=== PATIENT | female | born 1965 | race Caucasian/White ===

== ENCOUNTER 2023-05-26 13:58 | Inpatient (IN) | payer MEDICARE, SELFPAY ==
[2023-05-26] VITALS (8 sets, daily range): BP systolic 85–119; BP diastolic 57–87; PULSE 67–95; RESP 15–26; TEMP 36.6; O2SAT 94–100
--- NOTE | ~2023-05-26 | CT_ITS ---
EXAMINATION: CT abdomen pelvis w con DATE: 05/26/2023 19:12 INDICATION: Diarrhea. Leukocytosis. TECHNIQUE: Computed tomography (CT) of the abdomen and pelvis was performed with 100 mL Omnipaque 350 intravenous contrast. Automated exposure control and iterative reconstruction technique were employe d. The dose-length product was 278.44 mGy-cm. COMPARISON: CT abdomen and pelvis 07/09/2018 FINDINGS: The visualized portions of the lung bases demonstrate a chronic 6 mm nodule left lower lobe , likely benign. There are groundglass opacities in right lower lobe. There is mild atelectasis bilat erally. No pleural effusion. The heart size is normal. No pericardial effusion. There is a small slid ing hiatal hernia. The liver, gallbladder, spleen, pancreas, adrenal glands, and kidneys are normal. There are no dilated loops of bowel. There is diverticulosis of the colon without evidence of diverti culitis. There are changes of appendectomy. There is liquid stool in the colon correlating with the s ymptom of diarrhea. There are no pathologically enlarged lymph nodes. There is no free intraperitonea l fluid. There is lumbar levoscoliosis and severe spondylosis. There are chronic compression fracture s of T11, T12, and L1. There are hemangiomas in L1 and L2 vertebral bodies. IMPRESSION: 1. Groundglass opacities in right lower lower lobe, consistent with pneumonia. 2. Small sliding hiatal hernia. Reviewed, dictated and finalized at location E. L B[facility]
--- NOTE | ~2023-05-26 | CT_ITS ---
EXAMINATION: CT brain wo con INDICATION: Vomiting and diarrhea COMPARISON: 04/13/2019 TECHNIQUE: Standard unenhanced head CT. The dose-length product (DLP) was 681.00 mGy-cm. The mA was a djusted according to patient size. Iterative reconstruction technique was employed. FINDINGS: No acute intraparenchymal hemorrhage. No evidence of mass lesion. No evidence of acute infa rction. There are areas of prior infarction involving the frontal lobes, the left occipital lobe, the left insula, and the right parietal lobe. There is mild periventricular and subcortical hypodensity probably related to small vessel ischemic disease. There is mild prominence of the sulci and ventricl es related to cerebral atrophy. Intracranial calcified cerebral atherosclerosis is noted. No extra-ax ial collections. No mass effect or midline shift. The orbits and soft tissues are unremarkable. The v isualized sinuses and mastoid air cells are well aerated. IMPRESSION: 1. Areas of prior infarction without acute intracranial abnormality. 2. Age related findings. Reviewed, dictated and finalized at location B. [facility]
--- NOTE | ~2023-05-26 | XR_ITS ---
EXAMINATION: XR chest 1V portable DATE: 05/26/2023 19:57 INDICATION: Cough and shortness of breath. TECHNIQUE: A single frontal view of the chest was obtained. COMPARISON: Chest single view 04/13/2019, CT abdomen and pelvis 05/26/2023 FINDINGS: There are interstitial opacities in the lower lung zones. No pleural effusion or pneumothor ax. The heart size is normal. IMPRESSION: 1. Interstitial opacities in the lower lung zones, consistent with mild pulmonary edema versus atypic al pneumonia. Reviewed, dictated and finalized at location E. [facility] IMPRESSION: 1. Interstitial opacities in the lower lung zones, consistent with mild pulmona ry edema versus atypical pneumonia.
--- NOTE | 2023-05-26 16:04 | PC.NURSE ---
Pt urinated on bedpan prior to sample being ordered. will try again soon.
--- NOTE | 2023-05-26 16:36 | ED.NAVMDI ---
HPI - Nausea/Vomiting/Diarrhea General Chief complaint: Nausea/Vomiting/Diarrhea Stated complaint: N/V/D Time Seen by Provider: 05/26/23 15:29 History of Present Illness HPI Narrative: Patient is a 57-year-old female with a history of CVA, hypertension, hyperlipidemia presenting with diarrhea. Patient states that she has had diarrhea for the last several days and she has been weak and she is concern for dehydration. She denies any pain. No nausea or vomiting. No dysuria or hematuria. No chest pain or shortness of breath. No coughing. No new numbness or weakness. Her brother and [id number] are at bedside and they state that the patient is always lying. They state that she has been complaining to them about profuse diarrhea for 2 weeks. States that she was too weak to walk around today which is why they called EMS. States that she is extremely stubborn and has left AMA during prior hospitalizations for CVA. Related Data Home Medications Medication Instructions Recorded Confirmed amlodipine 5 mg tablet 5 mg PO DAILY 05/26/23 05/27/23 atenolol 25 mg tablet 25 mg PO DAILY 05/26/23 05/27/23 atorvastatin 40 mg tablet 40 mg PO HS 05/26/23 05/27/23 mirtazapine 15 mg tablet 15 mg PO HS 05/26/23 05/27/23 Allergies Allergy/AdvReac Type Severity Reaction Status Date / Time Sulfa (Sulfonamide Allergy Unknown Unknown Verified 05/26/23 15:03 Antibiotics) Review of Systems Review of Systems: All systems reviewed & are unremarkable except as noted in HPI and below PMFSH Past Medical History Medical History (Updated 05/30/23 @ 20:39 by Zulay Kennedy MD) Anemia Arthritis CVA (cerebral vascular accident) DDD (degenerative disc disease) Depression GERD (gastroesophageal reflux disease) HTN (hypertension) Hyperlipidemia IBS (irritable bowel syndrome) Migraines MVP (mitral valve prolapse) Seasonal allergies Ulcer Wears glasses Wrist fracture, right Surgical History Surgical History History of appendectomy History of hysteroscopy Hx of tonsillectomy Family History Family History (Updated 05/27/23 @ 00:16 by Neftali Hall RN) Father Diabetes mellitus Acute myocardial infarction Mother Dementia Social History Social History Smoking packs per day: 0.1 Smoking cigarettes per day: 2.0 Years smoked: 10 Smoking pack-years: 1.00 Smoking status: Current every day smoker Tobacco type: cigarettes Smoking end date: 04/19/16 Alcohol intake: never Substance use: never Do You Feel Safe in your Home?: Yes Lack of Transportation: No Lack of Food: Never True Current Housing: I Have Housing Concerned About Future Housing: No Difficulty Paying Gas/Electric Bills: No Difficulty Paying for Meds: No Currently Unemployed: No Education: Never Attended/Kindergarten Only Difficulty w/ Childcare or Family Care: No Spiritual care concerns: No Agree to blood products: Yes Exam Narrative: GENERAL: Nontoxic, no acute distress HEAD: Normocephalic, atraumatic. EYES: PERRLA and EOMI. ENT: Grossly unremarkable NECK: Supple. CHEST: Clear to auscultation. No respiratory distress. HEART: Regular rate and rhythm. ABDOMEN: Soft, nontender, nondistended EXTREMITIES: Normal range of motion. No edema. SKIN: Warm, dry, no rash. NEURO: No focal deficits. Alert and oriented x3. PSYCH: Normal mood and affect. Course Vital Signs Vital signs: Vital Signs Temperature 97.8 F 05/26/23 14:00 Pulse Rate 95 05/26/23 14:00 Respiratory Rate 16 05/26/23 14:00 Blood Pressure 119/72 05/26/23 14:00 Pulse Oximetry 100 05/26/23 14:00 Oxygen Delivery Room Air 05/26/23 14:00 Temperature 98.0 F 05/28/23 11:57 Pulse Rate 91 05/28/23 12:00 Respiratory Rate 19 05/28/23 11:57 Blood Pressure 104/68 05/28/23 11:57 Pulse Oximetry
[2023-05-26 17:18] LABS: Hemoglobin 9.6 g/dL (12.0-15.0); Immature Platelet Fraction Pct 9.6 % (0.9-11.2); Mean Corpuscular HGB Conc 33.1 g/dl (32-36); Mean Corpuscular Hemoglobin 29.5 pg (26-34); Mean Corpuscular Volume 89.2 fl (80-100); Mean Platelet Volume 12.1 fl (7.4-10.4); Platelet Count Result 90 k/mm3 (150-375); Red Blood Count 3.25 M/mm3 (4.2-5.4); Red Cell Distribution Width 14.1 % (11.5-14.5); White Blood Count 36.3 K/mm3 (4.5-10.0)
[2023-05-26 17:19] LABS: Alanine Aminotransferase 29 U/L (6-35); Albumin Level 2.9 g/dL (3.5-5.1); Alkaline Phosphatase 93 U/L (38-126); Anion Gap 9 mmol/L (8-16); Aspartate Amino Transferase 54 U/L (14-36); Bilirubin,Total 1.8 mg/dL (0.2-1.3); Blood Urea Nitrogen 22 mg/dL (7-17); Carbon Dioxide 19 mmol/L (22-30); Chloride 103 mmol/L (98-107); Estimated CRCL calculation 34 ml/min; Estimated Glomerular Filt Rate 38; Glucose 104 mg/dL (65-110); Lipase 171 U/L (23-300); Potassium 3.5 mmol/L (3.4-5.0); Sodium 131 mmol/L (137-145)
[2023-05-26 17:34] LABS: Appearance Urine Clear (Clear); Bacteria Urine None Seen /hpf; Bilirubin Urine Negative (Negative); Blood Urine 1+ (Negative); Color Urine Yellow (Yellow); Glucose Urine UA Negative (Negative); Ketones Urine Negative (Negative); Leukocyte Esterase Ur Negative LEU/UL (Negative); Need Manual Microscopic Reviewed; Nitrate Urine Negative (Negative); Non Pathogenic Casts 0-2; Protein Urine Negative (Negative); RBC Urine 0-2 /hpf (0-2); Specific Grav Ur 1.005 (1.001-1.035); Squamous Epithelial Cell Urine None seen /hpf (Few); Urobilinogen Urine 0.2 mg/dL (<2.0); WBC Urine 0-5 /hpf; pH Urine 5.5 (5.0-9.0)
[2023-05-26] MEDS: SODIUM CHLORIDE 0.9% IV 1,000 ML 999 ML IV CONT ×3 (17:39→21:42)
[2023-05-26 17:43] LABS: Add Urine Microscopic? YES
[2023-05-26 18:17] LABS: Band Neutrophils Percent 9 % (0-6); Lymphocytes Absolute Manual 0.36 K/mm3 (1.1-4.5); Monocytes Absolute Manual 1.08 K/mm3 (0.1-0.90); Monocytes Percent Manual 3 % (3-9); Neutrophils Absolute Manual 34.84 K/mm3 (1.7-7.2); Neutrophils Percent Manual 87 % (46-73); Platelet Estimate Decreased (Adequate); Total Cells Counted 100
[2023-05-26 18:18] LABS: Schistocytes None Seen (NORMAL)
[2023-05-26 20:33] LABS: Influenza A QL RT-PCR Negative (Negative); Influenza B QL RT-PCR Negative (Negative); RSV RNA, RT-PCR Negative (Negative); SARS-CoV-2 RNA PCR Positive (Negative)
--- NOTE | 2023-05-26 21:27 | PM.IMHP ---
H&P: HPI History of Present Illness Date/Time: 05/26/23 21:27 Chief Complaint: Generalized weakness Narrative: This is a 57-year-old female with past medical history significant for hypertension, stroke, expressive aphasia, degenerative joint disease, GERD, mitral valve prolapse, migraine headaches. Patient presents to the emergency room due to generalized weakness, poor appetite, diarrhea for several days, shortness of breath. History taking is limited due to patient's prior strokes and aphasia. Preliminary workup was significant for paced chin-tuck tested positive for COVID chest x-ray showed lung infiltrates a CBC was significant for leukocyte count of 36,000, chemistry panel was significant for sodium 131 creatinine 1.4 bicarb of 19. Patient has been admitted for further evaluation management and treatment. EXAMINATION: CT brain wo con ? INDICATION: Vomiting and diarrhea ? COMPARISON: 04/13/2019 TECHNIQUE: Standard unenhanced head CT. The dose-length product (DLP) was 681.00 mGy-cm. The mA was adjusted according to patient size. Iterative reconstruction technique was employed. ? FINDINGS: No acute intraparenchymal hemorrhage. No evidence of mass lesion. No evidence of acute infarction. There are areas of prior infarction involving the frontal lobes, the left occipital lobe, the left insula, and the right parietal lobe. There is mild periventricular and subcortical hypodensity probably related to small vessel ischemic disease. There is mild prominence of the sulci and ventricles related to cerebral atrophy. Intracranial calcified cerebral atherosclerosis is noted. No extra-axial collections. No mass effect or midline shift. The orbits and soft tissues are unremarkable. The visualized sinuses and mastoid air cells are well aerated. IMPRESSION: 1. Areas of prior infarction without acute intracranial abnormality. 2. Age related findings. EXAMINATION: CT abdomen pelvis w con DATE: 05/26/2023 19:12 INDICATION: Diarrhea. Leukocytosis. TECHNIQUE: Computed tomography (CT) of the abdomen and pelvis was performed with 100 mL Omnipaque 350 intravenous contrast. Automated exposure control and iterative reconstruction technique were employed. The dose-length product was 278.44 mGy-cm. COMPARISON: CT abdomen and pelvis 07/09/2018 FINDINGS: The visualized portions of the lung bases demonstrate a chronic 6 mm nodule left lower lobe, likely benign. There are groundglass opacities in right lower lobe. There is mild atelectasis bilaterally. No pleural effusion. The heart size is normal. No pericardial effusion. There is a small sliding hiatal hernia. The liver, gallbladder, spleen, pancreas, adrenal glands, and kidneys are normal. There are no dilated loops of bowel. There is diverticulosis of the colon without evidence of diverticulitis. There are changes of appendectomy. There is liquid stool in the colon correlating with the symptom of diarrhea. There are no pathologically enlarged lymph nodes. There is no free intraperitoneal fluid. There is lumbar levoscoliosis and severe spondylosis. There are chronic compression fractures of T11, T12, and L1. There are hemangiomas in L1 and L2 vertebral bodies. IMPRESSION: 1. Groundglass opacities in right lower lower lobe, consistent with pneumonia. 2. Small sliding hiatal hernia. EXAMINATION: XR chest 1V portable DATE: 05/26/2023 19:57 INDICATION: Cough and shortness of breath. TECHNIQUE: A single frontal view of the chest was obtained. COMPARISON: Chest single view 04/13/2019, CT abdomen and pelvis 05/26/2023 FINDINGS: There are interstitial opacities in the lower lung zones. No pleural effusion or pneumothorax. The heart size is normal. IMPRESSION: 1. Interstitial opacities in the lower lung zones, consistent with mild pulmonary edema versus atypical pneumonia. Review of Systems Review of Systems: Diarrhea, generalized weakness, poor appetite, shortness of breath. Constitutional: Cons
[2023-05-26 21:41] LABS: Toxigenic C. Diff NEGATIVE (NEGATIVE)
[2023-05-26] MEDS: AZITHROMYCIN 500 MG/NS 250 ML 500 MG/250 ML BAG 250 MG IVPB (21:42)
[2023-05-27] VITALS (17 sets, daily range): BP systolic 85–98; BP diastolic 47–63; PULSE 66–86; RESP 16–18; TEMP 36.4–36.9; O2SAT 93–98; BMI 19.7
--- NOTE | 2023-05-27 | ECHO_ITS ---
Patient Info Name: Elias Luis Age: 57 years : 1965 Gender: Female Ht: 64 in Wt: 164 lbs BSA: 1.85 m2 HR: 86 bpm BP: 94 / 47 mmHg Heart Rhythm: Sinus Rhythm Technical Quality: Good Exam Date: 05/27/2023 9:17 AM Exam Location: Echo Lab Patient Status: Inpatient Admit Date: 05/26/2023 Staff Ordering Physician: Malinda Woodson MD Cab Driver: Dalton Damon RDCS Attending Provider: Malinda Woodson MD Referring Physician: Chintan ALAS; Exam Type: CA echo doppler color flow Study Info Indications - stroke Complete two-dimensional, color flow and Doppler transthoracic echocardiogram is performed. Summary 1. Left ventricular chamber dimension is normal. 2. Left ventricular systolic function is normal, estimated at >70%. 3. The left ventricular diastolic function is grade I diastolic dysfunction. 4. Right ventricular systolic function is normal. 5. There is moderate mitral valve regurgitation. 6. There is mild tricuspid valve regurgitation. Left Ventricle Left ventricular chamber dimension is normal. Left ventricular systolic function is normal, estimated at >70%. There is no increased left ventricular wall thickness. The left ventricular diastolic function is grade I diastolic dysfunction. Right Ventricle Right ventricular chamber dimension is normal. Right ventricular systolic function is normal. Left Atria Left atrial chamber dimension is normal. Right Atria Right atrial chamber dimension is normal. Atrial Septum Intact interatrial septum visualized by color flow imaging. Aortic Valve The aortic valve is probable trileaflet. There is no aortic valve stenosis. There is no aortic valve regurgitation. Pulmonic Valve The pulmonic valve is not well visualized. Mitral Valve The mitral valve has thickened leaflets. There is moderate mitral valve regurgitation. The mitral valve annulus is mildly calcified. Tricuspid Valve There is mild tricuspid valve regurgitation. Pericardium/Pleural There is no pericardial effusion. Inferior Vena Cava Normal inferior vena cava with >50% collapse upon inspiration consistent with normal right atrial pressure, 3 mmHg. Aorta The aortic root size at the sinus of Valsalva is normal. Left Ventricular Outflow Tract Name Value Normal LVOT 2D LVOT Diameter 1.9 cm Pulmonic Valve Name Value Normal RVOT Doppler RVOT Peak Gradient 3 mmHg PV Doppler PV Peak Gradient 5 mmHg Mitral Valve Name Value Normal MV Doppler MV Peak Gradient 16 mmHg MV Mean Gradient 7 mmHg MV Decel Bosque 577 cm/s2 MV PHT
--- NOTE | 2023-05-27 00:24 | ADMGEN ---
This patient, Elias Luis, was admitted to IMU Room 212-01. Patient/family oriented to hospital policies and general routines including ID bracelet, bed and alarms, visiting hours, pain management, procedures, bathroom and other care routines, personal items, smoking policy, room service/diet, and visiting hours. Information on how to activate the Rapid Response Team has been discussed. Patient/Family are encouraged to report perceived risks to care and to ask questions if they do not understand what they are told or what they should do.
[2023-05-27] MEDS: DEXTROSE 5%/0.45% SOD CHL 1,000 ML 75 ML IV CONT (02:02)
[2023-05-27] MEDS: amLODIPine BESYLATE 5 MG TABLET PO (09:49)
[2023-05-27] MEDS: atenoloL 25 MG TABLET PO (11:44)
--- NOTE | 2023-05-27 15:44 | PM.IMPN ---
Progress Note: A&P Assessment and Plan (1) Pneumonia due to COVID-19 virus: Code(s): U07.1 - COVID-19; J12.82 - Pneumonia due to coronavirus disease 2019 Status: Acute Assessment and Plan: Remdesivir Patient started on antibiotics for bacterial coverage Cultures in progress ECHO showed normal left ventricular function Continue to monitor (2) CVA (cerebral vascular accident): Code(s): I63.9 - Cerebral infarction, unspecified Status: Acute Assessment and Plan: Patient is on atorvastatin, not on Antiplatelets investigate with residual expressive aphasia (3) Diarrhea: Code(s): R19.7 - Diarrhea, unspecified Status: Acute Assessment and Plan: improving, likely from Covid Supportive care C difficile is negative (4) MVP (mitral valve prolapse): Code(s): I34.1 - Nonrheumatic mitral (valve) prolapse Status: Acute Assessment and Plan: Continue to monitor (5) Migraines: Code(s): G43.909 - Migraine, unspecified, not intractable, without status migrainosus Status: Acute Assessment and Plan: Stable (6) Expressive aphasia: Code(s): R47.01 - Aphasia Status: Acute Assessment and Plan: Supportive care Subjective Date/time seen: 05/27/23 15:44 Interval history: COvid 19 and diarrhea with possible bacterial PNA Symptoms improving possible discharge tomorrow Review of Systems Review of Systems: Diarrhea, generalized weakness, poor appetite, shortness of breath. Constitutional: Constitutional: Reports chills, Reports fatigue, Reports malaise, Reports poor appetite and Reports weakness Eyes: Eyes: Denies change in vision ENT: Denies dysphagia and Denies odynophagia Cardiovascular: Cardiovascular: Denies chest pain, Denies radiating jaw, neck or arm pain, Denies palpitations and Reports dyspnea Respiratory: Respiratory: Denies cough and Reports dyspnea Gastrointestinal: Gastrointestinal: Denies abdominal pain, Denies dysphagia, Denies dyspepsia, Denies heartburn, Reports diarrhea, Denies nausea, Denies odynophagia and Denies vomiting Genitourinary: Genitourinary: Denies dysuria Musculoskeletal: Musculoskeletal: Reports muscle weakness Integumentary/Breasts: Skin/Breast: Denies rash Neurologic: Denies focal weakness, Denies Sensory deficit (Neuro) and Reports weakness Psychiatric: Psychiatric: Reports no additional psychiatric complaints and Reports as per HPI Endocrine: Endocrine: Denies cold intolerance, Reports fatigue, Denies flushing, Denies heat intolerance, Denies polyphagia, Denies polydipsia and Denies palpitations Hematologic/Lymphatic: Hematologic/Lymphatic: Reports no additional hematologic/lymphatic complaints and Reports as per HPI Allergic/Immunologic: Allergic/Immunologic: Reports no additional allergic/immunologic complaints and Reports as per HPI Exam Narrative: Laying in a stretcher Const: General: comfortable, no acute distress, well developed, alert, awake and average body habitus Nutritional Appearance: average body habitus Orientation/consciousness: patient oriented x3 Other: Ill-appearing HENMT: Head: normal to inspection, normocephalic and atraumatic Ears: hearing grossly normal bilaterally Face/Nose/Sinus: normal facial exam Face and sinus: normal facial exam Eyes: General: appearance normal, both eyes and all related structures Pupils: Equal, round and reactive pupils present EOM: EOMs intact bilaterally Neck: Neck: full ROM, no lymphadenopathy and no JVD Thyroid: thyroid normal Lymphatic: no lymphadenopathy noted Resp: Effort & Inspection: normal respiratory effort and able to speak in complete sentences Auscultation: clear to auscultation bilaterally Cardio: Jugular venous distension: no JVD Rate: regular rate Rhythm: regular rhythm Heart sounds: S1 normal heart sound present and S2 normal heart sound present : General: Yes deferred
[2023-05-27] MEDS: REMDESIVIR 200 MG/NS 250 ML 200 MG/250 ML BAG 250 MG IVPB (17:11)
[2023-05-27] MEDS: ATORVASTATIN 40 MG TABLET PO (20:36)
[2023-05-27] MEDS: MIRTAZAPINE 15 MG TABLET PO (20:36)
[2023-05-28] VITALS (10 sets, daily range): BP systolic 104–110; BP diastolic 55–68; PULSE 68–91; RESP 18–19; TEMP 36.4–37.2; O2SAT 89–98
[2023-05-28 08:01] LABS: Alanine Aminotransferase 39 U/L (6-35); Albumin Level 2.6 g/dL (3.5-5.1); Alkaline Phosphatase 74 U/L (38-126); Aspartate Amino Transferase 95 U/L (14-36); Bilirubin,Total 1.1 mg/dL (0.2-1.3)
[2023-05-28 08:05] LABS: Prothrombin Time 14.2 Seconds (11.1-14.7)
[2023-05-28] MEDS: amLODIPine BESYLATE 5 MG TABLET PO (08:32)
[2023-05-28] MEDS: atenoloL 25 MG TABLET PO (08:32)
--- NOTE | 2023-05-28 08:59 | PCPTNOTE ---
Attempted PT evaluation, pt refused stating she wants to go home. When attempted to encourage pt to participate she stated she has the right to refuse. RN aware.
[2023-05-28 11:02] LABS: Hematocrit 29.8 % (37.0-47.0); Hemoglobin 9.5 g/dL (12.0-15.0); Mean Corpuscular HGB Conc 31.9 g/dl (32-36); Mean Corpuscular Hemoglobin 28.9 pg (26-34); Mean Corpuscular Volume 90.6 fl (80-100); Mean Platelet Volume 12.1 fl (7.4-10.4); Platelet Count Result 128 k/mm3 (150-375); Red Blood Count 3.29 M/mm3 (4.2-5.4); Red Cell Distribution Width 14.6 % (11.5-14.5); White Blood Count 7.3 K/mm3 (4.5-10.0)
[2023-05-28 11:28] LABS: Anion Gap 7 mmol/L (8-16); Blood Urea Nitrogen 13 mg/dL (7-17); Calcium 7.9 mg/dL (8.4-10.2); Carbon Dioxide 18 mmol/L (22-30); Chloride 112 mmol/L (98-107); Estimated CRCL calculation 34 ml/min; Estimated Glomerular Filt Rate 42; Glucose 98 mg/dL (65-110); Potassium 3.3 mmol/L (3.4-5.0); Sodium 137 mmol/L (137-145)
--- NOTE | 2023-05-28 11:54 | PM.DS ---
DS: Admitting Diagnosis Discharge Date 05/28/2023 Admitting Diagnosis Diarrhea DS: Discharge Diagnosis Discharge Diagnosis (1) Pneumonia due to COVID-19 virus: Code(s): U07.1 - COVID-19; J12.82 - Pneumonia due to coronavirus disease 2018 Status: Acute (2) CVA (cerebral vascular accident): Code(s): I63.9 - Cerebral infarction, unspecified Status: Acute (3) Diarrhea: Code(s): R19.7 - Diarrhea, unspecified Status: Acute (4) MVP (mitral valve prolapse): Code(s): I34.1 - Nonrheumatic mitral (valve) prolapse Status: Acute (5) Migraines: Code(s): G43.909 - Migraine, unspecified, not intractable, without status migrainosus Status: Acute (6) Expressive aphasia: Code(s): R47.01 - Aphasia Status: Acute DS: Summary Hospital Course Hospital Course: Patient is a 57-year-old female with a history of CVA, hypertension, hyperlipidemia presenting with diarrhea.? Patient states that she has had diarrhea for the last several days and she has been weak and she is concern for dehydration.? She denies any pain.? No nausea or vomiting.? No dysuria or hematuria.? No chest pain or shortness of breath.? No coughing.? No new numbness or weakness.. On ED evaluation she was noted to have white cell count of 36,000 mild anemia which is chronic. Renal insufficiency which is chronic. Tested positive for COVID. Chest x-ray with right lower lobe pneumonia. CT abdomen pelvis was done which showed ground-glass opacity in the right lower lobe consistent with pneumonia and small sliding hiatal hernia. CT head was negative for any acute abnormality. She was started on IV antibiotics on admission. Repeat WBC count was normalized on 05/28/2023. Vitals were stable. She reports her cough and diarrhea is resolved. She was able to reiterate her history of present illness as well as per previous medical problems. She was adamant at going home and since clinically stable for discharge home. She did not require any oxygen supplementation during the hospital stay. She did receive a dose of remdesivir for her COVID on admission. With no hypoxia no further remdesivir was deemed necessary. She did not have any other respiratory symptoms at all. Blood culture obtained on admission was also no growth to date. She will be switched to oral antibiotics for her pneumonia at discharge. Time Spent with Patient Time attestation: Total time spent providing and/or coordinating discharge services: 35 minutes Exam Narrative: GENERAL:? Nontoxic, no acute distress HEAD: Normocephalic, atraumatic. EYES: PERRLA and EOMI. ENT:? Grossly unremarkable NECK: Supple. CHEST: Clear to auscultation.? No respiratory distress. HEART: Regular rate and rhythm. ABDOMEN: Soft, nontender, nondistended EXTREMITIES: Normal range of motion.? No edema. SKIN: Warm, dry, no rash. NEURO: No focal deficits.? Alert and oriented x3. PSYCH: Mildly upset for being in the hospital DS: Data Data Completed and Pending Completed studies during hospitalization: Exam Type: ? ? CA echo doppler color flow Study Info Indications ?? ? - stroke Complete two-dimensional, color flow and Doppler transthoracic echocardiogram is performed. Account #: ? ? [id number] Summary ? 1. Left ventricular chamber dimension is normal. ? 2. Left ventricular systolic function is normal, estimated at >70%. ? 3. The left ventricular diastolic function is grade I diastolic dysfunction. ? 4. Right ventricular systolic function is normal. ? 5. There is moderate mitral valve regurgitation. ? 6. There is mild tricuspid valve regurgitation. Left Ventricle ? Left ventricular chamber dimension is normal. ? Left ventricular systolic function is normal, estimated at >70%. ? There is no increased left ventricular wall thickness. ? The left ventricular diastolic function is grade I diastolic dysfunction. Right Ventricle ? Right ventricular chamber
== END 2023-05-28 13:00 | disposition home or self-care (01) | DRG 177 ==
LOC: ANHED 16:00 → ANHIMU 22:17
PROVIDERS: Internal Medicine; Admitting Provider Internal Medicine; Emergency Provider Emergency Medicine; Visit Provider Internal Medicine
DX: U07.1 COVID-19 (principal); J12.82 Pneumonia due to coronavirus disease 2019; I10 Essential (primary) hypertension; E78.5 Hyperlipidemia, unspecified; K21.9 Gastro-esophageal reflux disease without esophagitis; K44.9 Diaphragmatic hernia without obstruction or gangrene; K58.9 Irritable bowel syndrome, unspecified; M19.90 Unspecified osteoarthritis, unspecified site; F32.A Depression, unspecified; F17.210 Nicotine dependence, cigarettes, uncomplicated; I69.320 Aphasia following cerebral infarction
CPT/HCPCS: 36415; 70450; 71045; 74177; 80048; 80053; 80076; 81001; 83690; 85025; 85027; 85055; 85610; 87040; 87493; 87637; 93306; 96361; 96365; 97165; 99285; A9270; J0248; J0456; J0696; J7030; Q9967

== ENCOUNTER 2023-06-27 16:07 | Inpatient (IN) | payer MEDICARE, OTHER, SELFPAY ==
[2023-06-27] VITALS (25 sets, daily range): BP systolic 95–116; BP diastolic 48–70; PULSE 75–84; RESP 16–32; TEMP 36.6; O2SAT 88–100
--- NOTE | ~2023-06-27 | XR_ITS ---
EXAMINATION: XR chest 1V portable DATE: 06/27/2023 17:36 INDICATION: Shortness of breath. TECHNIQUE: A single frontal view of the chest was obtained. COMPARISON: Chest single view 05/26/2023, CT abdomen and pelvis 05/26/23 FINDINGS: There are airspace opacities in all lung zones bilaterally with sparing of the lung apices. There is a small left pleural effusion. No pneumothorax. The heart size is normal. IMPRESSION: 1. Worsened diffuse lung disease, consistent with pulmonary edema versus pneumonia. 2. Small left pleural effusion. Reviewed, dictated and finalized at location E. IMPRESSION: 1. Worsened diffuse lung disease, consistent with pulmonary edema versus pneumo kehinde. 2. Small left pleural effusion.
--- NOTE | ~2023-06-27 | CT_ITS ---
EXAMINATION: CTA chest PE protocol DATE: 06/27/2023 19:21 INDICATION: Hypoxia. TECHNIQUE: Computed tomography angiography (CTA) of the chest was performed with 100 mL Omnipaque-350 intravenous contrast timed to evaluate the pulmonary arteries. Coronal maximum intensity projection 3D-reconstructions were created by the technologist. Automated exposure control and iterative reconst ruction technique were employed. The dose-length product was 180.80 mGy-cm. COMPARISON: CT abdomen and pelvis 05/26/23 FINDINGS: There are widespread patchy groundglass and airspace opacities in the lungs. There is diffu se septal thickening in the lungs. There are small pleural effusions. Cardiomegaly is noted. No peric ardial effusion. There is no pulmonary embolus. There is thoracic dextroscoliosis and severe spondylo sis. There are chronic fractures of T11, T12, and L1 vertebral bodies. There is a hemangioma in L1 ve rtebral body. IMPRESSION: 1. No pulmonary embolus. 2. Diffuse lung disease, likely a combination of pneumonia and pulmonary edema. 3. Small pleural effusions. Reviewed, dictated and finalized at location E.
--- NOTE | 2023-06-27 16:14 | ECG_ITS ---
Measurements Intervals [place] Rate: 81 P: 37 [place]: 128 QRS: 76 QRSD: 92 T: 79 QT: 389 QTc: 453 Interpretive Statements SINUS RHYTHM ATRIAL PREMATURE COMPLEXES BASELINE ARTIFACT- I, II, III, AVR, AVL, AVF, V1-V6 BORDERLINE ECG COMPARED TO ECG 04/13/2019 19:29:51 NO SIGNIFICANT CHANGES Electronically Signed On 06-28-2023 14:25:09 CDT by Micheal Rangel D.O.
--- NOTE | 2023-06-27 16:25 | ECG_ITS ---
Measurements Intervals [place] Rate: 79 P: 47 [place]: 155 QRS: 70 QRSD: 97 T: 14 QT: 365 QTc: 420 Interpretive Statements SINUS RHYTHM POSSIBLE LEFT ATRIAL ENLARGEMENT BORDERLINE ST-T WAVE ABNORMALITY- INF/LAT LEADS BASELINE ARTIFACT- II, III, AVF, V1-V6 BORDERLINE ECG COMPARED TO ECG 04/13/2019 19:29:51 NO SIGNIFICANT CHANGES Electronically Signed On 06-27-2023 20:17:36 CDT by Micheal Rangel D.O.
--- NOTE | 2023-06-27 16:48 | ED.GENADULT ---
HPI - General Adult General Chief complaint: Shortness of Breath/Dyspnea Stated complaint: sob Time Seen by Provider: 06/27/23 16:09 Source: patient Mode of arrival: EMS Limitations: no limitations History of Present Illness HPI narrative: 57-year-old female presenting for cough primarily. Patient recently was diagnosed with pneumonia and COVID and was in the hospital for several days and discharged recently. The says that she thinks that she did not get enough antibiotic because she still been coughing. She wanted to be evaluated again. Family says that she has been getting short of breath when she ambulates She but she says that she isn't really having many concerns with Getting short of breath. She thinks she needs more antibiotics because she thinks the pneumonia still there. She does her symptoms have Not really became any worse but her symptoms have been consistent since she was discharged. Related Data Home Medications Medication Instructions Recorded Confirmed amlodipine 5 mg tablet 5 mg PO DAILY 05/26/23 06/27/23 atenolol 25 mg tablet 25 mg PO DAILY 05/26/23 06/27/23 atorvastatin 40 mg tablet 40 mg PO HS 05/26/23 06/27/23 mirtazapine 15 mg tablet 15 mg PO HS 05/26/23 06/27/23 Allergies Allergy/AdvReac Type Severity Reaction Status Date / Time Sulfa (Sulfonamide Allergy Unknown Unknown Verified 06/27/23 16:20 Antibiotics) Review of Systems Review of Systems: All systems reviewed & are unremarkable except as noted in HPI and below PMFSH Past Medical History Medical History Anemia Arthritis CVA (cerebral vascular accident) DDD (degenerative disc disease) Depression GERD (gastroesophageal reflux disease) HTN (hypertension) Hyperlipidemia IBS (irritable bowel syndrome) Migraines MVP (mitral valve prolapse) Seasonal allergies Ulcer Wears glasses Wrist fracture, right Surgical History Surgical History History of appendectomy History of hysteroscopy Hx of tonsillectomy Family History Family History Father Diabetes mellitus Acute myocardial infarction Mother Dementia Social History Social History Smoking packs per day: 0.1 Smoking cigarettes per day: 2.0 Years smoked: 10 Smoking pack-years: 1.00 Smoking status: Current every day smoker Tobacco type: cigarettes Smoking end date: 04/19/16 Alcohol intake: never Substance use: never Do You Feel Safe in your Home?: Yes Lack of Transportation: No Lack of Food: Never True Current Housing: I Have Housing Concerned About Future Housing: No Difficulty Paying Gas/Electric Bills: No Difficulty Paying for Meds: No Currently Unemployed: No Education: Never Attended/Kindergarten Only Difficulty w/ Childcare or Family Care: No Spiritual care concerns: No Agree to blood products: Yes Exam Narrative: Constitutional: Generally well appearing, no acute distress Head: Atraumatic, no deformities. Eyes: Pupils equal, round, and reactive to light. Neck: Supple, no tracheal deviation, no JVD. ENMT: Mucous membranes moist Cardiovascular: S1, S2 auscultated. No murmurs, rubs, or gallops. No S3/S4. Normal Distal pulses. No peripheral edema. Respiratory: Lung sounds equal. No wheezes, rales, or rhonchi. Gastrointestinal: Abdomen was soft and non-tender. Non-distended. No rebound or guarding. Genitourinary: Deferred Musculoskeletal: Normal muscle tone and bulk. No obvious deformities or tenderness over extremities. Skin: No rashes. Neurological: Strength 5/5 in extremities. Cranial nerves I-XII grossly intact. Distal sensation intact. Mental Status: Awake, alert and oriented x3. Follows commands Course Vital Signs Vital signs: Vital Signs Pulse Rate 81 06/27/23 16:10
[2023-06-27 17:55] LABS: Basophils Absolute Auto 0.1 K/mm3 (0.0-0.1); Basophils Percent Auto 0.5 % (0.2-1.2); Eosinophils Absolute Auto 0.2 K/mm3 (0-0.3); Eosinophils Percent Auto 1.8 % (0-4.4); Hematocrit 30.9 % (37.0-47.0); Hemoglobin 9.4 g/dL (12.0-15.0); Immature Granulocyte Absolute 0.06 K/mm3 (0.00-0.031); Immature Granulocyte Percent A 0.6 % (0-0.5); Lymphocytes Absolute Auto 1.22 K/mm3 (0.9-3.2); Lymphocytes Percent Auto 12.3 % (18.3-44.2); Mean Corpuscular HGB Conc 30.4 g/dl (32-36); Mean Corpuscular Hemoglobin 28.3 pg (26-34); Mean Corpuscular Volume 93.1 fl (80-100); Mean Platelet Volume 10.8 fl (7.4-10.4); Monocytes Absolute Auto 0.6 K/mm3 (0.1-0.6); Monocytes Percent Auto 6.1 % (2.6-8.5); Neutrophils Absolute Auto 7.8 K/mm3 (1.3-6.7); Neutrophils Percent Auto 78.7 % (45.5-73.1); Platelet Count Result 156 k/mm3 (150-375); Red Blood Count 3.32 M/mm3 (4.2-5.4); Red Cell Distribution Width 15.5 % (11.5-14.5); White Blood Count 9.9 K/mm3 (4.5-10.0)
[2023-06-27 18:04] LABS: Alanine Aminotransferase 12 U/L (6-35); Albumin Level 3.8 g/dL (3.5-5.1); Alkaline Phosphatase 89 U/L (38-126); Anion Gap 8 mmol/L (8-16); Aspartate Amino Transferase 24 U/L (14-36); Bilirubin,Total 1.6 mg/dL (0.2-1.3); Blood Urea Nitrogen 31 mg/dL (7-17); Calcium 8.8 mg/dL (8.4-10.2); Carbon Dioxide 22 mmol/L (22-30); Chloride 108 mmol/L (98-107); Estimated CRCL calculation 30 ml/min; Estimated Glomerular Filt Rate 33; Glucose 141 mg/dL (65-110); INR 1.1; Lactic Acid Reflex 1.4 mmol/L (0.7-2.0); Potassium 3.8 mmol/L (3.4-5.0); Prothrombin Time 14.7 Seconds (11.1-14.7); Sodium 138 mmol/L (137-145)
[2023-06-27 18:05] LABS: Partial Thromboplastin Time 37.1 SECONDS (22.3-36.8)
[2023-06-27 18:16] LABS: NT Pro B Type Natriuretic Pept 4290 pg/mL (19.9-100); Troponin I < 0.012 ng/mL (0.000-0.034)
[2023-06-27 18:31] LABS: Influenza A QL RT-PCR Negative (Negative); Influenza B QL RT-PCR Negative (Negative); RSV RNA, RT-PCR Negative (Negative); SARS-CoV-2 RNA PCR Negative (Negative)
[2023-06-27 18:34] LABS: D Dimer 2.41 ug/mL (<0.48)
--- NOTE | 2023-06-27 20:14 | PC.NURSE ---
This Rn took over care of pt at 1900. Day shift RN reported to this Rn that pt was sating 90s on room air. Pt was not wearing pulse ox and stated that its annoying and I want to be able to move around, Im not wearing that . Pt sating 87% on room air. Pt placed on 2L O2 Nasal cannula.
[2023-06-27] MEDS: FUROSEMIDE INJ 40 MG/4 ML VIAL IV PUSH (20:20)
[2023-06-27] MEDS: CEFEPIME 1 GM/NS 50 ML 1 GM/50 ML BAG IVPB (20:30)
[2023-06-27 20:55] LABS: Appearance Urine Clear (Clear); Bilirubin Urine Negative (Negative); Blood Urine Negative (Negative); Color Urine Yellow (Yellow); Glucose Urine UA Negative (Negative); Ketones Urine Negative (Negative); Leukocyte Esterase Ur Negative LEU/UL (Negative); Nitrate Urine Negative (Negative); Protein Urine Negative (Negative); Specific Grav Ur 1.033 (1.001-1.035); Urobilinogen Urine 0.2 mg/dL (<2.0); pH Urine 5.5 (5.0-9.0)
[2023-06-27 20:58] LABS: Add Urine Microscopic? NO
--- NOTE | 2023-06-27 21:25 | ADMGEN ---
This patient, Elias Luis, was admitted to Medical Room 249-01. Patient/family oriented to hospital policies and general routines including ID bracelet, bed and alarms, visiting hours, pain management, procedures, bathroom and other care routines, personal items, smoking policy, room service/diet, and visiting hours. Information on how to activate the Rapid Response Team has been discussed. Patient/Family are encouraged to report perceived risks to care and to ask questions if they do not understand what they are told or what they should do.
[2023-06-27 22:05] LABS: MRSA (PCR) NOT DETECTED (NOT DETECTE)
[2023-06-27] MEDS: VANCOMYCIN 1,500 MG/NS 500 ML 1,500 MG/500 ML BAG 250 MG IVPB (22:11)
--- NOTE | 2023-06-27 22:13 | PM.IMHP ---
H&P: HPI History of Present Illness Date/Time: 06/27/23 22:13 Chief Complaint: shortness of breath Narrative: This is a 57-year-old female with past medical history significant for hypertension, anemia, stroke, degenerative joint disease, GERD, mitral valve prolapse. patient just recently discharged from [facility] after she was treated for pneumonia was discharged home and completed a course of oral antibiotics was feeling well progressing well however felt with shortness of breath denies any fevers, rigors, chills, nausea, vomiting, abdominal pain, diarrhea, night sweats, cough or sputum production. Patient was rule out for acute pulmonary embolism with a negative CT angiogram of the chest however was found to have diffuse infiltrates of the lungs. Patient has been admitted for further evaluation management and treatment EXAMINATION: CTA chest PE protocol DATE: 06/27/2023 19:21 INDICATION: Hypoxia. TECHNIQUE: Computed tomography angiography (CTA) of the chest was performed with 100 mL Omnipaque-350 intravenous contrast timed to evaluate the pulmonary arteries. Coronal maximum intensity projection 3D-reconstructions were created by the technologist. Automated exposure control and iterative reconstruction technique were employed. The dose-length product was 180.80 mGy-cm. COMPARISON: CT abdomen and pelvis 05/26/23 FINDINGS: There are widespread patchy groundglass and airspace opacities in the lungs. There is diffuse septal thickening in the lungs. There are small pleural effusions. Cardiomegaly is noted. No pericardial effusion. There is no pulmonary embolus. There is thoracic dextroscoliosis and severe spondylosis. There are chronic fractures of T11, T12, and L1 vertebral bodies. There is a hemangioma in L1 vertebral body. IMPRESSION: 1. No pulmonary embolus. 2. Diffuse lung disease, likely a combination of pneumonia and pulmonary edema. 3. Small pleural effusions. EXAMINATION: XR chest 1V portable DATE: 06/27/2023 17:36 INDICATION: Shortness of breath. TECHNIQUE: A single frontal view of the chest was obtained. COMPARISON: Chest single view 05/26/2023, CT abdomen and pelvis 05/26/23 FINDINGS: There are airspace opacities in all lung zones bilaterally with sparing of the lung apices. There is a small left pleural effusion. No pneumothorax. The heart size is normal. IMPRESSION: 1. Worsened diffuse lung disease, consistent with pulmonary edema versus pneumonia. 2. Small left pleural effusion. Review of Systems Review of Systems: SHORTNESS OF BREATH PMFSH Past Medical History Medical History Anemia Arthritis CVA (cerebral vascular accident) DDD (degenerative disc disease) Depression GERD (gastroesophageal reflux disease) HTN (hypertension) Hyperlipidemia IBS (irritable bowel syndrome) Migraines MVP (mitral valve prolapse) Seasonal allergies Ulcer Wears glasses Wrist fracture, right Surgical History Surgical History History of appendectomy History of hysteroscopy Hx of tonsillectomy Family History Family History Father Diabetes mellitus Acute myocardial infarction Mother Dementia Social History Social History Smoking packs per day: 0.1 Smoking cigarettes per day: 2.0 Years smoked: 10 Smoking pack-years: 1.00 Smoking status: Former smoker Tobacco type: cigarettes Smoking end date: 04/19/16 Alcohol intake: never Substance use: never Do You Feel Safe in your Home?: Yes Lack of Transportation: No Lack of Food: Never True Current Housing: I Have Housing Concerned About Future Housing: No Difficulty Paying Gas/Electric Bills: No Difficulty Paying for Meds: No Currently Unemployed: No Education: High School Diploma/GED Dif
[2023-06-28] VITALS (13 sets, daily range): BP systolic 90–106; BP diastolic 53–71; PULSE 65–92; RESP 16–18; TEMP 36.2–36.8; O2SAT 89–97
[2023-06-28 05:28] LABS: Estimated CRCL calculation 31 ml/min; Estimated Glomerular Filt Rate 36
--- NOTE | 2023-06-28 07:02 | PM.IMPN ---
Progress Note: A&P Assessment and Plan (1) Acute hypoxemic respiratory failure: Code(s): J96.01 - Acute respiratory failure with hypoxia Status: Acute Assessment and Plan: In the ED the patient SpO2 was low 80s with standing. While sitting patient remains in the low 90%. Patient denies fatigue, shortness of breath, chest pain, palpitations, nausea/vomiting, and changes in bowel and bladder. She does note an occasional cough that she equates to allergies. I discussed with patient that I planned to obtain a home O2 evaluation to assess her need of oxygen supplementation. Patient was hesitant about returning home on home oxygen. Respiratory therapy went to perform the home O2 evaluation but the patient refused. Per respiratory note the patient stated she has no intentions of taking oxygen home and does not want it in her home. Continue to monitor SpO2 (2) Pneumonia: Code(s): J18.9 - Pneumonia, unspecified organism Status: Acute Assessment and Plan: Patient previously hospitalized on 05/26-05/28/2023 for Covid pneumonia. She was treated with antibiotics and discharged home. Since discharge patient noted mild shortness of breath and a cough she equates to allergies. D dimer elevated. CTA chest was PE negative. Chest XR with pneumonia and left pleural effusion. She received vancomycin and cefepime in ED. MRSA negative. Planned to discontinue the vancomycin and continue the cefepime for pseudomonas coverage, however per patient the IV fell out and she refused replacement. She received the morning dose of the cefepime and will start Augmentin in the afternoon. She continues to report a cough, but denies shortness of breath, chest pain, palpitations at this time. Continue Augmentin PO q12 hours Incentive spirometer (3) CHF (congestive heart failure): Code(s): I50.9 - Heart failure, unspecified Status: Acute Assessment and Plan: Previous echo 05/27/23 LVEF >70% with grade I diastolic dysfunction. BNP elevated possibly related to current pneumonia. Recieved lasix in the ED. Time Spent With Patient Time with patient: 25 - 35 minutes Subjective Date/time seen: 06/28/23 07:02 Interval history: Patient is a 57 year old female who was admitted for pneumonia with associated hypoxia on ambulation. Of note, patient was previously admitted to the hospital for Covid and pneumonia for several days and was recently discharged. Per patient she completed her prescribed course of antibiotics outpatient. While in the ED the patient would drop to an SpO2 in the low 80s upon standing. While sitting patient remains in the low 90%. Patient denies fatigue, shortness of breath, chest pain, palpitations, nausea/vomiting, and changes in bowel and bladder. She does note an occasional cough that she equates to allergies. I went over how to use the incentive spirometer with patient and discussed how the device helps expand the lower lungs with deep inspiration. While discussing the plan of care with the patient today she states she feels fine and wants to go home. I discussed in depth that the patient has a drop in her oxygen saturation with ambulation and while sitting her oxygen saturation remains in the low 90%. I told her I planned to obtain a home O2 evaluation to further assess her need of oxygen supplementation at this time due to current illness. Patient was agreeable to the test, but remained hesitant about going home on oxygen. Respiratory therapy went to perform the home O2 evaluation but the patient refused. Per respiratory note the patient stated she has no intentions of taking oxygen home and does not want it in her home. She continues to threaten leaving against medical advice. Advised patient the risks of leaving include a decline in condition or even . Also discussed the benefits of staying for a complete workup. She states understanding. Will reassess patient in the morning. Review of Systems Review of Syst
[2023-06-28] MEDS: amLODIPine BESYLATE 5 MG TABLET PO (08:49)
[2023-06-28] MEDS: atenoloL 25 MG TABLET PO (08:49)
[2023-06-28] MEDS: CEFEPIME 1 GM/NS 50 ML 1 GM/50 ML BAG IVPB (08:49)
--- NOTE | 2023-06-28 14:34 | PCRCNOTE ---
ATTEMPTED HOME O2 EVALUATION. PT. REFUSED TESTING. STATES SHE HAS NO INTENTIONS OF TAKING O2 HOME AND DOES NOT WANT IT IN HER HOME. PROVIDER AWARE.
--- NOTE | 2023-06-28 17:19 | PCRCNOTE ---
RT notified RN of Home Eval results. At this time, patient did not qualify for home oxygen.
[2023-06-28] MEDS: ATORVASTATIN 40 MG TABLET PO (20:44)
[2023-06-28] MEDS: HEPARIN SODIUM 5,000 UNITS/ML VIAL 5000 UNITS SUB-Q (20:44)
[2023-06-28] MEDS: MIRTAZAPINE 15 MG TABLET PO (20:44)
[2023-06-28] MEDS: AMOXICILLIN/CLAVULANATE K 875-125 MG TAB 1 TABLET PO (20:44)
[2023-06-29] VITALS: PULSE 63
[2023-06-29 04:00] VITALS: PULSE 73
[2023-06-29 05:24] VITALS: BP 94/55; PULSE 62; RESP 17; TEMP 36.7; O2SAT 93
--- NOTE | 2023-06-29 07:43 | PM.IMPN ---
Progress Note: A&P Assessment and Plan (1) Acute hypoxemic respiratory failure: Code(s): J96.01 - Acute respiratory failure with hypoxia Status: Acute Assessment and Plan: In the ED the patient SpO2 was low 80s with standing. While sitting patient remains in the low 90%. Patient denies fatigue, shortness of breath, chest pain, palpitations, nausea/vomiting, and changes in bowel and bladder. She does note an occasional cough that she equates to allergies. I discussed with patient that I planned to obtain a home O2 evaluation to assess her need of oxygen supplementation. Patient was hesitant about returning home on home oxygen. Respiratory therapy went to perform the home O2 evaluation but the patient refused. Per respiratory note the patient stated she has no intentions of taking oxygen home and does not want it in her home. Continue to monitor SpO2 (2) Pneumonia: Code(s): J18.9 - Pneumonia, unspecified organism Status: Acute Assessment and Plan: Patient previously hospitalized on 05/26-05/28/2023 for Covid pneumonia. She was treated with antibiotics and discharged home. Since discharge patient noted mild shortness of breath and a cough she equates to allergies. D dimer elevated. CTA chest was PE negative. Chest XR with pneumonia and left pleural effusion. She received vancomycin and cefepime in ED. MRSA negative. Planned to discontinue the vancomycin and continue the cefepime for pseudomonas coverage, however per patient the IV fell out and she refused replacement. She received the morning dose of the cefepime and will start Augmentin in the afternoon. She continues to report a cough, but denies shortness of breath, chest pain, palpitations at this time. Continue Augmentin PO q12 hours Incentive spirometer (3) CHF (congestive heart failure): Code(s): I50.9 - Heart failure, unspecified Status: Acute Assessment and Plan: Previous echo 05/27/23 LVEF >70% with grade I diastolic dysfunction. BNP elevated possibly related to current pneumonia. Recieved lasix in the ED. Subjective Date/time seen: 06/29/23 07:43 Exam Narrative: AF General: well nourished, well-developed female in no acute respiratory distress who is nontoxic appearing, lying semi recumbent in bed. HEENT: Normocephalic. Atraumatic. Pupils equal round reactive to light. Extraocular movement intact. Sclera clear and anicteric. Nares patent. No oral lesions. Moist mucous membranes. Tongue is midline. Palate shadi symmetrically. No facial asymmetry. Neck: Neck was supple. No dominant adenopathy, thyromegaly or masses. 2+ carotid upstrokes without bruits. Chest: Lungs are clear to auscultation bilaterlly. No wheezes or crackles. CV: Heart was regular rate and rhythm. S1-S2. No murmurs, gallops, or rubs. Abd: Abdomen was soft. Nontender. Nondistended. Postive bowel sounds. No organomegaly or masses. Ext: No clubbing, cyanosis, or edema. 2+ DP pulses bilaterally. Neuro: Patient is alert and oriented x4. Strenth is 5/5 in both upper and lower extremities. Cranial nerves 2-12 are intact. Speech is clear. Psych: Normal nood and affect. Patient is pleasant and cooperative. Skin: Warm and dry. No rashes noted. Objective Data Vital Signs Vital Signs: Vital Signs - 24 hr 06/28/23 09:00 06/28/23 08:45 06/28/23 08:00 Temperature Pulse Rate 69 Respiratory Rate Blood Pressure Pulse Oximetry 93 Oxygen Delivery Room Air Room Air Fraction of Inspired Oxygen 06/28/23 12:00 06/28/23 13:31 06/28/23 16:00 Temperature 97.2 F L Pulse Rate 65 71 65 Respiratory Rate 17 Blood Pressure 96/65 L Pulse Oximetry 93 Oxygen Delivery Fraction of Inspired Oxygen 06/28/23 17:10 06/28/23 17:18 06/28/23 17:19 Temperature Pulse Rate 73 87 71 Respiratory Rate Blood Pressure Pulse Oximetry 92 89 L 92 Oxygen Delivery Room Air Room Air Room Air Fraction of Inspired Oxygen 21 21 21 06/28/23
[2023-06-29 08:00] VITALS: PULSE 80
[2023-06-29 08:06] LABS: Hematocrit 31.9 % (37.0-47.0); Hemoglobin 9.7 g/dL (12.0-15.0); Mean Corpuscular HGB Conc 30.4 g/dl (32-36); Mean Corpuscular Hemoglobin 28.2 pg (26-34); Mean Corpuscular Volume 92.7 fl (80-100); Platelet Count Result 134 k/mm3 (150-375); Red Blood Count 3.44 M/mm3 (4.2-5.4); Red Cell Distribution Width 15.5 % (11.5-14.5); White Blood Count 9.2 K/mm3 (4.5-10.0)
[2023-06-29 08:21] LABS: Anion Gap 8 mmol/L (8-16); Blood Urea Nitrogen 28 mg/dL (7-17); Calcium 8.7 mg/dL (8.4-10.2); Carbon Dioxide 23 mmol/L (22-30); Chloride 106 mmol/L (98-107); Estimated CRCL calculation 34 ml/min; Estimated Glomerular Filt Rate 38; Glucose 98 mg/dL (65-110); Potassium 3.6 mmol/L (3.4-5.0); Sodium 137 mmol/L (137-145)
[2023-06-29 08:58] VITALS: BP 96/47; PULSE 96; O2SAT 96
--- NOTE | 2023-06-29 08:59 | PM.DS ---
DS: Admitting Diagnosis Discharge Date 06/29/2023 Admitting Diagnosis Acute respiratory failure with hypoxia Pneumoia DS: Discharge Diagnosis Discharge Diagnosis (1) Acute hypoxemic respiratory failure: Code(s): J96.01 - Acute respiratory failure with hypoxia Status: Acute (2) Pneumonia: Code(s): J18.9 - Pneumonia, unspecified organism Status: Acute DS: Summary Hospital Course Reason for hospitalization: Acute hypoemic respiratory failure Pneumonia Hospital Course: Patient previously hospitalized on 05/26-05/28/2023 for Covid pneumonia. She was treated with antibiotics and discharged home. Since discharge patient noted mild shortness of breath and a cough she equates to allergies. In the ED the patient SpO2 was low 80s with standing. While sitting patient remains in the low 90%. Patient denies fatigue, shortness of breath, chest pain, palpitations, nausea/vomiting, and changes in bowel and bladder.?She received a dose of cefepime and vancomycin while in the ED. She was found to be MRSA negative and vancomycin was discontinued. She remained on cefepime until IV had fallen out. She was then started on Augmentin PO and will continue this antibiotic outpatient. Patient was evaluated by respiratory therapy for home oxygen and does not qualify. I went over how to use the incentive spirometer with patient and discussed how the device helps expand the lower lungs with deep inspiration. Patients blood pressure has been in the low 100 systolic throughout hospital stay. Will hold patients home medication of atenolol at this time. Discussed with patient that during her follow up with PCP she can discuss restarting the medication. She will continue the amlodipine as prescribed. Discussed with the patient the importance of monitoring her blood pressure prior to taking her blood pressure medications. She states understanding. Patient was discharged home in a stable condition. She will follow up with her PCP in 1 week. Final diagnosis: pneumonia, acute hypoxemic respiratory failure Status at Discharge Cognitive/behavioral status at discharge: AOx4 Functional status at discharge: independent ambulation Time Spent with Patient Time attestation: Total time spent providing and/or coordinating discharge services: Time spent: Greater than 30 minutes Exam Narrative: AF HR 96 RR 17 SpO2 96% RA BP 96/47 General: well nourished, well-developed female in no acute respiratory distress who is nontoxic appearing, sitting on side of bed HEENT: Pupils equal round reactive to light. Extraocular movement intact. Sclera clear and anicteric. No facial asymmetry. Chest: Lungs are clear to auscultation bilaterally. No wheezes or crackles. CV: Heart was regular rate and rhythm. S1-S2. No murmurs, gallops, or rubs. Abd: Abdomen was soft. Nontender. Nondistended. Positive bowel sounds. No organomegaly or masses. Ext: No clubbing, cyanosis, or edema. 2+ DP pulses bilaterally. Neuro: Patient is alert and oriented x4. Speech is clear. Psych: Normal mood and affect. Patient is pleasant and cooperative. Skin: Warm and dry. No rashes noted. DS: Data Data Completed and Pending Completed studies during hospitalization: Chest CTA Chest XR Labs on day of discharge: Labs from last 24 hours 06/29/23 07:46 WBC 9.2 RBC 3.44 L Hgb 9.7 L Hct 31.9 L MCV 92.7 MCH 28.2 MCHC 30.4 L RDW 15.5 H Plt Count 134 L MPV 11.0 H Sodium 137 Potassium 3.6 Chloride 106 Carbon Dioxide 23 Anion Gap 8 BUN 28 H Creatinine 1.40 H Estim Creat Clear Calc 34 Estimated GFR 38 L Glucose 98 Calcium 8.7 Preliminary micro results at discharge 06/27/23 20:37 Blood Culture - Preliminary Blood 06/27/23 20:37 Blood Culture - Preliminary Blood Discharge Plan Discharge Attending physician on discharge: Jason Gay Discharging Clinician: Dulce Machuca Anticipated Discharge Date/Time: 06/29/23 08:18
[2023-06-29] MEDS: AMOXICILLIN/CLAVULANATE K 875-125 MG TAB 1 TABLET PO (10:04)
[2023-06-29] MEDS: HEPARIN SODIUM 5,000 UNITS/ML VIAL 5000 UNITS SUB-Q (10:05)
[2023-06-29] MEDS: amLODIPine BESYLATE 5 MG TABLET PO (10:43)
== END 2023-06-29 12:00 | disposition home or self-care (01) | DRG 193 ==
LOC: ANHED 20:06 → ANH2MED 20:23
PROVIDERS: Admitting Provider Internal Medicine; Emergency Provider Emergency Medicine; Visit Provider Student in an Organized Health Care Education/Training Program
DX: J18.9 Pneumonia, unspecified organism (principal); J96.01 Acute respiratory failure with hypoxia; I50.32 Chronic diastolic (congestive) heart failure; D64.9 Anemia, unspecified; M19.90 Unspecified osteoarthritis, unspecified site; K21.9 Gastro-esophageal reflux disease without esophagitis; K58.9 Irritable bowel syndrome, unspecified; I11.0 Hypertensive heart disease with heart failure; E78.5 Hyperlipidemia, unspecified; I34.1 Nonrheumatic mitral (valve) prolapse; F17.210 Nicotine dependence, cigarettes, uncomplicated; Z20.822 Contact with and (suspected) exposure to COVID-19; Z86.16 Personal history of COVID-19; Z86.73 Personal history of transient ischemic attack (TIA), and cerebral infarction without residual deficits; Z90.49 Acquired absence of other specified parts of digestive tract
CPT/HCPCS: 36415; 71045; 71275; 80048; 80053; 81003; 82565; 83605; 83880; 84484; 85025; 85027; 85380; 85610; 85730; 87040; 87637; 87641; 93005; 94618; 96365; 96375; 99291; A9270; G0378; J0692; J1644; J1940; J3370; Q9967

== ENCOUNTER 2023-08-02 12:04 | Inpatient (IN) | payer MEDICARE, SELFPAY ==
[2023-08-02] VITALS (23 sets, daily range): BP systolic 101–115; BP diastolic 54–87; PULSE 71–82; RESP 15–32; TEMP 36.3–37.1; O2SAT 91–100; BMI 20.8
--- NOTE | ~2023-08-02 | XR_ITS ---
Portable chest x-ray Comparison: 08/02/2023 Clinical History: Shortness of breath Findings: Extensive pulmonary disease, sparing the upper lobes/apices, similar to prior exam. Cardi omediastinal silhouette is stable. Bones and soft tissues are unremarkable. Impression: Moderate to severe pulmonary edema pattern, relatively sparing the lung apices. Appearance is similar to prior exam. Reviewed, dictated and finalized at [facility]. Impression: Moderate to severe pulmonary edema pattern, relatively sparing the lung apices. Appearance is similar to prior exam.
--- NOTE | ~2023-08-02 | NM_ITS ---
EXAMINATION: NM lung vent and perfusion DATE: 08/02/2023 15:39 INDICATION: Shortness of breath. TECHNIQUE: 25.6 mCi Xenon-133 was given for ventilation images. 5.5 mCi Tc-99m MAA was administered i ntravenously for perfusion images. Scintigraphic images of the chest were obtained. COMPARISON: Chest single view 08/02/2023 FINDINGS: Ventilation images demonstrate moderate sized and large defects in the right lung and left mid and lo wer lung zones. Washout images demonstrate small defects in left upper lobe. Perfusion images show la rge defects in the lower lobes. IMPRESSION: 1. Intermediate probability for pulmonary embolism. Reviewed, dictated and finalized at location E.
--- NOTE | ~2023-08-02 | US_ITS ---
US abdomen complete EXAMINATION: US Abdomen Complete INDICATION: Thrombocytopenia PROCEDURE: Realtime High Resolution abdomen ultrasound. COMPARISON: No prior studies for comparison FINDINGS: Gallbladder within normal limits. No gallstones, pericholecystic fluid, gallbladder wall t hickening or biliary dilatation. Common bile duct measures 4 mm. Liver echotexture within normal limits without focal mass. Pancreas within normal limits. Pancreati c tail is obscured by bowel gas. Spleen is unremarkeable. Renal echotexture is within normal limits bilaterally without hydronephrosis, contour deforming mass or renal stone. Right kidney measures 7.9 cm. Left kidney measures 8.6 cm. Visualized aspects of the aorta and IVC are within normal limits. Portal vein is patent. No sonograph ic Molina's sign indicated by the technologist. IMPRESSION: 1: Normal abdominal ultrasound. Reviewed, dictated and finalized at location B.
--- NOTE | ~2023-08-02 | XR_ITS ---
EXAMINATION: XR chest 1V portable DATE: 08/02/2023 12:54 INDICATION: Increased shortness of breath TECHNIQUE: frontal view of the chest was obtained. COMPARISON: Chest CT dated 06/27/2023 FINDINGS: Extensive patchy airspace opacities throughout the both lungs relatively sparing the apices and subpl eural lung. No pneumothorax or definitive pleural effusion. Cardiomediastinal silhouette is within no rmal limits conifer AP technique and slight leftward rotation of the patient. IMPRESSION: 1. Extensive patchy bilateral lung disease which could represent pneumonia, moderate pulmonary edema or some combination thereof. Reviewed, dictated and finalized at location A. IMPRESSION: 1. Extensive patchy bilateral lung disease which could represent pneumonia, mod erate pulmonary edema or some combination thereof.
--- NOTE | 2023-08-02 12:12 | ECG_ITS ---
SEE SCANNED COPY FOR CONFIRMED REPORT MTDD
--- NOTE | 2023-08-02 12:14 | ED.SOB ---
HPI - SOB/Dyspnea General Chief Complaint: Shortness of Breath/Dyspnea Stated Complaint: SOB Time Seen by Provider: 08/02/23 12:07 History of Present Illness HPI Narrative: Pt presents with shortness of breath for the last few days. Pt says she has had a cough for weeks since she had pneumonia. Pt denies chest pain or fever or recent travel or leg pain or recent surgery. Related Data Home Medications Medication Instructions Recorded Confirmed amlodipine 5 mg tablet 5 mg PO DAILY 05/26/23 08/02/23 atenolol 25 mg tablet 25 mg PO DAILY 05/26/23 08/02/23 atorvastatin 40 mg tablet 40 mg PO HS 05/26/23 08/02/23 mirtazapine 15 mg tablet 15 mg PO HS 05/26/23 08/02/23 Allergies Allergy/AdvReac Type Severity Reaction Status Date / Time Sulfa (Sulfonamide Allergy Unknown Unknown Verified 08/02/23 16:15 Antibiotics) Review of Systems Review of Systems: All systems reviewed & are unremarkable except as noted in HPI and below PMFSH Past Medical History Medical History (Updated 08/02/23 @ 14:16 by Nohemi Gonzalez III, DO) Anemia Arthritis CVA (cerebral vascular accident) DDD (degenerative disc disease) Depression GERD (gastroesophageal reflux disease) HTN (hypertension) Hyperlipidemia IBS (irritable bowel syndrome) Migraines MVP (mitral valve prolapse) Seasonal allergies Ulcer Wears glasses Wrist fracture, right Surgical History Surgical History History of appendectomy History of hysteroscopy Hx of tonsillectomy Family History Family History Father Diabetes mellitus Acute myocardial infarction Mother Dementia Social History Social History Smoking packs per day: 0.1 Smoking cigarettes per day: 2.0 Years smoked: 10 Smoking pack-years: 1.00 Smoking status: Former smoker Tobacco type: cigarettes Smoking end date: 04/19/13 Alcohol intake: never Substance use: never Do You Feel Safe in your Home?: Yes Lack of Transportation: No Lack of Food: Never True Current Housing: I Have Housing Concerned About Future Housing: No Difficulty Paying Gas/Electric Bills: No Difficulty Paying for Meds: No Currently Unemployed: No Education: High School Diploma/GED Difficulty w/ Childcare or Family Care: No Spiritual care concerns: No Agree to blood products: Yes Exam Const: General: healthy appearing and no acute distress Nutritional Appearance: well nourished Orientation/consciousness: patient oriented x3 Limitations: no limitations Eyes: Conjunctivae: conjunctivae normal EOM: EOMs intact bilaterally Neck: Neck: normal visual inspection and no lymphadenopathy Chest: Chest palpation & inspection: normal inspection of the chest Resp: Effort & Inspection: normal respiratory effort Auscultation: clear to auscultation bilaterally Cardio: Rate: regular rate Rhythm: regular rhythm GI: GI Palp: Yes Soft to palpation Auscultation: normal bowel sounds Skin: General skin exam: normal color Rashes: no rashes Wounds: no wounds Neuro: General: patient oriented x3, moves all extremities, no meningeal signs and no focal motor deficits Speech: normal speech Extrem: General: normal to inspection and no clubbing, cyanosis or edema Psych: Mental Status: mental status grossly normal Affect: normal affect Attitude: cooperative Course Vital Signs Vital signs: Vital Signs Pulse Rate 80 08/02/23 12:02 Respiratory Rate 16 08/02/23 12:02 Blood Pressure 115/81 08/02/23 12:02 Pulse Oximetry 91 08/02/23 12:02 Oxygen Delivery Room Air 08/02/23 12:02 Temperature 97.4 F L 08/02/23 20:12 Pulse Rate 78 08/02/23 22:00 Respiratory Rate 20 08/02/23 21:40 Blood Pressure 101/54 L 08/02/23 20:12 Pulse Oximetry 91 08/02/23 21:40 Oxygen Delivery Room Air 08/02/23 21:40 Oxy
[2023-08-02] MEDS: IPRATROPIUM 0.5 MG/ALBUTEROL SULFATE 2.5 MG AMPUL.NEB 3 ML INHALATION ×4 (12:28→20:30)
[2023-08-02 12:45] LABS: Basophils Absolute Auto 0.1 K/mm3 (0.0-0.1); Basophils Percent Auto 0.5 % (0.2-1.2); Eosinophils Percent Auto 0.3 % (0-4.4); Hematocrit 27.3 % (37.0-47.0); Hemoglobin 8.1 g/dL (12.0-15.0); Immature Granulocyte Absolute 0.11 K/mm3 (0.00-0.031); Immature Platelet Fraction Pct 8.5 % (0.9-11.2); Lymphocytes Absolute Auto 0.68 K/mm3 (0.9-3.2); Lymphocytes Percent Auto 6.2 % (18.3-44.2); Mean Corpuscular HGB Conc 29.7 g/dl (32-36); Mean Corpuscular Hemoglobin 26.5 pg (26-34); Mean Corpuscular Volume 89.2 fl (80-100); Monocytes Absolute Auto 0.4 K/mm3 (0.1-0.6); Monocytes Percent Auto 3.8 % (2.6-8.5); Neutrophils Absolute Auto 9.7 K/mm3 (1.3-6.7); Neutrophils Percent Auto 88.2 % (45.5-73.1); Platelet Count Result 82 k/mm3 (150-375); Red Blood Count 3.06 M/mm3 (4.2-5.4); Red Cell Distribution Width 14.7 % (11.5-14.5)
[2023-08-02 12:54] LABS: Alanine Aminotransferase 13 U/L (6-35); Albumin Level 3.8 g/dL (3.5-5.1); Alkaline Phosphatase 93 U/L (38-126); Anion Gap 9 mmol/L (4-12); Aspartate Amino Transferase 23 U/L (14-36); Bilirubin,Total 2.2 mg/dL (0.2-1.3); Blood Urea Nitrogen 35 mg/dL (7-17); Calcium 8.7 mg/dL (8.4-10.2); Carbon Dioxide 20 mmol/L (22-30); Chloride 107 mmol/L (98-107); Estimated CRCL calculation 29 ml/min; Estimated Glomerular Filt Rate 33; Glucose 105 mg/dL (65-110); Magnesium 2.2 mg/dL (1.6-2.3); Potassium 4.5 mmol/L (3.4-5.0); Sodium 136 mmol/L (137-145)
[2023-08-02 12:58] LABS: INR 1.1; Prothrombin Time 14.6 Seconds (11.1-14.7)
[2023-08-02 12:59] LABS: Partial Thromboplastin Time 35.7 Seconds (22.3-36.8)
[2023-08-02 13:08] LABS: Anisocytosis 1+; Hypochromasia 1+; NT Pro B Type Natriuretic Pept 7460 pg/mL (19.9-100); Platelet Estimate Adequate (Adequate); Schistocytes None Seen; Troponin I 0.075 ng/mL (0.000-0.034)
[2023-08-02 13:27] LABS: D Dimer 2.26 ug/mL (<0.48)
--- NOTE | 2023-08-02 14:46 | PM.IMHP ---
H&P: HPI History of Present Illness Date/Time: 08/02/23 14:46 Chief Complaint: Breath Narrative: Patient presented with shortness of a the past few days. She has cough for few weeks and has been diagnosed with pneumonia. No chest pain leg swelling. History of hypertension hyperlipidemia GERD mitral valve prolapse. EKG with normal sinus rhythm no ST-T changes noted. She was diagnosed with pneumonia in June of 2023. ED evaluation revealed mild leukocytosis 11,000 hemoglobin of 8.1 which is lower than her baseline at 9-10. Thrombocytopenia of 82 K she did have thrombocytopenia in recent past. It has been fluctuating. D-dimer was mildly elevated 2.26. Creatinine 1.6 has underlying CKD stage 3. Troponin mildly elevated 0.075 BNP elevated at 7460. She was diagnosed with COVID pneumonia in May 2023. Chest x-ray today showed extensive patchy bilateral lung disease which could represent pneumonia moderate pulmonary edema or some combination thereof. She is admitted in the setting for further treatment.with lasix, she is already feeling a bit better. she reports no leg swelling Review of Systems Review of Systems: - CONSTITUTIONAL: Denies weight loss, fever and chills. - HEENT: Denies changes in vision and hearing - RESPIRATORY: Reports SOB and persistent cough. - CV: Denies palpitations and CP. - GI: Denies abdominal pain, nausea, vomiting and diarrhea. - : Denies dysuria and urinary frequency. - MSK: Denies myalgia and joint pain. - SKIN: Denies rash and pruritus. - NEUROLOGICAL: Denies headache and syncope. - PSYCHIATRIC: Denies recent changes in mood. Denies anxiety and depression. [facility]LY [facility] Past Medical History Medical History (Updated 08/02/23 @ 14:16 by Nohemi Gonzalez III, DO) Anemia Arthritis CVA (cerebral vascular accident) DDD (degenerative disc disease) Depression GERD (gastroesophageal reflux disease) HTN (hypertension) Hyperlipidemia IBS (irritable bowel syndrome) Migraines MVP (mitral valve prolapse) Seasonal allergies Ulcer Wears glasses Wrist fracture, right Surgical History Surgical History History of appendectomy History of hysteroscopy Hx of tonsillectomy Family History Family History Father Diabetes mellitus Acute myocardial infarction Mother Dementia Social History Social History Smoking packs per day: 0.1 Smoking cigarettes per day: 2.0 Years smoked: 10 Smoking pack-years: 1.00 Smoking status: Former smoker Tobacco type: cigarettes Smoking end date: 04/19/13 Alcohol intake: never Substance use: never Do You Feel Safe in your Home?: Yes Lack of Transportation: No Lack of Food: Never True Current Housing: I Have Housing Concerned About Future Housing: No Difficulty Paying Gas/Electric Bills: No Difficulty Paying for Meds: No Currently Unemployed: No Education: High School Diploma/GED Difficulty w/ Childcare or Family Care: No Spiritual care concerns: No Agree to blood products: Yes Meds Home Medications and Allergies Home Medications Medication Instructions Recorded Confirmed Type amlodipine 5 mg tablet 5 mg PO DAILY 05/26/23 08/02/23 History atenolol 25 mg tablet 25 mg PO DAILY 05/26/23 08/02/23 History atorvastatin 40 mg tablet 40 mg PO HS 05/26/23 08/02/23 History mirtazapine 15 mg tablet 15 mg PO HS 05/26/23 08/02/23 History Allergies Allergy/AdvReac Type Severity Reaction Status Date / Time Sulfa (Sulfonamide Allergy Unknown Unknown Verified 08/02/23 16:15 Antibiotics) Vital Signs Vital Signs - 24 hr 08/02/23 12:02 08/02/23 12:02 08/02/23 12:15 Temperature 97.9 F Pulse Rate 80 Respiratory Rate 16 Blood Pressure 115/81 Pulse Oximetry 91 91 Oxygen Delivery Room Air Room Air Oxygen Flow Rate
[2023-08-02] MEDS: FUROSEMIDE INJ 40 MG/4 ML VIAL IV PUSH ×2 (14:48→17:33)
--- NOTE | 2023-08-02 15:54 | ADMGEN ---
This patient, Elias Luis, was admitted to IMU Room 206-01. Patient/family oriented to hospital policies and general routines including ID bracelet, bed and alarms, visiting hours, pain management, procedures, bathroom and other care routines, personal items, smoking policy, room service/diet, and visiting hours. Information on how to activate the Rapid Response Team has been discussed. Patient/Family are encouraged to report perceived risks to care and to ask questions if they do not understand what they are told or what they should do.
--- NOTE | 2023-08-02 17:48 | PC.NURSE ---
patient keeps talking about leaving, but when asked she states that she's staying for now.
[2023-08-02 18:09] LABS: Troponin I 0.075 ng/mL (0.000-0.034)
[2023-08-02 20:44] LABS: Troponin I 0.079 ng/mL (0.000-0.034)
[2023-08-02] MEDS: MIRTAZAPINE 15 MG TABLET PO (21:38)
[2023-08-02] MEDS: ATORVASTATIN 40 MG TABLET PO (21:38)
[2023-08-03] VITALS (26 sets, daily range): BP systolic 91–114; BP diastolic 6–92; PULSE 56–82; RESP 18–26; TEMP 35.7–36.5; O2SAT 84–98
--- NOTE | 2023-08-03 | ECHO_ITS ---
Patient Info Name: Elias Luis Age: 57 years : 1965 Gender: Female Ht: 64 in Wt: 121 lbs BSA: 1.57 m2 HR: 65 bpm BP: 93 / 44 mmHg Heart Rhythm: Sinus Rhythm Technical Quality: Good Exam Date: 08/03/2023 8:17 AM Exam Location: Echo Lab Patient Status: Inpatient Admit Date: 08/02/2023 Staff Ordering Physician: Jason Gay MD [employer] Technician: Fay Larson RDCS Attending Provider: Krystal Desouza MD Exam Type: CA echo doppler color flow Study Info Indications - CHF Complete two-dimensional, color flow and Doppler transthoracic echocardiogram is performed. Summary 1. Complete two-dimensional, color flow and Doppler transthoracic echocardiogram is performed. 2. Left ventricular chamber dimension is normal. 3. Left ventricular systolic function is normal, estimated at 65-70%. 4. Right ventricular systolic function is normal. 5. Left atrial chamber dimension is severely enlarged. 6. The mitral valve has thickened leaflets. 7. There appears to be prolapse of the anterior mitral valve leaflet vs possible ruptured chord. 8. There is severe mitral valve regurgitation, with an eccentric, posteriorly-directed jet. 9. There is mild tricuspid valve regurgitation. 10. Left pleural effusion present. Left Ventricle Left ventricular chamber dimension is normal. Left ventricular systolic function is normal, estimated at 65-70%. There is no increased left ventricular wall thickness. Right Ventricle Right ventricular chamber dimension is normal. Right ventricular systolic function is normal. Left Atria Left atrial chamber dimension is severely enlarged. Right Atria Right atrial chamber dimension is normal. Aortic Valve The aortic valve is probable trileaflet. There is no aortic valve stenosis. There is no aortic valve regurgitation. Pulmonic Valve The pulmonic valve is not well visualized. There is trace pulmonic regurgitation. Mitral Valve There appears to be prolapse of the anterior mitral valve leaflet vs possible ruptured chord. The mitral valve has thickened leaflets. There is severe mitral valve regurgitation, with an eccentric, posteriorly-directed jet. Tricuspid Valve There is mild tricuspid valve regurgitation. Pericardium/Pleural There is no pericardial effusion. Left pleural effusion present. Inferior Vena Cava Normal inferior vena cava with >50% collapse upon inspiration consistent with normal right atrial pressure, 3 mmHg. Aorta The aortic root size at the sinus of Valsalva is normal. Left Ventricular Outflow Tract Name Value Normal LVOT 2D LVOT Diameter 2.0 cm LVOT Doppler LVOT Peak Gradient 5 mmHg LVOT Mean Gradient 3 mmHg LVOT VTI 19 cm LVOT VTI/AV VTI Ratio 0.7 LVOT Stroke Volume 57 ml LVOT CO 5.3 l/min LVOT CI 3.4 l/min/m2 Pulmonic Valve Name Value Normal
[2023-08-03 05:05] LABS: Basophils Percent Auto 0.4 % (0.2-1.2); Eosinophils Absolute Auto 0.1 K/mm3 (0-0.3); Hematocrit 26.5 % (37.0-47.0); Immature Granulocyte Absolute 0.05 K/mm3 (0.00-0.031); Immature Granulocyte Percent A 0.7 % (0-0.5); Lymphocytes Absolute Auto 1.37 K/mm3 (0.9-3.2); Lymphocytes Percent Auto 19.1 % (18.3-44.2); Mean Corpuscular HGB Conc 30.2 g/dl (32-36); Mean Corpuscular Hemoglobin 26.6 pg (26-34); Mean Platelet Volume 12.2 fl (7.4-10.4); Monocytes Absolute Auto 0.5 K/mm3 (0.1-0.6); Monocytes Percent Auto 7.1 % (2.6-8.5); Neutrophils Absolute Auto 5.1 K/mm3 (1.3-6.7); Neutrophils Percent Auto 70.7 % (45.5-73.1); Platelet Count Result 74 k/mm3 (150-375); Red Blood Count 3.01 M/mm3 (4.2-5.4); Red Cell Distribution Width 14.8 % (11.5-14.5); White Blood Count 7.2 K/mm3 (4.5-10.0)
[2023-08-03 05:20] LABS: Alanine Aminotransferase 11 U/L (6-35); Albumin Level 3.8 g/dL (3.5-5.1); Alkaline Phosphatase 83 U/L (38-126); Anion Gap 8 mmol/L (4-12); Aspartate Amino Transferase 21 U/L (14-36); Bilirubin,Total 2.2 mg/dL (0.2-1.3); Blood Urea Nitrogen 36 mg/dL (7-17); Calcium 8.9 mg/dL (8.4-10.2); Carbon Dioxide 26 mmol/L (22-30); Chloride 103 mmol/L (98-107); Estimated CRCL calculation 25 ml/min; Estimated Glomerular Filt Rate 27; Glucose 111 mg/dL (65-110); Magnesium 2.3 mg/dL (1.6-2.3); Potassium 4.2 mmol/L (3.4-5.0); Sodium 137 mmol/L (137-145)
[2023-08-03 05:43] LABS: Iron 30 ug/dL (37-170)
[2023-08-03 05:53] LABS: Percent Iron Saturation 8 % (20-50)
[2023-08-03 06:22] LABS: Folic Acid 6.9 ng/mL (2.76->20)
[2023-08-03 06:24] LABS: Platelet Estimate Adequate (Adequate)
[2023-08-03 06:25] LABS: Hypochromasia 1+; Schistocytes None Seen
[2023-08-03] MEDS: IPRATROPIUM 0.5 MG/ALBUTEROL SULFATE 2.5 MG AMPUL.NEB 3 ML INHALATION (07:42)
[2023-08-03] MEDS: amLODIPine BESYLATE 5 MG TABLET PO (09:19)
[2023-08-03] MEDS: atenoloL 25 MG TABLET PO (09:19)
[2023-08-03] MEDS: FUROSEMIDE INJ 40 MG/4 ML VIAL IV PUSH (09:19)
--- NOTE | 2023-08-03 11:12 | PC.NURSE ---
This RN received a phone call from ultrasound, pt refused bilateral lower extremity ultrasound. Pt stated she needed to speak with the doctor because nothing is wrong with her.
--- NOTE | 2023-08-03 11:29 | PC.NURSE ---
Discussed with patient why tests were ordered, pt upset and crying, after talking the patient agreed to have the ultrasound done. During discussion she stated she had no idea what is going on. This RN talked with the patient and her brother yesterday about test results.
--- NOTE | 2023-08-03 12:49 | PDONCCN ---
HPI - Date of Consult Date/Time: 08/03/23 16:39 <Corey Dangelo - 08/03/23 16:43> 08/03/23 12:49 <Karlie Salinas - 08/03/23 12:59> Requesting Physician: Krystal Desouza MD <Corey Dangelo - 08/03/23 16:43> Krystal Desouza MD <Karlie Salinas - 08/03/23 12:59> Primary Care Provider: Heather Carolina, PA <Corey Dangelo - 08/03/23 16:43> Heather Carolina, PA <Karlie Salinas - 08/03/23 12:59> - Consult Narrative Reason for consult: Thrombocytopenia and Anemia <Karlie Salinas - 08/03/23 12:59> Narrative: Elias Luis is a 57 year old female <Corey Dangelo - 08/03/23 16:43> Elias Luis is a 57 year old female with a past medical history of HTN, HLD, GERD, mitral valve prolapse, CKD, who was admitted to the hospital for increased shortness of breath. This was sudden and she was going pale from what her friend told her. She was diagnosed with PNA a few weeks ago and completed a round of antibiotics for this. She has noticed a decreased appetite and weight loss. She denies any bleeding or bruising. Denies any etoh use. Denies any diarrhea. Denies any history of kidney disease. Eats a regular diet when her appetite is active. Has never had a stomach surgery. Per my chart review, her platelet count has been low since 2019. Labs today are notable for WBC 7.2, Hgb 8, Hct 26, Plt 74,000, Cr 1.90. <Karlie Salinas - 08/03/23 12:59> Review of Systems - Review of Systems All systems reviewed & are unremarkable except as noted in HPI and bel <Karlie Salinas - 08/03/23 12:59> [facility] Medical History: Medical History (Last Updated 06/28/23 @ 07:14 by Dulce L. Machuca, PA-C) Anemia Arthritis CVA (cerebral vascular accident) DDD (degenerative disc disease) Depression GERD (gastroesophageal reflux disease) HTN (hypertension) Hyperlipidemia IBS (irritable bowel syndrome) Migraines MVP (mitral valve prolapse) Seasonal allergies Ulcer Wears glasses Wrist fracture, right <Corey Dangelo - 08/03/23 16:43> Medical History (Last Updated 06/28/23 @ 07:14 by Dulce Machuca PA-C) Anemia Arthritis CVA (cerebral vascular accident) DDD (degenerative disc disease) Depression GERD (gastroesophageal reflux disease) HTN (hypertension) Hyperlipidemia IBS (irritable bowel syndrome) Migraines MVP (mitral valve prolapse) Seasonal allergies Ulcer Wears glasses Wrist fracture, right <Karlie Salinas - 08/03/23 12:59> Surgical History: Surgical History (Last Reviewed 06/27/23 @ 16:49 by Selwyn Antonio MD) History of appendectomy History of hysteroscopy Hx of tonsillectomy <Corey DangeloJens - 08/03/23 16:43> Surgical History (Last Reviewed 06/27/23 @ 16:49 by Selwyn Antonio MD) History of appendectomy History of hysteroscopy Hx of tonsillectomy <John Paul Salinasne - 08/03/23 12:59> Family History: Family History (Last Reviewed 08/02/23 @ 18:09 by Sophie Fletcher RN) Father Diabetes mellitus Acute myocardial infarction Mother Dementia <Corey DangeloJens - 08/03/23 16:43> Family History (Last Reviewed 08/02/23 @ 18:09 by Sophie Fletcher RN) Father Diabetes mellitus Acute myocardial infarction Mother Dementia <Karlie Salinas - 08/03/23 12:59> - Social History Social History: Social History (Last Reviewed 06/27/23 @ 16:49 by Selwyn Antonio MD) Alcohol Use: Alcohol intake: never Substance Use: Substance use: never Others: Spiritual care concerns: No Agree to blood products: Yes Smoking Status: Smoking status: Former smoker Tobacco type: cigarettes Smoking end date: 04/19/13 Smoking Pack-years: Smoking packs per day: 0.1 Smoking cigarettes per day: 2.0 Years smoked: 10 Smoking pack-years: 1.00 Social Determinants of Health: Do You Feel Safe in your Home?:
--- NOTE | 2023-08-03 13:55 | P.PNIM_ITS ---
Progress Note: A&P Assessment and Plan (1) Acute hypoxemic respiratory failure: Code(s): J96.01 - Acute respiratory failure with hypoxia Status: Acute Assessment and Plan: 08/03/2023: * Likely secondary to CHF exacerbation verses pulmonary embolism * Chest x-ray showed pulmonary edema * D-dimer was elevated at 2.26 * Patient pulmonary perfusion scan which showed intermediate probability for PE * Patient was given a dose of Lasix 40 mg IV push in the ED and started on Lasix 40 mg IV b.i.d. however we will place is a hold due to DAMIÁN * Eliquis started for PE protocol * Continue DuoNeb * Echocardiogram showing normal LV systolic function with an estimated EF of 65- 70%, RV systolic function is normal, severe mitral valve regurgitation, large pleural effusion * Swallow study was normal patient was started on a regular diet with thin liquids * Currently still on 2 L nasal cannula * Continue to wean oxygen for an O2 sat greater than 92% * Venous Dopplers were ordered and are pending (2) CHF (congestive heart failure): Code(s): I50.9 - Heart failure, unspecified Status: Suspected Assessment and Plan: 08/03/2023: * Chest x-ray showing pulmonary edema * ProBNP 7460 initially * Patient was given 40 mg of IV Lasix in the ED and started on 40 mg IV push b.i.d. however we will place this on hold due to DAMIÁN (3) Pulmonary embolism: Code(s): I26.99 - Other pulmonary embolism without acute cor pulmonale Status: Acute Assessment and Plan: 08/03/2023: * Pulmonary perfusion imaging showed intermediate probability of a PE * Venous Doppler ultrasound ordered and is pending results * Patient started on Eliquis for PE protocol * Echo does not show any right heart strain (4) Elevated troponin: Code(s): R79.89 - Other specified abnormal findings of blood chemistry Status: Acute Assessment and Plan: 08/03/2023: * Likely demand ischemia secondary to CHF exacerbation versus pulmonary embolism * Troponin 0.075> 0.075> 0.079, remains flat (5) Acute kidney injury: Code(s): N17.9 - Acute kidney failure, unspecified Status: Acute Assessment and Plan: 08/03/2023: * Creatinine is 1.9 * Baseline is 1.3-1.6 * We will go ahead and hold the diuretic today (6) HTN (hypertension): Code(s): I10 - Essential (primary) hypertension Status: Chronic Assessment and Plan: 08/03/2023: * Blood pressure ranging 92/53 to 107/92 * Continue on atenolol and amlodipine (7) MVP (mitral valve prolapse): Code(s): I34.1 - Nonrheumatic mitral (valve) prolapse Status: Chronic Assessment and Plan: 08/03/2023: * Of note * Echocardiogram showing normal LV systolic function with an estimated EF of 65- 70%, RV systolic function is normal, severe mitral valve regurgitation, large pleural effusion (8) GERD (gastroesophageal reflux disease): Code(s): K21.9 - Gastro-esophageal reflux disease without esophagitis Status: Chronic Assessment and Plan: 08/03/2023: * Start Protonix 40 mg daily Time Spent With Patient Time with patient: Greater than 35 minutes Subjective Date/time seen: 08/03/23 13:55 Interval history: This is a 57-year-old female with a significant past medical history of CVA, depression, GERD, hypertension, hyperlipidemia, IBS, mitral valve prolapse, migraines who presented to the hospital on 08/02/2023 with complaints of shortness of breath/dyspnea. Chest x-ray showing extensive patchy bilateral lung disease, moderate pulmonary edema. Pulmon
--- NOTE | 2023-08-03 13:55 | PM.IMPN ---
Progress Note: A&P Assessment and Plan (1) Acute hypoxemic respiratory failure: Code(s): J96.01 - Acute respiratory failure with hypoxia Status: Acute Assessment and Plan: 08/03/2023: Likely secondary to CHF exacerbation verses pulmonary embolism Chest x-ray showed pulmonary edema D-dimer was elevated at 2.26 Patient pulmonary perfusion scan which showed intermediate probability for PE Patient was given a dose of Lasix 40 mg IV push in the ED and started on Lasix 40 mg IV b.i.d. however we will place is a hold due to DAMIÁN Eliquis started for PE protocol Continue DuoNeb Echocardiogram showing normal LV systolic function with an estimated EF of 65-70%, RV systolic function is normal, severe mitral valve regurgitation, large pleural effusion Swallow study was normal patient was started on a regular diet with thin liquids Currently still on 2 L nasal cannula Continue to wean oxygen for an O2 sat greater than 92% Venous Dopplers were ordered and are pending (2) CHF (congestive heart failure): Code(s): I50.9 - Heart failure, unspecified Status: Suspected Assessment and Plan: 08/03/2023: Chest x-ray showing pulmonary edema ProBNP 7460 initially Patient was given 40 mg of IV Lasix in the ED and started on 40 mg IV push b.i.d. however we will place this on hold due to DAMIÁN (3) Pulmonary embolism: Code(s): I26.99 - Other pulmonary embolism without acute cor pulmonale Status: Acute Assessment and Plan: 08/03/2023: Pulmonary perfusion imaging showed intermediate probability of a PE Venous Doppler ultrasound ordered and is pending results Patient started on Eliquis for PE protocol Echo does not show any right heart strain (4) Elevated troponin: Code(s): R79.89 - Other specified abnormal findings of blood chemistry Status: Acute Assessment and Plan: 08/03/2023: Likely demand ischemia secondary to CHF exacerbation versus pulmonary embolism Troponin 0.075> 0.075> 0.079, remains flat (5) Acute kidney injury: Code(s): N17.9 - Acute kidney failure, unspecified Status: Acute Assessment and Plan: 08/03/2023: Creatinine is 1.9 Baseline is 1.3-1.6 We will go ahead and hold the diuretic today (6) HTN (hypertension): Code(s): I10 - Essential (primary) hypertension Status: Chronic Assessment and Plan: 08/03/2023: Blood pressure ranging 92/53 to 107/92 Continue on atenolol and amlodipine (7) MVP (mitral valve prolapse): Code(s): I34.1 - Nonrheumatic mitral (valve) prolapse Status: Chronic Assessment and Plan: 08/03/2023: Of note Echocardiogram showing normal LV systolic function with an estimated EF of 65-70%, RV systolic function is normal, severe mitral valve regurgitation, large pleural effusion (8) GERD (gastroesophageal reflux disease): Code(s): K21.9 - Gastro-esophageal reflux disease without esophagitis Status: Chronic Assessment and Plan: 08/03/2023: Start Protonix 40 mg daily Time Spent With Patient Time with patient: Greater than 35 minutes Subjective Date/time seen: 08/03/23 13:55 Interval history: This is a 57-year-old female with a significant past medical history of CVA, depression, GERD, hypertension, hyperlipidemia, IBS, mitral valve prolapse, migraines who presented to the hospital on 08/02/2023 with complaints of shortness of breath/dyspnea. Chest x-ray showing extensive patchy bilateral lung disease, moderate pulmonary edema. Pulmonary perfusion imaging showing intermediate probability for PE. Ultrasound of the abdomen was essentially negative. Initial labs showing hemoglobin of 9.7, platelet count 134, creatinine 1.40, EGFR 38, total bili 2.2, troponin was 0.075> 0.075> 0.079, D-dimer 2.26 proBNP 7460. Blood cultures were obtained and are pending. Echocardiogram today showed normal LV systolic function with an estimated EF of 65-70%, normal RV sy
[2023-08-03] MEDS: IRON SUCROSE COMPLEX 500 MG in SODIUM CHLORIDE 0.9% IV 250 ML 79 MG IVPB (14:17)
--- NOTE | 2023-08-03 14:56 | PCSTNOTE ---
Please refer to the Bedside Swallow Evaluation in the EMR. Please note, silent aspiration cannot be ruled out at bedside.
[2023-08-03] MEDS: FERROUS SULFATE 325 MG TABLET DR PO (18:25)
[2023-08-03] MEDS: MIRTAZAPINE 15 MG TABLET PO (20:31)
[2023-08-03] MEDS: APIXABAN 5 MG TABLET 10 MG PO (20:32)
[2023-08-03] MEDS: ATORVASTATIN 40 MG TABLET PO (20:32)
--- NOTE | 2023-08-03 22:48 | PC.NURSE ---
This patient, Elias Luis, was transferred to [[id number]] on 08/03/23 at 2248. Personal belongings sent with patient. Report given to [Kerry, diamond sawer]. Appropriate documentation sent with patient.
[2023-08-04 04:00] VITALS: PULSE 58
[2023-08-04 05:42] VITALS: BP 100/54; PULSE 62; RESP 17; TEMP 36.4; O2SAT 96
[2023-08-04 07:58] LABS: Basophils Percent Auto 0.5 % (0.2-1.2); Eosinophils Absolute Auto 0.3 K/mm3 (0-0.3); Eosinophils Percent Auto 3.6 % (0-4.4); Hematocrit 30.1 % (37.0-47.0); Hemoglobin 9.1 g/dL (12.0-15.0); Immature Granulocyte Absolute 0.07 K/mm3 (0.00-0.031); Immature Granulocyte Percent A 0.9 % (0-0.5); Immature Platelet Fraction Pct 11.6 % (0.9-11.2); Lymphocytes Absolute Auto 0.94 K/mm3 (0.9-3.2); Lymphocytes Percent Auto 11.5 % (18.3-44.2); Mean Corpuscular HGB Conc 30.2 g/dl (32-36); Mean Corpuscular Hemoglobin 26.7 pg (26-34); Mean Corpuscular Volume 88.3 fl (80-100); Mean Platelet Volume 12.2 fl (7.4-10.4); Monocytes Absolute Auto 0.4 K/mm3 (0.1-0.6); Neutrophils Absolute Auto 6.4 K/mm3 (1.3-6.7); Neutrophils Percent Auto 78.5 % (45.5-73.1); Platelet Count Result 84 k/mm3 (150-375); Red Blood Count 3.41 M/mm3 (4.2-5.4); Red Cell Distribution Width 14.6 % (11.5-14.5); White Blood Count 8.1 K/mm3 (4.5-10.0)
[2023-08-04 08:08] VITALS: O2SAT 94
[2023-08-04 08:10] LABS: Magnesium 2.4 mg/dL (1.6-2.3)
[2023-08-04 08:11] LABS: Alanine Aminotransferase 12 U/L (6-35); Albumin Level 4.1 g/dL (3.5-5.1); Alkaline Phosphatase 93 U/L (38-126); Anion Gap 8 mmol/L (4-12); Aspartate Amino Transferase 25 U/L (14-36); Bilirubin,Total 1.7 mg/dL (0.2-1.3); Blood Urea Nitrogen 34 mg/dL (7-17); Calcium 9.3 mg/dL (8.4-10.2); Carbon Dioxide 27 mmol/L (22-30); Chloride 103 mmol/L (98-107); Estimated CRCL calculation 26 ml/min; Estimated Glomerular Filt Rate 29; Glucose 108 mg/dL (65-110); Potassium 4.5 mmol/L (3.4-5.0); Sodium 138 mmol/L (137-145)
[2023-08-04 08:17] VITALS: BP 111/58; PULSE 66; O2SAT 100
[2023-08-04] MEDS: amLODIPine BESYLATE 5 MG TABLET PO (08:18)
[2023-08-04 08:19] VITALS: PULSE 66
[2023-08-04 08:19] LABS: NT Pro B Type Natriuretic Pept 1760 pg/mL (19.9-100)
[2023-08-04] MEDS: APIXABAN 5 MG TABLET 10 MG PO (08:19)
[2023-08-04] MEDS: atenoloL 25 MG TABLET PO (08:19)
[2023-08-04] MEDS: FERROUS SULFATE 325 MG TABLET DR PO (08:19)
[2023-08-04] MEDS: PANTOPRAZOLE 40 MG TABLET PO (08:20)
[2023-08-04 08:47] LABS: Hypochromasia 1+; Platelet Estimate Decreased (Adequate); Schistocytes None Seen
--- NOTE | 2023-08-04 11:05 | PM.DS ---
DS: Admitting Diagnosis Discharge Date 08/04/23 Admitting Diagnosis Acute dyspnea Hypertension CHF Acute hypoxic respiratory failure Mitral valve prolapse GERD DS: Discharge Diagnosis Discharge Diagnosis (1) Acute hypoxemic respiratory failure: Code(s): J96.01 - Acute respiratory failure with hypoxia Status: Acute (2) CHF (congestive heart failure): Code(s): I50.9 - Heart failure, unspecified Status: Suspected (3) Pulmonary embolism: Code(s): I26.99 - Other pulmonary embolism without acute cor pulmonale Status: Acute (4) Elevated troponin: Code(s): R79.89 - Other specified abnormal findings of blood chemistry Status: Acute (5) Acute kidney injury: Code(s): N17.9 - Acute kidney failure, unspecified Status: Acute (6) HTN (hypertension): Code(s): I10 - Essential (primary) hypertension Status: Chronic (7) MVP (mitral valve prolapse): Code(s): I34.1 - Nonrheumatic mitral (valve) prolapse Status: Chronic (8) GERD (gastroesophageal reflux disease): Code(s): K21.9 - Gastro-esophageal reflux disease without esophagitis Status: Chronic DS: Summary Hospital Course Reason for hospitalization: Acute dyspnea Hypertension CHF Acute hypoxic respiratory failure Mitral valve prolapse GERD Hospital Course: 07/03/23: This is a 57-year-old female with a significant past medical history of CVA, depression, GERD, hypertension, hyperlipidemia, IBS, mitral valve prolapse, migraines who presented to the hospital on 08/02/2023 with complaints of shortness of breath/dyspnea.? Chest x-ray showing extensive patchy bilateral lung disease, moderate pulmonary edema.? Pulmonary perfusion imaging showing intermediate probability for PE.? Ultrasound of the abdomen was essentially negative.? Initial labs showing hemoglobin of 9.7, platelet count 134, creatinine 1.40, EGFR 38, total bili 2.2, troponin was 0.075> 0.075> 0.079, D-dimer? 2.26 proBNP 7460.? Blood cultures were obtained and are pending.? Echocardiogram today showed normal LV systolic function with an estimated EF of 65-70%, normal RV systolic function, severe mitral valve regurgitation, left pleural effusion.? Patient was given 40 mg IV push Lasix in the ED and admitted to the IMU.? She did have a swallow study today which was normal.? She was started on a regular diet with regular thin liquids.? Patient denies any fever, chills, nausea, vomiting, diarrhea, abdominal pain, chest pain, shortness a breath.? She states she is feeling much better.? Patient was started on Eliquis for intermediate probability PE on chest CTA.? Discussed these findings with the patient. 07/04/23: On examination today patient is very overwhelmed and anxious which may be her baseline. She denies any new complaints today. Labs today show a hemoglobin of 9.1, creatinine 1.8, EGFR 29, total bili 1.7, proBNP is 1760. She is stable for discharge at this time. She will need to follow up with her primary care physician in 1 week after obtaining another BMP to check her creatinine. She was started on citalopram for her anxiety and feelings of being overwhelmed. She will need to follow up with her primary care physician for continuance of this medication. She also will need to follow up with Dr. Dangelo in 2 weeks for continued workup on her anemia. Final diagnosis: Acute hypoxic respiratory failure, CHF exacerbation, anxiety Status at Discharge Cognitive/behavioral status at discharge: Alert oriented x3, anxious Functional status at discharge: independent ambulation Overall status at discharge: patient is progressing back to baseline Time Spent with Patient Time attestation: Total time spent providing and/or coordinating discharge services: Time spent: Greater than 30 minutes Exam Narrative: General: In no acute distress, well nourished Head: atraumatic, no encephalopathy Eyes: EOMI, PERRLA, sclera clear ENT: moist mucous me
[2023-08-04 14:48] VITALS: BP 94/57; PULSE 61; RESP 18; TEMP 36.7; O2SAT 100
[2023-08-06 14:44] LABS: Methylmalonic Acid 326 nmol/L (87-318)
[2023-08-09 23:53] LABS: Platelet Antibody, Direct NEGATIVE (NEGATIVE)
--- NOTE | 2023-08-10 08:30 | PC.NURSE ---
Blood cx are negative.
== END 2023-08-04 15:55 | disposition home or self-care (01) | DRG 175 ==
LOC: ANHED 14:16 → ANHIMU 14:46 → ANH2MED 08-03 22:47
PROVIDERS: Internal Medicine; Nurse Practitioner Family; Admitting Provider General Practice; Emergency Provider Emergency Medicine; PCP Physician Assistant; Visit Provider Nurse Practitioner Acute Care
DX: I26.99 Other pulmonary embolism without acute cor pulmonale (principal); J96.01 Acute respiratory failure with hypoxia; I13.0 Hypertensive heart and chronic kidney disease with heart failure and stage 1 through stage 4 chronic kidney disease, or unspecified chronic kidney disease; I24.89 Other forms of acute ischemic heart disease; N17.9 Acute kidney failure, unspecified; I50.9 Heart failure, unspecified; I34.0 Nonrheumatic mitral (valve) insufficiency; N18.30 Chronic kidney disease, stage 3 unspecified; I34.1 Nonrheumatic mitral (valve) prolapse; E78.5 Hyperlipidemia, unspecified; D69.6 Thrombocytopenia, unspecified; K21.9 Gastro-esophageal reflux disease without esophagitis; K58.9 Irritable bowel syndrome, unspecified; M19.90 Unspecified osteoarthritis, unspecified site; F32.A Depression, unspecified; Z86.73 Personal history of transient ischemic attack (TIA), and cerebral infarction without residual deficits; Z87.891 Personal history of nicotine dependence
CPT/HCPCS: 36415; 71045; 76700; 78582; 80053; 82607; 82728; 82746; 83540; 83550; 83735; 83880; 83921; 84238; 84484; 85025; 85055; 85380; 85610; 85730; 86023; 87040; 92610; 93005; 93306; 94640; 99285; A9270; A9540; A9558; J1756; J1940; J7050

== ENCOUNTER 2023-08-08 17:12 | Inpatient (IN) | payer MEDICARE, SELFPAY ==
[2023-08-08] VITALS (22 sets, daily range): BP systolic 100–120; BP diastolic 61–77; PULSE 62–88; RESP 20–35; TEMP 37.1–37.7; O2SAT 64–100; BMI 21.1
--- NOTE | ~2023-08-08 | US_ITS ---
EXAMINATION: US renal BI DATE: 08/09/2023 14:55 INDICATION: kali TECHNIQUE: Multiple grayscale and Doppler ultrasound images of the kidneys were obtained. COMPARISON: Ultrasound abdomen 08/03/2023; CT abdomen pelvis to 724 FINDINGS: The right kidney measures 8.5 x 3.8 x 3.9 cm. The left kidney measures 10.0 x 3.6 x 4.6 cm. The kidne ys demonstrate normal parenchymal echogenicity. There is no hydronephrosis. The bladder is normal. Bi lateral pleural fluid collections. IMPRESSION: Bilateral pleural effusions. Otherwise unremarkable renal sonogram findings. Reviewed, dictated and finalized at location K.
--- NOTE | ~2023-08-08 | CT_ITS ---
EXAMINATION: CT brain wo con DATE: 08/10/2023 14:34 INDICATION: Speech difficulty TECHNIQUE: Computed tomography (CT) of the head was performed without intravenous contrast. The dose- length product was 605.33 mGy-cm. Automated exposure control and iterative reconstruction technique w ere employed. COMPARISON: CT dated 05/26/2023 FINDINGS: There are chronic left frontal and occipital lobe infarctions. Generalized atrophy. There a re scattered mild periventricular and subcortical white matter changes, most likely related to small vessel ischemic disease (microangiopathy). There is a chronic right parietal lobe infarction. No vent riculomegaly or midline shift. There is intracranial atherosclerosis. No acute infarction, hemorrhage , mass or mass effect. Paranasal sinuses and mastoids are pneumatized. No depressed skull fractures. IMPRESSION: 1. No acute intracranial abnormality. 2: Chronic left frontal, right parietal and left occipital lobe infarctions. 3: Chronic age-related findings. Reviewed, dictated and finalized at location B.
--- NOTE | ~2023-08-08 | XR_ITS ---
EXAMINATION: XR chest 1V portable DATE: 08/10/2023 05:45 INDICATION: Bilateral lung infiltrates. TECHNIQUE: A single frontal view of the chest was obtained. COMPARISON: Chest single view 08/09/2023 FINDINGS: The patient is rotated to her left. There is a diffuse interstitial pattern in the lungs. T here are mild airspace opacities in the mid and lower lung zones. There are small pleural effusions. No pneumothorax. Cardiomegaly is noted. IMPRESSION: 1. Improved diffuse lung disease, likely moderate pulmonary edema. 2. Stable small pleural effusions. 3. Cardiomegaly. Reviewed, dictated and finalized at location E.
--- NOTE | ~2023-08-08 | XR_ITS ---
EXAMINATION: XR chest 1V portable DATE: 08/09/2023 06:57 INDICATION: Infiltrates. TECHNIQUE: A single frontal view of the chest was obtained. COMPARISON: Chest single view 08/08/23 FINDINGS: There are airspace and interstitial opacities in all lung zones bilaterally with a lower betsy ng predominance. There are small pleural effusions. No pneumothorax. Cardiomegaly is noted. IMPRESSION: 1. Diffuse lung disease with mild improvement, consistent with pulmonary edema versus pneumonia. 2. Small pleural effusions. 3. Cardiomegaly. Reviewed, dictated and finalized at location E.
--- NOTE | ~2023-08-08 | XR_ITS ---
EXAMINATION: XR chest 1V portable DATE: 08/08/2023 18:06 INDICATION: Difficulty breathing. TECHNIQUE: A single frontal view of the chest was obtained. COMPARISON: Chest single view 08/03/23 FINDINGS: There are airspace opacities in all lung zones bilaterally with a perihilar predominance. N o pleural effusion or pneumothorax. Cardiomegaly is noted. IMPRESSION: 1. Worsened diffuse lung disease, consistent with severe pulmonary edema versus pneumonia. Reviewed, dictated and finalized at location E.
--- NOTE | 2023-08-08 17:15 | ECG_ITS ---
SEE SCANNED COPY FOR CONFIRMED REPORT MTDD
[2023-08-08 17:37] LABS: Basophils Absolute Auto 0.1 K/mm3 (0.0-0.1); Basophils Percent Auto 0.5 % (0.2-1.2); Eosinophils Absolute Auto 0.3 K/mm3 (0-0.3); Eosinophils Percent Auto 1.8 % (0-4.4); Hematocrit 30.8 % (37.0-47.0); Hemoglobin 9.1 g/dL (12.0-15.0); Immature Granulocyte Absolute 0.18 K/mm3 (0.00-0.031); Immature Granulocyte Percent A 1.2 % (0-0.5); Immature Platelet Fraction Pct 6.8 % (0.9-11.2); Lymphocytes Absolute Auto 1.25 K/mm3 (0.9-3.2); Lymphocytes Percent Auto 8.5 % (18.3-44.2); Mean Corpuscular HGB Conc 29.5 g/dl (32-36); Mean Corpuscular Hemoglobin 26.7 pg (26-34); Mean Corpuscular Volume 90.3 fl (80-100); Mean Platelet Volume 11.2 fl (7.4-10.4); Monocytes Absolute Auto 0.5 K/mm3 (0.1-0.6); Monocytes Percent Auto 3.1 % (2.6-8.5); Neutrophils Absolute Auto 12.5 K/mm3 (1.3-6.7); Neutrophils Percent Auto 84.9 % (45.5-73.1); Platelet Count Result 122 k/mm3 (150-375); Red Blood Count 3.41 M/mm3 (4.2-5.4); Red Cell Distribution Width 16.1 % (11.5-14.5); White Blood Count 14.7 K/mm3 (4.5-10.0)
[2023-08-08 17:45] LABS: Alveolar/Arterial O2 Gradient 259.5 mmHg; Base Excess ABG -1.7 mEq/l (+/-2.0); Fractional Inspired Oxygen 48 %; HCO3 ABG 21.4 mEq/l (22.0-26.0); Oxygen Content ABG 10.9 %vol (16.0-22.0); PCO2 ABG 30.1 mmHg (35.0-45.0); PO2 FiO2 Ratio Arterial Blood 1.01 %; Total Hemoglobin 9.3 g/dL (12.0-18.0); pH ABG 7.469 (7.350-7.450)
[2023-08-08 17:47] LABS: Alanine Aminotransferase 15 U/L (6-35); Albumin Level 4.1 g/dL (3.5-5.1); Alkaline Phosphatase 98 U/L (38-126); Anion Gap 8 mmol/L (4-12); Aspartate Amino Transferase 25 U/L (14-36); Bilirubin,Total 1.7 mg/dL (0.2-1.3); Blood Urea Nitrogen 37 mg/dL (7-17); Calcium 9.2 mg/dL (8.4-10.2); Carbon Dioxide 25 mmol/L (22-30); Chloride 108 mmol/L (98-107); Estimated CRCL calculation 26 ml/min; Estimated Glomerular Filt Rate 29; Glucose 107 mg/dL (65-110); Magnesium 2.1 mg/dL (1.6-2.3); Potassium 4.1 mmol/L (3.4-5.0); Sodium 141 mmol/L (137-145)
[2023-08-08 17:52] LABS: Anisocytosis 1+; Ovalocytes 1+; Platelet Estimate Decreased (Adequate); Schistocytes None Seen
[2023-08-08 17:58] LABS: NT Pro B Type Natriuretic Pept 5780 pg/mL (19.9-100); Troponin I < 0.012 ng/mL (0.000-0.034)
[2023-08-08 17:59] LABS: Device HIGH FLOW NASAL CANN; Modified Allen's Test Pass; Oxygen Saturation ABG 87.4 % (95.0-100.0); Oxyhemoglobin 83.3 % THb (90.0-100.0); PO2 ABG 48.7 mmHg (80.0-100.0); Site Drawn LEFT RADIAL
[2023-08-08] MEDS: FUROSEMIDE INJ 100 MG/10 ML VIAL 80 MG IV PUSH (18:21)
--- NOTE | 2023-08-08 19:31 | PC.NURSE ---
Pt requesting something to be placed to keep her from needing to call to urinate. Pt educated on options for peeing including purewic, bedpan, bedside commode. Pt would like purewic placed, skin clean dry and intact.
[2023-08-08] MEDS: diphenhydrAMINE HCl INJ 50 MG/ML VIAL 25 MG IV PUSH (20:03)
[2023-08-08] MEDS: CEFEPIME 1 GM/NS 50 ML 1 GM/50 ML BAG IVPB (20:03)
[2023-08-08] MEDS: METOCLOPRAMIDE HCL INJ 10 MG/2 ML VIAL IV PUSH (20:03)
--- NOTE | 2023-08-08 20:20 | ED.SOB ---
HPI - SOB/Dyspnea General Chief Complaint: Shortness of Breath/Dyspnea Stated Complaint: SOB History of Present Illness HPI Narrative: Patient with recent diagnosis of possible CHF with pulmonary edema and multiple admissions in the last 2-3 months presents here with dyspnea with has been worsening over last few days, and prior to presentation here she felt like she cannot catch her breath at all. Has been having a cough. Related Data Home Medications Medication Instructions Recorded Confirmed amlodipine 5 mg tablet 5 mg PO DAILY 05/26/23 08/02/23 atenolol 25 mg tablet 25 mg PO DAILY 05/26/23 08/02/23 atorvastatin 40 mg tablet 40 mg PO HS 05/26/23 08/02/23 mirtazapine 15 mg tablet 15 mg PO HS 05/26/23 08/02/23 Allergies Allergy/AdvReac Type Severity Reaction Status Date / Time Sulfa (Sulfonamide Allergy Unknown Unknown Verified 08/02/23 16:15 Antibiotics) Review of Systems Review of Systems: All systems reviewed & are unremarkable except as noted in HPI and below PMFSH Past Medical History Medical History (Updated 08/08/23 @ 18:37 by Keerthi Banuelos MD) Anemia Arthritis CVA (cerebral vascular accident) DDD (degenerative disc disease) Depression GERD (gastroesophageal reflux disease) HTN (hypertension) Hyperlipidemia IBS (irritable bowel syndrome) Migraines MVP (mitral valve prolapse) Seasonal allergies Ulcer Wears glasses Wrist fracture, right Surgical History Surgical History History of appendectomy History of hysteroscopy Hx of tonsillectomy Family History Family History Father Diabetes mellitus Acute myocardial infarction Mother Dementia Social History Social History Smoking packs per day: 0.1 Smoking cigarettes per day: 2.0 Years smoked: 10 Smoking pack-years: 1.00 Smoking status: Former smoker Tobacco type: cigarettes Smoking end date: 04/19/13 Alcohol intake: never Substance use: never Do You Feel Safe in your Home?: Yes Lack of Transportation: No Lack of Food: Never True Current Housing: I Have Housing Concerned About Future Housing: No Difficulty Paying Gas/Electric Bills: No Difficulty Paying for Meds: No Currently Unemployed: No Education: High School Diploma/GED Difficulty w/ Childcare or Family Care: No Spiritual care concerns: No Agree to blood products: Yes Exam Narrative: EXAMINATION OF ORGAN SYSTEMS/BODY AREAS: Constitutional: Vital signs per nursing GENERAL: labored respirations and dyspnea HEAD: Normal with no signs of head trauma. EYES: EOMI, conjunctiva normal ENT: Hearing grossly intact LUNGS: Labored respirations, dyspneic, diminished lung sounds bilaterally HEART: [Regular rate and rhythm] ABD: [Soft], [nontender to palpation] EXT: Normal range of motion SKIN: [No rashes or lesions.] NEURO: [Alert and oriented x 3. No gross focal sensory or strength deficits.] PSYCH: Normal affect Course Vital Signs Vital signs: Vital Signs Temperature 98.8 F 08/08/23 17:08 Pulse Rate 77 08/08/23 17:08 Respiratory Rate 30 H 08/08/23 17:08 Blood Pressure 120/67 08/08/23 17:08 Pulse Oximetry 64 L 08/08/23 17:08 Oxygen Delivery Room Air 08/08/23 17:08 Temperature 98.8 F 08/08/23 17:08 Pulse Rate 78 08/08/23 19:31 Respiratory Rate 20 08/08/23 19:31 Blood Pressure 115/77 08/08/23 19:31 Pulse Oximetry 100 08/08/23 20:15 Oxygen Delivery High Flow Nasal Cannula 08/08/23 20:15 Oxygen Flow Rate 7 08/08/23 20:15 Fraction of Inspired Oxygen 60 08/08/23 18:00 MDM - SOB/Dyspnea MDM Narrative Medical decision making narrative: 1) Differential diagnosis: pneumonia, CHF, PE, COPD 2) Comorbidities: possible PE, who possible CHF and CAD, mitral regurg 3) External notes reviewed: recent admission
[2023-08-08 20:25] LABS: MRSA (PCR) NOT DETECTED (NOT DETECTE)
--- NOTE | 2023-08-08 20:29 | PM.IMHP ---
H&P: HPI History of Present Illness Date/Time: 08/08/23 20:29 Chief Complaint: sob Narrative: This is a 57-year-old female with past medical history significant for stroke, degenerative disc disease, GERD mitral valve prolapse, migraine headaches, chronic kidney disease, hypertension , COVID-19. patient has had multiple admissions in the last 3 months recently discharged 08/04/2023, patient had comprehensive workup done at that time. Returns today due to sudden onset of shortness of breath states that she has been in her usual state of health up until today, denies any chest pain, palpitations, fevers, chills, night sweats, has had a persistent cough nonproductive, had good appetite, denies any generalized malaise, fatigue. upon arrival to emergency room patient was noted to have low oxygen saturation, patient required oxygen supplementation. a chest x-ray showed diffuse lung infiltrates. patient is been admitted for further evaluation management and treatment. EXAMINATION: XR chest 1V portable DATE: 08/08/2023 18:06 INDICATION: Difficulty breathing. TECHNIQUE: A single frontal view of the chest was obtained. COMPARISON: Chest single view 08/03/23 FINDINGS: There are airspace opacities in all lung zones bilaterally with a perihilar predominance. No pleural effusion or pneumothorax. Cardiomegaly is noted. IMPRESSION: 1. Worsened diffuse lung disease, consistent with severe pulmonary edema versus pneumonia. Review of Systems Review of Systems: Shortness of breath Constitutional: Constitutional: Denies chills, Denies fatigue, Denies fever(s), Denies malaise, Denies night sweats and Denies weakness Eyes: Eyes: Denies change in vision ENT: Denies dysphagia, Denies vertigo, Denies dizziness and Denies odynophagia Cardiovascular: Cardiovascular: Denies chest pain, Denies radiating jaw, neck or arm pain and Denies palpitations Respiratory: Respiratory: Reports cough, Denies excessive phlegm production and Reports dyspnea Gastrointestinal: Gastrointestinal: Denies abdominal pain, Denies dyspepsia, Denies heartburn, Denies diarrhea, Denies nausea and Denies vomiting Genitourinary: Genitourinary: Denies dysuria Musculoskeletal: Musculoskeletal: Denies back pain, Denies myalgias and Denies arthralgias Integumentary/Breasts: Skin/Breast: Denies rash Neurologic: Denies focal weakness and Denies Sensory deficit (Neuro) Psychiatric: Psychiatric: Reports no additional psychiatric complaints and Reports as per HPI Endocrine: Endocrine: Denies cold intolerance, Denies fatigue, Denies flushing, Denies heat intolerance, Denies polyphagia, Denies polydipsia, Denies polyuria and Denies palpitations Hematologic/Lymphatic: Hematologic/Lymphatic: Reports no additional hematologic/lymphatic complaints and Reports as per HPI Allergic/Immunologic: Allergic/Immunologic: Reports no additional allergic/immunologic complaints and Reports as per HPI PMFSH Past Medical History Medical History (Updated 08/08/23 @ 18:37 by Keerthi Banuelos MD) Anemia Arthritis CVA (cerebral vascular accident) DDD (degenerative disc disease) Depression GERD (gastroesophageal reflux disease) HTN (hypertension) Hyperlipidemia IBS (irritable bowel syndrome) Migraines MVP (mitral valve prolapse) Seasonal allergies Ulcer Wears glasses Wrist fracture, right Surgical History Surgical History History of appendectomy History of hysteroscopy Hx of tonsillectomy Family History Family History Father Diabetes mellitus Acute myocardial infarction Lung cancer Mother Dementia Social History Social History Smoking packs per day: 0.5 Smoking cigarettes per day: 10.0 Years smoked: 35 Smoking pack-years: 17.50 Smoking status: Former smoker Tobacco type: cigarettes Alc
[2023-08-08] MEDS: VANCOMYCIN 1,500 MG/NS 500 ML 1,500 MG/500 ML BAG 250 MG IVPB (21:14)
--- NOTE | 2023-08-08 21:34 | ADMGEN ---
This patient, Elias Luis, was admitted to Intensive Care Unit-3. Patient/family oriented to hospital policies and general routines including ID bracelet, bed and alarms, visiting hours, pain management, procedures, bathroom and other care routines, personal items, smoking policy, room service/diet, and visiting hours. Information on how to activate the Rapid Response Team has been discussed. Patient/Family are encouraged to report perceived risks to care and to ask questions if they do not understand what they are told or what they should do.
[2023-08-08] MEDS: MIRTAZAPINE 15 MG TABLET PO (21:55)
[2023-08-08] MEDS: CITALOPRAM HYDROBROMIDE 10 MG TABLET PO (21:55)
[2023-08-08] MEDS: APIXABAN 5 MG TABLET PO (21:55)
[2023-08-08] MEDS: AZITHROMYCIN 500 MG/NS 250 ML 500 MG/250 ML BAG 250 MG IVPB (22:41)
[2023-08-09] VITALS (17 sets, daily range): BP systolic 84–125; BP diastolic 53–83; PULSE 48–119; RESP 14–26; TEMP 36.4–37.3; O2SAT 94–99; BMI 21.5
--- NOTE | 2023-08-09 | ECHO_ITS ---
Patient Info Name: Elias Luis Age: 57 years : 1965 Gender: Female Ht: 64 in Wt: 125 lbs BSA: 1.60 m2 HR: 57 bpm BP: 90 / 59 mmHg Heart Rhythm: Sinus Rhythm Technical Quality: Good Exam Date: 08/09/2023 10:41 AM Exam Location: Echo Lab Patient Status: Inpatient Admit Date: 08/08/2023 Staff Ordering Physician: Brandi Michael MD Senior Systems Engineer: Fay Larson RDCS Attending Provider: Jason Gay MD Referring Physician: Fernanda FENTON; Exam Type: CA echo doppler color flow Study Info Indications - severe mitral valve regurg Complete two-dimensional, color flow and Doppler transthoracic echocardiogram is performed. Summary 1. There is moderate eccentric posteriorly directed mitral valve regurgitation. Severity may be underestimated due to eccentricity. 2. Highly mobile approximately 1.2cmx1.7cm echodensity predominantly involving the anterior leaflet located on the atrial aspect prolapsing into the left atrium suggestive of vegetation. Subtle, small slightly mobile echodensity involving the posterior leaflet is also identified. Consider CAROL if clinically appropriate. Clinical correlation advised. 3. Left ventricular chamber dimension is normal. 4. Left ventricular systolic function is hyperdynamic, estimated at >70%. 5. There is no increased left ventricular wall thickness. 6. The left ventricular diastolic function is grade II diastolic dysfunction. 7. Left atrial chamber dimension is severely enlarged. 8. The mitral valve has thickened leaflets. 9. There is no mitral valve stenosis. 10. The mitral valve annulus is mildly calcified. 11. There is trace tricuspid valve regurgitation. 12. Mild pulmonary hypertension, estimated pulmonary arterial systolic pressure is 40 mmHg. Recommendations * Recommend transesophageal echocardiogram. Left Ventricle Left ventricular chamber dimension is normal. Left ventricular systolic function is hyperdynamic, estimated at >70%. There is no increased left ventricular wall thickness. The left ventricular diastolic function is grade II diastolic dysfunction. Right Ventricle Right ventricular chamber dimension is normal. Right ventricular systolic function is normal. Left Atria Left atrial chamber dimension is severely enlarged. Right Atria Right atrial chamber dimension is normal. Aortic Valve The aortic valve is probable trileaflet. There is mild aortic valve sclerosis. There is no aortic valve stenosis. There is no aortic valve regurgitation. Pulmonic Valve The pulmonic valve is not well visualized. There is trace pulmonic regurgitation. Mitral Valve There is moderate eccentric posteriorly directed mitral valve regurgitation. Severity may be underestimated due to eccentricity. Highly mobile approximately 1.2cmx1.7cm echodensity predominantly involving the anterior leaflet located on the atrial aspect prolapsing into the left atrium suggestive of vegetation. Subtle, small slightly mobile echodensity involving the posterior leaflet is also identified. Consider CAROL if clinically appropriate. Clinical correlation advised. The mitral valve has thickened leaflets. There is no mitral valve stenosis. The mitral valve annulus is mildly calcified. Tricuspid Valve The tricuspid valve leaflets are normal. There is trace tricuspid valve regurgitation. Mild pulmonary hypertension, estimated pulmonary arterial systolic pressure is 40 mmHg. Pericardium/Pleural The pericardium appears normal. There is no pericardial effusion. Inferior Vena Cava Normal inferior vena cava with >50% collapse upon inspi
[2023-08-09] MEDS: MIDODRINE HCL 2.5 MG TABLET 5 MG PO (00:36)
[2023-08-09] MEDS: MIDODRINE HCL 10 MG TABLET PO (00:36)
[2023-08-09 03:12] LABS: Influenza A QL RT-PCR Negative (Negative); Influenza B QL RT-PCR Negative (Negative); RSV RNA, RT-PCR Negative (Negative); SARS-CoV-2 RNA PCR Negative (Negative)
[2023-08-09 04:31] LABS: Estimated CRCL calculation 26 ml/min; Estimated Glomerular Filt Rate 29
[2023-08-09] MEDS: methylPREDNISolone SOD SUCC 125 MG VIAL 60 MG IV PUSH (05:08)
[2023-08-09] MEDS: SODIUM CHLORIDE 0.9% IV 250 ML 999 ML IV CONT (05:40)
--- NOTE | 2023-08-09 08:00 | PM.CNPUL ---
History of Present Illness History of Present Illness Consult date: 08/09/23 Chief complaint: Hypoxic resp failure; likely CHF Narrative: 08/09/2023: This is a new pulmonary consult for hypoxic respiratory failure. 57-year-old with a history of hypertension, CVA, expressive aphasia, GERD, mitral volume of prolapse and migraines. 05/26/2023 with weakness, Poor appetite, diarrhea, shortness of breath. Patient had a leukocytosis, COVID RT PCR positive, CT of the abdomen showed right lower lobe infiltrate that was mild. Patient was treated for COVID with remdesivir X1 dose and this was discontinued as she required no oxygen as well as bacterial pneumonia with antibiotics. she required no supplemental oxygen. echocardiogram showed LVEF greater than 70, grade 1 diastolic dysfunction, normal left atrium, moderate mitral regurgitation, RVSP 34. Normal RV size and function. Cough diarrhea resolved. she was discharged home on doxycycline x7 days. 06/27/2023. Patient presented to the emergency room with shortness of breath and dyspnea that had not improved since 05/26/2023. She had a cough. She has been getting short of breath with activity. room air saturations 92-95%, in the end emergency room ambulation on room air with saturations in the low 80s. Elevated BNP and 1 dose of Lasix given. Vanc and cefepime started. CT angiogram of the chest showed no PE, patchy ground-glass infiltrates bilaterally with small effusions. MRSA swab negative, IV came out and patient refused placement. Started on Augmentin. On 06/28/2023 home O2 assessment demonstrated no oxygen needs. Discharged on Augmentin. 08/02/2023: Presented to the ER for shortness of breath and dyspnea. Room air saturations 91%. D-dimer positive at 2.26, BNP 7460, chest x-ray with diffuse patchy ground-glass infiltrates similar to 06/27/2023. Started on IV Lasix. V/Q scan with ventilation images demonstrate moderate sized and large defects in the right lung and left mid and lower lung zones. Washout images demonstrate small defects in left upper lobe. Perfusion images show large defects in the lower lobes. Overall IMPRESSION: 1.? Intermediate probability for pulmonary embolism. Eliquis was started. on 08/03/2023 echocardiogram showed LVEF 65-70, severe mitral gas valve regurgitation with possible ruptured chordae, normal RV size and function, normal right atrial size, severely increased left atrial size, mild TR with RVSP of 50. On 08/03/2023 required 2 L nasal cannula oxygen. She was feeling much better. diuretics held on 08/02 due to creatinine 1.9. On 07/03 creatinine 1.8, BNP 1760 she was started on citalopram for her anxiety. Follow-up with her PCP. She was scheduled to follow-up with cardiology regarding her Worsening mitral valve regurgitation due to possible prolapse versus ruptured chordae. 08/08/2023: Presented to the emergency room with shortness of breath and dyspnea. room air saturations were 64. Placement placed on high-flow nasal cannula 7 L with saturations 100% white blood cell count was 14.7 with eosinophils 1.8%, hemoglobin 9.1, platelets 871111, creatinine 1.80, serum bicarb 25, BNP 5780, troponin less than 0.012 ABG on 7 L 7.4 11/15/2048. COVID influenza and RSV RT PCR negative. patient was treated with 80 mg IV Lasix, cefepime, azithromycin, and vancomycin. She was started on Solu-Medrol 60 Q 6 and her apixaban was continued. DATA: 08/09/23: EXAMINATION: XR chest 1V portable DATE: 08/09/2023 06:57 INDICATION: Infiltrates. TECHNIQUE: A single frontal view of the chest was obtained. COMPARISON: Chest single view 08/08/23 FINDINGS: There are airspace and interstitial opacities in all lung zones bilaterally with a lower lung predominance. There are small pleural effusions. No pneumothorax. Cardiomegaly is noted. IMPRESSION: 1. Diffuse lung disease with mild improvement, consistent with pulmonary edema versus pneumo
[2023-08-09 08:10] LABS: Basophils Absolute Auto 0.1 K/mm3 (0.0-0.1); Basophils Percent Auto 0.9 % (0.2-1.2); Eosinophils Absolute Auto 0.1 K/mm3 (0-0.3); Eosinophils Percent Auto 1.8 % (0-4.4); Hematocrit 26.7 % (37.0-47.0); Hemoglobin 8.1 g/dL (12.0-15.0); Immature Granulocyte Absolute 0.06 K/mm3 (0.00-0.031); Immature Granulocyte Percent A 0.9 % (0-0.5); Immature Platelet Fraction Pct 8.2 % (0.9-11.2); Lymphocytes Absolute Auto 0.33 K/mm3 (0.9-3.2); Mean Corpuscular HGB Conc 30.3 g/dl (32-36); Mean Corpuscular Hemoglobin 27.2 pg (26-34); Mean Corpuscular Volume 89.6 fl (80-100); Mean Platelet Volume 11.9 fl (7.4-10.4); Monocytes Absolute Auto 0.1 K/mm3 (0.1-0.6); Monocytes Percent Auto 1.1 % (2.6-8.5); Neutrophils Absolute Auto 5.9 K/mm3 (1.3-6.7); Neutrophils Percent Auto 90.3 % (45.5-73.1); Platelet Count Result 103 k/mm3 (150-375); Red Blood Count 2.98 M/mm3 (4.2-5.4); Red Cell Distribution Width 16.2 % (11.5-14.5); White Blood Count 6.6 K/mm3 (4.5-10.0)
[2023-08-09 08:15] LABS: Lactic Acid Reflex 0.7 mmol/L (0.7-2.0)
[2023-08-09] MEDS: APIXABAN 5 MG TABLET PO ×2 (08:18→21:01)
[2023-08-09] MEDS: ATORVASTATIN 40 MG TABLET PO (08:18)
--- NOTE | 2023-08-09 08:47 | PM.CNCAR ---
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 She has had several admissions over the past 2 months where she received several rounds of different antibiotics with clinical improvement. Several sets of blood cultures have all been negative to date since May. Upon personal review most recent echocardiogram I feel mobile echodensity most likely reflects vegetation prolapsing into the left atrium as opposed to true prolapse of the leaflet itself. This can be difficult to further delineate where transesophageal echocardiogram would be quite helpful. However, patient is not a candidate at this time due to acute respiratory failure and hypotension. -I explained very serious and potential life-threatening nature of clinical circumstances and my concern for underlying endocarditis which is intermittently been partially treated with antibiotics over the past 2 months. As such, endocarditis is a subacute process in which cultures are negative to date. I also explained the high likelihood she would require transfer to outside facility for higher level of care and consultation cardiothoracic surgery as per cannot expect that she would be cured with a course of IV antibiotics even if prolonged up to 6 weeks. Patient verbalized understanding with stage she did not want to remain in the hospital and does not want to be here. I explained this serious potential life-threatening nature of her condition and the fact that she has much sicker than she looks. She acknowledged this and verbalized understanding. She expressed great appreciation for my explanations, time spent and care. -broaden IV antibiotics for valvular endocarditis. Blood cultures pending. -continue supportive care caution to avoid significant hypotension/hypoperfusion. -ideally, transesophageal echocardiogram would be recommended yet patient is not a candidate at this time due to hypoxia and relative hypotension which may result in the need for intubation and mechanical ventilatory support as well as pressors. Patient verbalized understanding of these risks. In this regard, will repeat 2D echocardiogram to assess for interval change. -it is unlikely patient will be adequately treated with antibiotics alone which case mitral valve replacement may be required due to her mitral regurgitation which appears to likely be severe. As such, patient benefit from transfer to outside facility with higher level care for consultation cardiothoracic surgery and infectious disease. -continue to monitor ECG to assess for new conduction abnormalities. ECG stable thus far. -continue telemetry -DVT prophylaxis -overall, patient is critically ill close observation required to ensure she remains stable and improved hemodynamically and from a respiratory perspective. My main concern given severity of mitral regurgitation and heart failure with in the setting of endocarditis she will require Surgical Services not available at this institution eventually but that observing response to IV antibiotics initially is reasonable. She has asked me to contact her brother Theodore Schultz and review her case and update him as she has given me express permission to do so on her behalf. -further recommendations after review repeat 2D echocardiogram to assess for interval change. I spent 84 minutes in the care of this patient at bedside including examination, discussions with the patient, colleagues, nursing, Critical Care Service, chart review, medical decision making, and documentation. (2) Severe mitral regurgitati
[2023-08-09 08:55] LABS: Appearance Urine Clear (Clear); Bilirubin Urine Negative (Negative); Blood Urine Negative (Negative); Color Urine Yellow (Yellow); Glucose Urine UA Negative (Negative); Ketones Urine Negative (Negative); Leukocyte Esterase Ur Negative LEU/UL (Negative); Nitrate Urine Negative (Negative); Protein Urine Negative (Negative); Specific Grav Ur 1.008 (1.001-1.035); Urobilinogen Urine 0.2 mg/dL (<2.0); pH Urine 5.5 (5.0-9.0)
[2023-08-09 08:59] LABS: Alanine Aminotransferase 14 U/L (6-35); Albumin Level 3.8 g/dL (3.5-5.1); Alkaline Phosphatase 86 U/L (38-126); Anion Gap 7 mmol/L (4-12); Aspartate Amino Transferase 25 U/L (14-36); Bilirubin,Total 2.3 mg/dL (0.2-1.3); Blood Urea Nitrogen 34 mg/dL (7-17); CRP 2.6 mg/dL (<1.0); Calcium 8.6 mg/dL (8.4-10.2); Carbon Dioxide 27 mmol/L (22-30); Chloride 105 mmol/L (98-107); Creatine Kinase 36 U/L (30-135); Estimated CRCL calculation 26 ml/min; Estimated Glomerular Filt Rate 29; Glucose 119 mg/dL (65-110); Magnesium 2.1 mg/dL (1.6-2.3); Phosphorus 4.6 mg/dL (2.5-4.5); Potassium 4.1 mmol/L (3.4-5.0); Sodium 139 mmol/L (137-145)
[2023-08-09 09:00] LABS: Add Urine Microscopic? NO
[2023-08-09 09:05] LABS: Creatinine Urine 23.4 mg/dL
[2023-08-09 09:07] LABS: Potassium Urine Random 12.5 meq/L; Sodium Urine Random 140 meq/L
[2023-08-09 09:40] LABS: Eosinophil Urine None Seen % (None Seen); Urine Eos QC 2nd Tech Confirmed
--- NOTE | 2023-08-09 09:45 | WPDCNINT ---
Assessment and Plan Assessment and plan (1) Acute hypoxemic respiratory failure: Code(s): J96.01 - Acute respiratory failure with hypoxia Status: Acute Assessment and Plan: Acute respiratory failure likely secondary to bilateral infiltrates from pulmonary edema, pneumonia, severe mitral valve regurgitation -continue high flow therapy, O2 requirements trending down -patient did receive Lasix 80 mg IV x1 in the ER, -monitor urine output, renal function -started on cefepime and vancomycin (08/07) -08/07: Blood cultures obtained and pending (2) Acute kidney injury: Code(s): N17.9 - Acute kidney failure, unspecified Status: Acute Assessment and Plan: Acute on chronic kidney disease -could be related to mitral valve regurg, volume overload -patient did receive diuretics in the ER -will continue diuresing as tolerated by patient's blood pressure -monitor urine output, renal function electrolytes (3) 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 08/11/2023: Echocardiogram Summary ? 1. There is moderate eccentric posteriorly directed mitral valve regurgitation. Severity may be underestimated due to eccentricity. ? 2. Highly mobile approximately 1.2cmx1.7cm echodensity predominantly involving the anterior leaflet located on the atrial aspect prolapsing into the left atrium suggestive of vegetation. Subtle, small slightly mobile echodensity involving the posterior leaflet is also identified. Consider CAROL if clinically appropriate. Clinical correlation advised. ? 3. Left ventricular chamber dimension is normal. ? 4. Left ventricular systolic function is hyperdynamic, estimated at >70%. ? 5. There is no increased left ventricular wall thickness. ? 6. The left ventricular diastolic function is grade II diastolic dysfunction. ? 7. Left atrial chamber dimension is severely enlarged. ? 8. The mitral valve has thickened leaflets. ? 9. There is no mitral valve stenosis. ? 10. The mitral valve annulus is mildly calcified. ? 11. There is trace tricuspid valve regurgitation. ? 12. Mild pulmonary hypertension, estimated pulmonary arterial systolic pressure is 40 mmHg. (4) CHF (congestive heart failure): Qualifiers: Heart failure type: unspecified Heart failure chronicity: unspecified Qualified Code(s): I50.9 - Heart failure, unspecified Code(s): I50.9 - Heart failure, unspecified Status: Suspected Assessment and Plan: Patient with bilateral infiltrates likely pulmonary edema secondary to severe mitral valve regurg -could also be a result of pneumonia -continue antibiotics -patient received Lasix 80 mg IV x1 in the ER -hold additional Lasix given borderline blood pressures -Cardiology following the patient (5) Thrombocytopenia: Code(s): D69.6 - Thrombocytopenia, unspecified Status: Acute Assessment and Plan: Platelet counts 103, patient does have a history of thrombocytopenia -no active bleeding noted at this time, will continue to monitor (6) Anemia: Qualifiers: Anemia type: unspecified type Qualified Code(s): D64.9 - Anemia, unspecified Code(s): D64.9 - Anemia, unspecified Status: Acute Assessment and Plan: Chronic anemia, continue to monitor hemoglobin -no obvious signs of bleeding at this time -will check coags -started on Protonix Plan DVT prophylaxis: Apixaban Stress ulcer prophylaxis: Protonix Nutrition: Heart healthy
[2023-08-09] MEDS: CEFEPIME 1 GM/NS 50 ML 1 GM/50 ML BAG IVPB ×2 (13:49→21:08)
--- NOTE | 2023-08-09 16:24 | PM.TDS ---
Transfer Discharge Sum: Prov Provider Date of admission: 08/08/23 18:35 Primary care physician: Heather Carolina, PA Admitting clinician: Jason Gay MD Attending physician on admission: Misbah Omer Consults: 08/08/23 18:36 Consult to Physician Routine Comment: Consulting Provider: Brandi Michael Reason for consultation: hypoxic resp failure Has provider been notified: Yes 08/09/23 07:53 Consult to Physician Routine Comment: Answering service Consulting Provider: Selwyn Quiros call center associate/MD group to consult: Cardiology Reason for consultation: Severe mitral valve regurg Has provider been notified: Yes Attending physician on discharge: Misbah Omer Discharging clinician: Cy Mcallister Anticipated date of transfer: 08/09/23 Receiving physician/facility: [facility] DS: Admitting Diagnosis Discharge Date 08/09/2023 Admitting Diagnosis Acute hypoxic respiratory failure, CHF DS: Discharge Diagnosis Discharge Diagnosis (1) Severe mitral regurgitation: Code(s): I34.0 - Nonrheumatic mitral (valve) insufficiency Status: Acute Assessment and Plan: As above, mitral regurgitation likely secondary to echodensity mitral valve concerning for endocarditis. All cultures negative to date. Patient is highly eccentric at least moderate regurgitation which may be underestimated anticipated to be severe overall. CAROL would be helpful for clarification the patient is stable. 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 She has had several admissions over the past 2 months where she received several rounds of different antibiotics with clinical improvement. Several sets of blood cultures have all been negative to date since May. Upon personal review most recent echocardiogram I feel mobile echodensity most likely reflects vegetation prolapsing into the left atrium as opposed to true prolapse of the leaflet itself. This can be difficult to further delineate where transesophageal echocardiogram would be quite helpful. However, patient is not a candidate at this time due to acute respiratory failure and hypotension. -I explained very serious and potential life-threatening nature of clinical circumstances and my concern for underlying endocarditis which is intermittently been partially treated with antibiotics over the past 2 months. As such, endocarditis is a subacute process in which cultures are negative to date. I also explained the high likelihood she would require transfer to outside facility for higher level of care and consultation cardiothoracic surgery as per cannot expect that she would be cured with a course of IV antibiotics even if prolonged up to 6 weeks. Patient verbalized understanding with stage she did not want to remain in the hospital and does not want to be here. I explained this serious potential life-threatening nature of her condition and the fact that she has much sicker than she looks. She acknowledged this and verbalized understanding. She expressed great appreciation for my explanations, time spent and care. -broaden IV antibiotics for valvular endocarditis. Blood cultures pending. -continue supportive care caution to avoid significant hypotension/hypoperfusion. -ideally, transesophageal echocardiogram would be recommended yet patient is not a candidate at this time due to hypoxia and relative hypotension which may result in the need for intubation and mechanical ventilatory support as well as pressors. Patient verbalized understanding of these risks.
--- NOTE | 2023-08-09 18:02 | PM.IMPN ---
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 - Rheumatic mitral valve disease, unspecified Status: Acute (2) Acute hypoxemic respiratory failure: Code(s): J96.01 - Acute respiratory failure with hypoxia Status: Acute (3) Acute kidney injury: Code(s): N17.9 - Acute kidney failure, unspecified Status: Acute (4) Severe mitral regurgitation: Code(s): I34.0 - Nonrheumatic mitral (valve) insufficiency Status: Acute (5) Anemia: Qualifiers: Anemia type: unspecified type Qualified Code(s): D64.9 - Anemia, unspecified Code(s): D64.9 - Anemia, unspecified Status: Acute Plan (1) Acute hypoxemic respiratory failure: ?Code(s): J96.01 - Acute respiratory failure with hypoxia ?Status:?Acute ?Assessment and Plan: Acute respiratory failure likely resulting result pulmonary edema, pneumonia, severe mitral valve regurgitation -continue high flow therapy, O2 requirements trending down treat underlying diseases Receive Lasix IV, monitor input output renal function Start vancomycin cefepime empirically to cover pneumonia -patient did receive Lasix 80 mg IV x1 in the ER, -monitor urine output, renal function -started on cefepime and vancomycin (08/07) -08/07:? Blood cultures obtained and pending (2) Acute kidney injury: ?Code(s): N17.9 - Acute kidney failure, unspecified ?Status:?Acute ?Assessment and Plan: Acute on chronic kidney disease possible cardiorenal syndrome -will continue diuresing as tolerated by patient's blood pressure -monitor urine output, renal function electrolytes (3) Endocarditis of mitral valve: ?Code(s): I05.9 - Rheumatic mitral valve disease, unspecified ?Status:?Acute ?Assessment and Plan: Endocarditis, causing moderate to severe mitral valve regurg appreciate radiology interventional physician consultation Antibiotics see above transfer patient to tertiary hospital per radiology interventional physician recommendation acute CHF (congestive heart failure): ?Qualifiers: ?Heart failure type:?unspecified??Heart failure chronicity:?unspecified? Qualified Code(s):?I50.9 - Heart failure, unspecified ?Code(s): I50.9 - Heart failure, unspecified ?Status:?Suspected ?Assessment and Plan: x-ray showed pulmonary congestion, and pulmonary edema and possible superimposed with pneumo -continue antibiotics -patient received Lasix 80 mg IV x1 in the ER -hold additional Lasix given borderline blood pressures -Cardiology following the patient Thrombocytopenia: ?Code(s): D69.6 - Thrombocytopenia, unspecified ?Status:?Acute ?Assessment and Plan: history of chronic thrombocytopenia No active bleeding Monitor closely Platelet counts 103 a.m. today Anemia: ?Qualifiers: ?Anemia type:?unspecified type? Qualified Code(s):?D64.9 - Anemia, unspecified ?Code(s): D64.9 - Anemia, unspecified ?Status:?Acute ?Assessment and Plan: Chronic anemia, continue to monitor hemoglobin no obvious bleeding, follow-up stool guaiac -started on Protonix Plan DVT prophylaxis:? Apixaban Stress ulcer prophylaxis:? Protonix Nutrition:? Heart healthy diet Code Status:? No CPR, okay to intubate Subjective Date/time seen: 08/09/23 18:02 Interval history: I saw and examined patient today. Patient feels dyspnea is improving, still has cough, denies chest pain, abdomen pain, nausea vomiting. Patient afebrile, blood pressure on the lower side. Patient is on high-flow oxygen. Exam Narrative: GENERAL: Pleasant, in no acute distress. Well-nourished. - EYES: EOMI. Anicteric. - HENT: Moist mucous membranes. - LUNGS: coarse breath sound bilaterally - CARDIOVASCULAR: Regular rate and rhythm. No murmur. No JVD. - ABDOMEN: Soft, non-tender and non-distended. No palpable masses. - EXTREMITIES: No edema. Peripheral pulses 2+. Non-ten
--- NOTE | 2023-08-09 18:12 | PM.DS ---
DS: Summary Time Spent with Patient Time attestation: Total time spent providing and/or coordinating discharge services: DS: Data Data Completed and Pending Labs on day of discharge: Labs from last 24 hours 08/09/23 08/09/23 08/09/23 08:44 08:43 07:57 WBC 6.6 RBC 2.98 L Hgb 8.1 L Hct 26.7 L MCV 89.6 MCH 27.2 MCHC 30.3 L RDW 16.2 H Plt Count 103 L MPV 11.9 H Immature Gran % (Auto) 0.9 H Neut % (Auto) 90.3 H Lymph % (Auto) 5.0 L Richardson % (Auto) 1.1 L Eos % (Auto) 1.8 Baso % (Auto) 0.9 Lymph # (Auto) 0.33 L Richardson # (Auto) 0.1 Eos # (Auto) 0.1 Baso # (Auto) 0.1 Abs Immat Gran (auto) 0.06 H Absolute Neuts (auto) 5.9 Absolute Nucleated RBC 0.000 Nucleated RBC % 0.0 % Immature Plt Fraction 8.2 Sodium 139 Potassium 4.1 Chloride 105 Carbon Dioxide 27 Anion Gap 7 BUN 34 H Creatinine 1.80 H Estim Creat Clear Calc 26 Estimated GFR 29 L Glucose 119 H Lactic Acid 0.7 Calcium 8.6 Phosphorus 4.6 H Magnesium 2.1 Total Bilirubin 2.3 H AST 25 ALT 14 Alkaline Phosphatase 86 Total Creatine Kinase 36 C-Reactive Protein 2.6 H Total Protein 6.0 L Albumin 3.8 Urine Color Yellow Urine Appearance Clear Urine pH 5.5 Ur Specific [place] 1.008 Urine Protein Negative Urine Glucose (UA) Negative Urine Ketones Negative Ur Blood (Man) Negative Urine Nitrate Negative Urine Bilirubin Negative Urine Urobilinogen 0.2 Leukocyte Esterase Rfl Negative Urine Eosinophils None seen Ur Random Creatinine Pending Ur Random Sodium 140 Ur Random Potassium 12.5 Ur Random Chloride Pending U Random Chloride/Creat Pending Urine Creatinine 23.4 Nasal MRSA (PCR) Influenza A (RT-PCR) Influenza B (RT-PCR) Ur L.pneumophila Ag Pending RSV (RT-PCR) SARS-CoV-2 RNA (RT-PCR) 08/09/23 08/09/23 08/08/23 04:13 02:29 19:08 WBC RBC Hgb Hct MCV MCH MCHC RDW Plt Count MPV Immature Gran % (Auto) Neut % (Auto) Lymph % (Auto) Richardson % (Auto) Eos % (Auto) Baso % (Auto) Lymph # (Auto) Richardson # (Auto) Eos # (Auto) Baso # (Auto) Abs Immat Gran (auto) Absolute Neuts (auto) Absolute Nucleated RBC Nucleated RBC % % Immature Plt Fraction Sodium Potassium Chloride Carbon Dioxide Anion Gap BUN Creatinine 1.80 H Estim Creat Clear Calc 26 Estimated GFR 29 L Glucose Lactic Acid Calcium Phosphorus Magnesium Total Bilirubin AST ALT Alkaline Phosphatase Total Creatine Kinase C-Reactive Protein Total Protein Albumin Urine Color Urine Appearance Urine pH Ur Specific [place] Urine Protein Urine Glucose (UA) Urine Ketones Ur Blood (Man) Urine Nitrate Urine Bilirubin Urine Urobilinogen Leukocyte Esterase Rfl Urine Eosinophils Ur Random Creatinine Ur Random Sodium Ur Random Potassium Ur Random Chloride U Random Chloride/Creat Urine Creatinine Nasal MRSA (PCR) Not detected Influenza A (RT-PCR) Negative Influenza B (RT-PCR) Negative Ur L.pneumophila Ag Pending RSV (RT-PCR) Negative SARS-CoV-2 RNA (RT-PCR) Negative Discharge Plan Discharge Consulting providers: Brandi Michael; Selwyn Quiros Patient Instructions: Apixaban (By mouth), Heart Failure (DC), Pneumonia (DC), Safe Use of Anticoagulants (DC) Discharge Medications: No Action atorvastatin 40 mg tablet 40 mg PO DAILY atenolol 25 mg tablet 25 mg PO DAILY Hold Instructions: Resume on 07/17/23. Hold until your primary care provider tells you its safe to take. amlodipine 5 mg tablet 5 mg PO DAILY mirtazapine 15 mg tablet 15 mg PO HS Eliquis 5 mg Tablet 5 mg PO Q12HR Qty: 60 0RF citalopram 10 mg tablet
[2023-08-09] MEDS: CITALOPRAM HYDROBROMIDE 10 MG TABLET PO (21:01)
[2023-08-09] MEDS: MIRTAZAPINE 15 MG TABLET PO (21:01)
[2023-08-09] MEDS: PANTOPRAZOLE SODIUM IV 40 MG VIAL IV PUSH (21:03)
[2023-08-09] MEDS: AZITHROMYCIN 500 MG/NS 250 ML 500 MG/250 ML BAG 250 MG IVPB (21:36)
[2023-08-10] VITALS (15 sets, daily range): BP systolic 96–118; BP diastolic 60–73; PULSE 59–86; RESP 19–27; TEMP 36.6–36.8; O2SAT 91–100
--- NOTE | 2023-08-10 03:15 | PC.NURSE ---
came into pt room to adjust her pulse oximeter. Found pt with airvo off and pulling on her pulse oximeter cord and states she is going to go into the bathroom. Informed pt that she is in the ICU and she needs to stay on her oxygen and that it will not be possible to bring her to the bathroom. Pt confused and doesnt understand that she already has a purwick on to collect her urine. Pt again states that she wants to ambulate to the bathroom. RN and tech then rentered the room with supplies and found pt with legs over the siderails with the pt stating that she was going into the bathrrom to void and refused to replace her oxygen or pulse oximeter. a second RN called her brother on a portable phone and allowed the pt to talk with him. pt was then willing to place the pulse oximeter on on recieve oxygen at 2 lpm which sustained an O2 sat of 98%. Pt hen removed the pulse oximeter but kept the the nasal cannula in place.
--- NOTE | 2023-08-10 04:23 | PC.NURSE ---
pt continues to refuse to keep her pulse oximeter on. Refusing labssitting in bed with certified caregiver and blood pressure in place. Pt alert to self but disorientated to time, knows she is at a hospital, but unsure which hospital and unsure of date. Dr Woodson ordered respiridol PO but pt also refuses that.
--- NOTE | 2023-08-10 05:53 | PC.NURSE ---
entered room pt oxygen off pulse oximeter. Pt eyes closed but responds to questions about comfort items and room temperature and verbalizes no complaints at this time. O2 nasal cannula replaced as well as pulse oximeter with the help of the charge nurse park. O2 sat 98% on 2l NC.
[2023-08-10 07:42] LABS: Basophils Percent Auto 0.2 % (0.2-1.2); Eosinophils Absolute Auto 0.1 K/mm3 (0-0.3); Eosinophils Percent Auto 0.5 % (0-4.4); Hematocrit 25.6 % (37.0-47.0); Hemoglobin 7.6 g/dL (12.0-15.0); Immature Granulocyte Absolute 0.09 K/mm3 (0.00-0.031); Immature Granulocyte Percent A 0.7 % (0-0.5); Immature Platelet Fraction Pct 8.6 % (0.9-11.2); Lymphocytes Absolute Auto 1.12 K/mm3 (0.9-3.2); Mean Corpuscular HGB Conc 29.7 g/dl (32-36); Mean Corpuscular Hemoglobin 26.6 pg (26-34); Mean Corpuscular Volume 89.5 fl (80-100); Monocytes Absolute Auto 0.6 K/mm3 (0.1-0.6); Monocytes Percent Auto 5.1 % (2.6-8.5); Neutrophils Absolute Auto 10.5 K/mm3 (1.3-6.7); Neutrophils Percent Auto 84.5 % (45.5-73.1); Platelet Count Result 115 k/mm3 (150-375); Red Blood Count 2.86 M/mm3 (4.2-5.4); Red Cell Distribution Width 16.2 % (11.5-14.5); White Blood Count 12.4 K/mm3 (4.5-10.0)
[2023-08-10 07:52] LABS: INR 1.5; Partial Thromboplastin Time 44.8 Seconds (22.3-36.8); Prothrombin Time 18.9 Seconds (11.1-14.7)
[2023-08-10 07:53] LABS: Lactic Acid Reflex 1.1 mmol/L (0.7-2.0)
[2023-08-10 07:55] LABS: Alanine Aminotransferase 13 U/L (6-35); Albumin Level 3.6 g/dL (3.5-5.1); Alkaline Phosphatase 77 U/L (38-126); Anion Gap 7 mmol/L (4-12); Aspartate Amino Transferase 22 U/L (14-36); Blood Urea Nitrogen 44 mg/dL (7-17); CRP 1.6 mg/dL (<1.0); Calcium 9.2 mg/dL (8.4-10.2); Carbon Dioxide 25 mmol/L (22-30); Chloride 105 mmol/L (98-107); Creatine Kinase 34 U/L (30-135); Estimated CRCL calculation 28 ml/min; Estimated Glomerular Filt Rate 31; Glucose 116 mg/dL (65-110); Magnesium 2.2 mg/dL (1.6-2.3); Phosphorus 4.2 mg/dL (2.5-4.5); Potassium 3.8 mmol/L (3.4-5.0); Sodium 137 mmol/L (137-145)
[2023-08-10] MEDS: APIXABAN 5 MG TABLET PO ×2 (08:21→20:31)
[2023-08-10] MEDS: ATORVASTATIN 40 MG TABLET PO (08:21)
--- NOTE | 2023-08-10 08:37 | PC.NURSE ---
Pt refuses all iv medications this morning. Educated fully on what the medications do and what they are for. Stated antibiotics and lasix are for heart, went into depth for purposes. Updated Dr. Cantu on refusal. Dr. Cantu spoke with patient himself about medications, pt still refusing. Wants to be seen at the other hospital
[2023-08-10 08:52] LABS: Hypochromasia 1+; Platelet Estimate Decreased (Adequate); Schistocytes None Seen
--- NOTE | 2023-08-10 09:15 | PM.IMPN ---
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 - Rheumatic mitral valve disease, unspecified Status: Acute (2) Acute hypoxemic respiratory failure: Code(s): J96.01 - Acute respiratory failure with hypoxia Status: Acute (3) Acute kidney injury: Code(s): N17.9 - Acute kidney failure, unspecified Status: Acute (4) Severe mitral regurgitation: Code(s): I34.0 - Nonrheumatic mitral (valve) insufficiency Status: Acute (5) Anemia: Qualifiers: Anemia type: unspecified type Qualified Code(s): D64.9 - Anemia, unspecified Code(s): D64.9 - Anemia, unspecified Status: Acute Plan (1) Acute hypoxemic respiratory failure: ?Code(s): J96.01 - Acute respiratory failure with hypoxia ?Status:?Acute ?Assessment and Plan: Acute respiratory failure likely resulting result pulmonary edema, pneumonia, severe mitral valve regurgitation -continue high flow therapy, O2 requirements trending down treat underlying diseases Receive Lasix IV, monitor input output renal function Start vancomycin cefepime empirically to cover pneumonia -patient did receive Lasix 80 mg IV x1 in the ER, -monitor urine output, renal function -started on cefepime and vancomycin (08/07) -08/07:? 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 Patient may have ischemic dementia (2) Acute kidney injury: ?Code(s): N17.9 - Acute kidney failure, unspecified ?Status:?Acute ?Assessment and Plan: Acute on chronic kidney disease possible cardiorenal syndrome -will continue diuresing as tolerated by patient's blood pressure -monitor urine output, renal function electrolytes (3) Endocarditis of mitral valve: ?Code(s): I05.9 - Rheumatic mitral valve disease, unspecified ?Status:?Acute ?Assessment and Plan: Endocarditis, causing moderate to severe mitral valve regurg appreciate editor managing director consultation Antibiotics see above transfer patient to tertiary hospital per editor managing director recommendation acute CHF (congestive heart failure): ?Qualifiers: ?Heart failure type:?unspecified??Heart failure chronicity:?unspecified? Qualified Code(s):?I50.9 - Heart failure, unspecified ?Code(s): I50.9 - Heart failure, unspecified ?Status:?Suspected ?Assessment and Plan: x-ray showed pulmonary congestion, and pulmonary edema and possible superimposed with pneumo -continue antibiotics -patient received Lasix 80 mg IV x1 in the ER -hold additional Lasix given borderline blood pressures -Cardiology following the patient Thrombocytopenia: ?Code(s): D69.6 - Thrombocytopenia, unspecified ?Status:?Acute ?Assessment and Plan: history of chronic thrombocytopenia No active bleeding Monitor closely Platelet counts 103 a.m. today Anemia: ?Qualifiers: ?Anemia type:?unspecified type? Qualified Code(s):?D64.9 - Anemia, unspecified ?Code(s): D64.9 - Anemia, unspecified ?Status:?Acute ?Assessment and Plan: Chronic anemia, continue to monitor hemoglobin no obvious bleeding, follow-up stool guaiac -started on Protonix Plan DVT prophylaxis:? Apixaban Stress ulcer prophylaxis:? Protonix Nutrition:? Heart healthy diet Code Status:? No CPR, okay to intubate Subjective Date/time seen: 08/10/23 09:15 Interval history: I saw and examined patient today he ICU. Patient feels dyspnea is improving, still has cough, denies chest pain, abdomen pain, nausea vomiting. Per patient nurse report, patient declined of oral and IV medications. Patient afebrile, blood pressure on the lower side. Patient is on high-flow oxygen. Exam Narrative: GENERAL: Pleasant, in no acute distress. Well-nourishe
--- NOTE | 2023-08-10 11:06 | PCNFU ---
Nutrition Follow-Up Complete: Inadequate oral intake related to chronic loss of appetite as evidenced by 0% intakes goal: Improve PO intake to at least 50% meals and supplements Patient is progressing towards goal. We will continue current goal. Pt current nutrition is Heart Healthy with 1500 ml Fluid Restriction. Last recorded weight is 56.9 kg, no new weight. Bowel Motility: +Bm reported 08/05 Labs Reviewed:Glu 116, BUN 44, GFR 31, Cr 1.7 Meds Noted: Remeron, Vancomycin, Lipitor, Eliquis Skin: WNL Additional Notes: Patient remains on a heart healthy diet with 1500 ml fluid restriction. Oral Intake for dinner last night > 75% of meal plus diet supplements of 240 ml. Patient is not a breakfast eater so no intake recorded this morning. Agree with diet orders. Following intakes, weights, labs, supplement tolerance, plan of care Follow up in 5 days
--- NOTE | 2023-08-10 11:24 | WPDINTPN ---
Progress Note: A&P Assessment and Plan (1) Acute hypoxemic respiratory failure: Code(s): J96.01 - Acute respiratory failure with hypoxia Status: Acute Assessment and Plan: Acute respiratory failure likely secondary to bilateral infiltrates from pulmonary edema, pneumonia, severe mitral valve regurgitation -clinically improved and now down to 2 L nasal cannula -patient did receive Lasix 80 mg IV x1 in the ER, additional Lasix ordered this morning but patient refused -see below -monitor urine output, renal function -started on cefepime, is a throw and vancomycin (08/07) -08/07: Blood cultures obtained and pending (2) Acute kidney injury: Code(s): N17.9 - Acute kidney failure, unspecified Status: Acute Assessment and Plan: Acute on chronic kidney disease -could be related to mitral valve regurg, volume overload -patient did receive diuretics in the ER -additional Lasix ordered -creatinine 1.7 -monitor urine output, renal function electrolytes (3) Endocarditis of mitral valve: Code(s): 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 1. There is moderate eccentric posteriorly directed mitral valve regurgitation. Severity may be underestimated due to eccentricity. ? 2. Highly mobile approximately 1.2cmx1.7cm echodensity predominantly involving the anterior leaflet located on the atrial aspect prolapsing into the left atrium suggestive of vegetation. Subtle, small slightly mobile echodensity involving the posterior leaflet is also identified. Consider CAROL if clinically appropriate. Clinical correlation advised. ? 3. Left ventricular chamber dimension is normal. ? 4. Left ventricular systolic function is hyperdynamic, estimated at >70%. ? 5. There is no increased left ventricular wall thickness. ? 6. The left ventricular diastolic function is grade II diastolic dysfunction. ? 7. Left atrial chamber dimension is severely enlarged. ? 8. The mitral valve has thickened leaflets. ? 9. There is no mitral valve stenosis. ? 10. The mitral valve annulus is mildly calcified. ? 11. There is trace tricuspid valve regurgitation. ? 12. Mild pulmonary hypertension, estimated pulmonary arterial systolic pressure is 40 mmHg. -patient was started on empiric antibiotics vanc cefepime and also on azithromycin -blood cultures ordered and pending -patient is being transferred to [facility] for CT surgery evaluation for vegetations on mitral valve along with severe mitral regurgitation. (4) CHF (congestive heart failure): Qualifiers: Heart failure chronicity: unspecified Heart failure type: unspecified Qualified Code(s): I50.9 - Heart failure, unspecified Code(s): I50.9 - Heart failure, unspecified Status: Suspected Assessment and Plan: Patient with bilateral infiltrates likely pulmonary edema secondary to severe mitral valve regurg -could also be a result of pneumonia -continue antibiotics -patient Lasix -Cardiology following the patient (5) Thrombocytopenia: Code(s): D69.6 - Thrombocytopenia, unspecified Status: Acute Assessment and Plan: Platelet counts 103, patient does have a history of thrombocytopenia -no active bleeding noted at this time, will continue to monitor (6) Anemia: Qualifiers: Anemia type: unspecified type Qualified Code(s): D64.9 - Anemia, unspecified Code(s): D64.9 - Anemia, unspecified Status: Acute Assessment and Plan: Chronic anemia, continue to monitor hemoglobin -no obvious signs of bleeding at this time -will check coags -started on Protonix Plan DVT prophylaxis: Apixaban Stress ulcer prophylaxis: Protonix Nutrition: Heart healthy diet Code Status: No CPR, okay to intubate Patient this morning refusing
[2023-08-10] MEDS: CITALOPRAM HYDROBROMIDE 10 MG TABLET PO (20:31)
[2023-08-10] MEDS: MIRTAZAPINE 15 MG TABLET PO (20:31)
[2023-08-11] VITALS (8 sets, daily range): BP systolic 116–148; BP diastolic 69–110; PULSE 60–79; RESP 12–22; TEMP 36.6–36.8; O2SAT 92–94
--- NOTE | 2023-08-11 00:35 | PC.NURSE ---
Pt triggered bed alarm. RN entered room with RT Suzie found at bottom of the bed with legs out end of siderale. Asked pt why she did not use the callbell pt responded that she needed to use the restroom. Pt assisted to bedside cammode and I straightened up her bedding. RT replaced pulse oximeter to her finger. Pt on room Air. O2 sat 93%. Pt given call valdez and instructed pt to use it if she needed any assistance. Pt informed RN to shove it up his ass. It was noted on the monitor that the pt removed the pulse oximeter not long after staff left the room
[2023-08-11 04:42] LABS: Estimated CRCL calculation 31 ml/min; Estimated Glomerular Filt Rate 36
[2023-08-11] MEDS: APIXABAN 5 MG TABLET PO ×2 (08:18→20:51)
[2023-08-11] MEDS: ATORVASTATIN 40 MG TABLET PO (08:18)
--- NOTE | 2023-08-11 10:04 | PM.IMPN ---
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 - Rheumatic mitral valve disease, unspecified Status: Acute (2) Acute hypoxemic respiratory failure: Code(s): J96.01 - Acute respiratory failure with hypoxia Status: Acute (3) Acute kidney injury: Code(s): N17.9 - Acute kidney failure, unspecified Status: Acute (4) Severe mitral regurgitation: Code(s): I34.0 - Nonrheumatic mitral (valve) insufficiency Status: Acute (5) Anemia: Qualifiers: Anemia type: unspecified type Qualified Code(s): D64.9 - Anemia, unspecified Code(s): D64.9 - Anemia, unspecified Status: Acute Plan (1) Acute hypoxemic respiratory failure: ?Code(s): J96.01 - Acute respiratory failure with hypoxia ?Status:?Acute ?Assessment and Plan: Acute respiratory failure likely resulting result pulmonary edema, pneumonia, severe mitral valve regurgitation -continue high flow therapy, O2 requirements trending down treat underlying diseases Receive Lasix IV, monitor input output renal function Start vancomycin cefepime empirically to cover pneumonia -patient did receive Lasix 80 mg IV x1 in the ER, -monitor urine output, renal function -started on cefepime and vancomycin (08/07) -08/07:? 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 Patient may have ischemic dementia (2) Acute kidney injury: ?Code(s): N17.9 - Acute kidney failure, unspecified ?Status:?Acute ?Assessment and Plan: Acute on chronic kidney disease possible cardiorenal syndrome -will continue diuresing as tolerated by patient's blood pressure -monitor urine output, renal function electrolytes 08/10: patient refuse lab studies (3) Endocarditis of mitral valve: ?Code(s): I05.9 - Rheumatic mitral valve disease, unspecified ?Status:?Acute ?Assessment and Plan: Endocarditis, causing moderate to severe mitral valve regurg appreciate director call consultation Antibiotics see above transfer patient to tertiary hospital per director call recommendation acute CHF (congestive heart failure): ?Qualifiers: ?Heart failure type:?unspecified??Heart failure chronicity:?unspecified? Qualified Code(s):?I50.9 - Heart failure, unspecified ?Code(s): I50.9 - Heart failure, unspecified ?Status:?Suspected ?Assessment and Plan: x-ray showed pulmonary congestion, and pulmonary edema and possible superimposed with pneumo -continue antibiotics -patient received Lasix 80 mg IV x1 in the ER -hold additional Lasix given borderline blood pressures -Cardiology following the patient Thrombocytopenia: ?Code(s): D69.6 - Thrombocytopenia, unspecified ?Status:?Acute ?Assessment and Plan: history of chronic thrombocytopenia No active bleeding Monitor closely Platelet counts 103 a.m. today Anemia: ?Qualifiers: ?Anemia type:?unspecified type? Qualified Code(s):?D64.9 - Anemia, unspecified ?Code(s): D64.9 - Anemia, unspecified ?Status:?Acute ?Assessment and Plan: Chronic anemia, continue to monitor hemoglobin no obvious bleeding, follow-up stool guaiac -started on Protonix Plan DVT prophylaxis:? Apixaban Stress ulcer prophylaxis:? Protonix Nutrition:? Heart healthy diet Code Status:? No CPR, okay to intubate Subjective Date/time seen: 08/11/23 10:04 Interval history: I saw and examined patient today he ICU. Patient feels dyspnea is improving, still has cough, denies chest pain, abdomen pain, nausea vomiting. Per patient nurse report, patient still noncompliant with medications.. Patient afebrile, blood pressure on the lower side. Patient is on high-flow o
[2023-08-11] MEDS: CEFEPIME 1 GM/NS 50 ML 1 GM/50 ML BAG IVPB ×2 (13:51→20:51)
--- NOTE | 2023-08-11 15:55 | PM.PNCARD ---
Progress Note: A&P Assessment and Plan (1) Severe mitral regurgitation: Code(s): I34.0 - Nonrheumatic mitral (valve) insufficiency Status: Acute Assessment and Plan: As above, mitral regurgitation likely secondary to echodensity mitral valve concerning for endocarditis. All cultures negative to date. Patient is highly eccentric at least moderate regurgitation which may be underestimated anticipated to be severe overall. CAROL advised for clarification. Although patient is stabilized and likely tolerate she is awaiting transfer to [facility] anticipated sometime today. It will be prudent at this juncture for this to be performed at [facility] for personal review of cardiothoracic surgery. Patient is stabilized from heart failure perspective and is euvolemic. She is hemodynamically stable at this point. Will continue monitor clinically. Obtain 12 lead ECG to assess for conduction abnormalities. Her exam is largely unchanged although diastolic rumble is no longer appreciated. 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 She has had several admissions over the past 2 months where she received several rounds of different antibiotics with clinical improvement. Several sets of blood cultures have all been negative to date since May. Upon personal review most recent echocardiogram I feel mobile echodensity most likely reflects vegetation prolapsing into the left atrium as opposed to true prolapse of the leaflet itself. This can be difficult to further delineate where transesophageal echocardiogram would be quite helpful. However, patient is not a candidate at this time due to acute respiratory failure and hypotension. -I explained very serious and potential life-threatening nature of clinical circumstances and my concern for underlying endocarditis which is intermittently been partially treated with antibiotics over the past 2 months. As such, endocarditis is a subacute process in which cultures are negative to date. I also explained the high likelihood she would require transfer to outside facility for higher level of care and consultation cardiothoracic surgery as per cannot expect that she would be cured with a course of IV antibiotics even if prolonged up to 6 weeks. Patient verbalized understanding with stage she did not want to remain in the hospital and does not want to be here. I explained this serious potential life-threatening nature of her condition and the fact that she has much sicker than she looks. She acknowledged this and verbalized understanding. She expressed great appreciation for my explanations, time spent and care. -continue supportive care caution to avoid significant hypotension/hypoperfusion. -continue cefepime and vancomycin intravenously along with azithromycin. Cultures negative to date. -awaiting transfer to [facility] for consultation by Cardiothoracic surgery and Infectious Disease. -continue to monitor ECG to assess for new conduction abnormalities. Obtain ECG in a.m.. -continue telemetry -DVT prophylaxis -overall, patient remains critically ill although improving close observation required to ensure she remains stable and improved hemodynamically and from a respiratory perspective. My main concern given severity of mitral regurgitation and heart failure with in the setting of endocarditis she will require Surgical Services not available at this institution eventually but that observing response to IV antibiotics initially is reasonable. -Repeat CBC in AM. WBC increased from 6.6 to 12.4o
[2023-08-11 15:59] LABS: Chloride Rand Ur 146 mmol/L (32-290); Chloride/Creatinine Rand Ur 584 (38-318); Creatinine Random Urine 25 mg/dL (20-275)
[2023-08-11] MEDS: VANCOMYCIN 1,500 MG/NS 500 ML BAG 250 MG IVPB (18:09)
[2023-08-11 19:09] LABS: Basophils Percent Auto 0.7 % (0.2-1.2); Eosinophils Absolute Auto 0.3 K/mm3 (0-0.3); Eosinophils Percent Auto 4.6 % (0-4.4); Hematocrit 27.7 % (37.0-47.0); Hemoglobin 8.2 g/dL (12.0-15.0); Immature Granulocyte Absolute 0.05 K/mm3 (0.00-0.031); Immature Granulocyte Percent A 0.8 % (0-0.5); Immature Platelet Fraction Pct 5.6 % (0.9-11.2); Lymphocytes Percent Auto 21.1 % (18.3-44.2); Mean Corpuscular HGB Conc 29.6 g/dl (32-36); Mean Corpuscular Hemoglobin 26.4 pg (26-34); Mean Corpuscular Volume 89.1 fl (80-100); Mean Platelet Volume 11.1 fl (7.4-10.4); Monocytes Absolute Auto 0.4 K/mm3 (0.1-0.6); Monocytes Percent Auto 6.3 % (2.6-8.5); Neutrophils Absolute Auto 4.1 K/mm3 (1.3-6.7); Neutrophils Percent Auto 66.5 % (45.5-73.1); Platelet Count Result 103 k/mm3 (150-375); Red Blood Count 3.11 M/mm3 (4.2-5.4); White Blood Count 6.2 K/mm3 (4.5-10.0)
[2023-08-11 19:21] LABS: Anion Gap 5 mmol/L (4-12); Blood Urea Nitrogen 31 mg/dL (7-17); Calcium 8.6 mg/dL (8.4-10.2); Carbon Dioxide 26 mmol/L (22-30); Chloride 104 mmol/L (98-107); Estimated CRCL calculation 30 ml/min; Estimated Glomerular Filt Rate 33; Glucose 113 mg/dL (65-110); Potassium 4.2 mmol/L (3.4-5.0); Sodium 135 mmol/L (137-145)
[2023-08-11 19:34] LABS: Anisocytosis 1+; Ovalocytes 1+; Platelet Estimate Decreased (Adequate); Schistocytes None Seen
[2023-08-11 20:18] LABS: Legionella pneumophila Ag Ur NOT DETECTED
[2023-08-11] MEDS: MIRTAZAPINE 15 MG TABLET PO (20:52)
[2023-08-11] MEDS: PANTOPRAZOLE SODIUM IV 40 MG VIAL IV PUSH (20:52)
[2023-08-11] MEDS: CITALOPRAM HYDROBROMIDE 10 MG TABLET PO (20:52)
[2023-08-11] MEDS: AZITHROMYCIN 500 MG/NS 250 ML 500 MG/250 ML BAG 250 MG IVPB (21:40)
[2023-08-12] VITALS (7 sets, daily range): BP systolic 107–126; BP diastolic 67–80; PULSE 58–86; RESP 14–18; TEMP 36.5–36.7; O2SAT 94–97
[2023-08-12 03:52] LABS: Basophils Absolute Auto 0.1 K/mm3 (0.0-0.1); Basophils Percent Auto 0.9 % (0.2-1.2); Eosinophils Absolute Auto 0.3 K/mm3 (0-0.3); Eosinophils Percent Auto 4.6 % (0-4.4); Hematocrit 26.4 % (37.0-47.0); Immature Granulocyte Absolute 0.06 K/mm3 (0.00-0.031); Immature Granulocyte Percent A 0.9 % (0-0.5); Immature Platelet Fraction Pct 5.9 % (0.9-11.2); Lymphocytes Percent Auto 13.8 % (18.3-44.2); Mean Corpuscular HGB Conc 30.3 g/dl (32-36); Mean Corpuscular Hemoglobin 26.8 pg (26-34); Mean Corpuscular Volume 88.3 fl (80-100); Mean Platelet Volume 11.1 fl (7.4-10.4); Monocytes Absolute Auto 0.4 K/mm3 (0.1-0.6); Monocytes Percent Auto 6.1 % (2.6-8.5); Neutrophils Absolute Auto 4.8 K/mm3 (1.3-6.7); Neutrophils Percent Auto 73.7 % (45.5-73.1); Platelet Count Result 99 k/mm3 (150-375); Red Blood Count 2.99 M/mm3 (4.2-5.4); Red Cell Distribution Width 15.7 % (11.5-14.5); White Blood Count 6.5 K/mm3 (4.5-10.0)
[2023-08-12 04:01] LABS: Anion Gap 8 mmol/L (4-12); Blood Urea Nitrogen 31 mg/dL (7-17); Calcium 8.9 mg/dL (8.4-10.2); Carbon Dioxide 21 mmol/L (22-30); Chloride 107 mmol/L (98-107); Estimated CRCL calculation 34 ml/min; Estimated Glomerular Filt Rate 38; Glucose 94 mg/dL (65-110); Potassium 4.1 mmol/L (3.4-5.0); Sodium 136 mmol/L (137-145)
[2023-08-12 04:33] LABS: Hypochromasia 1+; Ovalocytes 1+; Platelet Estimate Decreased (Adequate); Schistocytes None Seen
--- NOTE | 2023-08-12 08:00 | ECG_ITS ---
SEE SCANNED COPY FOR CONFIRMED REPORT MTDD
[2023-08-12] MEDS: CEFEPIME 1 GM/NS 50 ML 1 GM/50 ML BAG IVPB ×2 (09:15→19:40)
[2023-08-12] MEDS: ATORVASTATIN 40 MG TABLET PO (09:15)
[2023-08-12] MEDS: APIXABAN 5 MG TABLET PO ×2 (09:15→19:50)
[2023-08-12] MEDS: PANTOPRAZOLE SODIUM IV 40 MG VIAL IV PUSH ×2 (09:16→19:50)
--- NOTE | 2023-08-12 10:26 | PM.IMPN ---
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 - Rheumatic mitral valve disease, unspecified Status: Acute (2) Acute hypoxemic respiratory failure: Code(s): J96.01 - Acute respiratory failure with hypoxia Status: Acute (3) Acute kidney injury: Code(s): N17.9 - Acute kidney failure, unspecified Status: Acute (4) Severe mitral regurgitation: Code(s): I34.0 - Nonrheumatic mitral (valve) insufficiency Status: Acute (5) Anemia: Qualifiers: Anemia type: unspecified type Qualified Code(s): D64.9 - Anemia, unspecified Code(s): D64.9 - Anemia, unspecified Status: Acute Plan (1) Acute hypoxemic respiratory failure: ?Code(s): J96.01 - Acute respiratory failure with hypoxia ?Status:?Acute ?Assessment and Plan: Acute respiratory failure likely resulting result pulmonary edema, pneumonia, severe mitral valve regurgitation -continue high flow therapy, O2 requirements trending down treat underlying diseases Receive Lasix IV, monitor input output renal function Start vancomycin cefepime empirically to cover pneumonia -patient did receive Lasix 80 mg IV x1 in the ER, -monitor urine output, renal function -started on cefepime and vancomycin (08/07) -08/07:? 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 Patient may have ischemic dementia (2) Acute kidney injury: ?Code(s): N17.9 - Acute kidney failure, unspecified ?Status:?Acute ?Assessment and Plan: Acute on chronic kidney disease possible cardiorenal syndrome -will continue diuresing as tolerated by patient's blood pressure -monitor urine output, renal function electrolytes kidney function continue to improve, creatinine 1.4 today (3) Endocarditis of mitral valve: ?Code(s): I05.9 - Rheumatic mitral valve disease, unspecified ?Status:?Acute ?Assessment and Plan: Endocarditis, causing moderate to severe mitral valve regurg appreciate bakery technician consultation Antibiotics see above transfer patient to tertiary hospital per bakery technician recommendation acute CHF (congestive heart failure): ?Qualifiers: ?Heart failure type:?unspecified??Heart failure chronicity:?unspecified? Qualified Code(s):?I50.9 - Heart failure, unspecified ?Code(s): I50.9 - Heart failure, unspecified ?Status:?Suspected ?Assessment and Plan: x-ray showed pulmonary congestion, and pulmonary edema and possible superimposed with pneumo -continue antibiotics -patient received Lasix 80 mg IV x1 in the ER -hold additional Lasix given borderline blood pressures -Cardiology following the patient Thrombocytopenia: ?Code(s): D69.6 - Thrombocytopenia, unspecified ?Status:?Acute ?Assessment and Plan: history of chronic thrombocytopenia No active bleeding Monitor closely platelets stable, no active bleeding Anemia: ?Qualifiers: ?Anemia type:?unspecified type? Qualified Code(s):?D64.9 - Anemia, unspecified ?Code(s): D64.9 - Anemia, unspecified ?Status:?Acute ?Assessment and Plan: Chronic anemia, continue to monitor hemoglobin no obvious bleeding, follow-up stool guaiac continue Protonix Plan DVT prophylaxis:? Apixaban Stress ulcer prophylaxis:? Protonix Nutrition:? Heart healthy diet Code Status:? No CPR, okay to intubate Subjective Date/time seen: 08/12/23 10:26 Interval history: I saw and examined patient today he ICU. patient is waiting to be transferred to [facility]. Patient is alert, not oriented x3, patient denies chest pain, abdomen pain, nausea vomiting. patient declines medications. Patient afebrile, blood pressure on the l
--- NOTE | 2023-08-12 10:44 | PM.PNCARD ---
Progress Note: A&P Assessment and Plan (1) Severe mitral regurgitation: Code(s): I34.0 - Nonrheumatic mitral (valve) insufficiency Status: Acute Assessment and Plan: As above, mitral regurgitation likely secondary to echodensity mitral valve concerning for endocarditis. All cultures negative to date. CAROL advised for clarification. Although patient is stabilized and likely tolerate she is awaiting transfer to [facility] for possible cardiothoracic surgery consultation. Patient is stabilized from heart failure perspective and is euvolemic. She is hemodynamically stable at this point. Will continue monitor clinically. 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 She has had several admissions over the past 2 months where she received several rounds of different antibiotics with clinical improvement. Several sets of blood cultures have all been negative to date since May. It is felt that mobile echodensity most likely reflects vegetation prolapsing into the left atrium as opposed to true prolapse of the leaflet itself. This can be difficult to further delineate where transesophageal echocardiogram would be quite helpful. However, patient is not a candidate at this time due to acute respiratory failure and hypotension. -continue supportive care caution to avoid significant hypotension/hypoperfusion. -continue cefepime and vancomycin intravenously along with azithromycin. Cultures negative to date. -awaiting transfer to [facility] for consultation by Cardiothoracic surgery and Infectious Disease. -continue to monitor ECG to assess for new conduction abnormalities. Obtain ECG in a.m.. -continue telemetry -DVT prophylaxis (3) Acute hypoxemic respiratory failure: Code(s): J96.01 - Acute respiratory failure with hypoxia Status: Acute Assessment and Plan: Improved. O2 has been weaned off. Continue to monitor closely. Continue IV antibiotics, bronchodilator therapy. May hold off on diuretic therapy at this time as patient is euvolemic and hemodynamically stable. Unclear patient truly had pulmonary embolism last admission for which she was started on Eliquis as this is based on intermediate probability ventilation perfusion scan. Nonetheless, Eliquis will be continued for now. (4) Acute kidney injury: Code(s): N17.9 - Acute kidney failure, unspecified Status: Acute Assessment and Plan: Acute on chronic kidney injury baseline stage III improving slightly since admission. Avoid nephrotoxic agents. Continue supportive care. Continue to monitor BMP closely. (5) Thrombocytopenia: Code(s): D69.6 - Thrombocytopenia, unspecified Status: Acute Assessment and Plan: Chronic, stable Continue to monitor closely. Oncology consulted last hospitalization in this regard with a broad differential. (6) Anemia: Qualifiers: Anemia type: unspecified type Qualified Code(s): D64.9 - Anemia, unspecified Code(s): D64.9 - Anemia, unspecified Status: Acute Assessment and Plan: H&H stable. Continue to follow CBC during hospitalization. Likely multifactorial etiology. Continue to monitor evidence of bleeding. Repeat CBC in AM. (7) CHF (congestive heart failure): Qualifiers: Heart failure chronicity: unspecified Heart failure type: unspecified Qualified Code(s): I50.9 - Heart failure, unspecified Code(s): I50.9 - Heart failure, unspecified Status: Suspected Assessment and Plan: As above, mixed picture with a pat
[2023-08-12 18:09] LABS: Basophils Percent Auto 0.5 % (0.2-1.2); Eosinophils Absolute Auto 0.3 K/mm3 (0-0.3); Eosinophils Percent Auto 3.9 % (0-4.4); Hematocrit 27.9 % (37.0-47.0); Hemoglobin 8.4 g/dL (12.0-15.0); Immature Granulocyte Absolute 0.06 K/mm3 (0.00-0.031); Immature Granulocyte Percent A 0.8 % (0-0.5); Immature Platelet Fraction Pct 5.4 % (0.9-11.2); Lymphocytes Absolute Auto 1.06 K/mm3 (0.9-3.2); Lymphocytes Percent Auto 14.1 % (18.3-44.2); Mean Corpuscular HGB Conc 30.1 g/dl (32-36); Mean Corpuscular Hemoglobin 26.7 pg (26-34); Mean Corpuscular Volume 88.6 fl (80-100); Mean Platelet Volume 11.4 fl (7.4-10.4); Monocytes Absolute Auto 0.4 K/mm3 (0.1-0.6); Monocytes Percent Auto 5.2 % (2.6-8.5); Neutrophils Absolute Auto 5.7 K/mm3 (1.3-6.7); Neutrophils Percent Auto 75.5 % (45.5-73.1); Platelet Count Result 108 k/mm3 (150-375); Red Blood Count 3.15 M/mm3 (4.2-5.4); Red Cell Distribution Width 15.8 % (11.5-14.5); White Blood Count 7.5 K/mm3 (4.5-10.0)
[2023-08-12 18:14] LABS: Anion Gap 6 mmol/L (4-12); Blood Urea Nitrogen 30 mg/dL (7-17); Carbon Dioxide 26 mmol/L (22-30); Chloride 105 mmol/L (98-107); Estimated CRCL calculation 30 ml/min; Estimated Glomerular Filt Rate 33; Glucose 102 mg/dL (65-110); Potassium 4.2 mmol/L (3.4-5.0); Sodium 137 mmol/L (137-145)
[2023-08-12] MEDS: MIRTAZAPINE 15 MG TABLET PO (19:50)
[2023-08-12] MEDS: CITALOPRAM HYDROBROMIDE 10 MG TABLET PO (19:53)
[2023-08-17 01:04] LABS: Legionella pneumophila Ag Ur NOT DETECTED
--- NOTE | 2023-08-27 07:47 | PM.TDS ---
Transfer Discharge Sum: Prov Provider Date of admission: 08/08/23 18:35 Primary care physician: Heather Carolina, PA Admitting clinician: Jason Gay MD Consults: 08/08/23 18:36 Consult to Physician Routine Comment: Consulting Provider: Brandi Michael Reason for consultation: hypoxic resp failure Has provider been notified: Yes 08/09/23 07:53 Consult to Physician Routine Comment: Answering service Consulting Provider: Selwyn Quiros faculty i on call medical assistant/MD group to consult: Cardiology Reason for consultation: Severe mitral valve regurg Has provider been notified: Yes DS: Admitting Diagnosis Discharge Date 08/12/23 Admitting Diagnosis (1) Endocarditis of mitral valve: ?Code(s): I05.9 - Rheumatic mitral valve disease, unspecified ?Status:?Acute (2) Acute hypoxemic respiratory failure: ?Code(s): J96.01 - Acute respiratory failure with hypoxia ?Status:?Acute (3) Acute kidney injury: ?Code(s): N17.9 - Acute kidney failure, unspecified ?Status:?Acute (4) Severe mitral regurgitation: ?Code(s): I34.0 - Nonrheumatic mitral (valve) insufficiency ?Status:?Acute (5) Anemia: ?Qualifiers: ?Anemia type:?unspecified type? Qualified Code(s):?D64.9 - Anemia, unspecified ?Code(s): D64.9 - Anemia, unspecified ?Status:?Acute DS: Discharge Diagnosis Discharge Diagnosis (1) Endocarditis of mitral valve: Code(s): I05.9 - Rheumatic mitral valve disease, unspecified Status: Acute (2) Acute hypoxemic respiratory failure: Code(s): J96.01 - Acute respiratory failure with hypoxia Status: Acute (3) Acute kidney injury: Code(s): N17.9 - Acute kidney failure, unspecified Status: Acute (4) Severe mitral regurgitation: Code(s): I34.0 - Nonrheumatic mitral (valve) insufficiency Status: Acute (5) Anemia: Qualifiers: Anemia type: unspecified type Qualified Code(s): D64.9 - Anemia, unspecified Code(s): D64.9 - Anemia, unspecified Status: Acute Transfer Discharge Sum: Med Medications Active and Home Medications: Home Medications amlodipine 5 mg tablet 5 mg PO DAILY 05/26/23 [History Confirmed 08/08/23] atenolol 25 mg tablet 25 mg PO DAILY 05/26/23 [History Confirmed 08/08/23] atorvastatin 40 mg tablet 40 mg PO DAILY 05/26/23 [History Confirmed 08/08/23] mirtazapine 15 mg tablet 15 mg PO HS 05/26/23 [History Confirmed 08/08/23] apixaban 5 mg tablet (Eliquis) 5 mg PO Q12HR #60 tabs 08/04/23 [Rx Confirmed 08/08/23] citalopram 10 mg tablet 10 mg PO HS anxiety 08/08/23 [History Confirmed 08/08/23] Transfer Discharge Sum: Hosp Hospital Course Hospital course: Elias Luis is a 57 year old female with moderate to severe eccentric mitral regurgitation with anterior mitral valve vegetation concerning for endocarditis was admitted with acute hypoxic respiratory failure and CHF with relative hypotension with negative blood cultures to date.? This admission is the patient's 4th since May.? She requires transfer to outside facility for higher level of care and consultation with cardiothoracic surgery and Infectious Disease which are not available at this institution.? At the lengthy discussion with the patient, her brother and his they all verbalized understanding of the clinical circumstances and the rationale for transfer and may agree to proceed.? They agreed to be transferred to [facility] for these consultations and the prospect that she very well may require mitral valve replacement. The following med issues have been addressed during hospitalization (1) Acute hypoxemic respiratory failure: ?Code(s): J96.01 - Acute respiratory failure with hypoxia ?Status:?Acute ?Assessment and Plan: Acute respiratory failure likely resulting result pulmonary edema, pneumonia, severe mitral valve regurgitation -continue high flow therapy, O2 requ
== END 2023-08-12 20:45 | disposition short-term general hospital (02) | DRG 288 ==
LOC: ANHED 18:43 → ANHICU 20:07
PROVIDERS: Hospitalist; Internal Medicine; Admitting Provider Internal Medicine; Emergency Provider Emergency Medicine; PCP Physician Assistant; Visit Provider Internal Medicine Cardiovascular Disease
DX: I33.0 Acute and subacute infective endocarditis (principal); J96.01 Acute respiratory failure with hypoxia; I13.0 Hypertensive heart and chronic kidney disease with heart failure and stage 1 through stage 4 chronic kidney disease, or unspecified chronic kidney disease; J81.1 Chronic pulmonary edema; N17.9 Acute kidney failure, unspecified; I34.0 Nonrheumatic mitral (valve) insufficiency; I50.9 Heart failure, unspecified; N18.30 Chronic kidney disease, stage 3 unspecified; D69.6 Thrombocytopenia, unspecified; E78.5 Hyperlipidemia, unspecified; K58.9 Irritable bowel syndrome, unspecified; K21.9 Gastro-esophageal reflux disease without esophagitis; R41.0 Disorientation, unspecified; M19.90 Unspecified osteoarthritis, unspecified site; F32.A Depression, unspecified; Z20.822 Contact with and (suspected) exposure to COVID-19; Z79.01 Long term (current) use of anticoagulants; Z86.73 Personal history of transient ischemic attack (TIA), and cerebral infarction without residual deficits; Z87.891 Personal history of nicotine dependence
CPT/HCPCS: 36415; 36600; 70450; 71045; 76775; 80048; 80053; 81003; 82436; 82550; 82565; 82570; 82805; 83605; 83735; 83880; 84100; 84133; 84300; 84443; 84484; 85025; 85055; 85610; 85730; 85999; 86140; 87040; 87449; 87637; 87641; 93005; 93306; 96374; 99291; A9270; C9113; J0456; J0692; J1200; J1940; J2765; J2919; J3370; J7030; J7050

== ENCOUNTER 2024-06-11 13:45 | Emergency (ER) | payer MEDICARE, SELFPAY ==
[2024-06-11] VITALS (10 sets, daily range): BP systolic 98–138; BP diastolic 56–84; PULSE 57–83; RESP 12–21; TEMP 36.8; O2SAT 96–100
--- NOTE | ~2024-06-11 | CT_ITS ---
History: Seizure PROCEDURE: CT head without contrast. COMPARISON: 08/10/2023 TECHNIQUE: Axial imaging of the head performed from the skull base to the vertex without IV contrast. Sagittal a nd coronal reformations obtained. DLP: 605 mGy-cm FINDINGS: The ventricles are dilated. The dilatation of the ventricles is proportional to the degree of sulcal prominence. Evidence of prior cerebral infarction within the left frontal and occipital lobes and within the righ t parietal lobe, unchanged from prior. There is no mass, mass effect or midline shift. There is no abnormal extra-axial fluid collection or intracranial hemorrhage. Visualized paranasal sinuses are clear. The mastoid air cells are well aerated. No acute displaced fractures within the overlying cranium. Impression: Stable CT examination of the head without acute intracranial hemorrhage or suspicious mass effect. Reviewed, dictated and finalized at location A. E RACING ANALYST Impression: Stable CT examination of the head without acute intracranial hemorrhage or susp icious mass effect.
--- NOTE | ~2024-06-11 | CT_ITS ---
CTA brain carotid Ordering provider: Bety Bah PA-C History: . Seizure, hx aneurysm . Comparison: None. Technique: CT angiogram head and neck was performed following timed intravenous injection of contrast . Thin slice axial images and reformatted coronal images were obtained. Three dimensional reformatted images of the brain were also obtained using a [employer] workstation. DLP: 927.6 mGy-cm FINDINGS: HEAD: --ANTERIOR AND MIDDLE CEREBRAL ARTERIES AND BRANCHES: Normal caliber and contour. --INTRACRANIAL INTERNAL CAROTID ARTERIES: Mild atheromatous disease but no significant stenosis. No o cclusion. --BASILAR ARTERY AND BRANCHES: Normal caliber and contour. No atheromatous disease. --POSTERIOR CEREBRAL ARTERIES: Normal caliber and contour --POSTERIOR COMMUNICATING ARTERIES: Not well visualized likely related to congenital absence or small size. --ANEURYSM: None visualized. --BRAIN: Please refer to report of CT head performed the same day. --BONES AND SUPERFICIAL SOFT TISSUES: Please refer to report of CT head performed the same day. --PARANASAL SINUSES AND MASTOIDS: Please refer to report of CT head done the same day. NECK: --RIGHT CERVICAL CAROTID SYSTEM: No significant atheromatous disease of the carotid bulb and proximal internal carotid artery. Percent stenosis per NASCET criteria is 0%. No carotid dissection. --LEFT CERVICAL CAROTID SYSTEM: No significant atheromatous disease of the carotid bulb and proximal internal carotid artery. Percent stenosis per NASCET criteria is 0%. No carotid dissection. --VERTEBRAL ARTERIES: Normal caliber and contour. --VISUALIZED AORTIC ARCH AND BRANCHING VESSELS: Mild atheromatous disease without significant stenosi s. --SOFT TISSUES: Unremarkable --CERVICAL SPINE: Age advanced degenerative changes. IMPRESSION: 1. Normal CTA head and neck. Percent stenosis per NASCET criteria is 0% Reviewed, dictated and finalized at location A. ER GENERAL
--- NOTE | 2024-06-11 14:03 | ECG_ITS ---
Test Date: 2024-06-11 14:52:54 Measurements Intervals [place] Rate: 57 P: 50 OR: 156 QRS: 69 QRSD: 90 T: 53 QT: 406 QTc: 398 Interpretive Statements SINUS BRADYCARDIA WITH SINUS ARRHYTHMIA BASELINE WANDER- I, II, III, AVR, AVL, AVF, V3 BORDERLINE ECG No previous ECG available for comparison Electronically Signed On 06-11-2024 16:59:06 [address] COLLECTIONS OFFICER by Micheal Rangel D.O.
--- OUTSIDE RECORDS SUMMARY | 2024-06-11 14:12 | XMS_ITS | Encounter Summary ---
Author Organization [facility] Healthcare Address [address] [place] [address] Care Team Providers Care Audit Lead Name Role Phone Heather Carolina Primary Care Provider [phone]- [phone] Rony Hagan MD Unavailable [phone] Zulay Garland LPN Unavailable [phone] Ghanshyam Stringer MD Unavailable Andrew Calabrese MD Unavailable [phone] Cy Mcallister MD Unavailable Delbert Sweeney MD Unavailable Encounter Details Date Type Department Care Team (Late st Contact Info) Description 08/31/[address] [facility] Medical Group Post Acute Care of [address] [address] Tracey Powers, DO [address] [facility] [address], [place] [address] Social History Tobacco Use Types Packs/Day Years Used Date Smoking Tobacco: Former Cigarettes 0.1 15 0 07/07/2007 - 07/06/2022 Smokeless Tobacco: Never Comments:5-10 cigaretts/day Alcohol Use Standard Drinks/Week Comments No 0 (1 standard drink = 0.6 oz pur e alcohol) [facility] Utilities Answer Date Recorded In the past 12 months has e [employer], gas, oil, or water company threatened to shut off services in your home? No 08/13/2023 Social Connection and Isolat ion Panel [NHANES] Answer Date Recorded In a typical week, how many times do you talk on the phone with family, friends, or neighbors? More than three times a week 08/13/2023 How often do you get togethe r with friends or relatives? More than three times a week 08/13/2023 How often do you attend chur ch or lutheran services? 1 to 4 times per year 08/13/2023 Do you belong to any clubs o r organizations such as roman catholic groups, unions, fraternal or athletic groups, or school groups? Yes 08/13/2023 How often do you attend meet ings of the clubs or organizations you belong to? 1 to 4 times per year 08/13/2023 Are you , , di vorced, , never , or living with a partner? Never 08/13/2023 AUDIT-C Answer Date Recorded Q1: How often do you have a drink containing alcohol? Never 07/29/2023 Q2: How many drinks containi ng alcohol do you have on a typical day when you are drinking? Patient does not drink Q3: How often do you have si x or more drinks on one occasion? Never 07/29/2023 Overall Financial Resource Strain (CARDIA) Answe r Date Recorded How hard is it for you to pa y for the very basics like food, housing, medical care, and heating? Not hard at all 08/13/2023 PHQ-2 Answer Date Recorded PHQ-2 Total Score 20 07/29/2023 Hunger Vital Sign Answer Date Recorded Within the past 12 months, y ou worried that your food would run out before you got the money to buy more. Never true 08/13/19 24 Within the past 12 months, t he food you bought just didn't last and you didn't have money to get more. Never true 08/13/2023 PRAPARE - Transportation Answer Date Re corded In the past 12 months, has l ack of transportation kept you from medical appointments or from getting medications? No 07/19 In the past 12 months, has l ack of transportation kept you from meetings, work, or from getting things needed for daily living? No 08/13/2023 Housing Stability Vital Sign Answer Rob e Recorded In the last 12 months, was t here a time when you were not able to pay the mortgage or rent on time? No 08/13/2023 Number of Places Lived in the Last Year Not on f ile 08/13/2023 In the last 12 months, was t here a time when you did not have a steady place to sleep or slept in a correction (including now)? No 08/13/2023 Personal Safety Answer Date Recorded Have you ever been in or are you currently in a harmful physical or emotional relationship or is someone making you feel afraid or unsafe? 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 file Not on file Not on file documented as of this encounter Plan of Treatment Not on file documented as of this encounter Visit Diagnoses Not on filedocumented in this encounter Care Teams Audit Lead Relationship Specialty Start Date End Date Heather Carolina PA [address] [facility] [address] [place] [address] PCP - General Internal Medicine 12/24/20 [place] [address] [place] [address] Consulting Physician Internal Medicine 08/25/23 Zulay Garland LPN [address] [place] [address] [address] [place] [address] Event Marketing Representative 09/27/23 11/22/23 [place] [address] [address] [facility] [address] [place] [address] Consulting Physician Pulmonary Disease 10/04/23 Andrew Calabrese MD [address] [facility] [id number] [place] [address] Surgeon Cardiothoracic Surgery 10/05/23 Cy Mcallister MD [address] [facility] [address] [place] [address] Referring Physician Cardiovascular Disease 10/05/23 Delbert Sweeney MD [address] [place] [address] Consulting Physician Neurosurgery 03/20/24 documented as of this encounter
--- OUTSIDE RECORDS SUMMARY | 2024-06-11 14:12 | XMS_ITS | Encounter Summary ---
Author Organization [facility] Healthcare Address [address] [place] [address] Care Team Providers Care Box Feeder Name Role Phone Heather Carolina Primary Care Provider [phone] Rony Hagan MD Unavailable [phone] Zulay Garland LPN Unavailable [phone] Ghanshyam Stringer MD Unavailable [phone] Andrew Calabrese MD Unavailable [phone] Cy Mcallister MD Unavailable [phone] Delbert Sweeney MD Unavailable [phone] Encounter Details Date Type Department Care Team (Late st Contact Info) Description 08/03/2023 Orders Only [facility] Health Information Management [address] [place] [id number] Scanning, Provider Social History Tobacco Use Types Packs/Day Years Used Date Smoking Tobacco: Former Cigarettes 0.1 15 0 07/07/2007 - 07/06/2022 Smokeless Tobacco: Never Comments:5-10 cigaretts/day Alcohol Use Standard Drinks/Week Comments No 0 (1 standard drink = 0.6 oz pur e alcohol) AUDIT-C Answer Date Recorded Q1: How often do you have a drink containing alcohol? Never 07/29/2023 Q2: How many drinks containi ng alcohol do you have on a typical day when you are drinking? Patient does not drink Q3: How often do you have si x or more drinks on one occasion? 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 Not on file Not on file documented as of this encounter Plan of Treatment Not on file documented as of this encounter Procedures Procedure Name Priority Date/Time Associated Diagnosis Comments SCAN - RADIOLOGY/IMAGING 08/03/2023 documented in this encounter Results * SCAN - RADIOLOGY/IMAGING (08/03/2023) Anatomical Region Laterality Modality Other us Provider Scanning Final Result documented in this encounter Visit Diagnoses Not on filedocumented in this encounter Care Teams Box Feeder Relationship Specialty Start Date End Date Heather Carolina PA [address] [facility] [address] [place] [address] PCP - General Internal Medicine 12/24/20 [place] [address] [place] [address] Consulting Physician Internal Medicine 08/25/23 Zulay Garland LPN [address] [place] [address] [address] [place] [address] Case Advocate 09/27/23 11/22/[address] [place] [address] [facility] [address] [place] [address] Consulting Physician Pulmonary Disease 10/04/23 Andrew Calabrese MD [address] [facility] [id number] [place] [address] Surgeon Cardiothoracic Surgery 10/05/23 Cy Mcallister MD [address] [facility] [address] [place] [address] Referring Physician Cardiovascular Disease 10/05/23 Delbert Sweeney MD [address] [place] [address] Consulting Physician Neurosurgery 03/20/24 documented as of this encounter
--- OUTSIDE RECORDS SUMMARY | 2024-06-11 14:12 | XMS_ITS | Referral Summary ---
Author Organization [facility] al Address [address] [place] [address] Care Team Providers Care Camera Engineer Name Role Phone Heather Carolina Primary Care Provider [phone] Rony Hagan MD Unavailable [phone] Ghanshyam Stringer MD Unavailable Andrew Calabrese MD Unavailable [phone] Cy Mcallister MD Unavailable [phone] Delbert Sweeney MD Unavailable Encounters Date Type Department Care Team Description 04/20/2024 Telephone [facility] [facility] [address] [place] [address] [place] [address] Delbert Sweeney MD 04/20/2024 9:15 AM MECHANICAL SHOP LABORER Office Visit [facility] [address] [facility] [address] [place] [address] [place] [address] Delbert Sweeney MD Brain aneurysm 03/21/[address] [place] [phone] Heather Carolina PA 03/20/2024 1:30 PM MECH[employer]ICAL SHOP LABORER Office Visit [address] [place] [phone] Heather Carolina PA Medicare annual wellness visit, subsequent (Primary Dx); Hypertension, renal disease, stage 1-4 or unspecified chronic kidney disease; Stage 3a chronic kidney disease (HCC); Hemiparesis affecting right side as late effect of stroke (CMS/HCC) (HCC); Moderate episode of recurrent major depressive disorder (HCC); Mixed hyperlipidemia; Iron deficiency anemia, unspecified iron deficiency anemia type; Vitamin D deficiency; Low vitamin B12 level; Hyperglycemia; Fatigue, unspecified type; 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; Age-related osteoporosis without current pathological fracture; Cigarette smoker; BMI 24.0-24.9, adult from Last 3 Months Allergies Active Allergy Reactions Criticality Noted Date Comments Sulfa (Sulfonamide Antibiotics) Vomiting Low 10/19 Medications aspirin 81 mg enteric coated tablet Take 1 tablet (81 mg total) by mouth daily 4 Active atorvastatin (LIPITOR) 40 mg tabletIndicatio ns:History of CVA (cerebrovascula r accident) TAKE 1 TABLET(40 MG) BY MOUTH DAILY 90 tablet 1 4 Active mirtazapine (REMERON) 15 mg tablet TAKE 1 TABLET(15 MG) BY MOUTH EVERY NIGHT 90 tablet [address] (PROTONIX) 20 mg EC tablet TAKE 1 TABLET(20 MG) BY MOUTH DAILY 30 tablet 2 5 Active metoprolol tartrate (LOPRESSOR) 25 mg immediate release tablet TAKE 1/2 TABLET(12. 5 MG) BY MOUTH TWICE DAILY 15 tablet 2 5 Active metoprolol tartrate (LOPRESSOR) 25 mg immediate release tablet TAKE 1/2 TABLET(12. 5 MG) BY MOUTH TWICE DAILY 15 tablet 2 4 05/17/19 25 Discontinued Active Problems Problem Noted Date Diagnosed Date Hyperglycemia 04/02/2024 Assessment & Plan (04/02/2024 4:43 PM MECHANICAL SHOP LABORER): Pre-diabetes/hyperglycemia is a precursor to Dm. Stressed importance of working on diet (decrease your simple sugars and one carbohydrate with each meal) and increase you exercise to achieve weight loss and this will help prevent you from progressing to diabetes. Low vitamin B12 level 04/02/2024 Assessment & Plan (04/02/2024 4:43 PM MECHANICAL SHOP LABORER): Check labs Medicare annual wellness visit, subsequent 04/02 Assessment & Plan (04/02/2024 4:43 PM MECHANICAL SHOP LABORER): Encouraged healthy lifestyle, good nutrition and exercise. Encouraged Calcium and Vitamin D and weight bearing exercise for bone health. Reviewed immunizations. Reviewed age appropirate screenings. Medicare Wellness Documentation is completed within the chart BMI 24.0-24.9, adult 03/20/2024 Assessment & Plan (03/20/2024 1:29 PM MECHANICAL SHOP LABORER): Weight/BMI is in healthy range. Continue healthy lifestyle to maintain. Fatigue 01/23/2024 Assessment & Plan (04/02/2024 4:42 PM MECHANICAL SHOP LABORER): Probably multifactorial. Check labs and followup to re-evaluate Assessment & Plan (01/23/2024 12:55 AM CDT): Probably multifactorial. Check labs and followup to re-evaluate H/O mitral valve replacement 11/21/2023 Assessment & Plan (11/21/2023 9:08 PM CDT): Post mitral valve replacement with Cardiology. Continue per Dr. Posada. Mitral valve insufficiency 09/09/2023 Heart failure with preserved ejection fraction ( CMS/HCC) 08/13/2023 Assessment & Plan (08/31/2023 9:57 PM CDT): Euvolemi, no signs of exacerbation Thrombocytopenia 08/13/2023 Pulmonary embolism without acute cor pulmonale 0 08/13/2023 Iron deficiency anemia 06/20/2023 Assessment & Plan (04/02/2024 4:42 PM MECHANICAL SHOP LABORER): Hemoglobin is up from 8.7 11.6. Will continue monitor labs Assessment & Plan (01/23/2024 12:54 AM CDT): Patient with history of anemia. She needs to recheck labs to determine stability. Advised if still low will need to consider colonoscopy Assessment & Plan (09/10/2023 11:14 PM CDT): Hemoglobin overall stable, currently 9.6. No active bleeding noted. Continue to monitor Assessment & Plan (09/06/2023 9:52 PM CDT): Hemoglobin stable, 10.3. Continue to monitor. Assessment & Plan (08/30/2023 12:27 PM CDT): Patient with chronic anemia, H and H currently 9.8/33.5. Platelets also stable to 45. Assessment & Plan (08/10/2023 6:44 PM CDT): Patient has had an iron-deficiency anemia. Strongly encouraged to consider colonoscopy for further evaluation. She declines. Encouraged to recheck labs today. Assessment & Plan (07/08/2023 5:05 PM CDT): Patient is showing anemia with her hemoglobin hematocrit readings. This is a decline since her last draw. Strongly encouraged colonoscopy for further evaluation. She refuses. Will get iron panel encourage iron supplement. This was provided to her in her take him sheet so she can get it [id number]. Advised this could be contributing to her fatigue and then complete workup including a colonoscopy to rule out GI cause for the bleed is strongly encouraged. She adamantly declines any further follow-up Vitamin D deficiency 06/15/2023 Assessment & Plan (04/02/2024 4:42 PM MECHANICAL SHOP LABORER): Continue to supplement vitamin-D Assessment & Plan (07/08/2023 4:46 PM CDT): Supplement History of CVA (cerebrovascular accident) 2022 Assessment & Plan (11/21/2023 9:12 PM CDT): History of CVA with residual cognitive deficits. Continue to monitor blood pressure and tightly control. Continue statin and aspirin. Assessment & Plan (08/10/2023 6:43 PM CDT): History of CVA. Residual cognitive deficit as well as right-sided weakness. Strongly encouraged complete tobacco cessation. Continue aspirin, tight blood pressure control and statin. Assessment & Plan (03/15/2023 3:13 PM MECHANICAL SHOP LABORER): History of CVA. Continue with aspirin statin and controlled blood pressure. Insomnia 03/15/2023 Assessment & Plan (03/15/2023 3:13 PM MECHANICAL SHOP LABORER): Continue Remeron 15 mg Gastroesophageal reflux disease without esophagi tis 06/14/2022 Assessment & Plan (11/21/2023 9:08 PM CDT): Continue PPI p.r.n. Assessment & Plan (10/03/2022 11:21 AM CDT): Discussed GERD at length including anatomy, behavioral changes (anti-reflux maneuvers, avoid acidic foods like oranges and tomatoes., avoidance of spicy foods, avoid eating 3-4 hours before bed, elevation of the head of the bed), weight loss and medication options for treatment. Followup if sxs worsen or has hematochezia or hematemeis. Restart omeprazole. Refills sent to pharmacy. reminded her of good Rx and printed out a coupon Assessment & Plan (08/16/2022 10:15 AM CDT): Continue PPI p.r.n. Assessment & Plan (06/14/2022 5:50 PM MECHANICAL SHOP LABORER): Patient requests a prescription for the omeprazole. It is expensive [id number]. Will see if we can get it covered for her if not discussed good Rx or the [facility] sullivan malik Cigarette smoker 06/08/2022 Assessment & Plan (04/02/2024 4:40 PM MECHANICAL SHOP LABORER): I am unsure if patient has completely quit. At times she still says she will have 1 every once in awhile. Continue to encourage complete cessation Assessment & Plan (08/10/2023 6:43 PM CDT): Encouraged smoking cessation. Discussed 3 minutes. Reviewed options for assistance with cessation. Reviewed chcf sequela associated with smoking. Pt declines assistance at this time but may contact the office at anytime for further help as they desire. Assessment & Plan (07/08/2023 4:45 PM CDT): Encouraged smoking cessation. Discussed 3 minutes. Reviewed options for assistance with cessation. Reviewed oysterman sequela associated with smoking. Pt declines assistance at this time but may contact the office at anytime for further help as they desire. Assessment & Plan (03/15/2023 3:10 PM MECHANICAL SHOP LABORER): Encouraged smoking cessation. Discussed 3 minutes. Reviewed options for assistance with cessation. Reviewed chcf sequela associated with smoking. Pt declines assistance at this time but may contact the office at anytime for further help as they desire. Assessment & Plan (08/16/2022 10:15 AM CDT): Encouraged smoking cessation. Discussed 3 minutes. Reviewed options for assistance with cessation. Reviewed chcf sequela associated with smoking. Pt declines assistance at this time but may contact the office at anytime for further help as they desire. Let patient know I do not think that her symptoms are secondary to the Chantix I think it is secondary to her not taking her medication correctly. Will hold off on restarting the Chantix get her medications straightened out then readdress at the next visit. Assessment & Plan (06/14/2022 5:50 PM MECHANICAL SHOP LABORER): Pt desires assistance with cessation. Discussed options at length. Will start Chantix Starter Pack. Take as directed. Reviewed risks, benefits, alternatives, side effects and proper use. Encouraged to decreased cigs as tolerated. Plan to stay on the Chantix 4-6 months, even if successful in stopping quickly. F.u if any increased emotional sxs or suicidal thoughts. Hypertension, renal disease, stage 1-4 or unspecified chronic kidney disease 02/15/2022 Assessment & Plan (04/02/2024 4:42 PM MECHANICAL SHOP LABORER): Bp is stable/in acceptable range for any co-morbidities. Encouraged to limit sodium intake and exercise for weight control. Avoid nephrotoxic drugs including NSAIDs. Monitor labs. Continue metoprolol 12.5 b.i.d. Assessment & Plan (01/23/2024 12:53 AM CDT): Bp is stable/in acceptable range for any co-morbidities. Encouraged to limit sodium intake and exercise for weight control. Avoid nephrotoxic drugs including NSAIDs. Monitor labs. Continue metoprolol 25 b.i.d. and Lasix 40 mg daily Assessment & Plan (11/21/2023 9:08 PM CDT): Patient with hypertension. Currently on metoprolol 25 mg b.i.d. and Lasix 40 mg daily. Will check CMP to make sure potassium level remained stable. Continue per Cardiology Assessment & Plan (08/10/2023 6:43 PM CDT): Bp is stable/in acceptable range for any co-morbidities. Encouraged to limit sodium intake and exercise for weight control. Avoid nephrotoxic drugs including NSAIDs. Monitor labs. Patient's blood pressure stable today I am not 100% sure what she is taking. She should be taking atenolol b.i.d. and amlodipine 5 mg HS. Assessment & Plan (07/08/2023 5:04 PM CDT): Bp is stable/in acceptable range for any co-morbidities. Encouraged to limit sodium intake and exercise for weight control. Avoid nephrotoxic drugs including NSAIDs. Monitor labs. Blood pressure was low in the hospital so the atenolol is being discontinued continue with the amlodipine 5. Encouraged home readings to call if they are consistently over 135/90 Assessment & Plan (07/08/2023 4:45 PM CDT): Bp is stable/in acceptable range for any co-morbidities. Encouraged to limit sodium intake and exercise for weight control Avoid nephrotoxic drugs including NSAIDs. Monitor labs. Continue amlodipine 5 Assessment & Plan (03/15/2023 3:11 PM MECHANICAL SHOP LABORER): Bp is stable/in acceptable range for any co-morbidities. Encouraged to limit sodium intake and exercise for weight control. Continue atenolol 25 amlodipine 5 Assessment & Plan (08/16/2022 10:14 AM CDT): Bp is stable/in acceptable range for any co-morbidities. Encouraged to limit sodium intake and exercise for weight control. Avoid nephrotoxic drugs including NSAIDs. Monitor labs. Continue amlodipine and atenolol Assessment & Plan (02/15/2022 4:18 PM CDT): Bp is stable/in acceptable range for any co-morbidities. Encouraged to limit sodium intake and exercise for weight control. Avoid nephrotoxic drugs including NSAIDs. Monitor labs. Continue atenolol and amlodipine Age-related osteoporosis wit hout current pathological fracture 01/13/2021 Assessment & Plan (04/02/2024 4:40 PM MECHANICAL SHOP LABORER): Patient has osteo Pedia. She had difficulty taking monthly bisphosphonate due to her cognitive deficit status post stroke. Discussed rechecking her DEXA and trying to get started on again but she wants to put it off at this point Assessment & Plan (01/23/2024 12:52 AM CDT): Patient has osteoporosis. She was on a bisphosphonate in the past but concern for taking it correctly. Will discuss again at next visit to see if we can get her going with a monthly pill. Continue calcium vitamin-D and exercise Assessment & Plan (11/21/2023 9:09 PM CDT): Patient with known osteoporosis. She has been on a bisphosphonate in the past but had difficulty taking it monthly. Will continue to monitor closely and let her get used to being discharged in managing her medicines and if she is able to will try to reinstate the bisphosphonate. Continue calcium and vitamin-D and exercise Assessment & Plan (03/15/2023 3:11 PM MECHANICAL SHOP LABORER): Patient has osteoporosis. She refuses DEXA and refuses treatment options for prevention a fracture. Still strongly encouraged calcium vitamin-D and exercise Assessment & Plan (01/13/2021 9:37 PM CDT): This is a significant, separately identifiable problem that was evaluated and managed on the same day as the wellness exam Your DXA showed osteoporosis, Tscores and treatment options. To maintain the strength you have, I encourage calcium (approximately 1500mg daily in divided doses or from your diet), vitamin D (supplement otc 5,000IU each day with a meal for best absorption) and weight bearing exercise (walking, dancing, gardening etc) to maintain the good bone strength. Her Tscores of below 3 so reviewed treatment options including Evista, bisphosphonates and Prolia. Reviewed risks, benefit, alternatives, side effects and proper use. Will start Actonel monthly. Recheck DXA in 2 years (12/2022) Difficulty taking medication 01/13/2021 Assessment & Plan (01/23/2024 12:52 AM CDT): Due to patient's stroke history she does have some cognitive deficit. Her brother is helping her with her medications. She may call at any time for assistance. Assessment & Plan (11/21/2023 9:09 PM CDT): Patient has had difficulty taking medications correctly. Discussed with her brother techniques that we can try to assist the patient says that she can do this correctly. If he notes problems we could always send a home health nurse out to try to assist also Assessment & Plan (08/10/2023 6:40 PM CDT): Patient continues to have difficulty taking her medicine secondary to her cognitive deficits as a result of her stroke. I strongly encouraged her to bring her medicine bottles and with her each time and she does not. We have even called to remind her to bring them in she does not. Inquired about having her brother help her and she is not interested. Made her a note of the medication she should be taking and encouraged her to call the office with the bottles in front of her so we can try to coordinate what she actually has at home and what she is taking as I am concerned that she may not be taking the right medicines at the right time in the right amounts. Assessment & Plan (07/08/2023 4:45 PM CDT): I am unsure if she is taking the proper medications as she is unable to really recall what she is taking it did not bring her medications with her. Encouraged her to call the office with her medications in front of her which she declined. Encouraged her to bring them to each visit. Assessment & Plan (08/16/2022 10:17 AM CDT): I suspected that patient's medications or not be taking correctly. Instructed patient to call the office and speak with my SENIOR ORACLE APPLICATIONS DEVELOPER. Her notice as follows Spoke to pt on the phone to go over what medications she was taking. Pt stated she has 4 medications-2 in the morning and 2 at night. When listing the medications she listed Atenolol twice and could not find the Amlodopine. Pt got flustered and started crying and stated she will just come in because it was overwhelming doing this over the phone. When assessing pills and pill bottles it was noted that she had pill bottles with labels for Mirtazapine, Atorvastatin, and 2 different bottle of Atenolol. When opening the pill bottles, all 4 pill bottles had a variety of different pills in each bottle. Pills were taken out of each bottle and identified which medication and put back in correct bottle. One of the bottles that was labeled Atenolol had Mirtazapine in them, the Mirtazapine bottle had mostly Amlodipine tabs in them. The other Atenolol bottle had a few Atorvastatin tabs in it. All bottles straightened out and labeled properly at end of visit. Wrote D for day on bottle for Atenolol and Amlodipine and N for night on the bottle of Mirtazapine and Atorvastatin. Educated pt on which medications to take when. Pt stated she had once knocked open bottles on the floor and got them all messed up. Mirtazapine had 5 tabs left and needed refill. The rest of the medications had over a week or two left. Suspect the mixed up of her medications is what is contributing to her symptoms. Will not make any adjustments to the medications today. Monitor closely have her back in the office to recheck her symptoms. Assessment & Plan (01/13/2021 9:46 PM CDT): This is a significant, separately identifiable problem that was evaluated and managed on the same day as the wellness exam Spent a great deal of time today with patient trying to determine what medication she is taking. I a.m. still not convinced she has a good knowledge of this. I specifically gave her her AVS with her medications highlighted so that she knows that she can go home and check what she has at home with what she picks up from the pharmacy so she is taking the proper medications. Stressed to her if she is confused to please call the office to try to help her understand what she is supposed to be taking. She does not have great insight into this problem. Mixed hyperlipidemia 02/14/2019 Assessment & Plan (04/02/2024 4:42 PM MECHANICAL SHOP LABORER): Encouraged patient to follow low fat/low chol diet like the Mediterranean diet. Increase good fats in the diet. Increase exercise. Monitor labs as needed. Continue atorvastatin 40 Assessment & Plan (01/23/2024 12:53 AM CDT): Encouraged patient to follow low fat/low chol diet like the Mediterranean diet. Increase good fats in the diet. Increase exercise. Monitor labs as needed. Continue atorvastatin 40 Assessment & Plan (11/21/2023 9:09 PM CDT): Encouraged patient to follow low fat/low chol diet like the Mediterranean diet. Increase good fats in the diet. Increase exercise. Monitor labs as needed. Continue atorvastatin 40 Assessment & Plan (09/24/2023 1:47 PM CDT): Stable, cont rx lipitor Assessment & Plan (09/21/2023 12:04 PM CDT): Chronic, stable; cont rx lipitor Assessment & Plan (08/10/2023 6:40 PM CDT): Encouraged patient to follow low fat/low chol diet like the Mediterranean diet. Increase good fats in the diet. Increase exercise. Monitor labs as needed. She should be on atorvastatin 40 mg Assessment & Plan (07/08/2023 5:04 PM CDT): Encouraged patient to follow low fat/low chol diet like the Mediterranean diet. Increase good fats in the diet. Increase exercise. Monitor labs as needed. Continue atorvastatin Assessment & Plan (07/08/2023 4:44 PM CDT): Encouraged patient to follow low fat/low chol diet like the Mediterranean diet. Increase good fats in the diet. Increase exercise. Monitor labs as needed. Continue atorvastatin 40 Assessment & Plan (03/15/2023 3:12 PM MECHANICAL SHOP LABORER): Encouraged patient to follow low fat/low chol diet like the Mediterranean diet. Increase good fats in the diet. Increase exercise. Monitor labs as needed. Continue atorvastatin 40 Assessment & Plan (02/15/2022 4:14 PM CDT): Encouraged patient to follow low fat/low chol diet like the Mediterranean diet. Increase good fats in the diet. Increase exercise. Monitor labs as needed. Continue Lipitor Assessment & Plan (11/16/2021 2:50 PM CDT): Encouraged patient to follow low fat/low chol diet like the Mediterranean diet. Increase good fats in the diet. Increase exercise. Monitor labs as needed. Continue Lipitor 40 Assessment & Plan (08/27/2021 11:26 PM CDT): Encouraged patient to follow low fat/low chol diet like the Mediterranean diet. Increase good fats in the diet. Increase exercise. Monitor labs as needed. Continue statin Assessment & Plan (01/13/2021 9:32 PM CDT): Encouraged patient to follow fat/low chol diet like the Mediterranean diet. Increase good fats in the diet. Increase exercise. Monitor labs as needed. Atorvastatin 40mg daily Assessment & Plan (02/14/2019 9:02 PM CDT): Bp is stable/in acceptable range for any co-morbidities. Encouraged to limit sodium intake and exercise for weight control. Mammogram declined 02/14/2019 Assessment & Plan (01/23/2024 12:52 AM CDT): Patient refuses mammogram for breast cancer screening. Reviewed the importance of early detection. She may call at any time if she decides she would like to have it done Assessment & Plan (11/21/2023 9:09 PM CDT): Patient refuses mammogram for breast cancer screening. Reviewed the importance of early detection Assessment & Plan (08/10/2023 6:38 PM CDT): Reviewed importance of screening Assessment & Plan (03/15/2023 3:12 PM MECHANICAL SHOP LABORER): Patient refuses mammogram. Reviewed importance of early detection Assessment & Plan (02/15/2022 4:14 PM CDT): Patient refuses a mammogram screening. Reviewed risk of delay in identifying a cancer and potential change in outcome with delay in diagnosis. Assessment & Plan (08/27/2021 11:26 PM CDT): Encouraged screening Assessment & Plan (01/22/2021 9:27 PM CDT): Patient declines all screenings including mammograms. Assessment & Plan (01/13/2021 9:31 PM CDT): Reviewed importance of screening. Pt voiced understanding. Assessment & Plan (02/14/2019 9:04 PM CDT): Reviewed importance of screening. Pt voiced understanding. Colon cancer screening declined 02/14/2019 Assessment & Plan (01/23/2024 12:52 AM CDT): Patient refuses colon cancer screening. Reviewed the importance of early detection. May call at any time if she would like to be screened Assessment & Plan (11/21/2023 9:09 PM CDT): Patient refuses colon cancer screening. Reviewed the importance of early detection Assessment & Plan (08/10/2023 6:38 PM CDT): Reviewed importance of screening. Assessment & Plan (03/15/2023 3:12 PM MECHANICAL SHOP LABORER): Patient refuses colonoscopy. Reviewed importance of early detection Assessment & Plan (02/15/2022 4:15 PM CDT): Patient refuses a colon cancer screening. Reviewed risk of delay in identifying a cancer and potential change in outcome with delay in diagnosis. Assessment & Plan (08/27/2021 11:27 PM CDT): Encouraged screening. Pt declines Assessment & Plan (01/22/2021 9:28 PM CDT): Patient declines all screenings including colonoscopy. Assessment & Plan (01/13/2021 9:31 PM CDT): Reviewed importance of screening. Pt voiced understanding. Assessment & Plan (02/14/2019 9:03 PM CDT): Reviewed importance of screening. Pt voiced understanding. Acute nonintractable headache 01/01/2019 Assessment & Plan (01/01/2019 11:52 PM CDT): Persistent headache not responding to current medication regimen. Patient has had a history of strokes. Although it does not seem is neurologically things have changed she still is not responding to medications and would recommend MRI of the brain. Recommended to within the next couple of days. If her symptoms worsen she needs to go to the ER to have imaging done immediately. Residual cognitive deficit as late effect of str nataliya 09/24/2018 Overview (10/29/2023): 2018----> history of multifocal strokes (left frontal, left occipital and right parietal). She has been following with Neurology Dr. 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 Assessment & Plan (04/02/2024 4:42 PM MECHANICAL SHOP LABORER): 2018----> history of multifocal strokes (left frontal, left occipital and right parietal). She has been following with Neurology Dr. 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 I continued off her cognitive therapy and testing and she continues to decline Assessment & Plan (01/23/2024 12:54 AM CDT): 2018----> history of multifocal strokes (left frontal, left occipital and right parietal). She has been following with Neurology Dr. 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 Assessment & Plan (11/21/2023 9:11 PM CDT): 2018----> history of multifocal strokes (left frontal, left occipital and right parietal). She has been following with Neurology Dr. 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 Assessment & Plan (09/23/2023 12:28 PM CDT): MOCA 13/30. Impulsive behaviors. Assessment & Plan (08/10/2023 6:41 PM CDT): Patient has persistent residual cognitive effects as a late effects of a stroke. She is followed with Neurology at [facility] in has been offered cognitive rehab which she has continued to decline due to transportation. I feel as though her memory and cognitive abilities continued to decline. Strongly encouraged her to allow permission to talk to her brother to help coordinate care and she continues to decline. Assessment & Plan (07/08/2023 5:03 PM CDT): Patient has persistent cognitive deficits secondary to a stroke. Offered assistance but she still declines. Unsure she is taking her medications as instructed. Strongly encouraged her to bring them to the office for review each time. Assessment & Plan (07/08/2023 4:44 PM CDT): Patient has had history of stroke and is having cognitive changes due to this. She is agitated today and is feeling very overwhelmed. She has followed with Neurology at [facility]. We have both offered multiple times cognitive therapy and she is declined. 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 My [employer]IOR [employer] DEVELOPER was able to correct the medication issues getting all the medicines in the correct bottles. Discussed with patient the possibility of doing some type of pill pack to avoid confusion. She will consider. Stressed to bring each of her medicines with her each time she comes to the office. Assessment & Plan (02/15/2022 4:14 PM CDT): No significant change in her symptoms. Continue to control blood pressure and use statin and aspirin to prevent recurrent stroke Assessment & Plan (09/27/2021 11:54 PM CDT): Continued cognitive deficit after her stroke. Continue per Neurology. The neurologist has suggested cognitive therapy but patient has been unable to connect with this as the services are only in [place]. Assessment & Plan (08/10/2021 3:57 PM CDT): Obvious persistent cognitive deficit since her stroke. Still awaiting the test results as the note is not complete. She has a follow-up with Dr. Hannon to review the results and develop a plan. Strongly encouraged her to continue with the Remeron to help with the depression symptoms. Will increase it to 30 mg. Continue to take 1 at night time. Encouraged counseling and provided names and numbers again of people who could be helpful. Encouraged her to follow-up in about a month to see how her symptoms are doing or sooner for any problems or concerns also discussed suicidal ideations and suicide plans and that if she begins to develop a plan and needs help she is to follow up immediately. She agreed to this. Assessment & Plan (01/22/2021 9:27 PM CDT): Discussed with patient at length options to try to help with her cognitive deficit. Reviewed that her neurologist head encouraged her to go to neuro psychological testing and that this may help identify some of the concerns and that there is probably a cognitive type of therapy that is available at [facility]. She states she cannot get to [facility] she does not have anyone to help with reds. Discussed with her utilizing liver service or medical card and initially extremely hesitant to even consider but provided the idea of maybe doing a new bur with a friend go over to [place] and have dinner and then come back so that she can practice doing it to see if she feels more comfortable in utilizing that type of service. She was encouraged by that thought and will give it a try. When she feels comfortable considering the referral to [place] she will give us a call so that we can try to get it scheduled. Encouraged her to work on doing activities or jobs that are in her will house not things that require some of the sorting and memory techniques that she know she has trouble with. She states she understands and agrees. Assessment & Plan (02/14/2019 9:04 PM CDT): Continue per Neurology. Control bp and continue ASA. Assessment & Plan (01/01/2019 11:53 PM CDT): Had atypical presentation of stroke in 2018. Recommend a re-imaging as stated above in headache. Assessment & Plan (10/09/2018 8:57 PM CDT): No change. Continue ASA, statin and control bp Stage 3 chronic kidney disease 09/24/2018 Assessment & Plan (04/02/2024 4:41 PM MECHANICAL SHOP LABORER): Avoid nephrotoxic drugs including NSAIDs. Monitor labs. Assessment & Plan (01/23/2024 12:54 AM CDT): Avoid nephrotoxic drugs including NSAIDs. Monitor labs. Assessment & Plan (11/21/2023 9:11 PM CDT): Avoid nephrotoxic drugs including NSAIDs. Monitor labs. Assessment & Plan (09/10/2023 11:13 PM CDT): Creatinine has been stable over the past week, currently 1.15. Continue to monitor weekly with IV antibiotic usage. Assessment & Plan (09/06/2023 9:51 PM CDT): Creatinine slightly worsened, currently BUN/creatinine 26/1.31 with an EGFR of 47. Continue to monitor as patient remains on vancomycin, repeat labs in 1 week Assessment & Plan (08/30/2023 12:28 PM CDT): Renal function currently stable, BUN/creatinine 26/1.22 with an EGFR of 51. We will avoid NSAIDs, nephrotoxic agents. Continue to monitor as patient remains on vancomycin. Assessment & Plan (08/10/2023 6:40 PM CDT): Avoid nephrotoxic drugs including NSAIDs. Monitor labs. Assessment & Plan (07/08/2023 5:03 PM CDT): Avoid nephrotoxic drugs including NSAIDs. Monitor labs. Assessment & Plan (07/08/2023 4:44 PM CDT): Avoid nephrotoxic drugs including NSAIDs. Monitor labs. Assessment & Plan (03/15/2023 3:10 PM MECHANICAL SHOP LABORER): Avoid nephrotoxic drugs including NSAIDs. Monitor labs. Assessment & Plan (08/16/2022 10:14 AM CDT): Avoid nephrotoxic drugs including NSAIDs. Monitor labs. Assessment & Plan (02/15/2022 4:14 PM CDT): Avoid nephrotoxic drugs including NSAIDs. Monitor labs. Assessment & Plan (11/16/2021 2:49 PM CDT): Avoid nephrotoxic drugs including NSAIDs. Monitor labs. Assessment & Plan (01/13/2021 9:32 PM CDT): Avoid nephrotoxic drugs including NSAIDs. Monitor labs. Assessment & Plan (02/14/2019 9:08 PM CDT): Avoid nephrotoxic drugs including NSAIDs. Monitor labs. Assessment & Plan (10/09/2018 8:57 PM CDT): Avoid nephrotoxic drugs including NSAIDs. Monitor labs. Anxiety 09/24/2018 Assessment & Plan (11/21/2023 9:10 PM CDT): Patient with known depression anxiety. She has been on Remeron in the past prior to hospitalization. It appears as though she has psychiatric evaluations while at [facility] as well as at [facility]. Today she comes in and is on Seroquel 25 mg HS. Try to evaluate her depression and she denies any depression symptoms. Encouraged her brother to keep a close eye on symptoms and call if there are any problems. Assessment & Plan (03/15/2023 3:12 PM MECHANICAL SHOP LABORER): Patient has anxiety. She also has difficulty sleeping continue the Remeron 15 mg HS Assessment & Plan (02/14/2019 9:03 PM CDT): Continue the Wellbutrin and Effexor. Moderate episode of recurrent major depressive d isorder 09/24/2018 Assessment & Plan (04/02/2024 4:41 PM MECHANICAL SHOP LABORER): Symptoms are stable with the Remeron 15. Assessment & Plan (11/21/2023 9:11 PM CDT): Patient with known depression anxiety. She has been on Remeron in the past prior to hospitalization. It appears as though she has psychiatric evaluations while at [facility] as well as at [facility]. Today she comes in and is on Seroquel 25 mg HS. Try to evaluate her depression and she denies any depression symptoms. Encouraged her brother to keep a close eye on symptoms and call if there are any problems. Assessment & Plan (09/24/2023 1:48 PM CDT): Cont mirtazapine Assessment & Plan (09/03/2023 10:27 AM CDT): Called to room by DON and ADMIN; concerned that earlier this AM, Elias had voiced suicidal ideation. Elias now denies this. She claims to have said that she felt down and that she would be better off . She verifies that she has now desire or intention on taking her own life. Cont rx mirtazapine. She tells me that her biggest discomfort for now is the confinement of her room. Assessment & Plan (08/10/2023 6:40 PM CDT): I do not think her depression symptoms are well controlled but I am not convinced that she is taking her Remeron at night because she is complaining she can not sleep. Will await her call with her medications before increasing the Remeron from 15 mg to 30 mg Assessment & Plan (02/15/2022 4:14 PM CDT): Continue Remeron Assessment & Plan (11/16/2021 2:49 PM CDT): Continue Remeron 15 mg refill sent to pharmacy Assessment & Plan (09/27/2021 11:54 PM CDT): Patient is concerned that the increased dose of the Remeron is creating as sleepiness. Will go ahead and reduce it to 15 mg. She is taking it at nighttime. Will reassess in 2-3 months and if still persistent may need to pursue other reasons for her sleepiness. Assessment & Plan (08/27/2021 11:26 PM CDT): Continue Remeron Assessment & Plan (08/10/2021 3:57 PM CDT): See cognitive deficit. Continue the Remeron 30 mg Assessment & Plan (03/16/2021 10:46 PM MECHANICAL SHOP LABORER): Her depression anxiety seem a little bit better than her last visit. She still has some emotionally ability. She is much more aware of her medical conditions and how they inner relate. Will continue with the Remeron at 15 mg will continue to monitor. Assessment & Plan (01/22/2021 9:27 PM CDT): Continue with the Remeron. Will see if this helps with some of her drop pressure as well as some her sleep issues. Follow-up in about 4-6 weeks as planned. Assessment & Plan (01/13/2021 9:34 PM CDT): This is a significant, separately identifiable problem that was evaluated and managed on the same day as the wellness exam Not controlled. Remeron 7.5mg was filled last month. Will increase to 15mg daily as her previous providers records show she had a great night of sleep with it with starting it. Reviewed risks, benefit, alternatives, side effects and proper use. F.u 4 weeks to reassess Assessment & Plan (02/14/2019 9:04 PM CDT): Continue Effexor and Wellbutrin Assessment & Plan (01/01/2019 11:54 PM CDT): Increased stress. This seems to be related to work and she admits there are at times difficulty with memory issues and completing tasks. She is on Wellbutrin 300 mg. She does not want to change this medication or add. Assessment & Plan (10/09/2018 8:58 PM CDT): Stable with the Wellbutrin. Monitor Ulnar neuropathy at elbow of left upper extremit y 04/22/2018 Assessment & Plan (02/14/2019 9:05 PM CDT): EMG done at [place]. Showed ulnar neuropathy. Prefers to see Ortho in [place]. Hemiparesis affecting right side as late effect of stroke ([facility]) 12/23/2017 Assessment & Plan (04/02/2024 4:41 PM MECHANICAL SHOP LABORER): Hemiparesis affecting the right side. She declines any type of therapy Assessment & Plan (08/10/2023 6:42 PM CDT): Residual right-sided weakness as the effect of her stroke. Patient is not interested in PT or OT. Assessment & Plan (02/15/2022 4:13 PM CDT): No change in symptoms. Patient encouraged to control blood pressure, continue statin and aspirin to try to prevent recurrent stroke. Assessment & Plan (08/27/2021 11:26 PM CDT): No change. Assessment & Plan (02/14/2019 8:52 PM CDT): No change. Pt has completed PT/OT Continue with Neurologist. Assessment & Plan (01/01/2019 11:52 PM CDT): No significant change in her symptoms Cervical disc disorder with myelopathy of mid-cervical region 12/23/2017 Assessment & Plan (02/14/2019 9:02 PM CDT): Saw neurosurgeon Dr. Kevan Díaz. His note states he didn't think the sxs in the left arm are concordant with the abnormalities in the neck so surgery is not indicated at this point. Migraine 03/20/2016 Resolved Problems Problem Noted Date Diagnosed Date Resolved Date BMI 22.0-22.9, adult 01/10/2024 024 Assessment & Plan (01/10/2024 2:34 PM CDT): Weight/BMI is in healthy range. Continue healthy lifestyle to maintain. Seizure-like activity 09/29/20232023 Syncope and collapse 09/29/2023 024 Altered mental status 08/19/20232023 Infective endocarditis 08/13/202311/20 Assessment & Plan (09/24/2023 1:48 PM CDT): Cont IV atb vancomycin and cefepime Assessment & Plan (09/23/2023 12:30 PM CDT): Affecting the mitral valve. Abx completed. DCP 09/23. Preop eval 09/19 stable, surgical intervention planned for 09/26 at [facility]. Pre-op orders placed. ASA does not need to be held. Assessment & Plan (09/21/2023 12:04 PM CDT): Cont rx vancomycin and cefepime Assessment & Plan (09/10/2023 11:11 PM CDT): Affecting the mitral valve. Patient overall feels well, tolerating antibiotics. We will continue vancomycin 1 g daily, cefepime 2 g IV b.i.d. through 09/23/2023. Patient remains afebrile. We will continue to monitor labs weekly. Per CTS patient will have preoperative evaluation on 09/19 at [facility], then plan for surgical intervention on 09/27/2023 after completion of IV antibiotics. Assessment & Plan (09/06/2023 9:51 PM CDT): Patient without chest pain, , increased shortness of breath, endurance is at baseline. Tolerating IV antibiotics well, continue cefepime 2 g IV b.i.d., vancomycin 1 g daily through 09/23/2023. Patient remains frustrated about requiring inability to discharge home due to frequency of IV antibiotics. Patient has remained afebrile, WBC within normal limits at 8.0. Vancomycin troughs per pharmacy dosing, we will need to monitor with up trending creatinine Assessment & Plan (09/03/2023 10:28 AM CDT): Chronic, cont cefepime. Assessment & Plan (08/31/2023 9:58 PM CDT): Continue IV vanc, follow up with ID outpatient Assessment & Plan (08/30/2023 12:12 PM CDT): Patient is to continue cefepime 2 g IV b.i.d., vancomycin 1 g daily through 09/23/2023. Pharmacy will be dosing vancomycin. Continue weekly labs CBC, CMP, vanc trough with results to be faxed to Infectious Disease. Patient is afebrile, no leukocytosis. Continue to monitor. Severe mitral regurgitation 08/13/2023 11/21/2023 Anemia 08/13/2023 08/30/2023 Essential hypertension 08/13/202311/20 Assessment & Plan (09/24/2023 1:47 PM CDT): Stable, cont to observe Assessment & Plan (08/31/2023 9:57 PM CDT): Not on blood pressure medication, continue to monitor. Chronic anticoagulation 08/13/2023 10/0 09/2023 Assessment & Plan (09/23/2023 12:29 PM CDT): Pt was treated with lovenox during hospital stay, V/Q scan intermediate for PE. Cardiology note indicates that patient should be transferred on Eliquis or Xarelto but neither was started. Message left for Dr. Marquez for clarification on admission - remains only on ASA. PCP to fu. Assessment & Plan (08/30/2023 12:26 PM CDT): Pt was treated with lovenox during hospital stay, V/Q scan intermediate for PE. Cardiology note indicates that patient should be transferred on Eliquis or Xarelto but neither was started. Message left for Dr. Marquez for clarification. Murmur 08/10/2023 11/21/2023 Assessment & Plan (08/10/2023 6:47 PM CDT): I let patient know I heard a new heart murmur today on exam. Advised she needs an echo. She is refusing to have it done. Advised she may call at any time if she changes her mind. Again asked if I could speak with her brother to help coordinate this care and she declined Positive depression screening 07/29/2023 08/10/2023 Pneumonia of right lower lob e due to infectious organism 07/08/2023 08/10/2023 Assessment & Plan (07/08/2023 4:42 PM CDT): Patient is recovering from right lower lobe pneumonia. She completed the doxy as instructed in his breathing much better. Discussed rechecking chest x-ray but she has not interested as this is too overwhelming for her. If she begins coughing or notes shortness breath again she is to follow up immediately Pneumonia due to infectious organism 07/08/2023 09/23/2023 Assessment & Plan (08/10/2023 6:45 PM CDT): Recent history of pneumonia. She has been hospitalized multiple times with this pneumonia with multiple episodes of antibiotics. She still is complaining of fatigue. Provided x-ray at her last visit. She is convinced she got it done but I can not find record. Encouraged her to get it done today at the [facility] up the road. Reminded her she get her blood done at the same place today all in the same stop. Assessment & Plan (07/08/2023 5:05 PM CDT): Patient with persistent pneumonia. Complete the Augmentin as instructed. Provided chest x-ray to complete in about 2 weeks to make sure that it has completely cleared. She would have increased shortness a breath or increased cough symptoms fever chills or sweats she is to call immediately for immediate evaluation. Hypokalemia 06/20/2023 09/23/2023 BMI 25.0-25.9,adult 09/23/2022 06/15/19 24 Assessment & Plan (03/15/2023 2:13 PM MECHANICAL SHOP LABORER): Weight/BMI is in healthy range. Continue healthy lifestyle to maintain. Assessment & Plan (09/23/2022 1:12 PM CDT): Weight/BMI is in healthy range. Continue healthy lifestyle to maintain. BMI 20.0-20.9, adult 07/29/2022 024 Assessment & Plan (11/21/2023 9:08 PM CDT): Weight/BMI is in healthy range. Continue healthy lifestyle to maintain. Assessment & Plan (08/10/2023 6:45 PM CDT): Weight/BMI is in healthy range. Continue healthy lifestyle to maintain. Assessment & Plan (07/08/2023 5:04 PM CDT): Weight/BMI is in healthy range. Continue healthy lifestyle to maintain. Assessment & Plan (07/08/2023 4:46 PM CDT): Weight/BMI is in healthy range. Continue healthy lifestyle to maintain. Assessment & Plan (07/29/2022 1:15 PM CDT): Weight/BMI is in healthy range. Continue healthy lifestyle to maintain. BMI 24.0-24.9, adult 06/08/2022 023 Assessment & Plan (06/08/2022 10:20 AM MECHANICAL SHOP LABORER): Weight/BMI is in healthy range. Continue healthy lifestyle. Flu vaccine need 02/15/2022 08/10/2023 Assessment & Plan (02/15/2022 4:15 PM CDT): Flu vaccine updated in the office today BMI 25.0-25.9,adult 02/15/2022 06/08/19 Assessment & Plan (02/15/2022 4:15 PM CDT): Weight/BMI is in healthy range. Continue healthy lifestyle to maintain. Diabetes mellitus screening 11/16/2021 08/10/2023 Assessment & Plan (07/08/2023 4:45 PM CDT): Check labs Assessment & Plan (03/15/2023 3:13 PM MECHANICAL SHOP LABORER): Check labs Assessment & Plan (11/16/2021 2:50 PM CDT): Check labs Fatigue 11/16/2021 08/10/2023 Assessment & Plan (07/08/2023 5:04 PM CDT): Probably multifactorial. Check labs and followup to re-evaluate Assessment & Plan (07/08/2023 4:45 PM CDT): Probably multifactorial. Check labs and followup to re-evaluate Assessment & Plan (03/15/2023 3:13 PM MECHANICAL SHOP LABORER): Probably multifactorial. Check labs and followup to re-evaluate Assessment & Plan (11/16/2021 2:50 PM CDT): Probably multifactorial. Check labs and followup to re-evaluate BMI 27.0-27.9,adult 11/05/2021 02/16/20 22 Assessment & Plan (11/05/2021 3:39 PM CDT): Weight/BMI is in healthy range. Continue healthy lifestyle to maintain. BMI 27.0-27.9,adult 07/15/2021 11/06/19 22 Assessment & Plan (09/27/2021 11:55 PM CDT): Weight/BMI is in healthy range. Continue healthy lifestyle to maintain. Assessment & Plan (08/27/2021 3:18 PM CDT): Weight/BMI is in healthy range. Continue healthy lifestyle to maintain. Assessment & Plan (07/15/2021 2:52 PM CDT): Weight/BMI is in healthy range. Continue healthy lifestyle to maintain. BMI 25.0-25.9,adult 02/27/2021 07/16/19 22 Assessment & Plan (02/27/2021 1:38 PM MECHANICAL SHOP LABORER): Weight/BMI is in healthy range. Continue healthy lifestyle to maintain. BMI 25.0-25.9,adult 01/20/2021 02/28/20 21 Assessment & Plan (01/20/2021 9:15 AM CDT): Weight/BMI is in healthy range. Continue healthy lifestyle to maintain. Need for immunization against influenza 01/20/2021 08/10/2021 Assessment & Plan (01/22/2021 9:28 PM CDT): Vaccine updated in office today BMI 24.0-24.9, adult 01/13/2021 021 Assessment & Plan (01/13/2021 10:42 AM CDT): Weight/BMI is in healthy range. Continue healthy lifestyle to maintain. Fatigue 01/13/2021 08/27/2021 Assessment & Plan (01/13/2021 9:37 PM CDT): Probably multifactorial. Check labs and followup to re-evaluate Diabetes mellitus screening 01/13/2021 08/27/2021 Hyperthyroidism 01/13/2021 04/02/2024 Assessment & Plan (03/15/2023 3:12 PM MECHANICAL SHOP LABORER): Assessment & Plan (11/16/2021 2:50 PM CDT): Continue levothyroxine. Monitor labs. Assessment & Plan (01/13/2021 9:34 PM CDT): ? History of subclinical hyperthyroid. Recheck labs. Annual physical exam 01/13/2021 024 Assessment & Plan (03/15/2023 3:12 PM MECHANICAL SHOP LABORER): Encouraged healthy lifestyle, good nutrition and exercise. Encouraged Calcium and Vitamin D and weight bearing exercise for bone health. Reviewed immunizations Reviewed age appropirate screenings. Assessment & Plan (02/15/2022 4:15 PM CDT): Encouraged healthy lifestyle, good nutrition and exercise. Encouraged Calcium and Vitamin D and weight bearing exercise for bone health. Reviewed immunizations Reviewed age appropirate screenings. Assessment & Plan (01/13/2021 9:37 PM CDT): Encouraged healthy lifestyle, good nutrition and exercise. Encouraged Calcium and Vitamin D and weight bearing exercise for bone health. Reviewed immunizations Reviewed age appropirate screenings. Arthritis of carpometacarpal (CMC) joint of left thumb 05/17/2019 11/21/2023 Left carpal tunnel syndrome 05/17/2019 11/21/2023 Influenza vaccine refused 02/14/2019 Assessment & Plan (02/14/2019 9:04 PM CDT): Encouraged vaccine. Reviewed risks/ benefits. Patient refuses and accepts risks. BMI 22.0-22.9, adult 09/26/2018 09/27/2 021 Assessment & Plan (02/14/2019 9:03 PM CDT): Weight/BMI is in healthy range. Continue healthy lifestyle to maintain. Assessment & Plan (12/12/2018 10:42 AM CDT): Weight/BMI is in healthy range. Continue healthy lifestyle to maintain. Assessment & Plan (09/26/2018 3:49 PM CDT): Weight/BMI is in healthy range. Continue healthy lifestyle to maintain. Benign hypertension with chr onic kidney disease 09/24/2018 02/15/2022 Assessment & Plan (11/16/2021 2:49 PM CDT): Bp is stable/in acceptable range for any co-morbidities. Encouraged to limit sodium intake and exercise for weight control. Avoid nephrotoxic drugs including NSAIDs. Monitor labs. Continue atenolol and amlodipine Assessment & Plan (01/13/2021 9:32 PM CDT): Bp is stable/in acceptable range for any co-morbidities. Encouraged to limit sodium intake and exercise for weight control. Continue amlodipine 5mg and Atenolol 25mg. Assessment & Plan (02/14/2019 8:53 PM CDT): Bp is stable/in acceptable range for any co-morbidities. Encouraged to limit sodium intake and exercise for weight control. Avoid nephrotoxic drugs including NSAIDs. Monitor labs. Assessment & Plan (01/01/2019 11:53 PM CDT): BP is stable with her current regimen of lisinopril 20 mg Assessment & Plan (10/09/2018 8:56 PM CDT): bp has been lower recently and she is feeling tired/dizzy. She has only been taking Coreg one daily instead of two so will stop completely and monitor Come in next week to recheck bp. Recurrent major depressive d isorder, in full remission ([facility]) 06/07/2017 04/02/2024 Immunizations Immunization Administration Dates Next Due Influenza, Quadrivalent, Spl it, Preservative Free, Intramuscular 01/21/2022,01/20/2021,01/02/2020,02/14 Influenza, Trivalent, Preser vative Free, Intramuscular 02/16/2024 Influenza, Unspecified 03/15/2023(Deferred: Wilda ent Refused) PPD TEST 09/08/2023,08/26/2023 Tdap 09/08/2016 Social History Tobacco Use Types Packs/Day Years Used Date Smoking Tobacco: Former Cigarettes 0.1 15 0 07/07/2007 - 07/06/2022 Smokeless Tobacco: Never Tobacco Cessation:Counseling Given: Not Answered Comments:5-10 cigaretts/day Alcohol Use Standard Drinks/Week Comments No 0 (1 standard drink = 0.6 oz pur e alcohol) [facility] Sisasaities Answer Date Recorded In the past 12 months has th e electric, gas, oil, or water company threatened to shut off services in your home? Patient unable to answer 09/29/2023 Social Connection and Isolation Panel [NHANES] A nswer Date Recorded In a typical week, how many times do you talk on the phone with family, friends, or neighbors? Patient unable to answer 09/29/2023 How often do you get togethe r with friends or relatives? Patient unable to answer 09/29/2023 How often do you attend [facility] or gnosticist services? Patient unable to answer 09/29/2023 Do you belong to any clubs o r organizations such as synagogue groups, unions, fraternal or athletic groups, or school groups? Patient unable to answer 09/29/2023 How often do you attend meet ings of the clubs or organizations you belong to? Patient unable to answer 09/29/2023 Are you , , di vorced, , never , or living with a partner? Patient unable to answer 09/29/2023 AUDIT-C Answer Date Recorded Q1: How often do you have a drink containing alcohol? Never 02/03/2024 Q2: How many drinks containi ng alcohol do you have on a typical day when you are drinking? Patient does not drink Q3: How often do you have si x or more drinks on one occasion? Never 02/03/2024 Overall Financial Resource Strain (CARDIA) Answe r Date Recorded How hard is it for you to pa y for the very basics like food, housing, medical care, and heating? Patient unable to answer 09/29/2023 PHQ-2 Answer Date Recorded PHQ-2 Total Score (If total score is 3 or more points, staff should administer the PHQ-9) 0 03/20/2024 Hunger Vital Sign Answer Date Recorded Within the past 12 months, y ou worried that your food would run out before you got the money to buy more. Patient unable to answer 09/29/2023 Within the past 12 months, t he food you bought just didn't last and you didn't have money to get more. Patient unable to answer 09/29/2023 PRAPARE - Transportation Answer Date Re corded In the past 12 months, has l ack of transportation kept you from medical appointments or from getting medications? No 09/17 In the past 12 months, has l ack of transportation kept you from meetings, work, or from getting things needed for daily living? No 09/29/2023 Housing Stability Vital Sign Answer Rob e [...] place to sleep or slept in a senior living (including now)? No 08/13/2023 Housing Stability Vital Sign Answer Rob e Recorded In the last 12 months, was t here a time when you were not able to pay the mortgage or rent on time? Patient unable to answer 09/29/2023 Number of Times Moved in the Last Year Not on fi le 09/29/2023 At any time in the past 12 m [facility], were you homeless or living in a senior living (including now)? Patient unable to answer 09/29/2023 Personal Safety Answer Date Recorded Have you ever been in or are you currently in a harmful physical or emotional relationship or is someone making you feel afraid or unsafe? 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6 cm (5' 4 ) 04/20/2024 8:37 AM [employer] Body Mass Index 25.68 04/20/2024 8:37 AM [employer] Plan of Treatment Not on file Medical Devices Implanted Type Area Material Combiner Device Identifier Shelf Expiration Date Model / Serial / Lot Atricure Device Closure Atriclip Nitinol Titanium Polyester 45 D L45mm L6cm Flexible Shaft Plunger Crusher Foreman Left Atrial Appendage Exclusion System [id number] - [id number] Implanted:Qty: 1 on 09/27/2023 by Andrew Calabrese MD at [facility] Clip N/A: Heart Atricure [id number] / / [employer] Valve Coronary Mitral Tissue Bioprosthesis Mitris Resilia 27mm [id number] - [id number] - [id number] Implanted:Qty: 1 on 09/27/2023 by Andrew Calabrese MD at [facility] Prosthetic Valve N/A: Heart [employer] 03/03/2027 [id number] / [id number] / Synthes Cable Bone Fixation Zipfix Stainless Steel 08.001.20s - [id number] Implanted:Qty: 3 on 09/27/2023 by Andrew Calabrese MD at [facility] Wire N/A: Sternum Synthes I 02/16/2027 08.501.0 01.20S / / [id number] [employer] Device Closure Vascade Od5 Fr Femoral Artery [id number] - [id number] Implanted:Qty: 1 on 08/23/2023 by Rachael Oglesby MD at [facility] 04/28/2025 [id number] / / [id number] Insurance MEDICARE Where I've Been [place] MEDICARE SUPPLEMENT MEDICARE BLUE CROSS MEDICARE SUPPLEMENT Advance Directives For more information, please contact: [phone] * LIMITED - No CPR (Latest Code Status on File) Date Activated Date Inactivated Comments 02/25/2024 8:47 AM 02/25/2024 12:47 PM * LIMITED - No CPR Date Activated Date Inactivated Comments 09/30/2023 4:03 PM 10/05/2023 7:24 PM Question Answer Comments Provide aggressive medical m anagement before a full cardiopulmonary arrest occurs. Use antibiotics, IV Fluids, and medical treatment unless specifically selected below: No intubation Discussed with the following attending physician : CPR and defibrillation ok * Full Code Date Activated Date Inactivated Comments 09/27/2023 12:55 PM 09/30/2023 4:03 PM * Full Code Date Activated Date Inactivated Comments 08/23/2023 2:18 PM 08/25/2023 11:32 PM * LIMITED - No CPR Date Activated Date Inactivated Comments 11/17/2017 2:29 PM 11/18/2017 8:13 PM Care Teams Camera Engineer Relationship Specialty Start Date End Date Heather Carolina PA [address] [place], [place] [id number] PCP - General Internal Medicine 12/24/20 [place] [id number] [place] [address] Consulting Physician Internal Medicine 08/25/23 [place] [address] [facility] [address] [place] [address] Consulting Physician Pulmonary Disease 10/04/23 Andrew Calabrese MD [address] [facility] [id number] [place], [place] [id number] Surgeon Cardiothoracic Surgery 10/05/23 Cy Mcallister MD [address] [place] [address] Referring Physician Cardiovascular Disease 10/05/23 Delbert Sweeney MD [address] [place] [address] Consulting Physician Neurosurgery 03/20/24
--- OUTSIDE RECORDS SUMMARY | 2024-06-11 14:12 | XMS_ITS | Clinical Summary ---
Author Organization [facility] Address [address] [place] [address] Care Team Providers Care Piling Cutter Name Role Phone Heather Carolina Primary Care Provider [phone] Rony Hagan MD Unavailable [phone] Ghanshyam Stringer MD Unavailable Andrew Calabrese MD Unavailable [phone] Cy Mcallister MD Unavailable Delbert Sweeney MD Unavailable Allergies Active Allergy Reactions Criticality Noted Date [...] 04/02/2024 Assessment & Plan (04/02/2024 4:43 PM ENAMELER): Pre-diabetes/hyperglycemia is a precursor to Dm. Stressed importance of working on diet (decrease your simple sugars and one carbohydrate with each meal) and increase you exercise to achieve weight loss and this will help prevent you from progressing to diabetes. Low vitamin B12 level 04/02/2024 Assessment & Plan (04/02/2024 4:43 PM ENAMELER): Check labs Medicare annual wellness visit, subsequent 04/02 Assessment & Plan (04/02/2024 4:43 PM ENAMELER): Encouraged healthy lifestyle, good nutrition and exercise. Encouraged Calcium and Vitamin D and weight bearing exercise for bone health. Reviewed immunizations. Reviewed age appropirate screenings. Medicare Wellness Documentation is completed within the chart BMI 24.0-24.9, adult 03/20/2024 Assessment & Plan (03/20/2024 1:29 PM ENAMELER): Weight/BMI is in healthy range. Continue healthy lifestyle to maintain. Fatigue 01/23/2024 Assessment & Plan (04/02/2024 4:42 PM ENAMELER): Probably multifactorial. Check labs and followup to [...] 06/20/2023 Assessment & Plan (04/02/2024 4:42 PM ENAMELER): Hemoglobin is up from 8.7 11.6. Will [...] him sheet so she can get it [id number]. Advised this could be contributing to her fatigue and then complete workup including a colonoscopy to rule out GI cause for the bleed is strongly encouraged. She adamantly declines any further follow-up Vitamin D deficiency 06/15/2023 Assessment & Plan (04/02/2024 4:42 PM ENAMELER): Continue to supplement vitamin-D Assessment & Plan [...] statin. Assessment & Plan (03/15/2023 3:13 PM ENAMELER): History of CVA. Continue with aspirin statin and controlled blood pressure. Insomnia 03/15/2023 Assessment & Plan (03/15/2023 3:13 PM ENAMELER): Continue Remeron 15 mg Gastroesophageal reflux disease [...] p.r.n. Assessment & Plan (06/14/2022 5:50 PM ENAMELER): Patient requests a prescription for the omeprazole. It is expensive [id number]. Will see if we can get it covered for her if not discussed good Rx or the [facility] sullivan malik Cigarette smoker 06/08/2022 Assessment & Plan (04/02/2024 4:40 PM ENAMELER): I am unsure if patient has completely quit. At times she still says she will have 1 every once in awhile. Continue to encourage complete cessation Assessment & Plan (08/10/2023 6:43 PM CDT): Encouraged smoking cessation. Discussed 3 minutes. Reviewed options for assistance with cessation. Reviewed garland maker sequela associated with smoking. Pt declines assistance at this time but may contact the office at anytime for further help as they desire. Assessment & Plan (07/08/2023 4:45 PM CDT): Encouraged smoking cessation. Discussed 3 minutes. Reviewed options for assistance with cessation. Reviewed garland maker sequela associated with smoking. Pt declines assistance at this time but may contact the office at anytime for further help as they desire. Assessment & Plan (03/15/2023 3:10 PM ENAMELER): Encouraged smoking cessation. Discussed 3 minutes. Reviewed options for assistance with cessation. Reviewed half-way sequela associated with smoking. Pt declines assistance at this time but may contact the office at anytime for further help as they desire. Assessment & Plan (08/16/2022 10:15 AM CDT): Encouraged smoking cessation. Discussed 3 minutes. Reviewed options for assistance with cessation. Reviewed garland maker sequela associated with smoking. Pt declines assistance [...] visit. Assessment & Plan (06/14/2022 5:50 PM ENAMELER): Pt desires assistance with cessation. Discussed options [...] 02/15/2022 Assessment & Plan (04/02/2024 4:42 PM ENAMELER): Bp is stable/in acceptable range for any [...] 5 Assessment & Plan (03/15/2023 3:11 PM ENAMELER): Bp is stable/in acceptable range for any [...] 01/13/2021 Assessment & Plan (04/02/2024 4:40 PM ENAMELER): Patient has osteo Pedia. She had difficulty [...] exercise Assessment & Plan (03/15/2023 3:11 PM ENAMELER): Patient has osteoporosis. She refuses DEXA and [...] call the office and speak with my HAND I THERMAL CUTTER. Her notice as follows Spoke to pt [...] 02/14/2019 Assessment & Plan (04/02/2024 4:42 PM ENAMELER): Encouraged patient to follow low fat/low chol [...] 40 Assessment & Plan (03/15/2023 3:12 PM ENAMELER): Encouraged patient to follow low fat/low chol [...] screening Assessment & Plan (03/15/2023 3:12 PM ENAMELER): Patient refuses mammogram. Reviewed importance of early [...] screening. Assessment & Plan (03/15/2023 3:12 PM ENAMELER): Patient refuses colonoscopy. Reviewed importance of early [...] . Assessment & Plan (04/02/2024 4:42 PM ENAMELER): 2018----> history of multifocal strokes (left frontal, [...] stroke. She is followed with Neurology at [facility] in has been offered cognitive rehab which [...] overwhelmed. She has followed with Neurology at [facility]. We have both offered multiple times cognitive therapy and she is declined. 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 My HAND I THERMAL CUTTER was able to correct the medication issues [...] this as the services are only in [place]. Assessment & Plan (08/10/2021 3:57 PM CDT): [...] type of therapy that is available at [facility]. She states she cannot get to [facility] she does not have anyone to help with reds. Discussed with her utilizing liver service or medical card and initially extremely hesitant to even consider but provided the idea of maybe doing a new bur with a friend go over to [place] and have dinner and then come back so that she can practice doing it to see if she feels more comfortable in utilizing that type of service. She was encouraged by that thought and will give it a try. When she feels comfortable considering the referral to [place] she will give us a call so [...] 09/24/2018 Assessment & Plan (04/02/2024 4:41 PM ENAMELER): Avoid nephrotoxic drugs including NSAIDs. Monitor labs. [...] labs. Assessment & Plan (03/15/2023 3:10 PM ENAMELER): Avoid nephrotoxic drugs including NSAIDs. Monitor labs. [...] though she has psychiatric evaluations while at [facility] as well as at [facility]. Today she comes in and is on Seroquel 25 mg HS. Try to evaluate her depression and she denies any depression symptoms. Encouraged her brother to keep a close eye on symptoms and call if there are any problems. Assessment & Plan (03/15/2023 3:12 PM ENAMELER): Patient has anxiety. She also has difficulty sleeping continue the Remeron 15 mg HS Assessment & Plan (02/14/2019 9:03 PM CDT): Continue the Wellbutrin and Effexor. Moderate episode of recurrent major depressive d isorder 09/24/2018 Assessment & Plan (04/02/2024 4:41 PM ENAMELER): Symptoms are stable with the Remeron 15. Assessment & Plan (11/21/2023 9:11 PM CDT): Patient with known depression anxiety. She has been on Remeron in the past prior to hospitalization. It appears as though she has psychiatric evaluations while at [facility] as well as at [facility]. Today she comes in and is on [...] mg Assessment & Plan (03/16/2021 10:46 PM ENAMELER): Her depression anxiety seem a little bit [...] (02/14/2019 9:05 PM CDT): EMG done at [place]. Showed ulnar neuropathy. Prefers to see Ortho in [place]. Hemiparesis affecting right side as late effect of stroke ([facility]) 12/23/2017 Assessment & Plan (04/02/2024 4:41 PM ENAMELER): Hemiparesis affecting the right side. She declines [...] stable, surgical intervention planned for 09/26 at [facility]. Pre-op orders placed. ASA does not need [...] will have preoperative evaluation on 09/19 at [facility], then plan for surgical intervention on 09/27/2023 [...] to get it done today at the [facility] up the road. Reminded her she [...] 24 Assessment & Plan (03/15/2023 2:13 PM ENAMELER): Weight/BMI is in healthy range. Continue healthy [...] 023 Assessment & Plan (06/08/2022 10:20 AM ENAMELER): Weight/BMI is in healthy range. Continue healthy [...] labs Assessment & Plan (03/15/2023 3:13 PM ENAMELER): Check labs Assessment & Plan (11/16/2021 2:50 PM CDT): Check labs Fatigue 11/16/2021 08/10/2023 Assessment & Plan (07/08/2023 5:04 PM CDT): Probably multifactorial. Check labs and followup to re-evaluate Assessment & Plan (07/08/2023 4:45 PM CDT): Probably multifactorial. Check labs and followup to re-evaluate Assessment & Plan (03/15/2023 3:13 PM ENAMELER): Probably multifactorial. Check labs and followup to re-evaluate Assessment & Plan (11/16/2021 2:50 PM CDT): Probably multifactorial. Check labs and followup to re-evaluate BMI 27.0-27.9,adult 11/05/2021 02/16/20 Assessment & Plan (11/05/2021 3:39 PM CDT): Weight/BMI is in healthy range. Continue healthy lifestyle to maintain. BMI 27.0-27.9,adult 07/15/2021 11/06/19 Assessment & Plan (09/27/2021 11:55 PM CDT): Weight/BMI is in healthy range. Continue healthy lifestyle to maintain. Assessment & Plan (08/27/2021 3:18 PM CDT): Weight/BMI is in healthy range. Continue healthy lifestyle to maintain. Assessment & Plan (07/15/2021 2:52 PM CDT): Weight/BMI is in healthy range. Continue healthy lifestyle to maintain. BMI 25.0-25.9,adult 02/27/2021 07/16/19 Assessment & Plan (02/27/2021 1:38 PM ENAMELER): Weight/BMI is in healthy range. Continue healthy lifestyle to maintain. BMI 25.0-25.9,adult 01/20/2021 02/28/20 Assessment & Plan (01/20/2021 9:15 AM CDT): [...] 04/02/2024 Assessment & Plan (03/15/2023 3:12 PM ENAMELER): Assessment & Plan (11/16/2021 2:50 PM CDT): Continue levothyroxine. Monitor labs. Assessment & Plan (01/13/2021 9:34 PM CDT): ? History of subclinical hyperthyroid. Recheck labs. Annual physical exam 01/13/2021 024 Assessment & Plan (03/15/2023 3:12 PM ENAMELER): Encouraged healthy lifestyle, good nutrition and exercise. [...] and accepts risks. BMI 22.0-22.9, adult 09/26/2018 021 Assessment & Plan (02/14/2019 9:03 PM [...] major depressive d isorder, in full remission (CMS/HCC) 06/07/2017 04/02/2024 Encounters Date Type Department Care Team Description 04/20/2024 9:15 AM ENAMELER Office Visit [facility] Neurosurgery [facility] [address] [place] [address] [place] [address] Delbert Sweeney MD Brain aneurysm 04/20/2024 Telephone [facility] Neurosurgery [facility] [address] [place] [address] [place] [address] Delbert Sweeney MD 03/21/[address] [place] [phone] Heather Carolina PA 03/20/2024 1:30 PM ENAMELER Office Visit [facility] Medicine [address] [place] [address] [place] [phone] Heather Carolina PA Medicare annual wellness visit, [...] BMI 24.0-24.9, adult from Last 3 Months Immunizations Immunization Administration Dates Next Due Influenza, Quadrivalent, Spl it, Preservative Free, Intramuscular 01/21/2022,01/20/2021,01/02/2020,02/14 Influenza, Trivalent, Preser vative Free, Intramuscular 02/16/2024 Influenza, Unspecified 03/15/2023(Deferred: Wilda ent Refused) PPD TEST 09/08/2023,08/26/2023 Tdap 09/08/2016 Surgical History Surgery Date Site/Laterality Comments TONSILLECTOMY SINUS SURGERY DILATION AND CURETTAGE OF UTERUS URETHRAL DILATION APPENDECTOMY ADENOIDECTOMY HAND ARTHROPLASTY 06/01/2019 Left lt ctr and 1st cmc arthroplasty CHEST DRAINAGE W IMAGING RIGHT 09/30/2023 Right ANGIO SELECTIVE INTERNAL CAROTID RIGHT 03/01/2024 Right Medical History Medical History Date Comments Migraines Peptic ulceration Hypertension Stroke (HCC) has had 2 stroke s, last one was 2021 Hyperlipidemia Murmur Infective endocarditis Severe mitral regurgitation Heart failure with preserved ejection fraction (CMS/HCC) (HCC) Thrombocytopenia (HCC) Pulmonary embolism without a cute cor pulmonale (HCC) Chronic anticoagulation Hyperthyroidism GERD (gastroesophageal reflux disease) Chronic kidney disease Anxiety Depression Arthritis Insomnia Hemiparesis affecting right side as late effect of stroke (CMS/HCC) (HCC) Cervical disc disorder with myelopathy of mid-cervical region Residual cognitive deficit a s late effect of stroke Mitral valve insufficiency Delayed emergence from general anesthesia TIA (transient ischemic attack) has had several Aneurysm (CMS/HCC) (HCC) Family History Medical History Relation Name Comments Cancer Father Heart disease Father Lung cancer Father Hypertension Mother Sudden Cardiac Mother Relation Name Status Comments Father Mother Social History Tobacco Use Types Packs/Day Years Used Date Smoking Tobacco: Former Cigarettes 0.1 15 0 07/07/2007 - 07/06/2022 Smokeless Tobacco: Never Tobacco Cessation:Counseling Given: Not Answered Comments:5-10 cigaretts/day Alcohol Use Standard Drinks/Week Comments No 0 (1 standard drink = 0.6 oz pur e alcohol) [facility] Utilities Answer Date Recorded In the past 12 months has e [place], gas, oil, or water [employer] threatened to shut off services in your [...] answer 09/29/2023 How often do you attend chur or rastafari services? Patient unable to answer 09/29/2023 Do you belong to any clubs o r organizations such as christianity groups, unions, fraternal or athletic groups, or [...] place to sleep or slept in a prison (including now)? No 08/13/2023 Housing Stability Vital Sign Answer Rob e Recorded In the last 12 months, was t here a time when you were not able to pay the mortgage or rent on time? Patient unable to answer 09/29/2023 Number of Times Moved in the Last Year Not on fi le 09/29/2023 At any time in the past 12 m [facility], were you homeless or living in a prison (including now)? 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 on file Not on file Not on file Obstetrics History Last Filed Vital Signs Vital Sign Reading Time Taken Comments Blood Pressure 112/70 03/20/2024 1:19 PM ENAMELER Pulse 68 03/20/2024 1:19 PM ENAMELER Temperature 36.9 C (98.5 F) 03/20/2024 1:19 PM ENAMELER Respiratory Rate 19 03/01/2024 1:40 PM ENAMELER Oxygen Saturation 96% 03/20/2024 1:19 PM ENAMELER Inhaled Oxygen Concentration - - Weight 67.9 kg (149 lb 9.6 oz) 04/20/2024 8:37 A M ENAMELER Height 162.6 cm (5' 4 ) 04/20/2024 8:37 AM ENAMELER Body Mass Index 25.68 04/20/2024 8:37 AM ENAMELER Plan of Treatment Health Maintenance Due Date Last Done Comments Breast Cancer Screening-Mammogram 1965 Cervical Cancer Screening 1965 Colon Cancer Screening-Colonoscopy 1965 Hepatitis C Screening 1965 Hepatitis B Screening 08/23/1981 Zoster Vaccine (1 of 2) 08/23/2013 Covid-19 Vaccine ( season) 2023 04/25/2021, 07/19/2020, 06/25/2020 Depression Screening 03/20/2025 03/20/2024, 01/10/2024, 11/09/2023, Additional history exists Regular Well Visit/Exam 18-64 03/20/2025 03/20/2024, 03/15/2023, 01/21/2022, Additional history exists DTaP/Tdap/Td Vaccine (2 - Td or Tdap) 09/08/2026 09/08/2016 Influenza Vaccine Completed 02/16/2024, , 01/20/2021, Additional history exists Pneumococcal vaccine <65 Aged Out No longer eligible based on patient's age to complete this topic Medical Devices Implanted Type Area Time Study Analyst Device Identifier Shelf Expiration Date Model / Serial / Lot Atricure Device Closure Atriclip Nitinol Titanium Polyester 45 D L45mm L6cm Flexible Shaft Plunger Blast Furnace Helper Left Atrial Appendage Exclusion System [id number] - [id number] Implanted:Qty: 1 on 09/27/2023 by Andrew Calabrese MD at [facility] Clip N/A: Heart Atricure [id number] / / [employer] Valve Coronary Mitral Tissue Bioprosthesis Mitris Resilia 27mm [id number] - [id number] - [id number] Implanted:Qty: 1 on 09/27/2023 by Andrew Calabrese MD at [facility] Prosthetic Valve N/A: Heart [employer] 03/03/2027 [id number] / [id number] / Synthes Cable Bone Fixation Zipfix Stainless Steel [id number] - [id number] Implanted:Qty: 3 on 09/27/2023 by Andrew Calabrese MD at [facility] Wire N/A: Sternum Synthes I 02/16/2027 [id number] 01.20S / / [id number] 2 Robotics Device Closure Vascade Od5 Fr Femoral Artery [id number] - [id number] Implanted:Qty: 1 on 08/23/2023 by Rachael Oglesby MD at [facility] 04/28/2025 [id number] / / [id number] Insurance MEDICARE [employer] MEDICARE SUPPLEMENT MEDICARE [employer] [place] [address] Advance Directives For more information, please contact: [phone] * LIMITED - No CPR (Latest Code [...] 2:29 PM 11/18/2017 8:13 PM Care Teams Piling Cutter Relationship Specialty Start Date End Date Heather Carolina PA [address] [place] [address] PCP - General Internal Medicine 12/24/20 [place] [address] [place] [address] Consulting Physician Internal Medicine 08/25/23 [place] [address] [facility] [address] [place] [address] Consulting Physician Pulmonary Disease 10/04/23 Andrew Calabrese MD [address] [facility] [id number] [place] [address] Surgeon Cardiothoracic Surgery 10/05/23 Cy Mcallister MD [address] [place] [address] Referring Physician Cardiovascular Disease 10/05/23 Delbert Sweeney MD [address] [place] [address] Consulting Physician Neurosurgery 03/20/24
--- OUTSIDE RECORDS SUMMARY | 2024-06-11 14:12 | XMS_ITS | Clinical Summary ---
Author Organization [facility] Address [facility] [place] [address] Care Team Providers Care Flume Tender Name Role Phone Yesenia Dickinson MD Unavailable [phone] Allergies Active Allergy Reactions Criticality Noted Date Comments Diphenhydramine Rash High 12/23/2018 Hydrocodone GI Upset High 12/23/2018 Sulfa Antibiotics Vomiting Low 11/16/2017 Medications Magnesium Oxide, Antacid, 500 MG Cap Take 1 capsule by mouth 2 (two) times daily. 9 Active Calcium Carbonate-Vit D-Min (CALTRATE 600+D PLUS MINERALS) 600-800 MG-UNIT Chew TabIndications:Oste oporosis Chew 1 each by mouth 2 (two) times a day. 60 tablet 0 Active aspirin 325 MG tablet Take 325 mg by mouth 3 (three) times a day. Active ATENOLOL 25 MG tabletIndications:B enign hypertension with chronic kidney disease,Low TSH level TAKE 1 TABLET(25 MG) BY MOUTH DAILY 30 tablet 09 1 Active ATORVASTATIN 40 MG tabletIndications:M ixed hyperlipidemia TAKE 1 TABLET(40 MG) BY MOUTH DAILY 30 tablet 2 1 Active AMLODIPINE 5 MG tabletIndications:E ssential hypertension TAKE 1 TABLET(5 MG) BY MOUTH DAILY 30 tablet 3 1 Active famotidine 20 MG tabletIndications:G astroesophageal reflux disease without esophagitis Take 1 tablet (20 mg total) by mouth 2 (two) times daily. 60 tablet 2 1 Active mirtazapine 7.5 MG Tab tabletIndications:S evere episode of recurrent major depressive disorder, without psychotic features (CMS/[facility]) Take 1 tablet (7.5 mg total) by mouth nightly at bedtime. 30 tablet 1 Active Active Problems Problem Noted Date Diagnosed Date Hyperthyroidism 11/14/2019 Arthritis of carpometacarpal (CMC) joint of left thumb 05/17/2019 Left carpal tunnel syndrome 05/17/2019 Mammogram declined 02/14/2019 Overview (08/18/2019): Last Assessment & Plan: Reviewed importance of screening. Pt voiced understanding. Mixed hyperlipidemia 02/14/2019 Overview (08/18/2019): Last Assessment & Plan: Bp is stable/in acceptable range for any co-morbidities. Encouraged to limit sodium intake and exercise for weight control. Acute nonintractable headache 01/01/2019 Overview (08/18/2019): Last Assessment & Plan: Persistent headache not responding to current medication regimen. Patient has had a history of strokes. Although it does not seem is neurologically things have changed she still is not responding to medications and would recommend MRI of the brain. Recommended to within the next couple of days. If her symptoms worsen she needs to go to the ER to have imaging done immediately. BMI 22.0-22.9, adult 09/26/2018 Overview (07/04/2019): Last Assessment & Plan: Weight/BMI is in healthy range. Continue healthy lifestyle to maintain. Anxiety 09/24/2018 Benign hypertension with chronic kidney disease 09/24/2018 Overview (07/04/2019): Last Assessment & Plan: bp has been lower recently and she is feeling tired/dizzy. She has only been taking Coreg one daily instead of two so will stop completely and monitor Come in next week to recheck bp. Chronic kidney disease (CKD) , stage III (moderate) ([facility]) 09/24/2018 Overview (07/04/2019): Last Assessment & Plan: Avoid nephrotoxic drugs including NSAIDs. Monitor labs. History of CVA (cerebrovascular accident) 2018 Overview (07/04/2019): Overview: 2018 Last Assessment & Plan: No change. Continue ASA, statin and control bp Moderate episode of recurren t major depressive disorder ([facility]) 09/24/2018 Overview (07/04/2019): Last Assessment & Plan: Stable with the Wellbutrin. Monitor Residual cognitive deficit as late effect of str nataliya 09/24/2018 Overview (08/18/2019): 2018 Last Assessment & Plan: Continue per Neurology. Control bp and continue ASA. Ulnar neuropathy at elbow of left upper extremit y 04/22/2018 Cervical disc disorder with myelopathy of mid-cervical region 12/23/2017 Hemiparesis affecting right side as late effect of stroke ([facility]) 12/23/2017 Immunizations Name Administration Dates Next Due Fluzone 6 Months+ Quad (0.5 mL Prefilled Syringe ) 01/02/2020 Influenza Adult (Generic) 02/14/2019 PFIZER COVID-19 (ORIGINAL FO RMULATION, PURPLE CAP) mRNA, LNP-S, PF, 30 MCG/0.3 ML DOSE 06/25/2020 Tdap (Generic) 09/08/2016 Family History Medical History Relation Comments None Brother Lung Cancer Father Dementia Mother None Sister Relation Status Comments Brother Alive Father Mother Sister Alive Social History Tobacco Use Types Packs/Day Years Used Date Smoking Tobacco: Former Cigarettes Q uit: 08/16/2013 Smokeless Tobacco: Never Tobacco Cessation:Counseling Given: No Alcohol Use Standard Drinks/Week Comments No 0 (1 standard drink = 0.6 oz pur e alcohol) AUDIT-C Answer Date Recorded Frequency of Alcohol Consumption Never 12/23/2018 Average Number of Drinks Not on file 019 Frequency of Binge Drinking Not on file 09/2018 PHQ-2 Answer Date Recorded PHQ-2 Score - If the patient scores above 3, please move on to questions 3-9 4 11/12/2020 Comments No Sex and Gender Information Value Date Recorded Sex Assigned at Not on file Legal Sex Female 4:34 PM CDT Gender Identity Not on file Sexual Orientation Not on file Last Filed Vital Signs Vital Sign Reading Time Taken Comments Blood Pressure 104/62 08/02/2020 1:23 PM CDT Pulse 67 08/02/2020 1:23 PM CDT Temperature 36.2 C (97.2 F) 08/02/2020 1:23 PM CDT Respiratory Rate 16 08/02/2020 1:23 PM CDT Oxygen Saturation 97% 08/02/2020 1:23 PM CDT Inhaled Oxygen Concentration - - Weight 63 kg (139 lb) 08/02/2020 1:23 PM CDT Height 165.1 cm (5' 5 ) 08/02/2020 1:23 PM CDT Body Mass Index 23.13 08/02/2020 1:23 PM CDT Plan of Treatment Health Maintenance Due Date Last Done Comments Cervical Cancer Screening Pa p Smear (Age 30 to 64) Every 3 Years 1963 Colorectal Cancer Screening Colonoscopy (10 Years) 1963 Annual Physical 08/23/1966 Hepatitis C 08/23/1981 Cervical Cancer Screening Pa p with HPV Testing (Age 30 to 64) Every 5 Years 08/23/1993 Cervical Cancer Screening wi th HPV 08/23/1993 Mammogram Screening 2003 Zoster Vaccines (1 of 2) 08/23/2013 RSV Immunization or 60+ Years (1 - Risk 60-74 years 1-dose series) 2023 COVID-19 Vaccine (2 - 2023-2 5 season) 2023 06/25/2020 Influenza Adult (#1) 2024 01/20/2021, 01/02/2020, 02/14/2019 DTaP, Tdap and Td Vaccines ( 2 - Td or Tdap) 09/08/2026 09/08/2016 Meningococcal B Vaccine Aged Out No l onger eligible based on patient's age to complete this topic Meningococcal Vaccine Aged Out No thee home eligible based on patient's age to complete this topic Pneumococcal Vaccine: Pediatrics (0 to 5 Years) and At-Risk Patients (6 to 64 Years) Aged Out No longer eligible b ased on patient's age to complete this topic RSV Immunizations Under 20 Months Aged Out No longer eligible b ased on patient's age to complete this topic Insurance BLUE CROSS BLUE SHIELD Care Teams Flume Tender Relationship Specialty [place] [address] [place] [id number] NEUROLOGY 12/18/17
[2024-06-11 14:16] LABS: Basophils Percent Auto 0.5 % (0.2-1.2); Eosinophils Absolute Auto 0.2 K/mm3 (0-0.3); Eosinophils Percent Auto 3.7 % (0-4.4); Hematocrit 36.1 % (37.0-47.0); Hemoglobin 11.6 g/dL (12.0-15.0); Immature Granulocyte Absolute 0.02 K/mm3 (0.00-0.031); Immature Granulocyte Percent A 0.3 % (0-0.5); Immature Platelet Fraction Pct 3.8 % (0.9-11.2); Lymphocytes Absolute Auto 1.78 K/mm3 (0.9-3.2); Mean Corpuscular HGB Conc 32.1 g/dl (32-36); Mean Corpuscular Hemoglobin 30.3 pg (26-34); Mean Corpuscular Volume 94.3 fl (80-100); Mean Platelet Volume 10.9 fl (7.4-10.4); Monocytes Absolute Auto 0.4 K/mm3 (0.1-0.6); Monocytes Percent Auto 6.7 % (2.6-8.5); Neutrophils Absolute Auto 3.5 K/mm3 (1.3-6.7); Neutrophils Percent Auto 58.8 % (45.5-73.1); Platelet Count Result 93 k/mm3 (150-375); Red Blood Count 3.83 M/mm3 (4.2-5.4); Red Cell Distribution Width 12.7 % (11.5-14.5); White Blood Count 5.9 K/mm3 (4.5-10.0)
--- NOTE | 2024-06-11 14:16 | ED_ITS ---
HPI - Seizure General Chief Complaint: Seizure Stated Complaint: seizure Time Seen by Provider: 06/11/24 14:07 Source: patient and EMS Mode of arrival: EMS Limitations: other (patient does not fully remember incident) History of Present Illness HPI Narrative: This is a 58 year old female that presents to the ER for a possible seizure. Reportedly patient had a witnessed seizure that lasted about 2 minutes by a family member. She does not have any previous history of seizures. Reports she remembers talking to her sister in law and then she started to feel funny like she was going to pass out. Next thing she remembers is being here. She has no symptoms currently. Reports she was in her normal state of health prior to this incident. Related Data Home Medications ?Medication ?Instructions ?Recorded ?Confirmed ?Last Taken ?Type amlodipine 5 mg tablet 5 mg PO DAILY 05/26/23 11/03/23 08/08/23 08:00 History atenolol 25 mg tablet 25 mg PO DAILY 05/26/23 11/03/23 08/08/23 08:00 History atorvastatin 40 mg tablet 40 mg PO DAILY 05/26/23 11/03/23 08/08/23 08:00 History mirtazapine 15 mg tablet 15 mg PO HS 05/26/23 11/03/23 08/07/23 22:00 History citalopram 10 mg tablet 10 mg PO HS anxiety 08/08/23 11/03/23 08/07/23 22:00 History Allergies Allergy/AdvReac Type Severity Reaction Status Date / Time Sulfa (Sulfonamide Allergy Unknown Unknown Verified 08/02/23 16:15 Antibiotics) acetaminophen (From [place]) AdvReac Unknown Verified 08/12/23 15:49 hydrocodone (From [place]) AdvReac Unknown Verified 08/12/23 15:49 Review of Systems 2 Review of Systems: CONSTITUTIONAL: Denies fever CARDIOVASCULAR: Denies chest pain RESPIRATORY: Denies dyspnea. GASTROINTESTINAL: Denies abdominal pain, nausea, vomiting MUSCULOSKELETAL: Denies back pain, joint pain NEUROLOGIC: Denies numbness, or weakness. All systems reviewed & are unremarkable except as noted in HPI and below PMFSH Past Medical History Medical History (Updated 06/11/24 @ 20:24 by Bety Bah PA-C) Anemia Depression Wrist fracture, right DDD (degenerative disc disease) Arthritis GERD (gastroesophageal reflux disease) IBS (irritable bowel syndrome) Ulcer HTN (hypertension) Hyperlipidemia MVP (mitral valve prolapse) CVA (cerebral vascular accident) Migraines Seasonal allergies Wears glasses Surgical History Surgical History History of hysteroscopy History of appendectomy Hx of tonsillectomy Family History Family History Father Diabetes mellitus Acute myocardial infarction Lung cancer Mother Dementia Social History Social History Smoking packs per day: 0.5 Smoking cigarettes per day: 10.0 Years smoked: 35 Smoking pack-years: 17.50 Smoking status: Former smoker Tobacco type: cigarettes Alcohol intake: never Substance use: never Do You Feel Safe in your Home?: Yes Lack of Transportation: No Lack of Food: Never True Current Housing: I Have Housing Concerned About Future Housing: No Difficulty Paying Gas/Electric Bills: No Difficulty Paying for Meds: No Currently Unemployed: No Education: High School Diploma/GED Difficulty w/ Childcare or Family Care: No Spiritual care concerns: No Agree to blood products: Yes Exam 2 Narrative: GENERAL: Well-appearing, well-nourished, and in no acute distress. HEAD: Normocephalic, atraumatic. EYES: PERRLA and EOMI. ENT: Nares clear, no rhinorrhea or epistaxis. Mucous membranes moist. Oropharynx without tonsillar hypertrophy exudate or other lesions. Bilateral TMs pearly villa non-bulging NECK: Supple. No adenopathy or masses. CHEST: Clear to auscultation. No respiratory distress. No wheezes rales or rhonchi HEART: Regular rate and rhythm. No murmur heard. Normal peripheral pulses. ABDOMEN: Soft, nontender, nondistended, normal active bowel sounds. EXTREMITIES: Normal range of motion. No edema. Strength equal in bilateral upper and lower extremities (5/5) SKIN: Warm, dry, no rash. NEURO: No focal deficits. Alert and oriented x3. Cranial nerves 2-12 grossly intact PSYCH: Normal mood and affect Course Course Emergency Course: Patient and family updated on workup and agree with plan of care Consultations Consultation #1: Spoke with Dr. Elaine, neurology at [place], about patient and workup. Recommend CTA of the head. If there is no concerning abnormalities on this. Patient will be able to be discharged and can follow up with Neurology outpatient. No need for antiepileptics at this point. Date: 06/11/24 Vital Signs Vital signs: Vital Signs Temperature 98.2 F 06/11/24 13:45 Pulse Rate 76 06/11/24 13:45 Respiratory Rate 16 06/11/24 13:45 Blood Pressure 123/78 06/11/24 13:45 Pulse Oximetry 100 06/11/24 13:45 Oxygen Delivery Room Air 06/11/24 13:45 Temperature 98.2 F 06/11/24 13:45 Pulse Rate 59 L 06/11/24 19:22 Respiratory Rate 17 06/11/24 19:22 Blood Pressure 130/66 06/11/24 18:16 Pulse Oximetry 97 06/11/24 19:22 Oxygen Delivery Room Air 06/11/24 13:45 MDM - Seizure MDM Narrative Medical decision making narrative: Patient presents to the emergency department for new onset seizure. She is afebrile and nontoxic appearing. Her vitals are stable. Cbc without leukocytosis. Upon arrival she was neurologically intact at baseline. Metabolic panel with some evidence of dehydration. Patient hydrated with 2 L of IV fluids. Her initial lactic was elevated, this normalized after hydration. Urine with 6-10 white blood cells, patient does not have any urinary symptoms. This will be sent for culture. Drug screen is negative. CT brain without acute findings. Spoke with Dr. Elaine, neurology at [place], about patient and workup. Recommend CTA of the head. If there is no concerning abnormalities on this. Patient will be able to be discharged and can follow up with Neurology outpatient. No need for antiepileptics at this point. CTA brain and carotid without acute findings. Patient and family updated on workup and agree with plan of care. She is to follow up with Neurology. She was given warnings to return to the ER Differential Diagnosis Differential diagnosis: Likely focal seizure, generalized seizure, new onset seizure and other (Infection, dehydration) Lab Data Attestation: I reviewed the patient's lab results. 06/11/24 14:05 06/11/24 14:05 Labs: Lab Results 06/11/24 06/11/24 06/11/24 Range/Units 14:05 14:22 16:22 WBC 5.9 (4.5-10.0) K/mm3 RBC 3.83 L (4.2-5.4) M/mm3 Hgb 11.6 L D (12.0-15.0) g/dL Hct 36.1 L (37.0-47.0) % MCV 94.3 (80-100) fl MCH 30.3 (26-34) pg MCHC 32.1 (32-36) g/dl RDW 12.7 (11.5-14.5) % Plt Count 93 L (150-375) k/mm3 MPV 10.9 H (7.4-10.4) fl Immature Gran % (Auto) 0.3 (0-0.5) % Neut % (Auto) 58.8 (45.5-73.1) % Lymph % (Auto) 30.0 (18.3-44.2) % [place] % (Auto) 6.7 (2.6-8.5) % Eos % (Auto) 3.7 (0-4.4) % Baso % (Auto) 0.5 (0.2-1.2) % Lymph # (Auto) 1.78 (0.9-3.2) K/mm3 [place] # (Auto) 0.4 (0.1-0.6) K/mm3 Eos # (Auto) 0.2 (0-0.3) K/mm3 Baso # (Auto) 0.0 (0.0-0.1) K/mm3 Abs Immat Gran (auto) 0.02 (0.00-0.031) K/mm3 Absolute Neuts (auto) 3.5 (1.3-6.7) K/mm3 Absolute Nucleated RBC 0.000 (0.0-0.012) K/mm3 Band Neutrophils % Not Reportable Nucleated RBC % 0.0 (0.0-0.2) % Platelet Estimate Decreased (Adequate) % Immature Plt Fraction 3.8 (0.9-11.2) % Ovalocytes 1+ Schistocytes None seen PT 13.6 (11.1-14.7) Seconds INR 1.0 APTT 35.6 (22.3-36.8) Seconds Sodium 140 (137-145) mmol/L Potassium 4.2 (3.4-5.0) mmol/L Chloride 106 (98-107) mmol/L Carbon Dioxide 19 L (22-30) mmol/L Anion Gap 15 H (4-12) mmol/L BUN 27 H (7-17) mg/dL Creatinine 1.37 H (0.7-1.0) mg/dL Estim Creat Clear Calc 34 ml/min Estimated GFR 39 L (59 - ) Glucose 88 (65-110) mg/dL Lactic Acid 5.4 H* (0.7-2.0) mmol/L Calcium 8.8 (8.4-10.2) mg/dL Magnesium 2.0 (1.6-2.3) mg/dL Total Bilirubin 1.4 H (0.2-1.3) mg/dL AST 25 (14-36) U/L ALT 22 (6-35) U/L Alkaline Phosphatase 101 (38-126) U/L Total Creatine Kinase 81 (30-135) U/L Troponin I < 0.012 (0.000-0.034) ng/mL Total Protein 6.0 L (6.3-8.2) g/dL Albumin 4.1 (3.5-5.1) g/dL Urine Color Yellow (Yellow) Urine Appearance Cloudy H (Clear) Urine pH 6.0 (5.0-9.0) Ur Specific [place] 1.012 (1.001-1.035) Urine Protein Negative (Negative) mg/dL Urine Glucose (UA) Negative (Negative) mg/dL Urine Ketones Negative (Negative) mg/dL Ur Blood (Man) Negative (Negative) Urine Nitrate Negative (Negative) Urine Bilirubin Negative (Negative) Urine Urobilinogen 0.2 (<2.0) mg/dL Leukocyte Esterase Rfl Trace H (Negative) IBETH/UL Urine RBC 0-2 (0-2) /hpf Urine WBC 6-10 H (0-3) /hpf Ur Squamous Epith Cells None seen (Few) /hpf Urine Bacteria None seen /hpf Urine Casts 0-2 Urine Opiates Screen Negative (Negative) Urine Methadone Screen Negative (Negative) Ur Barbiturates Screen Negative (Negative) Ur Phencyclidine Scrn Negative (Negative) Ur Amphetamine Screen Negative (Negative) U Benzodiazepines Scrn Negative (Negative) Urine Cocaine Screen Negative (Negative) U Cannabinoids Screen Negative (Negative) Ethyl Alcohol < 10 (<10) mg/dL 02/23/25 Range/Units 17:45 WBC (4.5-10.0) K/mm3 RBC (4.2-5.4) M/mm3 Hgb (12.0-15.0) g/dL Hct (37.0-47.0) % MCV (80-100) fl MCH (26-34) pg MCHC (32-36) g/dl RDW (11.5-14.5) % Plt Count (150-375) k/mm3 MPV (7.4-10.4) fl Immature Gran % (Auto) (0-0.5) % Neut % (Auto) (45.5-73.1) % Lymph % (Auto) (18.3-44.2) % [place] % (Auto) (2.6-8.5) % Eos % (Auto) (0-4.4) % Baso % (Auto) (0.2-1.2) % Lymph # (Auto) (0.9-3.2) K/mm3 [place] # (Auto) (0.1-0.6) K/mm3 Eos # (Auto) (0-0.3) K/mm3 Baso # (Auto) (0.0-0.1) K/mm3 Abs Immat Gran (auto) (0.00-0.031) K/mm3 Absolute Neuts (auto) (1.3-6.7) K/mm3 Absolute Nucleated RBC (0.0-0.012) K/mm3 Band Neutrophils % Nucleated RBC % (0.0-0.2) % Platelet Estimate (Adequate) % Immature Plt Fraction (0.9-11.2) % Ovalocytes Schistocytes PT (11.1-14.7) Seconds INR APTT (22.3-36.8) Seconds Sodium (137-145) mmol/L Potassium (3.4-5.0) mmol/L Chloride (98-107) mmol/L Carbon Dioxide (22-30) mmol/L Anion Gap (4-12) mmol/L BUN (7-17) mg/dL Creatinine (0.7-1.0) mg/dL Estim Creat Clear Calc ml/min Estimated GFR (59 - ) Glucose (65-110) mg/dL Lactic Acid 0.7 (0.7-2.0) mmol/L Calcium (8.4-10.2) mg/dL Magnesium (1.6-2.3) mg/dL Total Bilirubin (0.2-1.3) mg/dL AST (14-36) U/L ALT (6-35) U/L Alkaline Phosphatase (38-126) U/L Total Creatine Kinase (30-135) U/L Troponin I (0.000-0.034) ng/mL Total Protein (6.3-8.2) g/dL Albumin (3.5-5.1) g/dL Urine Color (Yellow) Urine Appearance (Clear) Urine pH (5.0-9.0) Ur Specific [place] (1.001-1.035) Urine Protein (Negative) mg/dL Urine Glucose (UA) (Negative) mg/dL Urine Ketones (Negative) mg/dL Ur Blood (Man) (Negative) Urine Nitrate (Negative) Urine Bilirubin (Negative) Urine Urobilinogen (<2.0) mg/dL Leukocyte Esterase Rfl (Negative) IBETH/UL Urine RBC (0-2) /hpf Urine WBC (0-3) /hpf Ur Squamous Epith Cells (Few) /hpf Urine Bacteria /hpf Urine Casts Urine Opiates Screen (Negative) Urine Methadone Screen (Negative) Ur Barbiturates Screen (Negative) Ur Phencyclidine Scrn (Negative) Ur Amphetamine Screen (Negative) U Benzodiazepines Scrn (Negative) Urine Cocaine Screen (Negative) U Cannabinoids Screen (Negative) Ethyl Alcohol (<10) mg/dL Imaging Data Radiologist's impression: ITS Impressions Head CT 06/11/24 14:51 Impression: Stable CT examination of the head without acute intracranial hemorrhage or suspicious mass effect. Head/Neck CTA 06/11/24 19:56 IMPRESSION: 1. Normal CTA head and neck. Percent stenosis per NASCET criteria is 0% Critical Care Time Critical Care Time Critical Care Time: No Discharge Plan Discharge Clinical Impression: Seizure, Acute dehydration Patient Disposition: Home, Self-Care Condition: Improved Instructions: New-Onset Seizure in Adults (ED) Additional Instructions: Return to the emergency department if you experience fever, chest pain, shortness of breath, abdominal pain with nausea and vomiting, weakness, numbness, you experience another seizure, or any other symptoms that are concerning to you. Remain well hydrated. Avoid swimming, bathing alone, driving, operating heavy machinery, alcohol, sleep deprivation Follow up with your neurologist for further care. They do not recommend any seizure medications at this point Patient Language: Iraqi Prescriptions: No Action quetiapine [Seroquel] 50 mg tablet 50 mg PO QHS Qty: 90 0RF atorvastatin 40 mg tablet 40 mg PO DAILY atenolol 25 mg tablet 25 mg PO DAILY amlodipine 5 mg tablet 5 mg PO DAILY mirtazapine 15 mg tablet 15 mg PO HS Eliquis 5 mg Tablet 5 mg PO Q12HR Qty: 60 0RF citalopram 10 mg tablet 10 mg PO HS Follow-up/Referrals: Caity,IKER Romero [Primary Care Provider] -
[2024-06-11 14:22] LABS: Alanine Aminotransferase 22 U/L (6-35); Albumin Level 4.1 g/dL (3.5-5.1); Alkaline Phosphatase 101 U/L (38-126); Anion Gap 15 mmol/L (4-12); Aspartate Amino Transferase 25 U/L (14-36); Bilirubin,Total 1.4 mg/dL (0.2-1.3); Blood Urea Nitrogen 27 mg/dL (7-17); Calcium 8.8 mg/dL (8.4-10.2); Carbon Dioxide 19 mmol/L (22-30); Chloride 106 mmol/L (98-107); Estimated CRCL calculation 34 ml/min; Estimated Glomerular Filt Rate 39; Glucose 88 mg/dL (65-110); Potassium 4.2 mmol/L (3.4-5.0); Sodium 140 mmol/L (137-145)
[2024-06-11 14:25] LABS: Prothrombin Time 13.6 Seconds (11.1-14.7)
[2024-06-11 14:26] LABS: Partial Thromboplastin Time 35.6 Seconds (22.3-36.8)
[2024-06-11 14:34] LABS: Ovalocytes 1+; Schistocytes None Seen
[2024-06-11 14:35] LABS: Platelet Estimate Decreased (Adequate)
--- NOTE | 2024-06-11 14:40 | PC.NURSE ---
lab called to add on ordered labs.
[2024-06-11] MEDS: SODIUM CHLORIDE 0.9% IV 1,000 ML 999 ML IV CONT ×2 (14:46→17:32)
[2024-06-11 14:50] LABS: Ethanol < 10 mg/dL (<10)
[2024-06-11 14:54] LABS: Lactic Acid Reflex 5.4 mmol/L (0.7-2.0)
[2024-06-11 14:55] LABS: Creatine Kinase 81 U/L (30-135)
[2024-06-11 15:02] LABS: Troponin I < 0.012 ng/mL (0.000-0.034)
[2024-06-11 16:31] LABS: Add Urine Microscopic? YES; Appearance Urine Cloudy (Clear); Bacteria Urine None Seen /hpf; Bilirubin Urine Negative (Negative); Blood Urine Negative (Negative); Color Urine Yellow (Yellow); Glucose Urine UA Negative (Negative); Ketones Urine Negative (Negative); Leukocyte Esterase Ur Trace LEU/UL (Negative); Nitrate Urine Negative (Negative); Non Pathogenic Casts 0-2; Protein Urine Negative (Negative); RBC Urine 0-2 /hpf (0-2); Specific Grav Ur 1.012 (1.001-1.035); Squamous Epithelial Cell Urine None Seen /hpf (Few); Urobilinogen Urine 0.2 mg/dL (<2.0)
[2024-06-11 16:48] LABS: Amphetamine Screen Urine Negative (Negative); Barbiturate Screen Urine Negative (Negative); Benzodiazepines Screen Urine Negative (Negative); Cannabinoid Screen Urine Negative (Negative); Cocaine Screen Urine Negative (Negative); Methadone Screen Urine Negative (Negative); Opiate Screen Urine Negative (Negative); Phencyclidine Screen Urine Negative (Negative)
[2024-06-11 17:26] LABS: Reflex Lactic Acid Yes or No Add Lactic
[2024-06-11 18:01] LABS: Lactic Acid 0.7 mmol/L (0.7-2.0)
--- NOTE | 2024-06-11 19:19 | PC.NURSE ---
Report received from KALEIGH Hernandez. Assumed care of patient at this time.
== END 2024-06-11 20:40 | disposition home or self-care (01) ==
PROVIDERS: Emergency Medicine; Emergency Provider Physician Assistant; PCP Physician Assistant
DX: R56.9 Unspecified convulsions (principal); E86.0 Dehydration; K21.9 Gastro-esophageal reflux disease without esophagitis; I10 Essential (primary) hypertension; E78.5 Hyperlipidemia, unspecified; Z87.891 Personal history of nicotine dependence
CPT/HCPCS: 36415; 70450; 70496; 70498; 80053; 80307; 81001; 82077; 82550; 83605; 83735; 84484; 85025; 85055; 85610; 85730; 87086; 93005; 96360; 96361; 99284; J7030; Q9967

== ENCOUNTER 2024-06-13 09:12 | Inpatient (IN) | payer MEDICARE, SELFPAY ==
[2024-06-13] VITALS (7 sets, daily range): BP systolic 109–131; BP diastolic 52–77; PULSE 66–87; RESP 18–20; TEMP 36.7–37.6; O2SAT 95–100; BMI 25.9
--- NOTE | ~2024-06-13 | MR_ITS ---
EXAMINATION: MR brain/brain stem wo/w con DATE: 06/14/2024 12:32 INDICATION: Episodes of unresponsiveness. TECHNIQUE: Magnetic resonance imaging (MRI) of the brain and brainstem was performed without and with 14 mL MultiHance intravenous contrast. COMPARISON: Brain MRI 04/07 2017, head CT 06/13/24 FINDINGS: There are old infarcts in the occipital lobes. There are old infarcts involving the left fr ontal and parietal lobes and left insula. There are old infarcts in the right frontal and parietal lo bes. There is no acute ischemic infarct or abnormal mass lesion. There are a few punctate foci of old microhemorrhage in the brain. The ventricles are normal in size. The orbits are normal. There is mil d mucosal thickening in the ethmoid sinuses. The mastoid air cells are normal. IMPRESSION: 1. Old infarcts in the brain. Reviewed, dictated and finalized at location A. TUTOR
--- NOTE | ~2024-06-13 | XR_ITS ---
EXAMINATION: XR chest 1V DATE: 06/13/2024 10:36 INDICATION: Seizure like activity TECHNIQUE: frontal view of the chest was obtained. COMPARISON: Chest radiograph dated 08/10/2023 FINDINGS: Mild streaky opacities at the medial lung bases and favor atelectasis over pneumonia. No pulmonary ed aris, pleural effusion or pneumothorax. Borderline heart size. Median sternotomy wires prior cardiac v alve repair, likely mitral, and left atrial appendage occlusion clip . Mild S-shaped scoliosis of the spine with thoracic dextrocurvature and lumbar levocurvature. IMPRESSION: 1. Streaky bibasilar atelectasis versus less likely pneumonia. Reviewed, dictated and finalized at location B. SPECIAL EDUCATION TEACHER
--- NOTE | ~2024-06-13 | CT_ITS ---
EXAMINATION: CT brain wo con DATE: 06/13/2024 10:28 INDICATION: Seizure-like activity. TECHNIQUE: Computed tomography (CT) of the head was performed without intravenous contrast. The mA wa s adjusted according to patient size. Iterative reconstruction technique was employed. The dose-lengt h product was 605.33 mGy-cm. COMPARISON: Head CT 06/11/2024 FINDINGS: There is an old infarct in the left occipital lobe. There is an old infarct involving the l eft frontal lobe and left insula. There is an old infarct in the left parietal lobe. There is an old infarct in the right parietal lobe. There is no intracranial hemorrhage, acute infarction, or abnorma l intracranial mass lesion. The ventricles are normal in size. The paranasal sinuses are clear. The m astoid air cells are normal. The orbits are normal. IMPRESSION: 1. Old infarcts in the brain. Reviewed, dictated and finalized at location A. R REMOVER
--- NOTE | 2024-06-13 09:39 | ED.SEIZURE ---
HPI - Seizure General Chief Complaint: Seizure Stated Complaint: seizure Time Seen by Provider: 06/13/24 09:37 Source: patient and EMS Mode of arrival: EMS Limitations: no limitations History of Present Illness HPI Narrative: 4 YEARS OLD WHITE FEMALE HISTORY OF GERD, DEPRESSION, CVA X2, CARDIAC VALVE REPAIR REFERRED TO THE EMERGENCY ROOM FROM HER FAMILY PHYSICIAN OF HIS BY AMBULANCE BECAUSE AN EPISODE OF STARING OFF AND NOT RESPONDING WHILE IN THE OFFICE FOR FEW SECONDS, NO CONVULSION LIKE ACTIVITIES, NO CHEST PAIN, NO SHORTNESS OF BREATH, NO HEADACHE. PATIENT DENIES THE ABOVE SYMPTOMS. AND WOULD LIKE TO GO HOME. THREE DAYS AGO PATIENT WAS STANDING AT HOME, DRINKING SODA, WENT BLANK, SO THAT DROPPED ON THE FLOOR, PATIENT DROPPED ON THE FLOOR AND WAS SHAKING AND DROOLING AT THAT TIME. PATIENT CAME TO OUR EMERGENCY ROOM AT THAT TIME AND WAS DISCHARGED HOME WITH A DIAGNOSIS OF SEIZURE AND DEHYDRATION PATIENT DECLINED BLOOD WORKUP OR IMAGING OR HOSPITALIZATION AND THE WOULD LIKE TO SIGN AGAINST MEDICAL ADVICE. FEW MINUTES LATER PATIENT BECAME UNRESPONSIVE FOR FEW SECONDS WITH SLIGHT SHAKING OF THE LEFT UPPER EXTREMITY LASTED FOR 2-3 SECONDS, WITNESSED BY HER [id number]. EVENTUALLY PATIENT AGREED WITH THE WORKUP AND HOSPITALIZATION. CURRENTLY PATIENT IS ASYMPTOMATIC. Related Data Home Medications ?Medication ?Instructions ?Recorded ?Confirmed ?Last Taken ?Type amlodipine 5 mg tablet 5 mg PO DAILY 05/26/23 11/03/23 08/08/23 08:00 History atenolol 25 mg tablet 25 mg PO DAILY 05/26/23 11/03/23 08/08/23 08:00 History atorvastatin 40 mg tablet 40 mg PO DAILY 05/26/23 11/03/23 08/08/23 08:00 History mirtazapine 15 mg tablet 15 mg PO HS 05/26/23 11/03/23 08/07/23 22:00 History citalopram 10 mg tablet 10 mg PO HS anxiety 08/08/23 11/03/23 08/07/23 22:00 History Allergies Allergy/AdvReac Type Severity Reaction Status Date / Time Sulfa (Sulfonamide Allergy Unknown Unknown Verified 06/13/24 09:18 Antibiotics) acetaminophen (From [place]) AdvReac Unknown Verified 06/13/24 09:18 hydrocodone (From [place]) AdvReac Unknown Verified 06/13/24 09:18 Review of Systems Review of Systems: All systems reviewed & are unremarkable except as noted in HPI and below PMFSH Past Medical History Medical History Anemia Depression Wrist fracture, right DDD (degenerative disc disease) Arthritis GERD (gastroesophageal reflux disease) IBS (irritable bowel syndrome) Ulcer HTN (hypertension) Hyperlipidemia MVP (mitral valve prolapse) CVA (cerebral vascular accident) Migraines Seasonal allergies Wears glasses Surgical History Surgical History History of hysteroscopy History of appendectomy Hx of tonsillectomy Family History Family History Father Diabetes mellitus Acute myocardial infarction Lung cancer Mother Dementia Social History Social History Smoking packs per day: 0.5 Smoking cigarettes per day: 10.0 Years smoked: 35 Smoking pack-years: 17.50 Smoking status: Never smoker Tobacco type: cigarettes Alcohol intake: never Substance use: never Do You Feel Safe in your Home?: Yes Lack of Transportation: No Lack of Food: Never True Current Housing: I Have Housing Concerned About Future Housing: No Difficulty Paying Gas/Electric Bills: No Difficulty Paying for Meds: No Currently Unemployed: No Education: High School Diploma/GED Difficulty w/ Childcare or Family Care: No Spiritual care concerns: No Agree to blood products: Yes Exam Narrative: GENERAL APPEARANCE: WELL-DEVELOPED, WELL-NOURISHED SKIN: NORMAL COLOR HEAD: NORMOCEPHALIC, NONTRAUMATIC EYES: CLEAR CONJUNCTIVA ENT: OROPHARYNX NORMAL, EARS NORMAL, NOSE NORMAL NECK: SUPPLE, NONTENDER CHEST AND RESPIRATORY: AIRWAY PATENT, NO RESPIRATORY DISTRESS, NO ACCESSORY MUSCLE USE HEART: REGULAR RATE/RHYTHM ABDOMEN: SOFT, NONTENDER, NO ORGANOMEGALY, QUIET BOWEL SOUNDS VASCULAR: NORMAL PERIPHERAL PULSES, NORMAL CAPILLARY REFILL. MUSCULOSKELETAL: NORMAL RANGE OF MOTION, NONTENDER BACK NEUROLOGIC: ALERT AND ORIENTED ?3, WATER PURIFIER OPERATOR IS NORMAL TESTED, NO GROSS MOTOR DEFICIT Course Vital Signs Vital signs: Vital Signs Temperature 36.8 C 06/13/24 09:12 Pulse Rate 78 06/13/24 09:12 Respiratory Rate 18 06/13/24 09:12 Blood Pressure 131/77 06/13/24 09:12 Pulse Oximetry 100 06/13/24 09:12 Oxygen Delivery Room Air 06/13/24 09:12 Temperature 36.8 C 06/13/24 09:12 Pulse Rate 66 06/13/24 12:06 Respiratory Rate 18 06/13/24 12:06 Blood Pressure 125/77 06/13/24 12:06 Pulse Oximetry 100 06/13/24 12:06 Oxygen Delivery Room Air 06/13/24 09:12 MDM - Seizure MDM Narrative Medical decision making narrative: PATIENT CAME TO THE ED WITH EPISODES OF UNRESPONSIVENESS. VITAL SIGNS ARE STABLE PHYSICAL EXAMINATION IS UNREMARKABLE DIFFERENTIAL DIAGNOSIS INCLUDES SEIZURE, STROKE, BRAIN INJURIES SUCH HEAD TRAUMA OR CONCUSSION, INTRACRANIAL TUMOR, INFLAMMATION, VENOUS THROMBOSIS, METABOLIC ISSUES SUCH HYPOGLYCEMIA, HYPERGLYCEMIA OR ELECTROLYTE DISORDER, HYPOTHYROIDISM, HYPERTHYROIDISM, HEART FAILURE, INTOXICATION BLOOD WORKUP TODAY INCLUDES CBC, CMP, TROPONIN, TSH SHOWED PLATELET OF 78 CONSISTENT WITH PREVIOUS READINGS, CREATININE OF 1.[address] BRAIN WITHOUT CONTRAST SHOWED NO ACUTE ABNORMALITY CHEST X-RAY SHOWED, ATELECTASIS, LESS LIKELY PNEUMONIA EKG SHOWED NORMAL SINUS RHYTHM AT 73 BEATS PER MINUTE, ST-T T-WAVE ABNORMALITY, COMPARED TO EKG ON THE JUNE 11 HEART RATE HAS INCREASED. DIAGNOSIS EPISODES OF UNRESPONSIVENESS ADMIT TO HOSPITALIST Differential Diagnosis Differential diagnosis: Likely other ( ABOVE) Lab Data 06/13/24 11:13 06/13/24 10:49 Labs: Lab Results 06/13/24 06/13/24 Range/Units 10:49 11:13 WBC 7.4 (4.5-10.0) K/mm3 RBC 3.49 L (4.2-5.4) M/mm3 Hgb 10.5 L (12.0-15.0) g/dL Hct 32.6 L (37.0-47.0) % MCV 93.4 (80-100) fl MCH 30.1 (26-34) pg MCHC 32.2 (32-36) g/dl RDW 12.5 (11.5-14.5) % Plt Count 78 L (150-375) k/mm3 MPV 10.6 H (7.4-10.4) fl Immature Gran % (Auto) 0.4 (0-0.5) % Neut % (Auto) 85.2 H (45.5-73.1) % Lymph % (Auto) 9.1 L (18.3-44.2) % Sutter % (Auto) 3.8 (2.6-8.5) % Eos % (Auto) 1.1 (0-4.4) % Baso % (Auto) 0.4 (0.2-1.2) % Lymph # (Auto) 0.68 L (0.9-3.2) K/mm3 Sutter # (Auto) 0.3 (0.1-0.6) K/mm3 Eos # (Auto) 0.1 (0-0.3) K/mm3 Baso # (Auto) 0.0 (0.0-0.1) K/mm3 Abs Immat Gran (auto) 0.03 (0.00-0.031) K/mm3 Absolute Neuts (auto) 6.3 (1.3-6.7) K/mm3 Absolute Nucleated RBC 0.000 (0.0-0.012) K/mm3 Band Neutrophils % Not Reportable Nucleated RBC % 0.0 (0.0-0.2) % Platelet Estimate Decreased (Adequate) % Immature Plt Fraction 3.3 (0.9-11.2) % Ovalocytes 1+ Schistocytes None seen PT 13.8 (11.1-14.7) Seconds INR 1.0 APTT 26.9 (22.3-36.8) Seconds Sodium 140 (137-145) mmol/L Potassium 4.3 (3.4-5.0) mmol/L Chloride 108 H (98-107) mmol/L Carbon Dioxide 22 (22-30) mmol/L Anion Gap 10 (4-12) mmol/L BUN 18 H (7-17) mg/dL Creatinine 1.30 H (0.7-1.0) mg/dL Estim Creat Clear Calc 36 ml/min Estimated GFR 42 L (59 - ) Glucose 90 (65-110) mg/dL POC Capillary Glucose 73 (65-105) mg/dl Calcium 8.8 (8.4-10.2) mg/dL Total Bilirubin 2.3 H (0.2-1.3) mg/dL AST 33 (14-36) U/L ALT 21 (6-35) U/L Alkaline Phosphatase 117 (38-126) U/L Troponin I < 0.012 (0.000-0.034) ng/mL Total Protein 6.0 L (6.3-8.2) g/dL Albumin 4.0 (3.5-5.1) g/dL TSH 1.560 (0.465-4.680) uIU/mL Imaging Data Radiologist's impression: Impressions Head CT 06/13/24 10:29 IMPRESSION: 1. Old infarcts in the brain. Chest X-Ray 06/13/24 10:37 IMPRESSION: 1. Streaky bibasilar atelectasis versus less likely pneumonia. ECG Data EKG #1: Attestation: I personally reviewed and interpreted this ECG as follows: ECG completion date: 06/13/24 Interpretation: NORMAL SINUS RHYTHM, NONSPECIFIC ST T-WAVE ABNORMALITY, BORDERLINE EKG, COMPARED TO EKG ON JUNE 11 SHOWED NO ACUTE ABNORMALITIES Discharge Plan Discharge Clinical Impression: Recurrent episodes of unresponsiveness Patient Disposition: Still a Patient Condition: Stable Additional Instructions: ADMIT TO HOSPITALIST Patient Language: Guatemalan Prescriptions: No Action quetiapine [Seroquel] 50 mg tablet 50 mg PO QHS Qty: 90 0RF atorvastatin 40 mg tablet 40 mg PO DAILY atenolol 25 mg tablet 25 mg PO DAILY amlodipine 5 mg tablet 5 mg PO DAILY mirtazapine 15 mg tablet 15 mg PO HS Eliquis 5 mg Tablet 5 mg PO Q12HR Qty: 60 0RF citalopram 10 mg tablet 10 mg PO HS Follow-up/Referrals: Caity,IKER Romero [Primary Care Provider] -
--- NOTE | 2024-06-13 10:13 | PC.NURSE ---
Family at bedside, states that pt had a brief episode of staring off that lasted a few seconds. Pt immediately alert and following commands.
--- NOTE | 2024-06-13 10:15 | ECG_ITS ---
Test Date: 2024-06-13 10:42:40 Measurements Intervals [place] Rate: 73 P: 56 HI: 149 QRS: 77 QRSD: 94 T: 36 QT: 395 QTc: 436 Interpretive Statements SINUS RHYTHM BORDERLINE ST-T WAVE ABNORMALITY- ANTERIOR LEADS BASELINE ARTIFACT- I, II, III, AVR, AVL ,AVF, V1-V6 BORDERLINE ECG Compared to ECG 06/11/2024 14:52:54 HEART RATE HAS INCREASED Electronically Signed On 06-13-2024 11:20:31 DIALYSIS CLINICAL MANAGER by Micheal Rangel D.O.
[2024-06-13 10:51] LABS: Glucose Point of Care 73 mg/dl (65-105)
[2024-06-13 11:08] LABS: Prothrombin Time 13.8 Seconds (11.1-14.7)
[2024-06-13 11:09] LABS: Partial Thromboplastin Time 26.9 Seconds (22.3-36.8)
--- OUTSIDE RECORDS SUMMARY | 2024-06-13 11:12 | XMS_ITS | Encounter Summary ---
Author Organization [facility] Healthcare Address [address] [place] [address] Care Team Providers Care Deputy Controller Name Role Phone Heather Carolina Primary Care Provider [phone]- [phone] Rony Hagan MD Unavailable [phone] Zulay Garland LPN Unavailable [phone] Ghanshyam Stringer MD Unavailable Andrew Calabrese MD Unavailable [phone] Cy Mcallister MD Unavailable [phone] Delbert Sweeney MD Unavailable Encounter Details Date Type Department Care Team (Late st Contact Info) Description 08/31/2023 Documentation [facility] Medical Group Post Acute Care of [address] [address] Tracey Powers, DO [address] [facility] [address], [place] [address] Social History Tobacco Use Types Packs/Day Years Used Date Smoking Tobacco: Former Cigarettes 0.1 15 0 07/07/2007 - 07/06/2022 Smokeless Tobacco: Never Comments:5-10 cigaretts/day Alcohol Use Standard Drinks/Week Comments No 0 (1 standard drink = 0.6 oz pur e alcohol) [facility] Utilities Answer Date Recorded In the past 12 months has e [employer], gas, oil, or water company threatened to [...] often do you attend chur ch or baptism services? 1 to 4 times per year [...] place to sleep or slept in a chcf (including now)? 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 Not on file Not on file documented as of this encounter Plan of Treatment Not on file documented as of this encounter Visit Diagnoses Not on filedocumented in this encounter Care Teams Deputy Controller Relationship Specialty Start Date End Date Heather Carolina PA [address] [facility] [address] [place] [address] PCP - General Internal Medicine 12/24/20 [place] [address] [place] [address] Consulting Physician Internal Medicine 08/25/23 Zulay Garland LPN [address] [place] [address] [address] [place] [address] Coagulant Dipper 09/27/23 11/22/23 [place] [address] [facility] [address] [place] [address] Consulting Physician Pulmonary Disease 10/04/23 Andrew Calabrese MD [address] [place] [facility] [id number] [place] [address] Surgeon Cardiothoracic Surgery 10/05/23 Cy Mcallister MD [address] [facility] [address] [place] [address] Referring Physician Cardiovascular Disease 10/05/23 Delbert Sweeney MD [address] [place] [address] [place] [address] Consulting Physician Neurosurgery 03/20/24 documented as of this encounter
[2024-06-13 11:13] LABS: Alanine Aminotransferase 21 U/L (6-35); Alkaline Phosphatase 117 U/L (38-126); Anion Gap 10 mmol/L (4-12); Aspartate Amino Transferase 33 U/L (14-36); Bilirubin,Total 2.3 mg/dL (0.2-1.3); Blood Urea Nitrogen 18 mg/dL (7-17); Calcium 8.8 mg/dL (8.4-10.2); Carbon Dioxide 22 mmol/L (22-30); Chloride 108 mmol/L (98-107); Estimated CRCL calculation 36 ml/min; Estimated Glomerular Filt Rate 42; Glucose 90 mg/dL (65-110); Potassium 4.3 mmol/L (3.4-5.0); Sodium 140 mmol/L (137-145)
--- OUTSIDE RECORDS SUMMARY | 2024-06-13 11:13 | XMS_ITS | Clinical Summary ---
Author Organization [facility] Address [facility] [place] [address] Care Team Providers Care Mycologist Name Role Phone Yesenia Dickinson MD Unavailable [phone] Allergies Active Allergy Reactions Criticality Noted Date [...] depressive disorder, without psychotic features (CMS/HCC [facility]) Take 1 tablet (7.5 mg total) by [...] kidney disease (CKD) , stage III (moderate) ([facility]) 09/24/2018 Overview (07/04/2019): Last Assessment & Plan: Avoid nephrotoxic drugs including NSAIDs. Monitor labs. History of CVA (cerebrovascular accident) 2018 Overview (07/04/2019): Overview: 2018 Last Assessment & Plan: No change. Continue ASA, statin and control bp Moderate episode of recurren t major depressive disorder ([facility]) 09/24/2018 Overview (07/04/2019): Last Assessment & Plan: [...] right side as late effect of stroke ([facility]) 12/23/2017 Immunizations Name Administration Dates Next Due [...] Insurance BLUE CROSS BLUE SHIELD Care Teams Mycologist Relationship Specialty [place] [address] [place] [id number] NEUROLOGY 12/18/17
--- OUTSIDE RECORDS SUMMARY | 2024-06-13 11:13 | XMS_ITS | Encounter Summary ---
Author Organization [facility] Healthcare Address [address] [place] [address] Care Team Providers Care Sizing Sprayer Name Role Phone Heather Carolina Primary Care Provider [phone] Rony Hagan MD Unavailable [phone] Ghanshyam Stringer MD Unavailable [phone] Andrew Calabrese MD Unavailable [phone] Cy Mcallister MD Unavailable [phone] Delbert Sweeney MD Unavailable Reason for Referral * Consultation (Routine) - Authorized Specialty Diagnoses / Procedures Referred By Contac t Referred To Contact Neurology Diagnoses Seizure disorder (CMS/HCC) (HCC) Heather Carolina PA [address] [place] [address] Phone: tel: fax: Fatimah Reno Si, MD [address] [facility] [address] [place] [address] Phone: tel: fax: Referral ID Status Reason Start Date Expiration Date Visits Requested Visits Authorized [id number] Authorized Specialty Services Required 06/13/2024 07/13/2025 1 1 Question Answer Please select the performing region: [facility] Medical Group [[id number]] Please select the performing department: [facility] NEURO BLVLE 250 [[id number]] To provider: FATIMAH RENO SI [[id number]] # of visits: 1 Comments First available in the office is great. New seizure dx. ER visit at [facility] is in EPIC. Please call brother to schedule as he will provide transportation Theodore Schultz -- [phone] [place] SALES VITAMIN CONSULTANT Reason for Visit * Reason Comments Follow-up ER follow up, seizur e Encounter Details Date Type Department Care Team (Late st Contact Info) Description 06/13/2024 8:00 AM RETAIL SALES VITAMIN CONSULTANT Office Visit [facility] Medical [facility] Family Medicine [address] [place] [address] Heather Carolina PA [address] [facility] [place] [address] BMI 24.0-24.9, adult (Primary Dx); Seizure disorder (CMS/HCC) (HCC); History of CVA (cerebrovascular accident) Social History Tobacco Use Types Packs/Day Years Used Date Smoking Tobacco: Former Cigarettes 0.1 15 0 07/07/2007 - 07/06/2022 Smokeless Tobacco: Never Comments:5-10 cigaretts/day Alcohol Use Standard Drinks/Week Comments No 0 (1 standard drink = 0.6 oz pur e alcohol) [facility] Utilities Answer Date Recorded In the past 12 months has e electric, gas, oil, or water [employer] threatened to shut off services in your [...] 09/29/2023 How often do you attend chur ch or quaker services? Patient unable to answer 09/29/2023 Do you belong to any clubs o r organizations such as jewish groups, unions, fraternal or athletic groups, or [...] points, staff should administer the PHQ-9) 0 06/13/2024 Hunger Vital Sign Answer Date Recorded Within [...] place to sleep or slept in a mcfp (including now)? No 08/13/2023 Housing Stability Vital Sign Answer Rob e Recorded In the last 12 months, was t here a time when you were not able to pay the mortgage or rent on time? Patient unable to answer 09/29/2023 Number of Times Moved in the Last Year Not on fi le 09/29/2023 At any time in the past 12 m [facility], were you homeless or living in a mcfp (including now)? 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 Not on file Not on file documented as of this encounter Last Filed Vital Signs Vital Sign Reading Time Taken Comments Blood Pressure 122/74 06/13/2024 8:01 AM RETAIL SALES VITAMIN CONSULTANT Pulse 73 06/13/2024 8:01 AM RETAIL SALES VITAMIN CONSULTANT Temperature 37 C (98.6 F) 06/13/2024 8:01 AM RETAIL SALES VITAMIN CONSULTANT Respiratory Rate - - Oxygen Saturation 99% 06/13/2024 8:01 AM RETAIL SALES VITAMIN CONSULTANT Inhaled Oxygen Concentration - - Weight 65.8 kg (145 lb) 06/13/2024 8:01 AM RETAIL SALES VITAMIN CONSULTANT Height 162.6 cm (5' 4 ) 06/13/2024 8:01 AM RETAIL SALES VITAMIN CONSULTANT Body Mass Index 24.89 06/13/2024 8:01 AM RETAIL SALES VITAMIN CONSULTANT documented in this encounter Ordered Prescriptions Prescription Sig Dispense Quantity Refills Last Filled Start Date End Date metoprolol tartrate (LOPRESSOR) 25 mg immediate release tablet Take 0.5 tablets (12.5 mg total) by mouth 2 (two) times a day 45 tablet 1 06/13/2024 atorvastatin (LIPITOR) 40 mg tabletIndications: History of CVA (cerebrovascular accident) Take 1 tablet (40 mg total) by mouth daily 90 tablet 1 06/13/2024 mirtazapine (REMERON) 15 mg tablet Take 1 tablet (15 mg total) by mouth nightly 90 tablet 1 06/13/[address] (PROTONIX) 40 mg EC tablet Take 1 tablet (40 mg total) by mouth daily 90 tablet 1 06/13/2024 documented in this encounter Miscellaneous Notes * Assessment & Plan Note - Ofelia Gonzalez MA - 06/13/2024 8:03 AM CSTAssociated Problem(s): BMI 24.0-24.9, adult Discussed the patient's BMI. The BMI is above average. BMI management plan is completed. BMI Follow-up includes: nutrition counseling, exercise counseling and education provided. [place] SALES VITAMIN CONSULTANT documented in this encounter Plan of Treatment Scheduled Referrals Name Type Priority Associated Diagnoses Order Schedule Ambulatory referral to Neurology Outpatient Referral Routine Seizure disorder (CMS/HCC) (HCC) Expected: 06/27/2024 (Approximate), Expires: 06/13/2025 documented as of this encounter Visit Diagnoses Diagnosis BMI 24.0-24.9, adult- Primary Seizure disorder (CMS/HCC) (HCC) Unspecified epilepsy without mention of intractable epilepsy History of CVA (cerebrovascular accident) Transient ischemic attack (TIA), and cerebral infarction without residual deficits documented in this encounter Discontinued Medications Medication Sig Discontinue Reason Start Date End Da te pantoprazole DR (PROTONIX) 20 mg EC tablet TAKE 1 TABLET(20 MG) BY MOUTH DAILY 04/24/2024 06/13/2024 atorvastatin (LIPITOR) 40 mg tabletIndications:History of CVA (cerebrovascular accident) TAKE 1 TABLET(40 MG) BY MOUTH DAILY Reorder 01/31/2024 06/13/2024 mirtazapine (REMERON) 15 mg tablet TAKE 1 TABLET(15 MG) BY MOUTH EVERY NIGHT Reorder 03/10/2024 06/13/2024 metoprolol tartrate (LOPRESSOR) 25 mg immediate release tablet TAKE 1/2 TABLET(12.5 MG) BY MOUTH TWICE DAILY Reorder 05/17/2024 06/13/2024 documented as of this encounter Care Teams Sizing Sprayer Relationship Specialty Start Date End Date Heather Carolina PA [address] [facility] [address] [place] [address] PCP - General Internal Medicine 12/24/20 [place] [address] [place] [address] Consulting Physician Internal Medicine 08/25/23 [place] [address] [facility] [address] [place] [address] Consulting Physician Pulmonary Disease 10/04/23 Andrew Calabrese MD [address] [facility] [id number] [place], [place] [id number] Surgeon Cardiothoracic Surgery 10/05/23 Cy Mcallister MD [address] [facility] [address] [place] [address] Referring Physician Cardiovascular Disease 10/05/23 Delbert Sweeney MD [address] [place] [address] Consulting Physician Neurosurgery 03/20/24 documented as of this encounter
--- OUTSIDE RECORDS SUMMARY | 2024-06-13 11:13 | XMS_ITS | Clinical Summary ---
Author Organization [facility] Address [address] [place] [address] Care Team Providers Care Software Writer Name Role Phone Heather Carolina Primary Care Provider [phone] Rony Hagan MD Unavailable [phone] Ghanshyam Stringer MD Unavailable [phone] Andrew Calabrese MD Unavailable [phone] Cy Mcallister MD Unavailable Delbert Sweeney MD Unavailable Allergies Active Allergy Reactions Criticality Noted Date Comments Sulfa (Sulfonamide Antibiotics) Vomiting Low 10/19 Medications aspirin 81 mg enteric coated tablet Take 1 tablet (81 mg total) by mouth daily 01/22/[address] (PROTONIX) 40 mg EC tablet Take 1 tablet (40 mg total) by mouth daily 90 tablet 1 06/13/19 25 Active mirtazapine (REMERON) 15 mg tablet Take 1 tablet (15 mg total) by mouth nightly 90 tablet 1 06/13/19 25 Active atorvastatin (LIPITOR) 40 mg tabletIndicati ons:History of CVA (cerebrovascul ar accident) Take 1 tablet (40 mg total) by mouth daily 90 tablet 1 06/13/19 25 Active metoprolol tartrate (LOPRESSOR) 25 mg immediate release tablet Take 0.5 tablets (12.5 mg total) by mouth 2 (two) times a day 45 tablet 1 06/13/19 25 Active atorvastatin (LIPITOR) 40 mg tabletIndicati ons:History of CVA (cerebrovascul ar accident) TAKE 1 TABLET(40 MG) BY MOUTH DAILY 90 tablet 1 01/31/20 24 025 Discontinued(Re order) mirtazapine (REMERON) 15 mg tablet TAKE 1 TABLET(15 MG) BY MOUTH EVERY NIGHT 90 tablet 03/10/20 24 025 Discontinued(Re order) metoprolol tartrate (LOPRESSOR) 25 mg immediate release tablet TAKE 1/2 TABLET(12.5 MG) BY MOUTH TWICE DAILY 15 tablet 2 03/29/20 [address] (PROTONIX) 20 mg EC tablet TAKE 1 TABLET(20 MG) BY MOUTH DAILY 30 tablet 2 04/24/19 25 025 Discontinued metoprolol tartrate (LOPRESSOR) 25 mg immediate release tablet TAKE 1/2 TABLET(12.5 MG) BY MOUTH TWICE DAILY 15 tablet 2 05/17/19 25 025 Discontinued(Re order) Active Problems Problem Noted Date Diagnosed Date Hyperglycemia 04/02/2024 Assessment & Plan (04/02/2024 4:43 PM CORK PAINTER AND GRADER): Pre-diabetes/hyperglycemia is a precursor to Dm. Stressed importance of working on diet (decrease your simple sugars and one carbohydrate with each meal) and increase you exercise to achieve weight loss and this will help prevent you from progressing to diabetes. Low vitamin B12 level 04/02/2024 Assessment & Plan (04/02/2024 4:43 PM CORK PAINTER AND GRADER): Check labs Medicare annual wellness visit, subsequent 04/02 Assessment & Plan (04/02/2024 4:43 PM CORK PAINTER AND GRADER): Encouraged healthy lifestyle, good nutrition and exercise. Encouraged Calcium and Vitamin D and weight bearing exercise for bone health. Reviewed immunizations. Reviewed age appropirate screenings. Medicare Wellness Documentation is completed within the chart BMI 24.0-24.9, adult 03/20/2024 Assessment & Plan (06/13/2024 8:03 AM CORK PAINTER AND GRADER): Discussed the patient's BMI. The BMI is above average. BMI management plan is completed. BMI Follow-up includes: nutrition counseling, exercise counseling and education provided. Assessment & Plan (03/20/2024 1:29 PM CORK PAINTER AND GRADER): Weight/BMI is in healthy range. Continue healthy lifestyle to maintain. Fatigue 01/23/2024 Assessment & Plan (04/02/2024 4:42 PM CORK PAINTER AND GRADER): Probably multifactorial. Check labs and followup to [...] 06/20/2023 Assessment & Plan (04/02/2024 4:42 PM CORK PAINTER AND GRADER): Hemoglobin is up from 8.7 11.6. Will [...] him sheet so she can get it [id number]. Advised this could be contributing to her fatigue and then complete workup including a colonoscopy to rule out GI cause for the bleed is strongly encouraged. She adamantly declines any further follow-up Vitamin D deficiency 06/15/2023 Assessment & Plan (04/02/2024 4:42 PM CORK PAINTER AND GRADER): Continue to supplement vitamin-D Assessment & Plan [...] statin. Assessment & Plan (03/15/2023 3:13 PM CORK PAINTER AND GRADER): History of CVA. Continue with aspirin statin and controlled blood pressure. Insomnia 03/15/2023 Assessment & Plan (03/15/2023 3:13 PM CORK PAINTER AND GRADER): Continue Remeron 15 mg Gastroesophageal reflux disease [...] p.r.n. Assessment & Plan (06/14/2022 5:50 PM CORK PAINTER AND GRADER): Patient requests a prescription for the omeprazole. It is expensive [id number]. Will see if we can get it covered for her if not discussed good Rx or the [facility] sullivan malik Cigarette smoker 06/08/2022 Assessment & Plan (04/02/2024 4:40 PM CORK PAINTER AND GRADER): I am unsure if patient has completely quit. At times she still says she will have 1 every once in awhile. Continue to encourage complete cessation Assessment & Plan (08/10/2023 6:43 PM CDT): Encouraged smoking cessation. Discussed 3 minutes. Reviewed options for assistance with cessation. Reviewed computer terminal operator sequela associated with smoking. Pt declines assistance at this time but may contact the office at anytime for further help as they desire. Assessment & Plan (07/08/2023 4:45 PM CDT): Encouraged smoking cessation. Discussed 3 minutes. Reviewed options for assistance with cessation. Reviewed fdc sequela associated with smoking. Pt declines assistance at this time but may contact the office at anytime for further help as they desire. Assessment & Plan (03/15/2023 3:10 PM CORK PAINTER AND GRADER): Encouraged smoking cessation. Discussed 3 minutes. Reviewed options for assistance with cessation. Reviewed fdc sequela associated with smoking. Pt declines assistance at this time but may contact the office at anytime for further help as they desire. Assessment & Plan (08/16/2022 10:15 AM CDT): Encouraged smoking cessation. Discussed 3 minutes. Reviewed options for assistance with cessation. Reviewed computer terminal operator sequela associated with smoking. Pt declines assistance [...] visit. Assessment & Plan (06/14/2022 5:50 PM CORK PAINTER AND GRADER): Pt desires assistance with cessation. Discussed options [...] 02/15/2022 Assessment & Plan (04/02/2024 4:42 PM CORK PAINTER AND GRADER): Bp is stable/in acceptable range for any [...] 5 Assessment & Plan (03/15/2023 3:11 PM CORK PAINTER AND GRADER): Bp is stable/in acceptable range for any [...] 01/13/2021 Assessment & Plan (04/02/2024 4:40 PM CORK PAINTER AND GRADER): Patient has osteo Pedia. She had difficulty [...] exercise Assessment & Plan (03/15/2023 3:11 PM CORK PAINTER AND GRADER): Patient has osteoporosis. She refuses DEXA and [...] call the office and speak with my DATAPOWER CONSULTANT. Her notice as follows Spoke to pt [...] 02/14/2019 Assessment & Plan (04/02/2024 4:42 PM CORK PAINTER AND GRADER): Encouraged patient to follow low fat/low chol [...] 40 Assessment & Plan (03/15/2023 3:12 PM CORK PAINTER AND GRADER): Encouraged patient to follow low fat/low chol [...] screening Assessment & Plan (03/15/2023 3:12 PM CORK PAINTER AND GRADER): Patient refuses mammogram. Reviewed importance of early [...] screening. Assessment & Plan (03/15/2023 3:12 PM CORK PAINTER AND GRADER): Patient refuses colonoscopy. Reviewed importance of early [...] . Assessment & Plan (04/02/2024 4:42 PM CORK PAINTER AND GRADER): 2018----> history of multifocal strokes (left frontal, [...] & Plan (09/23/2023 12:28 PM CDT): MOCA . Impulsive behaviors. 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 My DATAPOWER CONSULTANT was able to correct the medication issues [...] this as the services are only in [place]. Assessment & Plan (08/10/2021 3:57 PM CDT): [...] bur with a friend go over to [place] and have dinner and then come back so that she can practice doing it to see if she feels more comfortable in utilizing that type of service. She was encouraged by that thought and will give it a try. When she feels comfortable considering the referral to [place] she will give us a call so [...] 09/24/2018 Assessment & Plan (04/02/2024 4:41 PM CORK PAINTER AND GRADER): Avoid nephrotoxic drugs including NSAIDs. Monitor labs. [...] labs. Assessment & Plan (03/15/2023 3:10 PM CORK PAINTER AND GRADER): Avoid nephrotoxic drugs including NSAIDs. Monitor labs. [...] though she has psychiatric evaluations while at [facility] as well as at [facility]. Today she comes in and is on Seroquel 25 mg HS. Try to evaluate her depression and she denies any depression symptoms. Encouraged her brother to keep a close eye on symptoms and call if there are any problems. Assessment & Plan (03/15/2023 3:12 PM CORK PAINTER AND GRADER): Patient has anxiety. She also has difficulty sleeping continue the Remeron 15 mg HS Assessment & Plan (02/14/2019 9:03 PM CDT): Continue the Wellbutrin and Effexor. Moderate episode of recurrent major depressive d isorder 09/24/2018 Assessment & Plan (04/02/2024 4:41 PM CORK PAINTER AND GRADER): Symptoms are stable with the Remeron 15. Assessment & Plan (11/21/2023 9:11 PM CDT): Patient with known depression anxiety. She has been on Remeron in the past prior to hospitalization. It appears as though she has psychiatric evaluations while at [facility] as well as at [facility]. Today she comes in and is [...] mg Assessment & Plan (03/16/2021 10:46 PM CORK PAINTER AND GRADER): Her depression anxiety seem a little bit [...] (02/14/2019 9:05 PM CDT): EMG done at [place]. Showed ulnar neuropathy. Prefers to see Ortho in [place]. Hemiparesis affecting right side as late effect of stroke ([facility]) 12/23/2017 Assessment & Plan (04/02/2024 4:41 PM CORK PAINTER AND GRADER): Hemiparesis affecting the right side. 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 Abx completed. DCP 6/7. Preop eval 6/ stable, surgical intervention planned for 09/26 at [facility]. Pre-op orders placed. ASA does [...] 24 Assessment & Plan (03/15/2023 2:13 PM CORK PAINTER AND GRADER): Weight/BMI is in healthy range. Continue healthy [...] 023 Assessment & Plan (06/08/2022 10:20 AM CORK PAINTER AND GRADER): Weight/BMI is in healthy range. Continue healthy [...] labs Assessment & Plan (03/15/2023 3:13 PM CORK PAINTER AND GRADER): Check labs Assessment & Plan (11/16/2021 2:50 PM CDT): Check labs Fatigue 11/16/2021 08/10/2023 Assessment & Plan (07/08/2023 5:04 PM CDT): Probably multifactorial. Check labs and followup to re-evaluate Assessment & Plan (07/08/2023 4:45 PM CDT): Probably multifactorial. Check labs and followup to re-evaluate Assessment & Plan (03/15/2023 3:13 PM CORK PAINTER AND GRADER): Probably multifactorial. Check labs and followup to [...] 22 Assessment & Plan (02/27/2021 1:38 PM CORK PAINTER AND GRADER): Weight/BMI is in healthy range. Continue healthy [...] 04/02/2024 Assessment & Plan (03/15/2023 3:12 PM CORK PAINTER AND GRADER): Assessment & Plan (11/16/2021 2:50 PM CDT): Continue levothyroxine. Monitor labs. Assessment & Plan (01/13/2021 9:34 PM CDT): ? History of subclinical hyperthyroid. Recheck labs. Annual physical exam 01/13/2021 024 Assessment & Plan (03/15/2023 3:12 PM CORK PAINTER AND GRADER): Encouraged healthy lifestyle, good nutrition and exercise. [...] Encounters Date Type Department Care Team Description 06/13/2024 8:00 AM CORK PAINTER AND GRADER Office Visit [facility] Medicine [facility] [address] Heather Carolina PA BMI 24.0-24.9, adult (Primary Dx); Seizure disorder (CMS/HCC) (HCC); History of CVA (cerebrovascular accident) 06/12/2024 Telephone [facility] [address] [place] [address] Heather Carolina PA Appointment Request 04/20/2024 9:15 AM CORK PAINTER AND GRADER Office Visit [facility] Neurosurgery [address] [place] [address] [place] [phone] Delbert Sweeney MD Brain aneurysm 04/20/2024 Telephone [facility] Neurosurgery [address] [place] [address] [place] [phone] Delbert Sweeney MD 03/21/[address] [place] [address] Heather Carolina PA 03/20/2024 1:30 PM CORK PAINTER AND GRADER Office Visit [address] [place] [phone] Heather Carolina PA Medicare annual wellness visit, [...] drink = 0.6 oz pur e alcohol) [facility] Utilities Answer Date Recorded In the past 12 months has e [employer], gas, oil, or water [employer] threatened to shut off services in your [...] often do you attend chur ch or religion services? 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 on file Not on file Not on file Obstetrics History Last Filed Vital Signs Vital Sign Reading Time Taken Comments Blood Pressure 122/74 06/13/2024 8:01 AM CORK PAINTER AND GRADER Pulse 73 06/13/2024 8:01 AM CORK PAINTER AND GRADER Temperature 37 C (98.6 F) 06/13/2024 8:01 AM CORK PAINTER AND GRADER Respiratory Rate 19 03/01/2024 1:40 PM CORK PAINTER AND GRADER Oxygen Saturation 99% 06/13/2024 8:01 AM CORK PAINTER AND GRADER Inhaled Oxygen Concentration - - Weight 65.8 kg (145 lb) 06/13/2024 8:01 AM CORK PAINTER AND GRADER Height 162.6 cm (5' 4 ) 06/13/2024 8:01 AM CORK PAINTER AND GRADER Body Mass Index 24.89 06/13/2024 8:01 AM CORK PAINTER AND GRADER Plan of Treatment Health Maintenance Due Date Last Done Comments Breast Cancer Screening-Mammogram 1965 Cervical Cancer Screening 1965 Colon Cancer Screening-Colonoscopy 1965 Hepatitis C Screening 1965 Hepatitis B Screening 08/23/1981 Pneumococcal vaccine <65 (1 of 2 - PCV) 08/23/1982 Zoster Vaccine (1 of 2) 08/23/2013 Covid-19 Vaccine (2023-2 5 season) 2023 04/25/2021, 07/19/2020, 06/25/2020 Regular Well Visit/Exam 18-64 03/20/2025, 03/15/2023, 01/21/2022, Additional history exists Depression Screening 06/13/2025 06/13/2024, 03/20/2024, 01/10/2024, Additional history exists DTaP/Tdap/Td Vaccine (2 - Td or Tdap) 09/08/2026 09/08/2016 Influenza Vaccine Completed 02/16/2024, , 01/20/2021, Additional history exists Medical Devices Implanted Type Area Creative Engagement Director Device Identifier Shelf Expiration Date Model / Serial / Lot Atricure Device Closure Atriclip Nitinol Titanium Polyester 45 D L45mm L6cm Flexible Shaft Plunger Development Lead Left Atrial Appendage Exclusion System [id number] - [id number] Implanted:Qty: 1 on 09/27/2023 by Andrew Calabrese MD at [facility] Clip N/A: Heart Atricure [id number] / / [employer] Valve Coronary Mitral Tissue Bioprosthesis Mitris Resilia 27mm [id number] - [id number] - [id number] Implanted:Qty: 1 on 09/27/2023 by Andrew Calabrese MD at [facility] Prosthetic Valve N/A: Heart [employer] 03/03/2027 [id number] / [id number] / Synthes Cable Bone Fixation Zipfix Stainless Steel 08.501.001.20s - [id number] Implanted:Qty: 3 on 09/27/2023 by Andrew Calabrese MD at [facility] Wire N/A: Sternum Synthes I 02/16/2027 08.501.0 01.20S / / [id number] [employer] Device Closure Vascade Od5 Fr Femoral Artery [id number] - [id number] Implanted:Qty: 1 on 08/23/2023 by Rachael Oglesby MD at [facility] [employer] 04/28/2025 [id number] / / [id number] Insurance MEDICARE [facility] MEDICARE SUPPLEMENT MEDICARE [facility] MEDICARE SUPPLEMENT Advance Directives For more information, please contact: [phone] * LIMITED - No CPR (Latest Code [...] 2:29 PM 11/18/2017 8:13 PM Care Teams Software Writer Relationship Specialty Start Date End Date Heather Carolina PA [address] [place], [place] [phone] PCP - General Internal Medicine 12/24/20 [place] [address] [place] [address] Consulting Physician Internal Medicine 08/25/23 [place] [address] [facility] [address] [place] [address] Consulting Physician Pulmonary Disease 10/04/23 Andrew Calabrese MD [id number] [place] [address] Surgeon Cardiothoracic Surgery 10/05/23 Cy Mcallister MD [address] [facility] [address] [place] [address] Referring Physician Cardiovascular Disease 10/05/23 Delbert Sweeney MD [address] [place] [address] Consulting Physician Neurosurgery 03/20/24
--- OUTSIDE RECORDS SUMMARY | 2024-06-13 11:13 | XMS_ITS | Referral Summary ---
Author Organization [facility] Address [address] [place] [address] Care Team Providers Care Case Mgr Name Role Phone Heather Carolina Primary Care Provider [phone] Rony Hagan MD Unavailable [phone] Ghanshyam Stringer MD Unavailable Andrew Calabrese MD Unavailable [phone] Cy Mcallister MD Unavailable [phone] Delbert Sweeney MD Unavailable Encounters Date Type Department Care Team Description 06/13/2024 8:00 AM ONCOLOGY PHYSICIAN Office Visit [facility] Family Medicine [address] [place] [address] Heather Carolina PA BMI 24.0-24.9, adult (Primary Dx); Seizure disorder (CMS/HCC) (HCC); History of CVA (cerebrovascular accident) 06/12/2024 Telephone [facility] Medicine [address] [place] [address] Heather Carolina PA Appointment Request 04/20/2024 Telephone [facility] Neurosurgery [facility] [facility] 6th [place] [address] [place] [address] Delbert Sweeney MD 04/20/2024 9:15 AM ONCOLOGY PHYSICIAN Office Visit [facility] Neurosurgery [address] [place] [address] [place] [address] Delbert Sweeney MD Brain aneurysm 03/21/[address] [facility] [address] [place] [address] Heather Carolina PA 03/20/2024 1:30 PM ONCOLOGY PHYSICIAN Office Visit [facility] [address] [place] [address] Heather Carolina PA Medicare annual wellness [...] 04/02/2024 Assessment & Plan (04/02/2024 4:43 PM ONCOLOGY PHYSICIAN): Pre-diabetes/hyperglycemia is a precursor to Dm. Stressed importance of working on diet (decrease your simple sugars and one carbohydrate with each meal) and increase you exercise to achieve weight loss and this will help prevent you from progressing to diabetes. Low vitamin B12 level 04/02/2024 Assessment & Plan (04/02/2024 4:43 PM ONCOLOGY PHYSICIAN): Check labs Medicare annual wellness visit, subsequent 04/02 Assessment & Plan (04/02/2024 4:43 PM ONCOLOGY PHYSICIAN): Encouraged healthy lifestyle, good nutrition and exercise. Encouraged Calcium and Vitamin D and weight bearing exercise for bone health. Reviewed immunizations. Reviewed age appropirate screenings. Medicare Wellness Documentation is completed within the chart BMI 24.0-24.9, adult 03/20/2024 Assessment & Plan (06/13/2024 8:03 AM ONCOLOGY PHYSICIAN): Discussed the patient's BMI. The BMI is above average. BMI management plan is completed. BMI Follow-up includes: nutrition counseling, exercise counseling and education provided. Assessment & Plan (03/20/2024 1:29 PM ONCOLOGY PHYSICIAN): Weight/BMI is in healthy range. Continue healthy lifestyle to maintain. Fatigue 01/23/2024 Assessment & Plan (04/02/2024 4:42 PM ONCOLOGY PHYSICIAN): Probably multifactorial. Check labs and followup to [...] 06/20/2023 Assessment & Plan (04/02/2024 4:42 PM ONCOLOGY PHYSICIAN): Hemoglobin is up from 8.7 11.6. Will [...] him sheet so she can get it [id number]. Advised this could be contributing to her fatigue and then complete workup including a colonoscopy to rule out GI cause for the bleed is strongly encouraged. She adamantly declines any further follow-up Vitamin D deficiency 06/15/2023 Assessment & Plan (04/02/2024 4:42 PM ONCOLOGY PHYSICIAN): Continue to supplement vitamin-D Assessment & Plan [...] statin. Assessment & Plan (03/15/2023 3:13 PM ONCOLOGY PHYSICIAN): History of CVA. Continue with aspirin statin and controlled blood pressure. Insomnia 03/15/2023 Assessment & Plan (03/15/2023 3:13 PM ONCOLOGY PHYSICIAN): Continue Remeron 15 mg Gastroesophageal reflux disease [...] p.r.n. Assessment & Plan (06/14/2022 5:50 PM ONCOLOGY PHYSICIAN): Patient requests a prescription for the omeprazole. It is expensive [id number]. Will see if we can get it covered for her if not discussed good Rx or the [facility] sullivan malik Cigarette smoker 06/08/2022 Assessment & Plan (04/02/2024 4:40 PM ONCOLOGY PHYSICIAN): I am unsure if patient has completely quit. At times she still says she will have 1 every once in awhile. Continue to encourage complete cessation Assessment & Plan (08/10/2023 6:43 PM CDT): Encouraged smoking cessation. Discussed 3 minutes. Reviewed options for assistance with cessation. Reviewed skilled nursing sequela associated with smoking. Pt declines assistance at this time but may contact the office at anytime for further help as they desire. Assessment & Plan (07/08/2023 4:45 PM CDT): Encouraged smoking cessation. Discussed 3 minutes. Reviewed options for assistance with cessation. Reviewed skilled nursing sequela associated with smoking. Pt declines assistance at this time but may contact the office at anytime for further help as they desire. Assessment & Plan (03/15/2023 3:10 PM ONCOLOGY PHYSICIAN): Encouraged smoking cessation. Discussed 3 minutes. Reviewed options for assistance with cessation. Reviewed skilled nursing sequela associated with smoking. Pt declines assistance at this time but may contact the office at anytime for further help as they desire. Assessment & Plan (08/16/2022 10:15 AM CDT): Encouraged smoking cessation. Discussed 3 minutes. Reviewed options for assistance with cessation. Reviewed terminal superintendent sequela associated with smoking. Pt declines assistance [...] visit. Assessment & Plan (06/14/2022 5:50 PM ONCOLOGY PHYSICIAN): Pt desires assistance with cessation. Discussed options [...] 02/15/2022 Assessment & Plan (04/02/2024 4:42 PM ONCOLOGY PHYSICIAN): Bp is stable/in acceptable range for any [...] 5 Assessment & Plan (03/15/2023 3:11 PM ONCOLOGY PHYSICIAN): Bp is stable/in acceptable range for any [...] 01/13/2021 Assessment & Plan (04/02/2024 4:40 PM ONCOLOGY PHYSICIAN): Patient has osteo Pedia. She had difficulty [...] exercise Assessment & Plan (03/15/2023 3:11 PM ONCOLOGY PHYSICIAN): Patient has osteoporosis. She refuses DEXA and [...] call the office and speak with my HEALTH AND SAFETY INSTRUCTOR. Her notice as follows Spoke to pt [...] 02/14/2019 Assessment & Plan (04/02/2024 4:42 PM ONCOLOGY PHYSICIAN): Encouraged patient to follow low fat/low chol [...] 40 Assessment & Plan (03/15/2023 3:12 PM ONCOLOGY PHYSICIAN): Encouraged patient to follow low fat/low chol [...] screening Assessment & Plan (03/15/2023 3:12 PM ONCOLOGY PHYSICIAN): Patient refuses mammogram. Reviewed importance of early [...] screening. Assessment & Plan (03/15/2023 3:12 PM ONCOLOGY PHYSICIAN): Patient refuses colonoscopy. Reviewed importance of early [...] . Assessment & Plan (04/02/2024 4:42 PM ONCOLOGY PHYSICIAN): 2018----> history of multifocal strokes (left frontal, [...] stroke. She is followed with Neurology at [facility] in has been offered cognitive rehab which [...] overwhelmed. She has followed with Neurology at [facility]. We have both offered multiple times cognitive therapy and she is declined. 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 My HEALTH AND SAFETY INSTRUCTOR was able to correct the medication issues [...] this as the services are only in [place]. Assessment & Plan (08/10/2021 3:57 PM CDT): [...] type of therapy that is available at [facility]. She states she cannot get to [facility] she does not have anyone to help with reds. Discussed with her utilizing liver service or medical card and initially extremely hesitant to even consider but provided the idea of maybe doing a new bur with a friend go over to [place] and have dinner and then come back so that she can practice doing it to see if she feels more comfortable in utilizing that type of service. She was encouraged by that thought and will give it a try. When she feels comfortable considering the referral to [place] she will give us a call so [...] 09/24/2018 Assessment & Plan (04/02/2024 4:41 PM ONCOLOGY PHYSICIAN): Avoid nephrotoxic drugs including NSAIDs. Monitor labs. [...] labs. Assessment & Plan (03/15/2023 3:10 PM ONCOLOGY PHYSICIAN): Avoid nephrotoxic drugs including NSAIDs. Monitor labs. [...] though she has psychiatric evaluations while at [facility] as well as at [facility]. Today she comes in and is on Seroquel 25 mg HS. Try to evaluate her depression and she denies any depression symptoms. Encouraged her brother to keep a close eye on symptoms and call if there are any problems. Assessment & Plan (03/15/2023 3:12 PM ONCOLOGY PHYSICIAN): Patient has anxiety. She also has difficulty sleeping continue the Remeron 15 mg HS Assessment & Plan (02/14/2019 9:03 PM CDT): Continue the Wellbutrin and Effexor. Moderate episode of recurrent major depressive d isorder 09/24/2018 Assessment & Plan (04/02/2024 4:41 PM ONCOLOGY PHYSICIAN): Symptoms are stable with the Remeron 15. Assessment & Plan (11/21/2023 9:11 PM CDT): Patient with known depression anxiety. She has been on Remeron in the past prior to hospitalization. It appears as though she has psychiatric evaluations while at [facility] as well as at [facility]. Today she comes in and is on [...] mg Assessment & Plan (03/16/2021 10:46 PM ONCOLOGY PHYSICIAN): Her depression anxiety seem a little bit [...] (02/14/2019 9:05 PM CDT): EMG done at [place]. Showed ulnar neuropathy. Prefers to see Ortho in [place]. Hemiparesis affecting right side as late effect of stroke ([facility]) 12/23/2017 Assessment & Plan (04/02/2024 4:41 PM ONCOLOGY PHYSICIAN): Hemiparesis affecting the right side. She declines [...] valve. Abx completed. DCP 6/7. Preop eval 09/19 stable, surgical intervention planned for 09/26 at [facility]. Pre-op orders placed. ASA does not need [...] will have preoperative evaluation on 09/19 at [facility], then plan for surgical intervention on [...] to get it done today at the [facility] up the road. Reminded her she get [...] 24 Assessment & Plan (03/15/2023 2:13 PM ONCOLOGY PHYSICIAN): Weight/BMI is in healthy range. Continue healthy [...] 023 Assessment & Plan (06/08/2022 10:20 AM ONCOLOGY PHYSICIAN): Weight/BMI is in healthy range. Continue healthy [...] labs Assessment & Plan (03/15/2023 3:13 PM ONCOLOGY PHYSICIAN): Check labs Assessment & Plan (11/16/2021 2:50 PM CDT): Check labs Fatigue 11/16/2021 08/10/2023 Assessment & Plan (07/08/2023 5:04 PM CDT): Probably multifactorial. Check labs and followup to re-evaluate Assessment & Plan (07/08/2023 4:45 PM CDT): Probably multifactorial. Check labs and followup to re-evaluate Assessment & Plan (03/15/2023 3:13 PM ONCOLOGY PHYSICIAN): Probably multifactorial. Check labs and followup to [...] 22 Assessment & Plan (02/27/2021 1:38 PM ONCOLOGY PHYSICIAN): Weight/BMI is in healthy range. Continue healthy [...] 04/02/2024 Assessment & Plan (03/15/2023 3:12 PM ONCOLOGY PHYSICIAN): Assessment & Plan (11/16/2021 2:50 PM CDT): Continue levothyroxine. Monitor labs. Assessment & Plan (01/13/2021 9:34 PM CDT): ? History of subclinical hyperthyroid. Recheck labs. Annual physical exam 01/13/2021 024 Assessment & Plan (03/15/2023 3:12 PM ONCOLOGY PHYSICIAN): Encouraged healthy lifestyle, good nutrition and exercise. [...] major depressive d isorder, in full remission ([facility]) 06/07/2017 04/02/2024 Immunizations Immunization Administration Dates Next [...] drink = 0.6 oz pur e alcohol) [facility] Utilities Answer Date Recorded In [...] often do you attend chur ch or anabaptist services? Patient unable to answer 09/29/2023 Do you belong to any clubs o r organizations such as zoroastrianism groups, unions, fraternal or athletic groups, or [...] place to sleep or slept in a care home (including now)? No 08/13/2023 Housing Stability Vital Sign Answer Rob e Recorded In the last 12 months, was t here a time when you were not able to pay the mortgage or rent on time? Patient unable to answer 09/29/2023 Number of Times Moved in the Last Year Not on fi le 09/29/2023 At any time in the past 12 m [facility], were you homeless or living in a care home (including now)? 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 file Not on file Not on file Last Filed Vital Signs Vital Sign Reading Time Taken Comments Blood Pressure 122/74 06/13/2024 8:01 AM ONCOLOGY PHYSICIAN Pulse 73 06/13/2024 8:01 AM ONCOLOGY PHYSICIAN Temperature 37 C (98.6 F) 06/13/2024 8:01 AM ONCOLOGY PHYSICIAN Respiratory Rate 19 03/01/2024 1:40 PM ONCOLOGY PHYSICIAN Oxygen Saturation 99% 06/13/2024 8:01 AM ONCOLOGY PHYSICIAN Inhaled Oxygen Concentration - - Weight 65.8 kg (145 lb) 06/13/2024 8:01 AM ONCOLOGY PHYSICIAN Height 162.6 cm (5' 4 ) 06/13/2024 8:01 AM ONCOLOGY PHYSICIAN Body Mass Index 24.89 06/13/2024 8:01 AM ONCOLOGY PHYSICIAN Plan of Treatment Not on file Medical Devices Implanted Type Area Woods Boss Device Identifier Shelf Expiration Date Model / Serial / Lot Atricure Device Closure Atriclip Nitinol Titanium Polyester 45 D L45mm L6cm Flexible Shaft Plunger Pneumatic Tube Fitter Left Atrial Appendage Exclusion System [id number] - [id number] Implanted:Qty: 1 on 09/27/2023 by Andrew Calabrese MD at [facility] Clip N/A: Heart Atricure [id number] / / [employer] Valve Coronary Mitral Tissue Bioprosthesis Mitris Resilia 27mm [id number] - [id number] - [id number] Implanted:Qty: 1 on 09/27/2023 by Andrew Calabrese MD at [facility] Prosthetic Valve N/A: Heart [employer] 03/03/2027 [id number] / [id number] / Synthes Cable Bone Fixation Zipfix Stainless Steel [id number] - [id number] Implanted:Qty: 3 on 09/27/2023 by Andrew Calabrese MD at [facility] Wire N/A: Sternum Synthes I 02/16/2027 [id number] 01.20S / / [id number] [employer] Device Closure Vascade Od5 Fr Femoral Artery [id number] - [id number] Implanted:Qty: 1 on 08/23/2023 by Rachael Oglesby MD at [facility] [employer] 04/28/2025 [id number] / / [id number] Insurance MEDICARE [facility] MEDICARE SUPPLEMENT MEDICARE [facility] MEDICARE SUPPLEMENT Advance Directives For more information, please contact: [phone] * LIMITED - No CPR (Latest Code [...] 2:29 PM 11/18/2017 8:13 PM Care Teams Case Mgr Relationship Specialty Start Date End Date Heather Carolina PA [address] [place] [address] PCP - General Internal Medicine 12/24/20 [place] [address] [place] [address] Consulting Physician Internal Medicine 08/25/23 [place] [address] [facility] [address] [place] [address] Consulting Physician Pulmonary Disease 10/04/23 Andrew Calabrese MD [address] [facility] [id number] [place] [address] Surgeon Cardiothoracic Surgery 10/05/23 Cy Mcallister MD [address] [facility] [address] [place] [address] Referring Physician Cardiovascular Disease 10/05/23 Delbert Sweeney MD [address] [place] [address] Consulting Physician Neurosurgery 03/20/24
--- OUTSIDE RECORDS SUMMARY | 2024-06-13 11:13 | XMS_ITS | Encounter Summary ---
Author Organization [facility] Healthcare Address [address] [place] [address] Care Team Providers Care Restaurant Host Name Role Phone Heather Carolina Primary Care Provider [phone] Rony Hagan MD Unavailable [phone] Zulay Garland LPN Unavailable [phone] Ghanshyam Stringer MD Unavailable [phone] Andrew Calabrese MD Unavailable [phone] Cy Mcallister MD Unavailable [phone] Delbert Sweeney MD Unavailable [phone] Encounter Details Date Type Department Care Team (Late st Contact Info) Description 08/03/2023 Orders Only [facility] Information Management [address] [place] [address] Scanning, Provider Social History Tobacco Use Types [...] on file Not on file 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 Not on file Not on file [...] on filedocumented in this encounter Care Teams Restaurant Host Relationship Specialty Start Date End Date Heather Carolina PA [address] [facility] [address] [place] [address] PCP - General Internal Medicine 12/24/20 [place] [address] [place] [address] Consulting Physician Internal Medicine 08/25/23 Zulay Garland LPN [address] [place] [address] [address] [place] [address] Dioramist 09/27/23 11/22/23 [place] [address] [facility] [address] [place] [address] Consulting Physician Pulmonary Disease 10/04/23 Andrew Calabrese MD [address] [facility] [id number] [place] [address] Surgeon Cardiothoracic Surgery 10/05/23 Cy Mcallister MD [address] [facility] [address] [place] [address] Referring Physician Cardiovascular Disease 10/05/23 Delbert Sweeney MD [address] [place] [address] Consulting Physician Neurosurgery 03/20/24 documented as of this encounter
--- OUTSIDE RECORDS SUMMARY | 2024-06-13 11:13 | XMS_ITS | Encounter Summary ---
Author Organization [facility] Healthcare Address [address] [place] [address] Care Team Providers Care Edge Dyer Name Role Phone Heather Carolina Primary Care Provider [phone] Rony Hagan MD Unavailable [phone] Ghanshyam Stringer MD Unavailable [phone] Andrew Calabrese MD Unavailable [phone] Cy Mcallister MD Unavailable [phone] Delbert Sweeney MD Unavailable Reason for Visit * Reason Onset Date Comments Appointment Request 06/12/2024 Encounter Details Date Type Department Care Team (Late st Contact Info) Description 06/12/2024 Telephone [facility] Medical Group Family Medicine [address] [place] [address] Heather Carolina PA [address] [place] [address] Appointment Request Social History Tobacco Use Types Packs/Day Years Used Date Smoking Tobacco: Former Cigarettes 0.1 15 0 07/07/2007 - 07/06/2022 Smokeless Tobacco: Never Comments:5-10 cigaretts/day Alcohol Use Standard Drinks/Week Comments No 0 (1 standard drink = 0.6 oz pur e alcohol) [facility] Utilities Answer Date Recorded In the past 12 months has [facility] [employer], gas, oil, or water company threatened to [...] often do you attend chur ch or advent services? Patient unable to answer 09/29/2023 Do [...] place to sleep or slept in a jail (including now)? No 08/13/2023 Housing Stability Vital Sign Answer Rob e Recorded In the last 12 months, was t here a time when you were not able to pay the mortgage or rent on time? Patient unable to answer 09/29/2023 Number of Times Moved in the Last Year Not on fi le 09/29/2023 At any time in the past 12 m ont, were you homeless or living in a jail (including now)? 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 ENT SAFETY COORDINATOR * Telephone Encounter - Yovani Savage - 06/12/2024 3:51 PM CST Appointment Request What visit type does the patient need? Visit Type: Established Patient What is the reason for the visit? Patients brother calling regarding ER follow up no availability for AC to schedule until 07/13 What is the reason we were unable to schedule the appointment? Current appointment availability didnot meet patient's need. Patients brother would like her to follow up sooner they are very worried for her due to health history If applicable, were all members of the patient's PCP care team offered (e.g., nurse practioner(s), physician classroom assistant(s)) ? N/A Additional Comments: na Does message need to be routed? Yes-Action Needed ENT SAFETY COORDINATOR * Telephone Encounter - Vanesa Dawkins - 06/12/2024 9:37 AM CST Pt was seen at [facility] ER on 06/11/24 for: Possible Seizure See Attached Notes Staff will f/u with pt ENT SAFETY COORDINATOR documented in this encounter Plan of Treatment Not on file documented as of this encounter Visit Diagnoses Not on filedocumented in this encounter Care Teams Edge Dyer Relationship Specialty Start Date End Date Heather Carolina PA [address] [facility] [address] [address] [place] [address] PCP - General Internal Medicine 12/24/20 [place] [address] [place] [address] Consulting Physician Internal Medicine 08/25/23 [place] [address] [address] [place] [address] Consulting Physician Pulmonary Disease 10/04/23 Andrew Calabrese MD [address] [facility] [id number] [place] [address] Surgeon Cardiothoracic Surgery 10/05/23 Cy Mcallister MD [address] [facility] [address] [place] [address] Referring Physician Cardiovascular Disease 10/05/23 Delbert Sweeney MD [address] [place] [address] Consulting Physician Neurosurgery 03/20/24 documented as of this encounter
[2024-06-13 11:20] LABS: Basophils Percent Auto 0.4 % (0.2-1.2); Eosinophils Absolute Auto 0.1 K/mm3 (0-0.3); Eosinophils Percent Auto 1.1 % (0-4.4); Hematocrit 32.6 % (37.0-47.0); Hemoglobin 10.5 g/dL (12.0-15.0); Immature Granulocyte Absolute 0.03 K/mm3 (0.00-0.031); Immature Granulocyte Percent A 0.4 % (0-0.5); Immature Platelet Fraction Pct 3.3 % (0.9-11.2); Lymphocytes Absolute Auto 0.68 K/mm3 (0.9-3.2); Lymphocytes Percent Auto 9.1 % (18.3-44.2); Mean Corpuscular HGB Conc 32.2 g/dl (32-36); Mean Corpuscular Hemoglobin 30.1 pg (26-34); Mean Corpuscular Volume 93.4 fl (80-100); Mean Platelet Volume 10.6 fl (7.4-10.4); Monocytes Absolute Auto 0.3 K/mm3 (0.1-0.6); Monocytes Percent Auto 3.8 % (2.6-8.5); Neutrophils Absolute Auto 6.3 K/mm3 (1.3-6.7); Neutrophils Percent Auto 85.2 % (45.5-73.1); Platelet Count Result 78 k/mm3 (150-375); Red Blood Count 3.49 M/mm3 (4.2-5.4); Red Cell Distribution Width 12.5 % (11.5-14.5); White Blood Count 7.4 K/mm3 (4.5-10.0)
[2024-06-13 11:25] LABS: Troponin I < 0.012 ng/mL (0.000-0.034)
[2024-06-13 11:37] LABS: Ovalocytes 1+; Platelet Estimate Decreased (Adequate); Schistocytes None Seen
--- NOTE | 2024-06-13 13:53 | P.HP_ITS ---
H&P: HPI History of Present Illness Date/Time: 06/13/24 13:53 Chief Complaint: Seizure Narrative: 58 y/o F presents here with seizure-like activity with PMH of anemia, IBS, hypertension, hyperlipidemia, CVA, diastolic dysfunction, and migraines. The patient presents here from her PCP office via EMS for recurrent seizure-like activity. The patient first had an episode on 06/11/24. Episode was witnessed by a family member, lasted for approximately 2+ minutes, and full body . Seizure resolved without intervention and the patient was confused after the episode. ED provider reached out to Neurology at [place], recommended CTA of the head. If negative, could be discharged for follow-up with Neurology outpatient and hold on anti epileptic initiation. Returning today from her PCP office for further evaluation of witnessed recurrent seizure-like activity. During the patient's appointment she had she had an episode of staring off that lasted for a minute which was also witnessed by a family member. This was not accompanied by jerking or abnormal muscle movements. She had an additional episode where she stared off while in the ED which lasted 5-6 seconds with subsequent confusion which has since resolved. Patient was on a minerva supplement which she has since stopped when episodes began. Initial VS at presentation: 98.2? F, HR 78, R 18, 131/77, and 100% on RA. ED workup showed: No leukocytosis, hemoglobin 10.5 (baseline 8-9), no significant electrolyte derangements, creatinine 1.3 and GFR 42 (previously 1.37 and GFR 39 on 06/11/2024), initial troponin negative, TSH 1.56. Head CT showed old infarcts in the brain. CXR showed streaky bibasilar atelectasis versus less likely pneumonia. UDS negative on 06/11/2024. UA from 06/11/2024 equivocal for UTI, UC grew mixed general jigna. Review of Systems Review of Systems: All systems reviewed & are unremarkable except as noted in HPI and below [facility] Past Medical History Medical History CVA (cerebral vascular accident) left occipital lobe x1, left frontal lobe x1, left insula x1, left parietal lobe x1, right parietal lobe x1 per head CT 05/2024 Migraines Anemia Bipolar disorder BRI (generalized anxiety disorder) Severe mitral regurgitation CHF (congestive heart failure) Echo, 07/2023: Hyperdynamic systolic function, estimated EF greater than 70%, grade 2 diastolic dysfunction. Mild pulmonary HTN. MVP (mitral valve prolapse) Endocarditis of mitral valve GERD (gastroesophageal reflux disease) Pulmonary embolism Intermediate probability on PPI, July 2023 Depression Wrist fracture, right DDD (degenerative disc disease) Arthritis IBS (irritable bowel syndrome) Ulcer HTN (hypertension) Hyperlipidemia Seasonal allergies Wears glasses Surgical History Surgical History History of hysteroscopy History of appendectomy Hx of tonsillectomy Family History Family History Father Diabetes mellitus Acute myocardial infarction Lung cancer Mother Dementia Social History Social History Smoking packs per day: 0.5 Smoking cigarettes per day: 10.0 Years smoked: 35 Smoking pack-years: 17.50 Smoking status: Never smoker Tobacco type: cigarettes Alcohol intake: never Substance use: never Do You Feel Safe in your Home?: Yes Lack of Transportation: No Lack of Food: Never True Current Housing: I Have Housing Concerned About Future Housing: No Difficulty Paying Gas/Electric Bills: No Difficulty Paying for Meds: No Currently Unemployed: No Education: High School Diploma/GED Difficulty w/ Childcare or Family Care: No Spiritual care concerns: No Agree to blood products: Yes Meds Home Medications and Allergies Home Medications ?Medication ?Instructions ?Recorded ?Confirmed ?Type amlodipine 5 mg tablet 5 mg PO DAILY 05/26/23 11/03/23 History atenolol 25 mg tablet 25 mg PO DAILY 05/26/23 11/03/23 History atorvastatin 40 mg tablet 40 mg PO DAILY 05/26/23 11/03/23 History mirtazapine 15 mg tablet 15 mg PO HS 05/26/23 11/03/23 History apixaban 5 mg tablet (Eliquis) 5 mg PO Q12HR #60 tabs 08/04/23 11/03/23 Rx citalopram 10 mg tablet 10 mg PO HS anxiety 08/08/23 11/03/23 History quetiapine 50 mg tablet (Seroquel) 50 mg PO QHS #90 tabs 10/13/23 11/03/23 Rx Allergies Allergy/AdvReac Type Severity Reaction Status Date / Time Sulfa (Sulfonamide Allergy Unknown Unknown Verified 06/13/24 09:18 Antibiotics) acetaminophen (From [facility]) AdvReac Unknown Verified 06/13/24 09:18 hydrocodone (From [facility]) AdvReac Unknown Verified 06/13/24 09:18 Vital Signs Vital Signs - 24 hr 06/13/24 09:12 06/13/24 10:00 06/13/24 12:06 Temperature 98.2 F Pulse Rate 78 66 66 Respiratory Rate 18 18 18 Blood Pressure 131/77 126/76 125/77 Pulse Oximetry 100 99 100 Oxygen Delivery Room Air Exam Const: General: comfortable and no acute distress Other: , female, nontoxic appearance HENMT: Face/Nose/Sinus: Normal nares present Mouth: Yes moist mucous membranes Eyes: General: appearance normal, both eyes and all related structures Sclera: sclerae normal Pupils: Equal, round and reactive pupils present EOM: EOMs intact bilaterally Other: No nystagmus or gaze palsy Resp: Effort & Inspection: normal respiratory effort Auscultation: clear to auscultation bilaterally Cardio: Rate: regular rate Rhythm: regular rhythm GI: Other: Abdomen soft, nondistended, nontender. Normoactive bowel sounds in all quadrants. Skin: General skin exam: normal color and no rashes or lesions noted Wounds: no wounds Neuro: Other: +expressive aphasia and inability to fol low basic commands, transient, lasting less than 1 minute. no postictal period or associated tremor. Returned to baseline without intervention, some halted speech pattern but able to correct. No focal weakness or numbness. No dysarthria. No gaze palsy or nystagmus. No tremor on exam. Extrem: General: normal to inspection Psych: Mental Status: mental status grossly normal Other: Fair insight and judgment. Patient unhappy with admission and voicing denial of seizure-like activity occurring despite multiple witnesses. H&P: Results Labs Labs: Short CBC 06/13/24 Range/Units 11:13 WBC 7.4 (4.5-10.0) K/mm3 Hgb 10.5 L (12.0-15.0) g/dL Hct 32.6 L (37.0-47.0) % Plt Count 78 L (150-375) k/mm3 BMP 06/13/24 10:49 Sodium 140 Potassium 4.3 Chloride 108 H Carbon Dioxide 22 BUN 18 H Creatinine 1.30 H Glucose 90 Calcium 8.8 Cardiac Enzymes 06/13/24 Range/Units 10:49 Troponin I < 0.012 (0.000-0.034) ng/mL Liver Function 06/13/24 Range/Units 10:49 Total Bilirubin 2.3 H (0.2-1.3) mg/dL AST 33 (14-36) U/L ALT 21 (6-35) U/L Alkaline Phosphatase 117 (38-126) U/L Albumin 4.0 (3.5-5.1) g/dL Assessment and Plan Assessment and plan (1) Witnessed seizure-like activity: Code(s): R56.9 - Unspecified convulsions Status: Acute Assessment and Plan: - CT head: Old infarcts in the brain - UDS and UA negative on 06/11 - CXR: Streaky bibasilar atelectasis versus less likely pneumonia. - check EEG - MRI brain - neurology consulted - seizure precautions - neuro checks q.4 Witnessed 45 seconds of expressive aphasia and inability to follow commands. Resolved without intervention. Speech returning to baseline and no focal weakness, numbness, dysarthria, or facial droop. Contacted neurology, Yury WHEAT, with patient condition. No current indication for repeat CTA. Start Keppra 750 mg p.o. b.i.d. (2) HTN (hypertension): Qualifiers: Hypertension type: primary hypertension Qualified Code(s): I10 - Essential (primary) hypertension Code(s): I10 - Essential (primary) hypertension Status: Chronic Assessment and Plan: - chronic, currently 125/77 - continue home medications - monitor Plan Diet: Heart healthy GI Prophylaxis: Not currently indicated DVT Prophylaxis: SCDs Lines: Peripheral Code Status: Full code Quality VTE Prophylaxis VTE prophylaxis: mechanical ordered Hospitalist MIPS Advance Care Plan I have confirmed that the patient's Advanced Care Plan is present, code status is documented, or surrogate decision maker is listed in patient medical record.: Yes Medication Reconciliation I have utilized all available resources to obtain, update and review the patients current medications (includes all prescriptions, OTC, herbals, cannabis, and nutritional supplements).: Yes
--- NOTE | 2024-06-13 14:50 | ADMGEN ---
This patient, Elias Luis, was admitted to 2 Medical Room 241-01. Patient/family oriented to hospital policies and general routines including ID bracelet, bed and alarms, visiting hours, pain management, procedures, bathroom and other care routines, personal items, smoking policy, room service/diet, and visiting hours. Information on how to activate the Rapid Response Team has been discussed. Patient/Family are encouraged to report perceived risks to care and to ask questions if they do not understand what they are told or what they should do.
[2024-06-13] MEDS: levETIRAcetam Tablet 250 MG, levETIRAcetam Tablet 500 MG 750 MG PO (17:33)
[2024-06-14] VITALS (9 sets, daily range): BP systolic 101–125; BP diastolic 52–68; PULSE 63–86; RESP 16–20; TEMP 36.6–37.2; O2SAT 92–96
[2024-06-14] MEDS: levETIRAcetam Tablet 250 MG, levETIRAcetam Tablet 500 MG 750 MG PO ×2 (05:57→17:38)
[2024-06-14 06:27] LABS: Basophils Percent Auto 0.2 % (0.2-1.2); Eosinophils Absolute Auto 0.2 K/mm3 (0-0.3); Hematocrit 32.3 % (37.0-47.0); Hemoglobin 10.4 g/dL (12.0-15.0); Immature Granulocyte Absolute 0.01 K/mm3 (0.00-0.031); Immature Granulocyte Percent A 0.2 % (0-0.5); Immature Platelet Fraction Pct 3.8 % (0.9-11.2); Lymphocytes Percent Auto 22.4 % (18.3-44.2); Mean Corpuscular HGB Conc 32.2 g/dl (32-36); Mean Corpuscular Hemoglobin 29.6 pg (26-34); Mean Platelet Volume 10.6 fl (7.4-10.4); Monocytes Absolute Auto 0.3 K/mm3 (0.1-0.6); Monocytes Percent Auto 6.7 % (2.6-8.5); Neutrophils Absolute Auto 2.7 K/mm3 (1.3-6.7); Neutrophils Percent Auto 66.5 % (45.5-73.1); Platelet Count Result 87 k/mm3 (150-375); Red Blood Count 3.51 M/mm3 (4.2-5.4); Red Cell Distribution Width 12.7 % (11.5-14.5)
[2024-06-14 06:46] LABS: Anion Gap 8 mmol/L (4-12); Blood Urea Nitrogen 19 mg/dL (7-17); Calcium 8.4 mg/dL (8.4-10.2); Carbon Dioxide 24 mmol/L (22-30); Chloride 107 mmol/L (98-107); Estimated CRCL calculation 35 ml/min; Estimated Glomerular Filt Rate 41; Glucose 90 mg/dL (65-110); Magnesium 1.9 mg/dL (1.6-2.3); Phosphorus 3.3 mg/dL (2.5-4.5); Sodium 139 mmol/L (137-145)
[2024-06-14] MEDS: PANTOPRAZOLE SOD SESQUIHYDRATE 20 MG TAB PO (08:49)
[2024-06-14] MEDS: METOPROLOL TARTRATE 12.5 MG TABLET PO ×2 (08:49→17:38)
--- NOTE | 2024-06-14 11:19 | P.PNIM_ITS ---
Progress Note: A&P Assessment and Plan (1) Witnessed seizure-like activity: Code(s): R56.9 - Unspecified convulsions Status: Acute Assessment and Plan: - CT head: Old infarcts in the brain - UDS and UA negative on 06/11 - CXR: Streaky bibasilar atelectasis versus less likely pneumonia. - check EEG - MRI brain showed old infarcts of brain. - Neurology consulted, appreciate recommendations. - seizure precautions - neuro checks q.4 Witnessed 45 seconds of expressive aphasia on 06/13 and inability to follow commands. Resolved without intervention. Speech returning to baseline and no focal weakness, numbness, dysarthria, or facial droop. Contacted neurology, Yury WHEAT, with patient condition. No current indication for repeat CTA. Start Keppra 750 mg p.o. b.i.d. (2) HTN (hypertension): Qualifiers: Hypertension type: primary hypertension Qualified Code(s): I10 - Essent ial (primary) hypertension Code(s): I10 - Essential (primary) hypertension Status: Chronic Assessment and Plan: - chronic, currently 108/62 - continue home medications - monitor Plan Diet: Heart healthy GI Prophylaxis: Not currently indicated DVT Prophylaxis: SCDs Lines: Peripheral Code Status: Full code Subjective Date/time seen: 06/14/24 11:19 Interval history: Patient sitting up in bed. Patient says she feels good. Denies chest pain, palpitations, headache, dizziness, nausea, or vomiting. Missing her dog at home. Patient reports that she has been taking Taylor lately and was not sure if that caused her to have seizures. Review of Systems Review of Systems: All systems reviewed & are unremarkable except as noted in HPI and below Exam Const: General: comfortable and no acute distress Resp: Effort & Inspection: normal respiratory effort Auscultation: clear to auscultation bilaterally Cardio: Rate: regular rate Rhythm: regular rhythm Other: Telemetry SR 60 GI: GI Palp: Yes Soft to palpation Auscultation: normal bowel sounds Skin: General skin exam: no rashes or lesions noted Neuro: Speech: normal speech Extrem: General: no pedal edema Psych: Mental Status: mental status grossly normal Affect: normal affect Objective Data Vital Signs Vital Signs: Vital Signs - 24 hr 06/13/24 12:06 06/13/24 14:30 06/13/24 15:47 Temperature Pulse Rate 66 66 Respiratory Rate 18 18 Blood Pressure 125/77 125/77 Pulse Oximetry 100 100 Oxygen Delivery Room Air 06/13/24 16:00 06/13/24 16:00 06/13/24 19:47 Temperature 98.1 F 99.6 F Pulse Rate 87 74 84 Respiratory Rate 18 20 Blood Pressure 115/52 L 109/54 L Pulse Oximetry 100 95 Oxygen Delivery 06/13/24 20:00 06/13/24 20:00 06/14/24 00:00 Temperature 99.0 F Pulse Rate 84 84 67 Respiratory Rate 20 20 Blood Pressure 101/52 L Pulse Oximetry 95 96 Oxygen Delivery Room Air 06/14/24 00:00 06/14/24 04:00 06/14/24 04:00 Temperature 98.6 F Pulse Rate 67 74 73 Respiratory Rate 20 Blood Pressure 110/67 Pulse Oximetry 92 Oxygen Delivery 06/14/24 08:00 06/14/24 08:00 06/14/24 08:49 Temperature 98.2 F Pulse Rate 79 72 86 Respiratory Rate 19 Blood Pressure 108/62 Pulse Oximetry 93 Oxygen Delivery 06/14/24 08:50 Temperature Pulse Rate Respiratory Rate Blood Pressure Pulse Oximetry Oxygen Delivery Room Air Intake/Output Intake/Output: Intake & Output 06/11/24 06/12/24 06/13/24 06/14/24 23:59 23:59 23:59 23:59 Intake Total 360 595 Balance 360 595 Meds/Results Medications: Active Medications Generic Name Dose Route Start Last Admin Trade Name Freq PRN Reason Stop Dose Admin Atorvastatin Calcium 40 mg 06/14/24 21:00 Atorvastatin 40 Mg Tablet PO [facility] Levetiracetam 250 mg/ 750 mg 06/13/24 18:00 06/14/24 05:57 Levetiracetam 500 mg PO 750 mg Q12H MAURICIO Administration Metoprolol Tartrate 12.5 mg 06/14/24 09:00 06/14/24 08:49 Metoprolol Tartrate 12.5 Mg Tablet PO 12.5 mg BID MAURICIO Administration Pantoprazole Sodium 20 mg 06/14/24 09:00 06/14/24 08:49 Pantoprazole Sod Sesquihydrate 20 Mg Tab PO 20 mg DAILY MAURICIO Administration Radiology Results: ITS Impressions Head CT 06/13/24 10:29 IMPRESSION: 1. Old infarcts in the brain. Chest X-Ray 06/13/24 10:37 IMPRESSION: 1. Streaky bibasilar atelectasis versus less likely pneumonia. Labs Labs: Laboratory Results - last 24 hr 06/13/24 06/13/24 06/14/24 10:49 11:13 05:47 WBC 7.4 4.0 L RBC 3.49 L 3.51 L Hgb 10.5 L 10.4 L Hct 32.6 L 32.3 L MCV 93.4 92.0 MCH 30.1 29.6 MCHC 32.2 32.2 RDW 12.5 12.7 Plt Count 78 L 87 L MPV 10.6 H 10.6 H Immature Gran % (Auto) 0.4 0.2 Neut % (Auto) 85.2 H 66.5 Lymph % (Auto) 9.1 L 22.4 [place] % (Auto) 3.8 6.7 Eos % (Auto) 1.1 4.0 Baso % (Auto) 0.4 0.2 Lymph # (Auto) 0.68 L 0.90 [place] # (Auto) 0.3 0.3 Eos # (Auto) 0.1 0.2 Baso # (Auto) 0.0 0.0 Abs Immat Gran (auto) 0.03 0.01 Absolute Neuts (auto) 6.3 2.7 Absolute Nucleated RBC 0.000 0.000 Band Neutrophils % Not Reportable Nucleated RBC % 0.0 0.0 Platelet Estimate Decreased % Immature Plt Fraction 3.3 3.8 Ovalocytes 1+ Schistocytes None seen Sodium 139 Potassium 4.0 Chloride 107 Carbon Dioxide 24 Anion Gap 8 BUN 19 H Creatinine 1.32 H Estim Creat Clear Calc 35 Estimated GFR 41 L Glucose 90 Calcium 8.4 Phosphorus 3.3 Magnesium 1.9 Troponin I < 0.012 TSH 1.560 Quality VTE Prophylaxis VTE prophylaxis: mechanical ordered
[2024-06-14] MEDS: LORazepam INJ (*CRX) 2 MG/ML VIAL 0.5 MG IV PUSH (11:40)
--- NOTE | 2024-06-14 11:46 | WPDNEURCNPN ---
Assessment and Plan Assessment and plan (1) Complex partial epilepsy with recurrent seizures: Code(s): G40.209 - Localization-related (focal) (partial) symptomatic epilepsy and epileptic syndromes with complex partial seizures, not intractable, without status epilepticus Status: Acute (2) Old cerebrovascular accident without late effect: Code(s): Z86.73 - Personal history of transient ischemic attack (TIA), and cerebral infarction without residual deficits Status: Acute Plan 1. Focal seizure that is partial seizure 2. Bihemispheric stroke as documented in the past by the MRI as well 3. Ongoing history of bipolar disorder, 4. mitral regurgitation with congestive heart failure, Has been seen by the assembled wood products repairer in the past. Routine EEG can be obtained, but patient can be started on Keppra 750mg q.12 hours. If any further question arises lose do not hesitate to contact me Consult date: 06/14/24 HPI: Elias Luis is a 58 year old female 58 years old right-handed female has been admitted to [facility] through the emergency room where she was sent by her family physician from his office by the ambulance because off an episode of staring off and not responding while in the office for few seconds without any associated generalized or focal motor activity and with no subsequent complaint of chest pain no observation of the difficulties in breathing and no complain of the headaches. It was reported that about 3 days ago she was standing at home drinking soda when she went black to the point that she dropped on the floor and was notedly shaking and drooling at that time patient did come to the emergency room at that time and was discharge with a diagnosis of seizure and dehydration. Patient declined any blood workup for imaging or hospitalization and she wanted to sign out against medical advise but few minutes later she became unresponsive and started shaking her left upper extremity for about 2 to 3 seconds which was observed by her [id number] as well. She has been taking amlodipine 5mg daily atenolol 25mg daily atorvastatin 40mg daily mirtazapine 15mg at night and citalopram 10mg at night. She is reportedly allergic to sulfa hydrocodone and Tylenol. She has ongoing history of 1. Depression 2. Hypertension 3. Mitral valve prolapse 4. Migraines 5. Previous cerebrovascular accident 6. History of years smoked 35 his smoking pack years 17.5 but no alcohol intake. Initial exam in the emergency room was grossly nonfocal. Vital signs were normal, CBC was normal, [place] [address], basic metabolic panel was with BUN of 18 creatinine of 1.30, CT of the head documented old infarct in the brain, chest x-ray with bibasilar atelectasis versus likely pneumonia, EKG without any atrial fibrillation, CTA without evidence of aneurysm, or any major vessel involvement. MRI in March of 2019 documented acute infarct involving the left frontal lobe and left insula right parietal lobe and left occipital lobe as well. Review of Systems Review of Systems: All systems reviewed & are unremarkable except as noted in HPI and below [facility] Past Medical History Medical History CVA (cerebral vascular accident) left occipital lobe x1, left frontal lobe x1, left insula x1, left parietal lobe x1, right parietal lobe x1 per head CT 05/2024 Migraines Anemia Bipolar disorder BRI (generalized anxiety disorder) Severe mitral regurgitation CHF (congestive heart failure) Echo, 07/2023: Hyperdynamic systolic function, estimated EF greater than 70%, grade 2 diastolic dysfunction. Mild pulmonary HTN. MVP (mitral valve prolapse) Endocarditis of mitral valve GERD (gastroesophageal reflux disease) Pulmonary embolism Intermediate probability on PPI, July 2023 Depression Wrist fracture, right DDD (degenerative disc disease) Arthritis IBS (irritable bowel syndrome) Ulcer HTN (hypertension) Hyperlipidemia Seasonal allergies Wears glasses Surgical History Surgical History History of hysteroscopy History of appendectomy Hx of tonsillectomy Family History Family History Father Diabetes mellitus Acute myocardial infarction Lung cancer Mother Dementia Social History Social History Smoking packs per day: 0.5 Smoking cigarettes per day: 10.0 Years smoked: 35 Smoking pack-years: 17.50 Smoking status: Never smoker Tobacco type: cigarettes Alcohol intake: never Substance use: never Do You Feel Safe in your Home?: Yes Lack of Transportation: No Lack of Food: Never True Current Housing: I Have Housing Concerned About Future Housing: No Difficulty Paying Gas/Electric Bills: No Difficulty Paying for Meds: No Currently Unemployed: No Education: High School Diploma/GED Difficulty w/ Childcare or Family Care: No Spiritual care concerns: No Agree to blood products: Yes Meds Home Medications and Allergies Home Medications ?Medication ?Instructions ?Recorded ?Confirmed ?Type atorvastatin 40 mg tablet 40 mg PO DAILY 05/26/23 06/13/24 History metoprolol tartrate 25 mg tablet 12.5 mg PO BID 06/13/24 06/13/24 History pantoprazole 20 mg tablet,delayed 20 mg PO DAILY 06/13/24 06/13/24 History release Allergies Allergy/AdvReac Type Severity Reaction Status Date / Time Sulfa (Sulfonamide Allergy Unknown Unknown Verified 06/13/24 09:18 Antibiotics) acetaminophen (From [facility]) AdvReac Unknown Verified 06/13/24 09:18 hydrocodone (From [facility]) AdvReac Unknown Verified 06/13/24 09:18 Vital Signs Vital Signs - 24 hr 06/13/24 12:06 06/13/24 14:30 06/13/24 15:47 Temperature Pulse Rate 66 66 Respiratory Rate 18 18 Blood Pressure 125/77 125/77 Pulse Oximetry 100 100 Oxygen Delivery Room Air 06/13/24 16:00 06/13/24 16:00 06/13/24 19:47 Temperature 36.7 C 37.6 C Pulse Rate 87 74 84 Respiratory Rate 18 20 Blood Pressure 115/52 L 109/54 L Pulse Oximetry 100 95 Oxygen Delivery 06/13/24 20:00 06/13/24 20:00 06/14/24 00:00 Temperature 37.2 C Pulse Rate 84 84 67 Respiratory Rate 20 20 Blood Pressure 101/52 L Pulse Oximetry 95 96 Oxygen Delivery Room Air 06/14/24 00:00 06/14/24 04:00 06/14/24 04:00 Temperature 37.0 C Pulse Rate 67 74 73 Respiratory Rate 20 Blood Pressure 110/67 Pulse Oximetry 92 Oxygen Delivery 06/14/24 08:00 06/14/24 08:00 06/14/24 08:49 Temperature 36.8 C Pulse Rate 79 72 86 Respiratory Rate 19 Blood Pressure 108/62 Pulse Oximetry 93 Oxygen Delivery 06/14/24 08:50 Temperature Pulse Rate Respiratory Rate Blood Pressure Pulse Oximetry Oxygen Delivery Room Air Exam Narrative: On examination today she is awake alert cooperative in no obvious acute distress, head normocephalic with no cranial bruits, ear nose throat examination normal, neck supple with no meningeal signs no cervical bruit no thyromegaly no lymphadenopathy, heart regular with murmur, lungs clear to auscultation with no rhonchi or crepitations, Belle soft nontender with no organomegaly, neurologically she is awake alert able to follow the verbal commands but have some confusion and the instruction had to be repeated she was also slow and hesitant in the expression, pupils were round regular feels the vision was full to finger confrontation, extraocular movements are full with no nystagmus, facial sensations are intact face symmetrical tongue midline uvula midline motor examination revealed her to have drift of the upper extremities against gravity with hyperreflexia and upgoing plantar responses. She has slight difficulties in performing aeorlf-wa-qgtw-to-finger and heel to knee bilaterally, deep tendon reflexes are brisk and plantar responses are questionable. Results Labs 06/14/24 05:47 06/14/24 05:47 Labs: Short CBC 06/14/24 Range/Units 05:47 WBC 4.0 L (4.5-10.0) K/mm3 Hgb 10.4 L (12.0-15.0) g/dL Hct 32.3 L (37.0-47.0) % Plt Count 87 L (150-375) k/mm3 BMP 06/14/24 05:47 Sodium 139 Potassium 4.0 Chloride 107 Carbon Dioxide 24 BUN 19 H Creatinine 1.32 H Glucose 90 Calcium 8.4
--- NOTE | 2024-06-14 11:46 | PC.NURSE ---
Patient to MRI via stretcher.
[2024-06-14] MEDS: ONDANSETRON INJ 4 MG/2 ML VIAL IV PUSH (15:35)
[2024-06-14] MEDS: ATORVASTATIN 40 MG TABLET PO (21:07)
[2024-06-15] VITALS: BP 101/60; PULSE 64; PULSE 81; RESP 18; TEMP 36.7; O2SAT 96
[2024-06-15 03:19] VITALS: BP 112/68; PULSE 71; RESP 18; TEMP 36.6; O2SAT 93
[2024-06-15 04:00] VITALS: PULSE 68
[2024-06-15 05:58] LABS: Basophils Percent Auto 0.3 % (0.2-1.2); Eosinophils Absolute Auto 0.2 K/mm3 (0-0.3); Eosinophils Percent Auto 2.8 % (0-4.4); Hematocrit 34.5 % (37.0-47.0); Hemoglobin 11.1 g/dL (12.0-15.0); Immature Granulocyte Absolute 0.02 K/mm3 (0.00-0.031); Immature Granulocyte Percent A 0.3 % (0-0.5); Immature Platelet Fraction Pct 5.6 % (0.9-11.2); Lymphocytes Absolute Auto 0.99 K/mm3 (0.9-3.2); Lymphocytes Percent Auto 15.3 % (18.3-44.2); Mean Corpuscular HGB Conc 32.2 g/dl (32-36); Mean Corpuscular Hemoglobin 29.9 pg (26-34); Mean Platelet Volume 10.9 fl (7.4-10.4); Monocytes Absolute Auto 0.3 K/mm3 (0.1-0.6); Monocytes Percent Auto 4.7 % (2.6-8.5); Neutrophils Absolute Auto 4.9 K/mm3 (1.3-6.7); Neutrophils Percent Auto 76.6 % (45.5-73.1); Platelet Count Result 92 k/mm3 (150-375); Red Blood Count 3.71 M/mm3 (4.2-5.4); Red Cell Distribution Width 12.6 % (11.5-14.5); White Blood Count 6.5 K/mm3 (4.5-10.0)
[2024-06-15] MEDS: levETIRAcetam Tablet 250 MG, levETIRAcetam Tablet 500 MG 750 MG PO (06:03)
[2024-06-15 06:15] LABS: Alanine Aminotransferase 15 U/L (6-35); Albumin Level 3.5 g/dL (3.5-5.1); Alkaline Phosphatase 107 U/L (38-126); Anion Gap 7 mmol/L (4-12); Aspartate Amino Transferase 21 U/L (14-36); Bilirubin,Total 1.7 mg/dL (0.2-1.3); Blood Urea Nitrogen 20 mg/dL (7-17); Calcium 8.6 mg/dL (8.4-10.2); Carbon Dioxide 26 mmol/L (22-30); Chloride 106 mmol/L (98-107); Estimated CRCL calculation 36 ml/min; Estimated Glomerular Filt Rate 42; Glucose 85 mg/dL (65-110); Potassium 4.2 mmol/L (3.4-5.0); Sodium 139 mmol/L (137-145)
[2024-06-15 08:00] VITALS: BP 102/59; PULSE 68; PULSE 69; RESP 18; TEMP 36.6; O2SAT 97
[2024-06-15 08:36] VITALS: PULSE 70
[2024-06-15] MEDS: PANTOPRAZOLE SOD SESQUIHYDRATE 20 MG TAB PO (08:36)
[2024-06-15] MEDS: METOPROLOL TARTRATE 12.5 MG TABLET PO (08:36)
--- NOTE | 2024-06-15 10:12 | PM.IMPN ---
Subjective Date/time seen: 06/15/24 10:12 Review of Systems Review of Systems: All systems reviewed & are unremarkable except as noted in HPI and below Objective Data Vital Signs Vital Signs: Vital Signs - 24 hr 06/14/24 12:00 06/14/24 16:00 06/14/24 16:00 Temperature 98.0 F 98 F Pulse Rate 67 70 66 Respiratory Rate 19 18 Blood Pressure 125/66 122/62 Pulse Oximetry 93 93 Oxygen Delivery 06/14/24 17:38 06/14/24 19:56 06/14/24 20:00 Temperature 97.9 F Pulse Rate 72 65 Respiratory Rate 16 Blood Pressure 108/68 Pulse Oximetry 96 Oxygen Delivery Room Air 06/14/24 22:36 06/15/24 00:00 06/15/24 00:00 Temperature 98.1 F Pulse Rate 63 81 64 Respiratory Rate 18 Blood Pressure 101/60 Pulse Oximetry 96 Oxygen Delivery 06/15/24 03:19 06/15/24 04:00 06/15/24 08:00 Temperature 98 F 98 F Pulse Rate 71 68 69 Respiratory Rate 18 18 Blood Pressure 112/68 102/59 L Pulse Oximetry 93 97 Oxygen Delivery 06/15/24 08:00 06/15/24 08:35 06/15/24 08:36 Temperature Pulse Rate 68 70 Respiratory Rate Blood Pressure Pulse Oximetry Oxygen Delivery Room Air Intake/Output Intake/Output: Intake & Output 06/12/24 06/13/24 06/14/24 06/15/24 23:59 23:59 23:59 23:59 Intake Total 360 955 420 Balance 360 955 420 Meds/Results Medications: Active Medications Generic Name Dose Route Start Last Admin Trade Name Freq PRN Reason Stop Dose Admin Atorvastatin Calcium 40 mg 06/14/24 21:00 06/14/24 21:07 Atorvastatin 40 Mg Tablet PO 40 mg HS MAURICIO Administration Levetiracetam 250 mg/ 750 mg 06/13/24 18:00 06/15/24 06:03 Levetiracetam 500 mg PO 750 mg Q12H MAURICIO Administration Metoprolol Tartrate 12.5 mg 06/14/24 09:00 06/15/24 08:36 Metoprolol Tartrate 12.5 Mg Tablet PO 12.5 mg BID MAURICIO Administration Ondansetron HCl 4 mg 06/14/24 15:26 06/14/24 15:35 Ondansetron Inj 4 Mg/2 Ml Vial IV PUSH 4 mg Q6H PRN Administration Nausea And Vomiting Pantoprazole Sodium 20 mg 06/14/24 09:00 06/15/24 08:36 Pantoprazole Sod Sesquihydrate 20 Mg Tab PO 20 mg DAILY MAURICIO Administration Radiology Results: ITS Impressions Head CT 06/13/24 10:29 IMPRESSION: 1. Old infarcts in the brain. Chest X-Ray 06/13/24 10:37 IMPRESSION: 1. Streaky bibasilar atelectasis versus less likely pneumonia. Brain MRI 06/14/24 12:40 IMPRESSION: 1. Old infarcts in the brain. Labs Labs: Laboratory Results - last 24 hr 06/15/24 04:59 WBC 6.5 RBC 3.71 L Hgb 11.1 L Hct 34.5 L MCV 93.0 MCH 29.9 MCHC 32.2 RDW 12.6 Plt Count 92 L MPV 10.9 H Immature Gran % (Auto) 0.3 Neut % (Auto) 76.6 H Lymph % (Auto) 15.3 L [place] % (Auto) 4.7 Eos % (Auto) 2.8 Baso % (Auto) 0.3 Lymph # (Auto) 0.99 Scott # (Auto) 0.3 Eos # (Auto) 0.2 Baso # (Auto) 0.0 Abs Immat Gran (auto) 0.02 Absolute Neuts (auto) 4.9 Absolute Nucleated RBC 0.000 Nucleated RBC % 0.0 % Immature Plt Fraction 5.6 Sodium 139 Potassium 4.2 Chloride 106 Carbon Dioxide 26 Anion Gap 7 BUN 20 H Creatinine 1.29 H Estim Creat Clear Calc 36 Estimated GFR 42 L Glucose 85 Calcium 8.6 Total Bilirubin 1.7 H AST 21 ALT 15 Alkaline Phosphatase 107 Total Protein 6.0 L Albumin 3.5
[2024-06-15 12:00] VITALS: BP 108/53; PULSE 63; PULSE 70; RESP 20; TEMP 36.8; O2SAT 94
--- NOTE | 2024-06-15 13:06 | WPDNEUROLOGY ---
Neurology EEG Report General Information Date of Study: 06/15/24 TEST EEG DIAGNOSIS Seizure-like activity CONDITION OF RECORDING awake, drowsy and sleep. EEG NUMBER [id number] CLINICAL HISTORY Patient reports she had a seizure or other day. She started taking face Noreen for her memory and she believes that is what caused the seizure. EEG DESCRIPTION Basic resting occipital frequency consists of low to medium voltage 9 to 11 hertz per 2nd no organized alpha activity admixed with low-voltage 15 to 18 hertz per 2nd beta activity during drowsiness low-voltage beta activity seen diffusely admixed with waxing waning posterior alpha rhythm, and changing into the mixture of alpha theta and beta activity and erosion into bilateral symmetrical sleep spindles. Dysrhythmic theta and delta activity seen intermittently over the left hemisphere. No paroxysmal. Focal. Lateralizing. IMPRESSION Abnormal record due to the presence of left hemispheric intermittent theta and delta activity raising the possibility of a focal structural lesion or seizure focus ,clinical correlation recommend and also further studies suggest.
--- NOTE | 2024-06-15 13:17 | PM.DS ---
DS: Admitting Diagnosis Discharge Date 06/15/2024 Admitting Diagnosis Seizure DS: Discharge Diagnosis Discharge Diagnosis (1) Complex partial epilepsy with recurrent seizures: Code(s): G40.209 - Localization-related (focal) (partial) symptomatic epilepsy and epileptic syndromes with complex partial seizures, not intractable, without status epilepticus Status: Acute (2) Old cerebrovascular accident without late effect: Code(s): Z86.73 - Personal history of transient ischemic attack (TIA), and cerebral infarction without residual deficits Status: Acute DS: Summary Hospital Course Hospital Course: Initial VS at presentation: 98.2? F, HR 78, R 18, 131/77, and 100% on RA. ED workup showed: No leukocytosis, hemoglobin 10.5 (baseline 8-9), no significant electrolyte derangements, creatinine 1.3 and GFR 42 (previously 1.37 and GFR 39 on 06/11/2024), initial troponin negative, TSH 1.56. Head CT showed old infarcts in the brain. CXR showed streaky bibasilar atelectasis versus less likely pneumonia. UDS negative on 06/11/2024. UA from 06/11/2024 equivocal for UTI, UC grew mixed general jigna. Brain MRI 06/14/24 IMPRESSION: 1. Old infarcts in the brain. EEG 06/15/24 EEG DESCRIPTION Basic resting occipital frequency consists of low to medium voltage 9 to 11 hertz per 2nd no organized alpha activity admixed with low-voltage 15 to 18 hertz per 2nd beta activity during drowsiness low-voltage beta activity seen diffusely admixed with waxing waning posterior alpha rhythm, and changing into the mixture of alpha theta and beta activity and erosion into bilateral symmetrical sleep spindles. Dysrhythmic theta and delta activity seen intermittently over the left hemisphere. No paroxysmal. Focal. Lateralizing. IMPRESSION Abnormal record due to the presence of left hemispheric intermittent theta and delta activity raising the possibility of a focal structural lesion or seizure focus ,clinical correlation recommend and also further studies suggest. Neurology followed. Patient started on Levetiracetam 750 mg PO q 12. Patient discharged home and to follow up outpatient with neurology. Status at Discharge Functional status at discharge: independent ambulation Overall status at discharge: patient is progressing back to baseline Time Spent with Patient Time attestation: Total time spent providing and/or coordinating discharge services: Time spent: Greater than 30 minutes Exam Const: General: comfortable and no acute distress Resp: Effort & Inspection: normal respiratory effort Auscultation: clear to auscultation bilaterally Cardio: Rate: regular rate Rhythm: regular rhythm GI: GI Palp: Yes Soft to palpation Auscultation: normal bowel sounds Extrem: General: no pedal edema Psych: Mental Status: mental status grossly normal Affect: normal affect DS: Data Data Completed and Pending Labs on day of discharge: Labs from last 24 hours 06/15/24 04:59 WBC 6.5 RBC 3.71 L Hgb 11.1 L Hct 34.5 L MCV 93.0 MCH 29.9 MCHC 32.2 RDW 12.6 Plt Count 92 L MPV 10.9 H Immature Gran % (Auto) 0.3 Neut % (Auto) 76.6 H Lymph % (Auto) 15.3 L [place] % (Auto) 4.7 Eos % (Auto) 2.8 Baso % (Auto) 0.3 Lymph # (Auto) 0.99 [place] # (Auto) 0.3 Eos # (Auto) 0.2 Baso # (Auto) 0.0 Abs Immat Gran (auto) 0.02 Absolute Neuts (auto) 4.9 Absolute Nucleated RBC 0.000 Nucleated RBC % 0.0 % Immature Plt Fraction 5.6 Sodium 139 Potassium 4.2 Chloride 106 Carbon Dioxide 26 Anion Gap 7 BUN 20 H Creatinine 1.29 H Estim Creat Clear Calc 36 Estimated GFR 42 L Glucose 85 Calcium 8.6 Total Bilirubin 1.7 H AST 21 ALT 15 Alkaline Phosphatase 107 Total Protein 6.0 L Albumin 3.5 Discharge Plan Discharge Attending physician on discharge: Abilio Vogt Consulting providers: Wu Cotton Discharging Clinician: Rose Capps Anticipated Discharge Date/Time: 06/15/24 14:30 Patient Disposition: Home, Self-Care Activity: may shower and as tolerated Diet: heart healthy Discharge Instructions: DO NOT DRIVE. Take Keppra as prescribed. Report to provider any seizure activity. Manage stress and keep a regular sleep schedule. Thank you for entrusting [facility] with your healthcare! Patient Instructions: Antibiotic Form, Levetiracetam (By mouth), Heart Failure (GEN), New-Onset Seizure in Adults (DC) Patient Language: Italian Stand Alone Forms: General Discharge Information Follow-up/Referrals: Wu Cotton MD [Physician] - 2 Weeks Caity,IKER Romero [Primary Care Provider] - 1 Week Discharge Medications: New levetiracetam 750 mg Tablet 750 mg PO Q12H Qty: 60 0RF Continued atorvastatin 40 mg tablet 40 mg PO DAILY pantoprazole 20 mg tablet,delayed release (DR/EC) 20 mg PO DAILY metoprolol tartrate 25 mg tablet 12.5 mg PO BID Date of admission: 06/14/24 16:28 Primary Care Provider: CaityHeather Admitting Provider: Jason Gay Attending physician on admission: Jason Gay Condition: Stable Hospitalist MIPS Heart Failure (Exclusion) Patient has history of Heart Transplant or Left Ventricular Assistive Device?: No IF YES, STOP HERE Heart Failure (Qualifier) Patient has current or prior documentation of LVEF less than or equal to 40%, or mod/servere depressed LVSF?: No IF NO, STOP HERE
== END 2024-06-15 14:30 | disposition home or self-care (01) | DRG 101 ==
LOC: ANHED 12:54 → ANH2MED 14:22
PROVIDERS: Student in an Organized Health Care Education/Training Program; Admitting Provider Internal Medicine; Emergency Provider Emergency Medicine; PCP Physician Assistant; Visit Provider Nurse Practitioner Family
DX: G40.209 Localization-related (focal) (partial) symptomatic epilepsy and epileptic syndromes with complex partial seizures, not intractable, without status epilepticus (principal); I10 Essential (primary) hypertension; I34.1 Nonrheumatic mitral (valve) prolapse; I34.0 Nonrheumatic mitral (valve) insufficiency; E78.5 Hyperlipidemia, unspecified; K21.9 Gastro-esophageal reflux disease without esophagitis; K58.9 Irritable bowel syndrome, unspecified; M19.90 Unspecified osteoarthritis, unspecified site; F31.9 Bipolar disorder, unspecified; F41.1 Generalized anxiety disorder; Z86.73 Personal history of transient ischemic attack (TIA), and cerebral infarction without residual deficits; Z87.891 Personal history of nicotine dependence
CPT/HCPCS: 36415; 70450; 70496; 70498; 70553; 71045; 80048; 80053; 80307; 81001; 82077; 82550; 82948; 83605; 83735; 84100; 84443; 84484; 85025; 85055; 85610; 85730; 87086; 93005; 95816; 96360; 96361; 96374; 96375; 99284; 99285; A9270; A9577; G0378; J2060; J2405; J7030; Q9967

== ENCOUNTER 2024-07-21 08:25 | Outpatient (CLI) | payer MEDICARE, SELFPAY ==
--- OUTSIDE RECORDS SUMMARY | 2024-07-21 08:33 | XMS_ITS | Encounter Summary ---
Author Organization [facility] Healthcare Address [address] [place] [address] Care Team Providers Care Kiln Feeder Name Role Phone Heather Carolina Primary Care Provider [phone]- [phone] Rony Hagan MD Unavailable [phone] Zulay Garland LPN Unavailable [phone] Ghanshyam Stringer MD Unavailable [phone] Andrew Calabrese MD Unavailable [phone] Cy Mcallister MD Unavailable [phone] Delbert Sweeney MD Unavailable Encounter Details Date Type Department Care Team (Late st Contact Info) Description 08/31/2023 Documentation [facility] Medical Group Post Acute Care of [address] [id number] Tracey Powers, DO [address] [facility] [address], [place] [address] Social History Tobacco Use Types Packs/Day Years Used Date Smoking Tobacco: Former Cigarettes 0.1 15 0 07/07/2007 - 07/06/2022 Smokeless Tobacco: Never Comments:5-10 cigaretts/day Alcohol Use Standard Drinks/Week Comments No 0 (1 standard drink = 0.6 oz pur e alcohol) [facility] Utilities Answer Date Recorded In the past 12 months has e [employer], gas, oil, or water company threatened to [...] often do you attend chur ch or confucianist services? 1 to 4 times per year 08/13/2023 Do you belong to any clubs o r organizations such as yazidi groups, unions, fraternal or athletic groups, or [...] place to sleep or slept in a assisted (including now)? 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 Not on file Not on file Not on file documented as of this encounter Plan of Treatment Not on file documented as of this encounter Visit Diagnoses Not on filedocumented in this encounter Care Teams Kiln Feeder Relationship Specialty Start Date End Date Heather Carolina PA [address] [facility] [address] [place] [address] PCP - General Internal Medicine 12/24/20 [place] [address] [place] [address] Consulting Physician Internal Medicine 08/25/23 Zulay Garland LPN [address] [place] [address] [address] [place] [address] Peer Tutor 09/27/23 11/22/23 [place] [address] [address] [facility] [address] [place] [address] Consulting Physician Pulmonary Disease 10/04/23 Andrew Calabrese MD [address] [facility] [id number] [place], [place] [id number] Surgeon Cardiothoracic Surgery 10/05/23 Cy Mcallister MD [address] [facility] [address] [place] [address] Referring Physician Cardiovascular Disease 10/05/23 Delbert Sweeney MD [address] [place], [place] [id number] Consulting Physician Neurosurgery 03/20/24 documented as of this encounter
--- OUTSIDE RECORDS SUMMARY | 2024-07-21 08:33 | XMS_ITS | Encounter Summary ---
Author Organization [facility] Healthcare Address [address] [place] [address] Care Team Providers Care Animal Nutrition Consultant Name Role Phone Heather Carolina Primary Care Provider +- [phone] Rony Hagan MD Unavailable [phone] Ghanshyam Stringer MD Unavailable [phone] Andrew Calabrese MD Unavailable [phone] Cy Mcallister MD Unavailable [phone] Delbert Sweeney MD Unavailable [phone] Encounter Details Date Type Department Care Team (Late st Contact Info) Description 06/14/2024 Orders Only [facility] Health Information Management [address] [place] [address] Scanning, Provider Social History Tobacco Use Types Packs/Day Years Used Date Smoking Tobacco: Former Cigarettes 0.1 15 0 07/07/2007 - 07/06/2022 Smokeless Tobacco: Never Comments:5-10 cigaretts/day Alcohol Use Standard Drinks/Week Comments No 0 (1 standard drink = 0.6 oz pur e alcohol) [facility] Utilities Answer Date Recorded In the past 12 months has [employer], gas, oil, or water company threatened to [...] How often do you attend chur or lutheran services? Patient unable to answer 09/29/2023 Do you belong to any clubs o r organizations such as gnosticism groups, unions, fraternal or athletic groups, or [...] place to sleep or slept in a skilled nursing (including now)? No 08/13/2023 PHQ-9 Answer Date Recorded PHQ-9 Total Score 20 07/29/2023 Housing Stability Vital Sign Answer Rob e Recorded In the last 12 months, was t here a time when you were not able to pay the mortgage or rent on time? Patient unable to answer 09/29/2023 Number of Times Moved in the Last Year Not on fi le 09/29/2023 At any time in the past 12 m [facility], were you homeless or living in a skilled nursing (including now)? 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 on file Not on file Not on file documented as of this encounter Plan of Treatment Not on file documented as of this encounter Procedures Procedure Name Priority Date/Time Associated Diagnosis Comments SCAN - NEUROLOGY 06/14/2024 documented in this encounter Results * SCAN - NEUROLOGY (06/14/2024) Anatomical Region Laterality Modality Other Provider Scanning Final Result documented in this encounter Visit Diagnoses Not on filedocumented in this encounter Care Teams Animal Nutrition Consultant Relationship Specialty Start Date End Date Heather Carolina PA [address] [facility] [address] [place] [address] PCP - General Internal Medicine 12/24/20 [place] [address] [place] [address] Consulting Physician Internal Medicine 08/25/23 [place] [address] [address] [place] [address] Consulting Physician Pulmonary Disease 10/04/23 Andrew Calabrese MD [address] [facility] [id number] [place], [place] [id number] Surgeon Cardiothoracic Surgery 10/05/23 Cy Mcallister MD [address] [place] [address] Referring Physician Cardiovascular Disease 10/05/23 Delbert Sweeney MD [address] [place] [address] Consulting Physician Neurosurgery 03/20/24 documented as of this encounter
--- OUTSIDE RECORDS SUMMARY | 2024-07-21 08:34 | XMS_ITS | Referral Summary ---
Author Organization [facility] Address [address] [place] [address] Care Team Providers Care Architecture Manager Name Role Phone Heather Carolina Primary Care Provider [phone] Rony Hagan MD Unavailable [phone] Ghanshyam Stringer MD Unavailable Andrew Calabrese MD Unavailable [phone] Cy Mcallister MD Unavailable Delbert Sweeney MD Unavailable Encounters Date Type Department Care Team Description 07/17/2024 11:45 AM CDT Office Visit [facility] Cardiology [address] [address] [address] [place] [address] Rachael Oglesby MD H/O mitral valve replacement (Primary Dx); Heart failure with preserved ejection fraction, unspecified HF chronicity (HCC); Mixed hyperlipidemia; Dyspnea on exertion; History of endocarditis 07/03/2024 11:30 AM CDT Office Visit [facility] Family Medicine [address] [place] [address] Heather Carolina PA Seizure disorder (HCC) (Primary Dx); 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; Mixed hyperlipidemia; Moderate episode of recurrent major depressive disorder (HCC); Stage 3b chronic kidney disease (HCC); BMI 25.0-25.9,adult 06/19/[address] [place] [phone] Heather Carolina PA 06/15/[address] [place] [phone] Heather Carolina PA ZULEYMA Questions 06/14/2024 Orders Only [facility] Health Information Management [address] [place] [id number] Scanning, Provider 06/13/2024 8:00 AM BOOK AGENT Office Visit [address] [place] [phone] Heather Carolina PA Seizure disorder (HCC) (Primary Dx); History of CVA (cerebrovascular accident); Low vitamin B12 level; Hyperglycemia; Vitamin D deficiency; Gastroesophageal reflux disease without esophagitis; Hypertension, renal disease, stage 1-4 or unspecified chronic kidney disease; Colon cancer screening declined; Mammogram declined; Mixed hyperlipidemia; Moderate episode of recurrent major depressive disorder (HCC); Stage 3b chronic kidney disease (HCC); 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; BMI 24.0-24.9, adult 06/12/[address] [place] [phone] Heather Carolina PA Appointment Request from Last 3 Months Allergies Active Allergy Reactions Criticality Noted Date Comments Sulfa (Sulfonamide Antibiotics) Vomiting Low 10/19 Medications aspirin 81 mg enteric coated tablet Take 1 tablet (81 mg total) by mouth daily [address] (PROTONIX) 40 mg EC tablet Take 1 tablet (40 mg total) by mouth daily 90 tablet 1 5 Active mirtazapine (REMERON) 15 mg tablet Take 1 tablet (15 mg total) by mouth nightly 90 tablet 1 5 Active levETIRAcetam (KEPPRA) 750 mg tabletIndicati ons:Seizures (HCC) Take 1 tablet (750 mg total) by mouth every 12 (twelve) hours 5 Active atorvastatin (LIPITOR) 10 mg tablet Take 1 tablet (10 mg total) by mouth daily 30 tablet 11 5 07/18/19 26 Active atorvastatin (LIPITOR) 40 mg tabletIndicati ons:History of CVA (cerebrovascul ar accident) Take 1 tablet (40 mg total) by mouth daily 90 tablet 1 5 07/18/19 25 Discontinued metoprolol tartrate (LOPRESSOR) 25 mg immediate release tablet Take 0.5 tablets (12.5 mg total) by mouth 2 (two) times a day 45 tablet 1 5 07/18/19 25 Discontinued Active Problems Problem Noted Date Diagnosed Date Dyspnea on exertion 07/17/2024 History of endocarditis 07/17/2024 Seizure disorder 06/25/2024 Assessment & Plan (07/17/2024 12:19 AM CDT): Patient is on Keppra 750 b.i.d.. Has follow up with Neurology in a couple of weeks and [facility] for follow-up seizures. Assessment & Plan (06/25/2024 4:15 PM CDT): New onset seizure. She was taken to the ER on 06/11 and evaluated. CTA of head and neck and CT of the head did not show any acute changes. Will refer to neurology for further evaluation. As we were wrapping up our visit patient began to have a seizure in the office. There was no shaking but she became despondent. Would not answer question and was zoning out. Lasted about a minute. She was confused/post-ictal when she came back to. She did not loose control of bladder. Brother also witnessed. Patient had no recollection of the event. Discuss the seizure with her in the office and recommend back to the ER for further evaluation as this is 2 seizures in 2 days and I can not guarantee that there have not been seizures that were happening at home because she lives by herself. After long discussion once EMS arrived patient finally agreed to transport to [facility] for further evaluation. Will await their recommendation. Will go ahead and place a referral to Neurology as she will need to establish with a seizure specialist. Will follow up as she discharges home from [facility] pending their recommendation. EMS arrived for transport. She was in stable condition when she left my office Hyperglycemia 04/02/2024 Assessment & Plan (06/25/2024 4:09 PM CDT): Check labs. Orders have been placed prior to this visit Assessment & Plan (04/02/2024 4:43 PM BOOK AGENT): Pre-diabetes/hyperglycemia is a precursor to Dm. Stressed importance of working on diet (decrease your simple sugars and one carbohydrate with each meal) and increase you exercise to achieve weight loss and this will help prevent you from progressing to diabetes. Low vitamin B12 level 04/02/2024 Assessment & Plan (06/25/2024 4:10 PM CDT): History of deficiency. She had been supplementing but I do not see this on her med list. Will recheck levels Assessment & Plan (04/02/2024 4:43 PM BOOK AGENT): Check labs BMI 24.0-24.9, adult 03/20/2024 Assessment & Plan (06/25/2024 4:11 PM CDT): Weight/BMI is in healthy range. Continue healthy lifestyle to maintain. Assessment & Plan (03/20/2024 1:29 PM BOOK AGENT): Weight/BMI is in healthy range. Continue healthy lifestyle to maintain. H/O mitral valve replacement 11/21/2023 Assessment & Plan (11/21/2023 9:08 PM CDT): Post mitral valve replacement with Cardiology. Continue per Dr. Posada. Heart failure with preserved ejection fraction 0 08/13/2023 Assessment & Plan (08/31/2023 9:57 PM CDT): Euvolemi, no signs of exacerbation Thrombocytopenia 08/13/2023 Pulmonary embolism without acute cor pulmonale 0 08/13/2023 Iron deficiency anemia 06/20/2023 Assessment & Plan (04/02/2024 4:42 PM BOOK AGENT): Hemoglobin is up from 8.7 11.6. Will [...] him sheet so she can get it [id number]. Advised this could be contributing to her fatigue and then complete workup including a colonoscopy to rule out GI cause for the bleed is strongly encouraged. She adamantly declines any further follow-up Vitamin D deficiency 06/15/2023 Assessment & Plan (06/25/2024 4:09 PM CDT): She has had a history of deficiency. I do not see it on her med list. Will recheck labs to see if we need to get her restarted Assessment & Plan (04/02/2024 4:42 PM BOOK AGENT): Continue to supplement vitamin-D Assessment & Plan (07/08/2023 4:46 PM CDT): Supplement History of CVA (cerebrovascular accident) 2022 Assessment & Plan (06/25/2024 4:11 PM CDT): History of CVA. She has residual cognitive deficit as well as left-sided weakness. She is on aspirin 81, statin and blood pressure is well controlled Assessment & Plan (11/21/2023 9:12 PM CDT): History of CVA with residual cognitive deficits. Continue to monitor blood pressure and tightly control. Continue statin and aspirin. Assessment & Plan (08/10/2023 6:43 PM CDT): History of CVA. Residual cognitive deficit as well as right-sided weakness. Strongly encouraged complete tobacco cessation. Continue aspirin, tight blood pressure control and statin. Assessment & Plan (03/15/2023 3:13 PM BOOK AGENT): History of CVA. Continue with aspirin statin and controlled blood pressure. Insomnia 03/15/2023 Assessment & Plan (03/15/2023 3:13 PM BOOK AGENT): Continue Remeron 15 mg Gastroesophageal reflux disease without esophagi tis 06/14/2022 Assessment & Plan (06/25/2024 4:09 PM CDT): Continue PPI p.r.n. Assessment & Plan (11/21/2023 9:08 PM CDT): [...] p.r.n. Assessment & Plan (06/14/2022 5:50 PM BOOK AGENT): Patient requests a prescription for the omeprazole. It is expensive [id number]. Will see if we can get it covered for her if not discussed good Rx or the [employer] [facility] Cigarette smoker 06/08/2022 Assessment & Plan (04/02/2024 4:40 PM BOOK AGENT): I am unsure if patient has completely quit. At times she still says she will have 1 every once in awhile. Continue to encourage complete cessation Assessment & Plan (08/10/2023 6:43 PM CDT): Encouraged smoking cessation. Discussed 3 minutes. Reviewed options for assistance with cessation. Reviewed senior living sequela associated with smoking. Pt declines assistance at this time but may contact the office at anytime for further help as they desire. Assessment & Plan (07/08/2023 4:45 PM CDT): Encouraged smoking cessation. Discussed 3 minutes. Reviewed options for assistance with cessation. Reviewed senior living sequela associated with smoking. Pt declines assistance at this time but may contact the office at anytime for further help as they desire. Assessment & Plan (03/15/2023 3:10 PM BOOK AGENT): Encouraged smoking cessation. Discussed 3 minutes. Reviewed options for assistance with cessation. Reviewed senior living sequela associated with smoking. Pt declines assistance at this time but may contact the office at anytime for further help as they desire. Assessment & Plan (08/16/2022 10:15 AM CDT): Encouraged smoking cessation. Discussed 3 minutes. Reviewed options for assistance with cessation. Reviewed senior living sequela associated with smoking. Pt declines assistance [...] visit. Assessment & Plan (06/14/2022 5:50 PM BOOK AGENT): Pt desires assistance with cessation. Discussed options [...] chronic kidney disease 02/15/2022 Assessment & Plan (06/25/2024 4:09 PM CDT): Bp is stable/in acceptable range for any co-morbidities. Encouraged to limit sodium intake and exercise for weight control. Avoid nephrotoxic drugs including NSAIDs. Monitor labs. Continue metoprolol 12.5 b.i.d. Assessment & Plan (04/02/2024 4:42 PM BOOK AGENT): Bp is stable/in acceptable range for any [...] 5 Assessment & Plan (03/15/2023 3:11 PM BOOK AGENT): Bp is stable/in acceptable range for any [...] NSAIDs. Monitor labs. Continue atenolol and amlodipine BMI 25.0-25.9,adult 01/20/2021 Assessment & Plan (07/03/2024 11:38 AM CDT): Weight/BMI is in healthy range. Continue healthy lifestyle to maintain. Assessment & Plan (01/20/2021 9:15 AM CDT): Weight/BMI is in healthy range. Continue healthy lifestyle to maintain. Age-related osteoporosis wit hout current pathological fracture 01/13/2021 Assessment & Plan (04/02/2024 4:40 PM BOOK AGENT): Patient has osteo Pedia. She had difficulty [...] exercise Assessment & Plan (03/15/2023 3:11 PM BOOK AGENT): Patient has osteoporosis. She refuses DEXA and [...] call the office and speak with my ENGRAVING PATTERNMAKER. Her notice as follows Spoke to pt [...] problem. Mixed hyperlipidemia 02/14/2019 Assessment & Plan (07/17/2024 12:19 AM CDT): Encouraged patient to follow low fat/low chol diet like the Mediterranean diet. Increase good fats in the diet. Increase exercise. Monitor labs as needed. Continue atorvastatin 40. Assessment & Plan (06/25/2024 4:08 PM CDT): Encouraged patient to follow low fat/low chol diet like the Mediterranean diet. Increase good fats in the diet. Increase exercise. Monitor labs as needed. Continue atorvastatin 40 Assessment & Plan (04/02/2024 4:42 PM BOOK AGENT): Encouraged patient to follow low fat/low chol [...] 40 Assessment & Plan (03/15/2023 3:12 PM BOOK AGENT): Encouraged patient to follow low fat/low chol [...] control. Mammogram declined 02/14/2019 Assessment & Plan (06/25/2024 4:09 PM CDT): Patient declines all screenings. Reviewed the importance of early detection. May call at any time if she would like to be screened Assessment & Plan (01/23/2024 12:52 AM CDT): [...] screening Assessment & Plan (03/15/2023 3:12 PM BOOK AGENT): Patient refuses mammogram. Reviewed importance of early [...] cancer screening declined 02/14/2019 Assessment & Plan (06/25/2024 4:09 PM CDT): Patient declines all screenings. Reviewed the importance of early detection. May call at any time if she would like to be screened Assessment & Plan (01/23/2024 12:52 AM CDT): [...] screening. Assessment & Plan (03/15/2023 3:12 PM BOOK AGENT): Patient refuses colonoscopy. Reviewed importance of early [...] the pet store . Assessment & Plan (07/17/2024 12:20 AM CDT): 2018----> history of multifocal strokes (left frontal, left occipital and right parietal). She has been following with Neurology Dr. 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 Continue good blood pressure control, statin and aspirin for prevention Assessment & Plan (06/25/2024 4:08 PM CDT): 2018----> history of multifocal strokes (left frontal, left occipital and right parietal). She has been following with Neurology Dr. 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 Assessment & Plan (04/02/2024 4:42 PM BOOK AGENT): 2018----> history of multifocal strokes (left frontal, [...] & Plan (09/23/2023 12:28 PM CDT): MOCA 30. Impulsive behaviors. Assessment & Plan (08/10/2023 6:41 PM CDT): Patient has persistent residual cognitive effects as a late effects of a stroke. She is followed with Neurology at [facility] in has been offered cognitive rehab [...] overwhelmed. She has followed with Neurology at [facility]. We have both offered multiple times cognitive therapy and she is declined. 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 My ENGRAVING PATTERNMAKER was able to correct the medication issues [...] this as the services are only in [place]. Assessment & Plan (08/10/2021 3:57 PM CDT): [...] type of therapy that is available at [facility]. She states she cannot get to [facility] she does not have anyone to help with reds. Discussed with her utilizing liver service or medical card and initially extremely hesitant to even consider but provided the idea of maybe doing a new bur with a friend go over to [place] and have dinner and then come back so that she can practice doing it to see if she feels more comfortable in utilizing that type of service. She was encouraged by that thought and will give it a try. When she feels comfortable considering the referral to [place] she will give us a call so [...] chronic kidney disease 09/24/2018 Assessment & Plan (07/17/2024 12:19 AM CDT): Avoid nephrotoxic drugs including NSAIDs. Monitor labs. Assessment & Plan (06/25/2024 4:08 PM CDT): Avoid nephrotoxic drugs including NSAIDs. Monitor labs. Assessment & Plan (04/02/2024 4:41 PM BOOK AGENT): Avoid nephrotoxic drugs including NSAIDs. Monitor labs. [...] labs. Assessment & Plan (03/15/2023 3:10 PM BOOK AGENT): Avoid nephrotoxic drugs including NSAIDs. Monitor labs. [...] [facility] well as at [facility]. Today she comes in and is on Seroquel 25 mg HS. Try to evaluate her depression and she denies any depression symptoms. Encouraged her brother to keep a close eye on symptoms and call if there are any problems. Assessment & Plan (03/15/2023 3:12 PM BOOK AGENT): Patient has anxiety. She also has difficulty sleeping continue the Remeron 15 mg HS Assessment & Plan (02/14/2019 9:03 PM CDT): Continue the Wellbutrin and Effexor. Moderate episode of recurrent major depressive d isorder 09/24/2018 Assessment & Plan (07/17/2024 12:19 AM CDT): Depression symptoms are stable with the Remeron 15 mg daily Assessment & Plan (06/25/2024 4:08 PM CDT): Continue Remeron 15 mg. Symptoms seem stable. Assessment & Plan (04/02/2024 4:41 PM BOOK AGENT): Symptoms are stable with the Remeron 15. Assessment & Plan (11/21/2023 9:11 PM CDT): Patient with known depression anxiety. She has been on Remeron in the past prior to hospitalization. It appears as though she has psychiatric evaluations while at [facility] as well as at [facility]. Today she comes in and is [...] mg Assessment & Plan (03/16/2021 10:46 PM BOOK AGENT): Her depression anxiety seem a little bit [...] (02/14/2019 9:05 PM CDT): EMG done at [place]. Showed ulnar neuropathy. Prefers to see Ortho in [place]. Hemiparesis affecting right side as late effect of stroke 12/23/2017 Assessment & Plan (04/02/2024 4:41 PM BOOK AGENT): Hemiparesis affecting the right side. She declines [...] surgery is not indicated at this point. Resolved Problems Problem Noted Date Diagnosed Date Resolved Date Medicare annual wellness visit, subsequent 04/02/2024 06/25/2024 Assessment & Plan (04/02/2024 4:43 PM BOOK AGENT): Encouraged healthy lifestyle, good nutrition and exercise. Encouraged Calcium and Vitamin D and weight bearing exercise for bone health. Reviewed immunizations. Reviewed age appropirate screenings. Medicare Wellness Documentation is completed within the chart Fatigue 01/23/2024 06/25/2024 Assessment & Plan (04/02/2024 4:42 PM BOOK AGENT): Probably multifactorial. Check labs and followup to re-evaluate Assessment & Plan (01/23/2024 12:55 AM CDT): Probably multifactorial. Check labs and followup to re-evaluate BMI 22.0-22.9, adult 01/10/2024 024 Assessment & Plan (01/10/2024 2:34 PM CDT): Weight/BMI is in healthy range. Continue healthy lifestyle to maintain. Seizure-like activity 09/29/20232023 Syncope and collapse 09/29/2023 Mitral valve insufficiency 09/09/2023 0 07/17/2024 Altered mental status 08/19/2023 06/06/ 2024 Infective endocarditis 08/13/202311/20 Assessment & Plan (09/24/2023 [...] will have preoperative evaluation on 09/19 at [facility], then plan for surgical intervention on [...] to get it done today at the [facility] up the road. Reminded her she [...] 24 Assessment & Plan (03/15/2023 2:13 PM BOOK AGENT): Weight/BMI is in healthy range. Continue healthy [...] 023 Assessment & Plan (06/08/2022 10:20 AM BOOK AGENT): Weight/BMI is in healthy range. Continue healthy lifestyle. Flu vaccine need 02/15/2022 08/10/2023 Assessment & Plan (02/15/2022 4:15 PM CDT): Flu vaccine updated in the office today BMI 25.0-25.9,adult 02/15/2022 06/08/19 23 Assessment & Plan (02/15/2022 4:15 PM CDT): Weight/BMI is in healthy range. Continue healthy lifestyle to maintain. Diabetes mellitus screening 11/16/2021 08/10/2023 Assessment & Plan (07/08/2023 4:45 PM CDT): Check labs Assessment & Plan (03/15/2023 3:13 PM BOOK AGENT): Check labs Assessment & Plan (11/16/2021 2:50 PM CDT): Check labs Fatigue 11/16/2021 08/10/2023 Assessment & Plan (07/08/2023 5:04 PM CDT): Probably multifactorial. Check labs and followup to re-evaluate Assessment & Plan (07/08/2023 4:45 PM CDT): Probably multifactorial. Check labs and followup to re-evaluate Assessment & Plan (03/15/2023 3:13 PM BOOK AGENT): Probably multifactorial. Check labs and followup to [...] 07/16/19 Assessment & Plan (02/27/2021 1:38 PM BOOK AGENT): Weight/BMI is in healthy range. Continue healthy [...] 04/02/2024 Assessment & Plan (03/15/2023 3:12 PM BOOK AGENT): Assessment & Plan (11/16/2021 2:50 PM CDT): Continue levothyroxine. Monitor labs. Assessment & Plan (01/13/2021 9:34 PM CDT): ? History of subclinical hyperthyroid. Recheck labs. Annual physical exam 01/13/2021 024 Assessment & Plan (03/15/2023 3:12 PM BOOK AGENT): Encouraged healthy lifestyle, good nutrition and exercise. [...] major depressive d isorder, in full remission 06/07/2017 04/02/2024 Migraine 03/20/2016 06/25/2024 Immunizations Immunization Administration Dates Next Due Influenza, Quadrivalent, Spl it, Preservative Free, Intramuscular 01/21/2022,01/20/2021,01/02/2020,02/14 Influenza, Trivalent, Preser vative Free, Intramuscular 02/16/2024 Influenza, Unspecified 04/19/2024(Deferred: Wild[place] ent Refused) PPD TEST 09/08/2023,08/26/2023 Tdap 09/08/2016 Social History Tobacco Use Types Packs/Day Years Used Date Smoking Tobacco: Former Cigarettes 0.1 15 0 07/07/2007 - 07/06/2022 Smokeless Tobacco: Never Tobacco Cessation:Counseling Given: Not Answered Comments:5-10 cigaretts/day Alcohol Use Standard Drinks/Week Comments No 0 (1 standard drink = 0.6 oz pur e alcohol) [facility] Utilities Answer Date Recorded In the past 12 months has e Enduring Hydro, gas, oil, or water [employer] threatened to shut off services in your [...] often do you attend chur ch or adventist services? Patient unable to answer 09/29/2023 Do you belong to any clubs o r organizations such as moravian groups, unions, fraternal or athletic groups, or [...] you have a drink containing alcohol? Never 07/03/2024 Q2: How many drinks containi ng alcohol do you have on a typical day when you are drinking? Patient does not drink Q3: How often do you have si x or more drinks on one occasion? Never 07/03/2024 Overall Financial Resource Strain (CARDIA) Answe r Date Recorded How hard is it for you to pa y for the very basics like food, housing, medical care, and heating? Patient unable to answer 09/29/2023 PHQ-2 Answer Date Recorded PHQ-2 Total Score (If total score is 3 or more points, staff should administer the PHQ-9) 0 07/03/2024 Hunger Vital Sign Answer Date Recorded Within [...] place to sleep or slept in a longterm (including now)? No 08/13/2023 PHQ-9 Answer Date [...] any time in the past 12 m [facility], were you homeless or living in a longterm (including now)? 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 on file time signal [employer] Not on file Not on file Not on file Last Filed Vital Signs Vital Sign Reading Time Taken Comments Blood Pressure 106/66 07/17/2024 11:31 AM CDT Pulse 50 07/17/2024 11:31 AM CDT Temperature 36.5 C (97.7 F) 07/03/2024 11:35 AM CDT Respiratory Rate 19 03/01/2024 1:40 PM BOOK AGENT Oxygen Saturation 95% 07/17/2024 11:31 AM CDT Inhaled Oxygen Concentration - - Weight 66.9 kg (147 lb 6.4 oz) 07/17/2024 11:31 AM CDT Height 162.6 cm (5' 4 ) 07/17/2024 11:31 AM CDT Body Mass Index 25.3 07/17/2024 11:31 AM CDT Plan of Treatment Not on file Medical Devices Implanted Type Area Cardiac Exercise Physiologist Device Identifier Shelf Expiration Date Model / Serial / Lot Atricure Device Closure Atriclip Nitinol Titanium Polyester 45 D L45mm L6cm Flexible Shaft Plunger Superintendent Distribution Left Atrial Appendage Exclusion System [id number] - [id number] Implanted:Qty: 1 on 09/27/2023 by Andrew Calabrese MD at [facility] Clip N/A: Heart Atricure [id number] / / [employer] Valve Coronary Mitral Tissue Bioprosthesis Mitris Resilia 27mm [id number] - [id number] - [id number] Implanted:Qty: 1 on 09/27/2023 by Andrew Calabrese MD at [facility] Prosthetic Valve N/A: Heart [employer] 03/03/2027 [id number] / [id number] / Synthes Cable Bone Fixation Zipfix Stainless Steel .[id number] - [id number] Implanted:Qty: 3 on 09/27/2023 by Andrew Calabrese MD at [facility] Wire N/A: Sternum Synthes I 02/16/2027 08.501.0 01.20S / / [id number] [id number] Device Closure Vascade Od5 Fr Femoral Artery [id number] - [id number] Implanted:Qty: 1 on 08/23/2023 by Rachael Oglesby MD at [facility] [employer] 04/28/2025 [id number] / / [id number] Procedures Procedure Name Priority Date/Time Associated Diagnosis Comments ELECTROCARDIOGRAM REPORT Routine 025 3:46 PM CDT Heart failure with preserved ejection fraction, unspecified HF chronicity (HCC) POCT LIPID PANEL Routine 07/17/2024 2:49 PM CDT Mixed hyperlipidemia SCAN - NEUROLOGY 06/14/2024 from Last 3 Months Results * Electrocardiogram Report (07/17/2024 3:46 PM CDT) Rachael Oglesby MD ECG ORDERABLES Niecy l Result * POCT lipid panel (07/17/2024 2:49 PM CDT) Cholesterol, POC N/A mg/dL Comment:GLU = 83 HDL, POC 27 mg/dL Triglycerides, POC 141 mg/dL LDL Cholesterol POC N/A mg/dL Chol/HDL Ratio, POC N/A Non-HDL Cholesterol, POC N/A mg/dL Cholesterol Total, POC N/A mg/dL Capillary blood 07/17/2024 2 :49 PM CDT us Rachael Oglesby MD POINT OF CARE TEST O RDERABLES Final Result * SCAN - NEUROLOGY (06/14/2024) Anatomical Region Laterality Modality Other us Provider Scanning Final Result from Last 3 Months Insurance MEDICARE [employer] [place] MEDICARE SUPPLEMENT MEDICARE [employer] [place] MEDICARE SUPPLEMENT Advance Directives For more information, please contact: [phone] * LIMITED - No CPR (Latest Code [...] 2:29 PM 11/18/2017 8:13 PM Care Teams Architecture Manager Relationship Specialty Start Date End Date Heather Carolina PA [address] [place] [address] PCP - General Internal Medicine 12/24/20 [place] [address] [place] [address] Consulting Physician Internal Medicine 08/25/23 [place] [address] [facility] [address] [place] [address] Consulting Physician Pulmonary Disease 10/04/23 Andrew Calabrese MD [address] [facility] [id number] [place] [address] Surgeon Cardiothoracic Surgery 10/05/23 Cy Mcallister MD [address] [facility] [address] [place] [address] Referring Physician Cardiovascular Disease 10/05/23 Delbert Seweney MD [address] [place] [address] Consulting Physician Neurosurgery 03/20/24
--- OUTSIDE RECORDS SUMMARY | 2024-07-21 08:34 | XMS_ITS | Clinical Summary ---
Author Organization [facility] Address [address] [place] [address] Care Team Providers Care Clinical Haematologist Name Role Phone Heather Carolina Primary Care Provider [phone] Rony Hagan MD Unavailable [phone] Ghanshyam Stringer MD Unavailable Andrew Calabrese MD Unavailable [phone] Cy Mcallister MD Unavailable [phone] Delbert Sweeney MD Unavailable Allergies Active Allergy [...] Neurology in a couple of weeks and [facility] for follow-up seizures. Assessment & Plan (06/25/2024 [...] arrived patient finally agreed to transport to [facility] for further evaluation. Will await their recommendation. Will go ahead and place a referral to Neurology as she will need to establish with a seizure specialist. Will follow up as she discharges home from [facility] pending their recommendation. EMS arrived for transport. She was in stable condition when she left my office Hyperglycemia 04/02/2024 Assessment & Plan (06/25/2024 4:09 PM CDT): Check labs. Orders have been placed prior to this visit Assessment & Plan (04/02/2024 4:43 PM COMMUNICATIONS TOWER CLIMBER): Pre-diabetes/hyperglycemia is a precursor to Dm. Stressed [...] levels Assessment & Plan (04/02/2024 4:43 PM COMMUNICATIONS TOWER CLIMBER): Check labs BMI 24.0-24.9, adult 03/20/2024 Assessment & Plan (06/25/2024 4:11 PM CDT): Weight/BMI is in healthy range. Continue healthy lifestyle to maintain. Assessment & Plan (03/20/2024 1:29 PM COMMUNICATIONS TOWER CLIMBER): Weight/BMI is in healthy range. Continue healthy [...] 06/20/2023 Assessment & Plan (04/02/2024 4:42 PM COMMUNICATIONS TOWER CLIMBER): Hemoglobin is up from 8.7 11.6. Will [...] him sheet so she can get it [id number]. Advised this could be contributing to her [...] restarted Assessment & Plan (04/02/2024 4:42 PM COMMUNICATIONS TOWER CLIMBER): Continue to supplement vitamin-D Assessment & Plan [...] statin. Assessment & Plan (03/15/2023 3:13 PM COMMUNICATIONS TOWER CLIMBER): History of CVA. Continue with aspirin statin and controlled blood pressure. Insomnia 03/15/2023 Assessment & Plan (03/15/2023 3:13 PM COMMUNICATIONS TOWER CLIMBER): Continue Remeron 15 mg Gastroesophageal reflux disease [...] p.r.n. Assessment & Plan (06/14/2022 5:50 PM COMMUNICATIONS TOWER CLIMBER): Patient requests a prescription for the omeprazole. It is expensive [id number]. Will see if we can get it covered for her if not discussed good Rx or the Trever Stan Orquideasun's sullivan malik Cigarette smoker 06/08/2022 Assessment & Plan (04/02/2024 4:40 PM COMMUNICATIONS TOWER CLIMBER): I am unsure if patient has completely quit. At times she still says she will have 1 every once in awhile. Continue to encourage complete cessation Assessment & Plan (08/10/2023 6:43 PM CDT): Encouraged smoking cessation. Discussed 3 minutes. Reviewed options for assistance with cessation. Reviewed health and fitness professor sequela associated with smoking. Pt declines assistance at this time but may contact the office at anytime for further help as they desire. Assessment & Plan (07/08/2023 4:45 PM CDT): Encouraged smoking cessation. Discussed 3 minutes. Reviewed options for assistance with cessation. Reviewed health and fitness professor sequela associated with smoking. Pt declines assistance at this time but may contact the office at anytime for further help as they desire. Assessment & Plan (03/15/2023 3:10 PM COMMUNICATIONS TOWER CLIMBER): Encouraged smoking cessation. Discussed 3 minutes. Reviewed options for assistance with cessation. Reviewed health and fitness professor sequela associated with smoking. Pt declines assistance at this time but may contact the office at anytime for further help as they desire. Assessment & Plan (08/16/2022 10:15 AM CDT): Encouraged smoking cessation. Discussed 3 minutes. Reviewed options for assistance with cessation. Reviewed health and fitness professor sequela associated with smoking. Pt declines assistance [...] visit. Assessment & Plan (06/14/2022 5:50 PM COMMUNICATIONS TOWER CLIMBER): Pt desires assistance with cessation. Discussed options [...] b.i.d. Assessment & Plan (04/02/2024 4:42 PM COMMUNICATIONS TOWER CLIMBER): Bp is stable/in acceptable range for any [...] 5 Assessment & Plan (03/15/2023 3:11 PM COMMUNICATIONS TOWER CLIMBER): Bp is stable/in acceptable range for any [...] 01/13/2021 Assessment & Plan (04/02/2024 4:40 PM COMMUNICATIONS TOWER CLIMBER): Patient has osteo Pedia. She had difficulty [...] exercise Assessment & Plan (03/15/2023 3:11 PM COMMUNICATIONS TOWER CLIMBER): Patient has osteoporosis. She refuses DEXA and [...] call the office and speak with my YEAST WASHER. Her notice as follows Spoke to pt [...] 40 Assessment & Plan (04/02/2024 4:42 PM COMMUNICATIONS TOWER CLIMBER): Encouraged patient to follow low fat/low chol [...] 40 Assessment & Plan (03/15/2023 3:12 PM COMMUNICATIONS TOWER CLIMBER): Encouraged patient to follow low fat/low chol [...] screening Assessment & Plan (03/15/2023 3:12 PM COMMUNICATIONS TOWER CLIMBER): Patient refuses mammogram. Reviewed importance of early [...] screening. Assessment & Plan (03/15/2023 3:12 PM COMMUNICATIONS TOWER CLIMBER): Patient refuses colonoscopy. Reviewed importance of early [...] . Assessment & Plan (04/02/2024 4:42 PM COMMUNICATIONS TOWER CLIMBER): 2018----> history of multifocal strokes (left frontal, [...] stroke. She is followed with Neurology at [facility] in has been offered [...] overwhelmed. She has followed with Neurology at [facility]. We have both offered multiple times cognitive therapy and she is declined. 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 My YEAST WASHER was able to correct the medication issues [...] this as the services are only in [place]. Assessment & Plan (08/10/2021 3:57 PM CDT): [...] type of therapy that is available at [facility]. She states she cannot get to [facility] she does not have anyone to help with reds. Discussed with her utilizing liver service or medical card and initially extremely hesitant to even consider but provided the idea of maybe doing a new bur with a friend go over to [place] and have dinner and then come back so that she can practice doing it to see if she feels more comfortable in utilizing that type of service. She was encouraged by that thought and will give it a try. When she feels comfortable considering the referral to [place] she will give us a call so [...] labs. Assessment & Plan (04/02/2024 4:41 PM COMMUNICATIONS TOWER CLIMBER): Avoid nephrotoxic drugs including NSAIDs. Monitor labs. [...] labs. Assessment & Plan (03/15/2023 3:10 PM COMMUNICATIONS TOWER CLIMBER): Avoid nephrotoxic drugs including NSAIDs. Monitor labs. [...] though she has psychiatric evaluations while at [facility] as well as at [facility]. Today she comes in and is on Seroquel 25 mg HS. Try to evaluate her depression and she denies any depression symptoms. Encouraged her brother to keep a close eye on symptoms and call if there are any problems. Assessment & Plan (03/15/2023 3:12 PM COMMUNICATIONS TOWER CLIMBER): Patient has anxiety. She also has difficulty [...] stable. Assessment & Plan (04/02/2024 4:41 PM COMMUNICATIONS TOWER CLIMBER): Symptoms are stable with the Remeron 15. Assessment & Plan (11/21/2023 9:11 PM CDT): Patient with known depression anxiety. She has been on Remeron in the past prior to hospitalization. It appears as though she has psychiatric evaluations while at [facility] as well as at [facility]. Today she comes in and is [...] mg Assessment & Plan (03/16/2021 10:46 PM COMMUNICATIONS TOWER CLIMBER): Her depression anxiety seem a little bit [...] (02/14/2019 9:05 PM CDT): EMG done at [facility]. Showed ulnar neuropathy. Prefers to see Ortho in [place]. Hemiparesis affecting right side as late effect of stroke 12/23/2017 Assessment & Plan (04/02/2024 4:41 PM COMMUNICATIONS TOWER CLIMBER): Hemiparesis affecting the right side. She declines [...] 06/25/2024 Assessment & Plan (04/02/2024 4:43 PM COMMUNICATIONS TOWER CLIMBER): Encouraged healthy lifestyle, good nutrition and exercise. Encouraged Calcium and Vitamin D and weight bearing exercise for bone health. Reviewed immunizations. Reviewed age appropirate screenings. Medicare Wellness Documentation is completed within the chart Fatigue 01/23/2024 06/25/2024 Assessment & Plan (04/02/2024 4:42 PM COMMUNICATIONS TOWER CLIMBER): Probably multifactorial. Check labs and followup to re-evaluate Assessment & Plan (01/23/2024 12:55 AM CDT): Probably multifactorial. Check labs and followup to re-evaluate BMI 22.0-22.9, adult 01/10/2024 024 Assessment & Plan (01/10/2024 2:34 PM CDT): Weight/BMI is in healthy range. Continue healthy lifestyle to maintain. Seizure-like activity 09/29/20232023 Syncope and collapse 09/29/2023 024 Mitral valve insufficiency 09/09/2023 0 07/17/2024 Altered mental status 08/19/20232023 Infective endocarditis 08/13/202311/20 Assessment & Plan (09/24/2023 1:48 PM CDT): Cont IV atb vancomycin and cefepime Assessment & Plan (09/23/2023 12:30 PM CDT): Affecting the mitral valve. Abx completed. DCP 09/23. Preop eval 09/19 stable, surgical intervention planned for 09/26 at [facility]. Pre-op orders placed. ASA does not need [...] will have preoperative evaluation on 09/19 at [facility], then plan for surgical intervention [...] today at the [facility] up the road. Reminded her she get [...] 24 Assessment & Plan (03/15/2023 2:13 PM COMMUNICATIONS TOWER CLIMBER): Weight/BMI is in healthy range. Continue healthy [...] 023 Assessment & Plan (06/08/2022 10:20 AM COMMUNICATIONS TOWER CLIMBER): Weight/BMI is in healthy range. Continue healthy [...] labs Assessment & Plan (03/15/2023 3:13 PM COMMUNICATIONS TOWER CLIMBER): Check labs Assessment & Plan (11/16/2021 2:50 PM CDT): Check labs Fatigue 11/16/2021 08/10/2023 Assessment & Plan (07/08/2023 5:04 PM CDT): Probably multifactorial. Check labs and followup to re-evaluate Assessment & Plan (07/08/2023 4:45 PM CDT): Probably multifactorial. Check labs and followup to re-evaluate Assessment & Plan (03/15/2023 3:13 PM COMMUNICATIONS TOWER CLIMBER): Probably multifactorial. Check labs and followup to [...] 22 Assessment & Plan (02/27/2021 1:38 PM COMMUNICATIONS TOWER CLIMBER): Weight/BMI is in healthy range. Continue healthy [...] 04/02/2024 Assessment & Plan (03/15/2023 3:12 PM COMMUNICATIONS TOWER CLIMBER): Assessment & Plan (11/16/2021 2:50 PM CDT): Continue levothyroxine. Monitor labs. Assessment & Plan (01/13/2021 9:34 PM CDT): ? History of subclinical hyperthyroid. Recheck labs. Annual physical exam 01/13/2021 024 Assessment & Plan (03/15/2023 3:12 PM COMMUNICATIONS TOWER CLIMBER): Encouraged healthy lifestyle, good nutrition and exercise. [...] to recheck bp. Recurrent major depressive d eze, in full remission 06/07/2017 04/02/2024 Migraine 03/20/2016 06/25/2024 Encounters Date Type Department Care Team Description 07/17/2024 11:45 AM CDT Office Visit [facility] Cardiology [address] [facility] [address] [place] [phone] Rachael Oglesby MD H/O mitral valve replacement (Primary Dx); Heart failure with preserved ejection fraction, unspecified HF chronicity (HCC); Mixed hyperlipidemia; Dyspnea on exertion; History of endocarditis 07/03/2024 11:30 AM CDT Office Visit [address] [place] [phone] Heather Carolina PA Seizure disorder (HCC) (Primary Dx); 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; Mixed hyperlipidemia; Moderate episode of recurrent major depressive disorder (HCC); Stage 3b chronic kidney disease (HCC); BMI 25.0-25.9,adult 06/19/[address] [place] [phone] Heather Carolina PA 06/15/[address] [place] [phone] Heather Carolina PA ZULEYMA Questions 06/14/2024 Orders Only [facility] Health Information Management [address] [place] [address] Scanning, Provider 06/13/2024 8:00 AM COMMUNICATIONS TOWER CLIMBER Office Visit [address] [place] [phone] Heather Carolina PA Seizure disorder (HCC) [...] of stroke; BMI 24.0-24.9, adult 06/12/2024 Telephone [facility] [address] [facility] [address] [place] [address] Heather Carolina PA Appointment Request from Last 3 Months Immunizations Immunization Administration [...] regurgitation Heart failure with preserved ejection fraction (HCC) Thrombocytopenia Pulmonary embolism without a cute cor pulmonale (HCC) Chronic anticoagulation Hyperthyroidism GERD (gastroesophageal reflux disease) Chronic kidney disease Anxiety Depression Arthritis Insomnia Hemiparesis affecting right side as late effect of stroke (HCC) Cervical disc disorder with myelopathy of mid-cervical region Residual cognitive deficit a s late effect of stroke Mitral valve insufficiency Delayed emergence from general anesthesia TIA (transient ischemic attack) has had several Aneurysm Family History Medical History Relation Name Comments [...] drink = 0.6 oz pur e alcohol) [facility] Utilities Answer Date Recorded In the [...] often do you attend chur ch or catholic services? 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 on file Not on file Not on file Obstetrics History Last Filed Vital Signs Vital Sign Reading Time Taken Comments Blood Pressure 106/66 07/17/2024 11:31 AM CDT Pulse 50 07/17/2024 11:31 AM CDT Temperature 36.5 C (97.7 F) 07/03/2024 11:35 AM CDT Respiratory Rate 19 03/01/2024 1:40 PM COMMUNICATIONS TOWER CLIMBER Oxygen Saturation 95% 07/17/2024 11:31 AM CDT Inhaled Oxygen Concentration - - Weight 66.9 kg (147 lb 6.4 oz) 07/17/2024 11:31 AM CDT Height 162.6 cm (5' 4 ) 07/17/2024 11:31 AM CDT Body Mass Index 25.3 07/17/2024 11:31 AM CDT Plan of Treatment Health Maintenance Due [...] 03/15/2023, 01/21/2022, Additional history exists Depression Screening 07/03/2025 07/03/2024, 06/13/2024, 03/20/2024, Additional history exists DTaP/Tdap/Td Vaccine (2 - Td or Tdap) 09/08/2026 09/08/2016 Influenza Vaccine Completed 02/16/2024, , 01/20/2021, Additional history exists Medical Devices Implanted Type Area Night Court Magistrate Device Identifier Shelf Expiration Date Model / Serial / Lot Atricure Device Closure Atriclip Nitinol Titanium Polyester 45 D L45mm L6cm Flexible Shaft Plunger Physiotherapy Assistant Left Atrial Appendage Exclusion System [id number] - [id number] Implanted:Qty: 1 on 09/27/2023 by Andrew Calabrese MD at [facility] Clip N/A: Heart Atricure [id number] / / [employer] Valve Coronary Mitral Tissue Bioprosthesis Mitris Resilia 27mm [id number] - [id number] - [id number] Implanted:Qty: 1 on 09/27/2023 by Andrew Calabrese MD at [facility] Prosthetic Valve N/A: Heart [employer] 03/03/2027 [id number] / [id number] / Synthes Cable Bone Fixation Zipfix Stainless Steel .501.001.20s - [id number] Implanted:Qty: 3 on 09/27/2023 by Andrew Calabrese MD at [facility] Wire N/A: Sternum Synthes I 02/16/2027 08.501.0 .20S / / [id number] apiOmat Device Closure Vascade Od5 Fr Femoral Artery [id number] - [id number] Implanted:Qty: 1 on 08/23/2023 by Rachael Oglesby MD at [facility] Comp[employer]ium [employer] 04/28/2025 [id number] / / [id number] Procedures Procedure Name Priority Date/Time Associated [...] Capillary blood 07/17/2024 2 :49 PM CDT Rachael Oglesby MD POINT OF CARE TEST O RDERABLES Final Result * SCAN - NEUROLOGY (06/14/2024) Anatomical Region Laterality Modality Other Provider Scanning Final Result from Last 3 Months Insurance MEDICARE [facility] MEDICARE SUPPLEMENT MEDICARE [facility] MEDICARE SUPPLEMENT Advance Directives For more information, please contact: [phone] * LIMITED - No CPR (Latest Code [...] 2:29 PM 11/18/2017 8:13 PM Care Teams Clinical Haematologist Relationship Specialty Start Date End Date Heather Carolina PA [address] [facility] [address] [place] [address] PCP - General Internal Medicine 12/24/20 [place] [address] [place] [address] Consulting Physician Internal Medicine 08/25/23 [place] [address] [facility] [address] [place] [address] Consulting Physician Pulmonary Disease 10/04/23 Andrew Calabrese MD [address] [facility] [id number] [place] [address] Surgeon Cardiothoracic Surgery 10/05/23 Cy Mcallister MD [address] [facility] [address] [place] [address] Referring Physician Cardiovascular Disease 10/05/23 Delbert Sweeney MD [address] [place] [address] Consulting Physician Neurosurgery 03/20/24
--- OUTSIDE RECORDS SUMMARY | 2024-07-21 08:34 | XMS_ITS | Clinical Summary ---
Author Organization [facility] Address [address] [place] [address] Care Team Providers Care Molding Manager Name Role Phone Yesenia Dickinson MD Unavailable [phone] Allergies Active Allergy Reactions Criticality Noted Date [...] major depressive disorder, without psychotic features (CMS/HCC HHS/HCC) Take 1 tablet (7.5 mg total) by [...] week to recheck bp. Chronic kidney disease (CKD), stage III (moderat e) 09/24/2018 Overview (07/04/2019): Last Assessment & Plan: Avoid nephrotoxic drugs including NSAIDs. Monitor labs. History of CVA (cerebrovascular accident) 2018 Overview (07/04/2019): Overview: 2018 Last Assessment & Plan: No change. Continue ASA, statin and control bp Moderate episode of recurrent major depressive d isorder 09/24/2018 Overview (07/04/2019): Last Assessment & Plan: [...] right side as late effect of stroke ([facility]HCC [facility]) 12/23/2017 Immunizations Name Administration Dates Next [...] this topic Insurance BLUE CROSS BLUE SHIELD BLUE CROSS BLUE SHIELD Member Subscriber Plan / Payer (Ef fective 2019-Present) Name:Janelle Elias Relation to Subscriber:Self Name:JaElias mcnair Payer ID:Not on file Type:Not on file Address: [address] [place] [id number] Care Teams Molding Manager Relationship Specialty Start Date End Date Yesenia Dickinson MD [address] [address] NEUROLOGY 12/18/17
--- OUTSIDE RECORDS SUMMARY | 2024-07-21 08:34 | XMS_ITS | Encounter Summary ---
Author Organization [facility] Address [address] [place] [address] Care Team Providers Care Fruit Coordinator Name Role Phone Heather Carolina Primary Care Provider [phone] Rony Hagan MD Unavailable [phone] Zulay Garland LPN Unavailable [phone] Ghanshyam Stringer MD Unavailable [phone] Andrew Calabrese MD Unavailable [phone] Cy Mcallister MD Unavailable [phone] Delbert Sweeney MD Unavailable [phone] Encounter Details Date Type Department Care Team (Late st Contact Info) Description 08/03/2023 Orders Only [facility] Health Information Management [address] [place] [address] Scanning, Provider Social History Tobacco Use [...] Date Recorded PHQ-2 Total Score 20 07/29/2023 PHQ-9 Answer Date Recorded PHQ-9 Total Score [...] on file Not on file 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 study 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 retail Not on file Not on file [...] on filedocumented in this encounter Care Teams Fruit Coordinator Relationship Specialty Start Date End Date Heather Carolina PA [address] [place] [address] PCP - General Internal Medicine 12/24/20 [place] [address] [place] [address] Consulting Physician Internal Medicine 08/25/23 Zulay Galrand LPN [address] [facility] [address] [place] [address] Rod Cup Filler 09/27/23 11/22/23 [place] [address] [facility] [address] [place] [address] Consulting Physician Pulmonary Disease 10/04/23 Andrew Calabrese MD [address] [facility] [id number] [place] [address] Surgeon Cardiothoracic Surgery 10/05/23 Cy Mcallister MD [address] [facility] [address] [place] [address] Referring Physician Cardiovascular Disease 10/05/23 Delbert Sweeney MD [address] [place] [address] Consulting Physician Neurosurgery 03/20/24 documented as of this encounter
[2024-07-21 08:55] LABS: Basophils Percent Auto 0.6 % (0.2-1.2); Eosinophils Absolute Auto 0.1 K/mm3 (0-0.3); Hematocrit 36.5 % (37.0-47.0); Hemoglobin 11.6 g/dL (12.0-15.0); Immature Granulocyte Absolute 0.02 K/mm3 (0.00-0.031); Immature Granulocyte Percent A 0.4 % (0-0.5); Immature Platelet Fraction Pct 4.6 % (0.9-11.2); Lymphocytes Absolute Auto 0.78 K/mm3 (0.9-3.2); Lymphocytes Percent Auto 16.7 % (18.3-44.2); Mean Corpuscular HGB Conc 31.8 g/dl (32-36); Mean Corpuscular Hemoglobin 30.1 pg (26-34); Mean Corpuscular Volume 94.8 fl (80-100); Mean Platelet Volume 10.8 fl (7.4-10.4); Monocytes Absolute Auto 0.3 K/mm3 (0.1-0.6); Neutrophils Absolute Auto 3.4 K/mm3 (1.3-6.7); Neutrophils Percent Auto 73.3 % (45.5-73.1); Platelet Count Result 88 k/mm3 (150-375); Red Blood Count 3.85 M/mm3 (4.2-5.4); Red Cell Distribution Width 12.9 % (11.5-14.5); White Blood Count 4.7 K/mm3 (4.5-10.0)
== END 2024-07-21 08:26 | disposition home or self-care (01) ==
PROVIDERS: PCP Physician Assistant; Visit Provider Psychiatry & Neurology Neurology
DX: R56.9 Unspecified convulsions (principal); Z86.73 Personal history of transient ischemic attack (TIA), and cerebral infarction without residual deficits
CPT/HCPCS: 36415; 80177; 85025; 85055

== ENCOUNTER 2024-08-14 10:49 | Emergency (ER) | payer MEDICARE, SELFPAY ==
--- NOTE | ~2024-08-14 | XR_ITS ---
EXAMINATION: XR wrist RT 2V DATE: 08/14/2024 14:56 INDICATION: Right wrist pain post fall TECHNIQUE: Posteroanterior and lateral views of the right wrist were obtained. COMPARISON: 12/11/2013 FINDINGS: Internal fixation of an old healed distal radial fracture which has healed with 7 degrees dorsal tilt of the distal articular surface. No lucency surrounding the fixation screws to suggest loosening or infection. Chronic nonunited ulnar styloid avulsion fracture. No new fractures identified. 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 Mild soft tissue swelling at th e dorsal aspect of the carpus. IMPRESSION: 1. Old healed internally fixed distal radial fracture and chronic nonunited ulnar styloid avulsion fr acture. No acute osseous abnormality. Reviewed, dictated and finalized at location B. IMPRESSION: 1. Old healed internally fixed distal radial fracture and chronic nonunited uln ar styloid avulsion fracture. No acute osseous abnormality.
--- NOTE | ~2024-08-14 | XR_ITS ---
EXAMINATION: XR elbow RT 2V DATE: 08/14/2024 14:56 INDICATION: Right elbow pain post fall TECHNIQUE: Anteroposterior and lateral views of the right elbow were obtained. COMPARISON: None. FINDINGS: There is no oblique fracture extending from the intercondylar distal right humerus to the medial epic ondyle. The medial condylar fragment is displaced medially and rotated the decrease with the articula r surface directed laterally. No other fractures identified. There is prominent soft tissue swelling about the elbow as well as an elbow joint effusion. IMPRESSION: 1. Intra-articular fracture of the distal right humerus with lateral displacement and 90 degree later al rotation of the medial condylar fragment. Reviewed, dictated and finalized at location B. IMPRESSION: 1. Intra-articular fracture of the distal right humerus with lateral displaceme nt and 90 degree lateral rotation of the medial condylar fragment.
[2024-08-14 11:00] VITALS: BP 118/70; PULSE 90; RESP 18; TEMP 36.4; O2SAT 100
--- OUTSIDE RECORDS SUMMARY | 2024-08-14 12:37 | XMS_ITS | Encounter Summary ---
Author Organization [facility] Healthcare Address [address] [place] [address] Care Team Providers Care Publication Specialist Name Role Phone Heather Carolina Primary Care Provider +- [phone] Rony Hagan MD Unavailable [phone] Ghanshyam Stringer MD Unavailable [phone] Andrew Calabrese MD Unavailable [phone] Cy Mcallister MD Unavailable [phone] Delbert Sweeney MD Unavailable [phone] Encounter Details Date Type Department Care Team (Late st Contact Info) Description 06/14/2024 Orders Only [facility] Health Information Management [address] [place] [id number] Scanning, Provider Social History Tobacco Use Types Packs/Day Years Used Date Smoking Tobacco: Former Cigarettes 0.1 15 0 07/07/2007 - 07/06/2022 Smokeless Tobacco: Never Comments:5-10 cigaretts/day Alcohol Use Standard Drinks/Week Comments No 0 (1 standard drink = 0.6 oz pur e alcohol) [facility] Utilities Answer Date Recorded In the past 12 months has [employer], gas, oil, or water company threatened to [...] How often do you attend chur or evangelical services? Patient unable to answer 09/29/2023 Do you belong to any clubs o r organizations such as presybeterian groups, unions, fraternal or athletic groups, or [...] place to sleep or slept in a long term (including now)? No 08/13/2023 PHQ-9 Answer Date [...] any time in the past 12 m [facility], were you homeless or living in a long term (including now)? 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 on file Not on file [...] on filedocumented in this encounter Care Teams Publication Specialist Relationship Specialty Start Date End Date Heather Carolina PA [address] [facility] [address] [place] [address] PCP - General Internal Medicine 12/24/20 [place] [address] [place] [address] Consulting Physician Internal Medicine 08/25/23 [place] [address] [place] [address] Consulting Physician Pulmonary Disease 10/04/23 Andrew Calabrese MD [address] [facility] [id number] [place], [place] [id number] Surgeon Cardiothoracic Surgery 10/05/23 Cy Mcallister MD [address] [place] [address] Referring Physician Cardiovascular Disease 10/05/23 Delbert Sweeney MD [address] [place] [address] Consulting Physician Neurosurgery 03/20/24 documented as of this encounter
--- OUTSIDE RECORDS SUMMARY | 2024-08-14 12:37 | XMS_ITS | Encounter Summary ---
Author Organization [facility] Healthcare Address [address] [place] [address] Care Team Providers Care Plastic Parts Fabricator Trimmer Name Role Phone Heather Carolina Primary Care Provider +- [phone] Rony Hagan MD Unavailable [phone] Ghanshyam Stringer MD Unavailable Andrew Calabrese MD Unavailable [phone] Cy Mcallister MD Unavailable [phone] Delbert Sweeney MD Unavailable [phone] Encounter Details Date Type Department Care Team (Late st Contact Info) Description 08/08/2024 Results Follow-Up [facility] Medical Group Cardiology [address] [place] [address] Rachael Oglesby MD [address] [place] [id number] Social History Tobacco Use Types Packs/Day Years Used Date Smoking Tobacco: Former Cigarettes 0.1 15 0 07/07/2007 - 07/06/2022 Smokeless Tobacco: Never Comments:5-10 cigaretts/day Alcohol Use Standard Drinks/Week Comments No 0 (1 standard drink = 0.6 oz pur e alcohol) [facility] Utilities Answer Date Recorded In the past 12 months has e electric, gas, oil, or water company [...] often do you attend chur ch or mosque services? Patient unable to answer 09/29/2023 Do you belong to any clubs o r organizations such as lutheran groups, unions, fraternal or athletic groups, or [...] place to sleep or slept in a detention (including now)? No 08/13/2023 PHQ-9 Answer Date [...] were you homeless or living in a detention (including now)? 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 Not on file Not on file documented as of this encounter Plan of Treatment Not on file documented as of this encounter Visit Diagnoses Not on filedocumented in this encounter Care Teams Plastic Parts Fabricator Trimmer Relationship Specialty Start Date End Date Heather Carolina PA [address] [facility] [address] [place] [address] PCP - General Internal Medicine 12/24/20 [place] [address] [place] [address] Consulting Physician Internal Medicine 08/25/23 [place] [address] [place] [address] Consulting Physician Pulmonary Disease 10/04/23 Andrew Calabrese MD [address] [facility] [id number] [place] [address] Surgeon Cardiothoracic Surgery 10/05/23 Cy Mcallister MD [address] [place] [address] Referring Physician Cardiovascular Disease 10/05/23 Delbert Sweeney MD [address] [place] [address] Consulting Physician Neurosurgery 03/20/24 documented as of this encounter
--- OUTSIDE RECORDS SUMMARY | 2024-08-14 12:37 | XMS_ITS | Encounter Summary ---
Author Organization [facility] Healthcare Address [address] [place] [address] Care Team Providers Care Bladder Cleaner Name Role Phone Heather Carolina Primary Care Provider +- [phone] Rony Hagan MD Unavailable [phone] Zulay Garland LPN Unavailable [phone] Ghanshyam Stringer MD Unavailable Andrew Calabrese MD Unavailable [phone] Cy Mcallister MD Unavailable Delbert Sweeney MD Unavailable Encounter Details Date Type Department Care Team (Late st Contact Info) Description 08/31/2023 Documentation [facility] Medical Group Post Acute Care of [address] [address] [place], [place] [address] [facility] [address] [address] Social History Tobacco Use Types Packs/Day Years Used Date Smoking Tobacco: Former Cigarettes 0.1 15 0 07/07/2007 - 07/06/2022 Smokeless Tobacco: Never Comments:5-10 cigaretts/day Alcohol Use Standard Drinks/Week Comments No 0 (1 standard drink = 0.6 oz pur e alcohol) [facility] Utilities Answer Date Recorded In the past 12 months has e [employer], gas, oil, or water company threatened to [...] often do you attend chur ch or temple services? 1 to 4 times per year 08/13/2023 Do you belong to any clubs o r organizations such as episcopalian groups, unions, fraternal or athletic groups, or [...] a senior living (including now)? 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 Not on file Not on file documented as of this encounter Plan of Treatment Not on file documented as of this encounter Visit Diagnoses Not on filedocumented in this encounter Care Teams Bladder Cleaner Relationship Specialty Start Date End Date Heather Carolina PA [address] [facility] [address] [place] [address] PCP - General Internal Medicine 12/24/20 [place] [address] [place] [address] Consulting Physician Internal Medicine 08/25/23 Zulay Garland LPN [address] [place] [address] [address] [place] [address] Event Attendant 09/27/23 11/22/23 [place] [address] [address] [facility] [address] [place] [address] Consulting Physician Pulmonary Disease 10/04/23 Andrew Calabrese MD [address] [facility] [id number] [place], [place] [id number] Surgeon Cardiothoracic Surgery 10/05/23 Cy Mcallister MD [address] [facility] [address] [place] [address] Referring Physician Cardiovascular Disease 10/05/23 Delbert Sweeney MD [address] [place], [place] [id number] Consulting Physician Neurosurgery 03/20/24 documented as of this encounter
--- OUTSIDE RECORDS SUMMARY | 2024-08-14 12:37 | XMS_ITS | Clinical Summary ---
Author Organization [facility] Address [address] [place] [address] Care Team Providers Care Fisher Trawl Line Name Role Phone Heather Carolina Primary Care Provider [phone] Rony Hagan MD Unavailable [phone] Ghanshyam Stringer MD Unavailable Andrew Calabrese MD Unavailable [phone] Cy Mcallister MD Unavailable Delbert Sweeney MD Unavailable [phone] Allergies Active Allergy Reactions Criticality Noted Date [...] Neurology in a couple of weeks and [facility] for follow-up seizures. Assessment & Plan [...] arrived patient finally agreed to transport to [facility] for further evaluation. Will await their recommendation. Will go ahead and place a referral to Neurology as she will need to establish with a seizure specialist. Will follow up as she discharges home from [facility] pending their recommendation. EMS arrived for transport. She was in stable condition when she left my office Hyperglycemia 04/02/2024 Assessment & Plan (06/25/2024 4:09 PM CDT): Check labs. Orders have been placed prior to this visit Assessment & Plan (04/02/2024 4:43 PM GROUND DEFENCE OFFICER): Pre-diabetes/hyperglycemia is a precursor to Dm. Stressed [...] levels Assessment & Plan (04/02/2024 4:43 PM GROUND DEFENCE OFFICER): Check labs BMI 24.0-24.9, adult 03/20/2024 Assessment & Plan (06/25/2024 4:11 PM CDT): Weight/BMI is in healthy range. Continue healthy lifestyle to maintain. Assessment & Plan (03/20/2024 1:29 PM GROUND DEFENCE OFFICER): Weight/BMI is in healthy range. Continue healthy [...] 06/20/2023 Assessment & Plan (04/02/2024 4:42 PM GROUND DEFENCE OFFICER): Hemoglobin is up from 8.7 11.6. Will [...] him sheet so she can get it [id number]. Advised this could be contributing to her [...] restarted Assessment & Plan (04/02/2024 4:42 PM GROUND DEFENCE OFFICER): Continue to supplement vitamin-D Assessment & Plan [...] statin. Assessment & Plan (03/15/2023 3:13 PM GROUND DEFENCE OFFICER): History of CVA. Continue with aspirin statin and controlled blood pressure. Insomnia 03/15/2023 Assessment & Plan (03/15/2023 3:13 PM GROUND DEFENCE OFFICER): Continue Remeron 15 mg Gastroesophageal reflux disease [...] p.r.n. Assessment & Plan (06/14/2022 5:50 PM GROUND DEFENCE OFFICER): Patient requests a prescription for the omeprazole. It is expensive [id number]. Will see if we can get it covered for her if not discussed good Rx or the Trever Dustin Orquideasun's sullivan malik Cigarette smoker 06/08/2022 Assessment & Plan (04/02/2024 4:40 PM GROUND DEFENCE OFFICER): I am unsure if patient has completely quit. At times she still says she will have 1 every once in awhile. Continue to encourage complete cessation Assessment & Plan (08/10/2023 6:43 PM CDT): Encouraged smoking cessation. Discussed 3 minutes. Reviewed options for assistance with cessation. 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 Pt declines assistance at this time but may contact the office at anytime for further help as they desire. Assessment & Plan (07/08/2023 4:45 PM CDT): Encouraged smoking cessation. Discussed 3 minutes. Reviewed options for assistance with cessation. Reviewed correction sequela associated with smoking. Pt declines assistance at this time but may contact the office at anytime for further help as they desire. Assessment & Plan (03/15/2023 3:10 PM GROUND DEFENCE OFFICER): Encouraged smoking cessation. Discussed 3 minutes. Reviewed options for assistance with cessation. Reviewed correction sequela associated with smoking. Pt declines assistance at this time but may contact the office at anytime for further help as they desire. Assessment & Plan (08/16/2022 10:15 AM CDT): Encouraged smoking cessation. Discussed 3 minutes. Reviewed options for assistance with cessation. 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 Pt declines assistance [...] visit. Assessment & Plan (06/14/2022 5:50 PM GROUND DEFENCE OFFICER): Pt desires assistance with cessation. Discussed options [...] b.i.d. Assessment & Plan (04/02/2024 4:42 PM GROUND DEFENCE OFFICER): Bp is stable/in acceptable range for any [...] 5 Assessment & Plan (03/15/2023 3:11 PM GROUND DEFENCE OFFICER): Bp is stable/in acceptable range for any [...] 01/13/2021 Assessment & Plan (04/02/2024 4:40 PM GROUND DEFENCE OFFICER): Patient has osteo Pedia. She had difficulty [...] exercise Assessment & Plan (03/15/2023 3:11 PM GROUND DEFENCE OFFICER): Patient has osteoporosis. She refuses DEXA and [...] call the office and speak with my VACUUM COOKER OPERATOR. Her notice as follows Spoke to pt [...] 40 Assessment & Plan (04/02/2024 4:42 PM GROUND DEFENCE OFFICER): Encouraged patient to follow low fat/low chol [...] 40 Assessment & Plan (03/15/2023 3:12 PM GROUND DEFENCE OFFICER): Encouraged patient to follow low fat/low chol [...] screening Assessment & Plan (03/15/2023 3:12 PM GROUND DEFENCE OFFICER): Patient refuses mammogram. Reviewed importance of early [...] screening. Assessment & Plan (03/15/2023 3:12 PM GROUND DEFENCE OFFICER): Patient refuses colonoscopy. Reviewed importance of early [...] . Assessment & Plan (04/02/2024 4:42 PM GROUND DEFENCE OFFICER): 2018----> history of multifocal strokes (left frontal, [...] stroke. She is followed with Neurology at [facility] in has been offered cognitive rehab [...] overwhelmed. She has followed with Neurology at [facility]. We have both offered multiple times cognitive therapy and she is declined. 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 My VACUUM COOKER OPERATOR was able to correct the medication issues [...] this as the services are only in [place]. Assessment & Plan (08/10/2021 3:57 PM CDT): [...] type of therapy that is available at [facility]. She states she cannot get to [facility] she does not have anyone to help with reds. Discussed with her utilizing liver service or medical card and initially extremely hesitant to even consider but provided the idea of maybe doing a new bur with a friend go over to [place] and have dinner and then come back so that she can practice doing it to see if she feels more comfortable in utilizing that type of service. She was encouraged by that thought and will give it a try. When she feels comfortable considering the referral to [place] she will give us a call so [...] labs. Assessment & Plan (04/02/2024 4:41 PM GROUND DEFENCE OFFICER): Avoid nephrotoxic drugs including NSAIDs. Monitor labs. [...] labs. Assessment & Plan (03/15/2023 3:10 PM GROUND DEFENCE OFFICER): Avoid nephrotoxic drugs including NSAIDs. Monitor labs. [...] [facility] as well as at [facility]. Today she comes in and is on Seroquel 25 mg HS. Try to evaluate her depression and she denies any depression symptoms. Encouraged her brother to keep a close eye on symptoms and call if there are any problems. Assessment & Plan (03/15/2023 3:12 PM GROUND DEFENCE OFFICER): Patient has anxiety. She also has difficulty [...] stable. Assessment & Plan (04/02/2024 4:41 PM GROUND DEFENCE OFFICER): Symptoms are stable with the Remeron 15. Assessment & Plan (11/21/2023 9:11 PM CDT): Patient with known depression anxiety. She has been on Remeron in the past prior to hospitalization. It appears as though she has psychiatric evaluations while at [facility] as well as at [facility]. Today she comes in and [...] mg Assessment & Plan (03/16/2021 10:46 PM GROUND DEFENCE OFFICER): Her depression anxiety seem a little bit [...] (02/14/2019 9:05 PM CDT): EMG done at [place]. Showed ulnar neuropathy. Prefers to see Ortho in [place]. Hemiparesis affecting right side as late effect of stroke 12/23/2017 Assessment & Plan (04/02/2024 4:41 PM GROUND DEFENCE OFFICER): Hemiparesis affecting the right side. She declines [...] 06/25/2024 Assessment & Plan (04/02/2024 4:43 PM GROUND DEFENCE OFFICER): Encouraged healthy lifestyle, good nutrition and exercise. Encouraged Calcium and Vitamin D and weight bearing exercise for bone health. Reviewed immunizations. Reviewed age appropirate screenings. Medicare Wellness Documentation is completed within the chart Fatigue 01/23/2024 06/25/2024 Assessment & Plan (04/02/2024 4:42 PM GROUND DEFENCE OFFICER): Probably multifactorial. Check labs and followup to [...] will have preoperative evaluation on 09/19 at [facility], then plan for surgical intervention on [...] to get it done today at the [facility] up the road. Reminded her she [...] 24 Assessment & Plan (03/15/2023 2:13 PM GROUND DEFENCE OFFICER): Weight/BMI is in healthy range. Continue healthy [...] 023 Assessment & Plan (06/08/2022 10:20 AM GROUND DEFENCE OFFICER): Weight/BMI is in healthy range. Continue healthy [...] labs Assessment & Plan (03/15/2023 3:13 PM GROUND DEFENCE OFFICER): Check labs Assessment & Plan (11/16/2021 2:50 PM CDT): Check labs Fatigue 11/16/2021 08/10/2023 Assessment & Plan (07/08/2023 5:04 PM CDT): Probably multifactorial. Check labs and followup to re-evaluate Assessment & Plan (07/08/2023 4:45 PM CDT): Probably multifactorial. Check labs and followup to re-evaluate Assessment & Plan (03/15/2023 3:13 PM GROUND DEFENCE OFFICER): Probably multifactorial. Check labs and followup to [...] 22 Assessment & Plan (02/27/2021 1:38 PM GROUND DEFENCE OFFICER): Weight/BMI is in healthy range. Continue healthy [...] 04/02/2024 Assessment & Plan (03/15/2023 3:12 PM GROUND DEFENCE OFFICER): Assessment & Plan (11/16/2021 2:50 PM CDT): Continue levothyroxine. Monitor labs. Assessment & Plan (01/13/2021 9:34 PM CDT): ? History of subclinical hyperthyroid. Recheck labs. Annual physical exam 01/13/2021 024 Assessment & Plan (03/15/2023 3:12 PM GROUND DEFENCE OFFICER): Encouraged healthy lifestyle, good nutrition and exercise. [...] Encounters Date Type Department Care Team Description 08/08/2024 Results Follow-Up [facility]iology [address] [facility] [address] [place] [phone] June Oglesby MD 08/03/2024 11:15 AM CDT Ancillary Procedure [facility] [address] [place] [address] [address] [place] [phone] H/O mitral valve replacement 07/21/2024 Orders Only [facility] Health Information Management [address] [place] [id number] Scanning, Provider 07/17/2024 11:45 AM CDT Office Visit [facility]iology [address] [facility] [address] [place] [phone] June Oglesby MD H/O mitral valve replacement (Primary Dx); Heart failure with preserved ejection fraction, unspecified HF chronicity (HCC); Mixed hyperlipidemia; Dyspnea on exertion; History of endocarditis 07/03/2024 11:30 AM CDT Office Visit [address] [place] [phone] Heather Carolina PA Seizure disorder (HCC) (Primary Dx); 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; Mixed hyperlipidemia; Moderate episode of recurrent major depressive disorder (HCC); Stage 3b chronic kidney disease (HCC); BMI 25.0-25.9,adult 06/19/[address] [place] [phone] Heather Carolina PA 06/15/[address] [place] [address] Heather Carolina PA ZULEYMA Questions 06/14/2024 Orders Only [facility] Health Information Management [address] [place] [address] Scanning, Provider 06/13/2024 8:00 AM GROUND DEFENCE OFFICER Office Visit [facility] [address] [place] [address] [address] [place] [address] Heather Carolina PA Seizure disorder [...] of stroke; BMI 24.0-24.9, adult 06/12/[address] [place] [address] Heather Carolina PA Appointment Request [...] drink = 0.6 oz pur e alcohol) [facility] Utilities Answer Date Recorded In the [...] often do you attend chur ch or zoroastrian services? Patient unable to answer 09/29/2023 Do you belong to any clubs o r organizations such as anabaptist groups, unions, fraternal or athletic groups, or [...] in a correction (including now)? No 08/13/2023 PHQ-9 Answer Date [...] any time in the past 12 [facility], were you homeless or living in a correction (including now)? 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 file Not on file Not on file Obstetrics History Last Filed Vital Signs Vital Sign Reading Time Taken Comments Blood Pressure 106/66 07/17/2024 11:31 AM CDT Pulse 50 07/17/2024 11:31 AM CDT Temperature 36.5 C (97.7 F) 07/03/2024 11:35 AM CDT Respiratory Rate 19 03/01/2024 1:40 PM GROUND DEFENCE OFFICER Oxygen Saturation 95% 07/17/2024 11:31 AM CDT [...] (1 of 2) 08/23/2013 Covid-19 Vaccine ( - 2023-2 5 season) 2023 04/25/2021, 07/19/2020, 06/25/2020 Regular Well Visit/Exam 18-64 03/20/2025, 03/15/2023, 01/21/2022, Additional history exists Depression Screening 07/03/2025 07/03/2024, 06/13/2024, 03/20/2024, Additional history exists DTaP/Tdap/Td Vaccine (2 - Td or Tdap) 09/08/2026 09/08/2016 Influenza Vaccine Completed 02/16/2024, , 01/20/2021, Additional history exists Medical Devices Implanted Type Area Matrix Inspector Device Identifier Shelf Expiration Date Model / Serial / Lot Atricure Device Closure Atriclip Nitinol Titanium Polyester 45 D L45mm L6cm Flexible Shaft Plunger Bath Attendant Left Atrial Appendage Exclusion System [id number] - [id number] Implanted:Qty: 1 on 09/27/2023 by Andrew Calabrese MD at [facility] Clip N/A: Heart Atricure [id number] / / [employer] Valve Coronary Mitral Tissue Bioprosthesis Mitris Resilia 27mm [id number] - [id number] - [id number] Implanted:Qty: 1 on 09/27/2023 by Andrew Calabrese MD at [facility] Prosthetic Valve N/A: Heart [employer] 03/03/2027 [id number] / [id number] / Synthes Cable Bone Fixation Zipfix Stainless Steel 08.501.001.20s - [id number] Implanted:Qty: 3 on 09/27/2023 by Andrew Calabrese MD at [facility] Wire N/A: Sternum Synthes I 02/16/2027 08.501.0 01.20S / / [id number] [employer] Device Closure Vascade Od5 Fr Femoral Artery [id number] - [id number] Implanted:Qty: 1 on 08/23/2023 by June Oglesby MD at [facility] [employer] 04/28/2025 [id number] / / [id number] Procedures Procedure Name Priority Date/Time Associated Diagnosis Comments TRANSTHORACIC ECHO (TTE) COMPLETE W DOPPLER/CF WO CONTRAST Routine 08/03/2024 12:14 PM CDT H/O mitral valve replacement SCAN - LABS 07/21/2024 ELECTROCARDIOGRAM REPORT Routine 025 3:46 PM CDT Heart failure with preserved ejection fraction, unspecified HF chronicity (HCC) POCT LIPID PANEL Routine 07/17/2024 2:49 PM CDT Mixed hyperlipidemia SCAN - NEUROLOGY 06/14/2024 from Last 3 Months Results * TRANSTHORACIC ECHO (TTE) COMPLETE W DOPPLER/CF WO CONTRAST (08/03/2024 12:14 PM CDT) Anatomical Region Laterality Modality Ultrasound 08/03/2024 11:3 4 AM CDT Narrative 08/03/2024 1:01 PM CDT [facility]iology [address], [place] [address] [address] [facility] [address], [place] [address] P:[phone] P:[phone] Echocardiographic Report Patient Name: ELIAS LUIS S : 1965 Study Date: 08/03/2024 11:34:14 AM Gender: F Tech: [facility] Location: [facility] Provider: JUNE OGLESBY Height(Cm): 163 BSA: 1.74 Weight(Kg): 66.7 Heart Rate: 59 BP: 106 / 66 Quality: Good Order Provider: JUNE OGLESBY PROCEDURES: Echocardiographic Report: Transthoracic echocardiogram with complete 2D, M-Mode, and color Doppler examination. With Strain Analysis. INDICATIONS: Mitral Valve Replacement. MEASUREMENTS: 2D/MM Value Range Doppler Value Range EF Mod BP 56 % [ 54 - 74 ] LOKESH Vmax 2.22 cm2 [ 2.00 - 4.00 ] EF Teich MM 65 % [ 54 - 74 ] AV Mean PG 6 mmHg LVIDd 2D 4.32 cm [ 3.80 - 5.20 ] AV Peak Delroy 1.65 m/s [ 1.00 - 1.70 ] LVIDd MM 3.81 cm [ 3.80 - 5.20 ] AV Peak PG 11 mmHg LVIDs 2D 2.78 cm [ 2.20 - 3.50 ] AV VTI 34.83 cm LVIDs MM 2.48 cm [ 2.20 - 3.50 ] LVOT Diam 1.97 cm [ 1.70 - 2.10 ] LVPWd 2D 1.03 cm [ 0.60 - 0.90 ] LVOT Peak Delroy 1.20 m/s [ 0.70 - 1.10 ] LVPWd MM 0.87 cm [ 0.60 - 0.90 ] LVOT VTI 24.23 cm IVSd 2D 0.89 cm [ 0.60 - 0.90 ] MV E Peak Delroy 1.52 m/s [ 0.60 - 1.30 ] IVSd MM 0.98 cm [ 0.60 - 0.90 ] MV A Peak Delroy 1.29 m/s [ 1.00 - 1.20 ] LA Dimension 2D 3.36 cm [ 2.70 - 3.80 ] MV Mean PG 4 mmHg [ 0 - 5 ] LA Dimension MM 3.69 cm [ 2.70 - 3.80 ] MV PHT 147 msec [ 20 - 100 ] AoR Diam 2D 2.70 cm [ 2.70 - 3.70 ] MVA PHT 1.49 cm2 [ 2.00 - 4.00 ] AoR Diam MM 2.85 cm [ 2.70 - 3.70 ] MV Decel Time 504 msec [ 104 - 258 ] LA Volume Index 40 cc/m2 [ 16 - 34 ] PV Peak Delroy 0.63 m/s [ 0.40 - 0.80 ] TR Peak Delroy 2.26 m/s [ 1.00 - 2.80 ] TR Peak PG 21 mmHg RVSP 23.00 mmHg [ 10.00 - 36.00 ] Lateral E` 0.05 m/s [ 0.10 - 0.15 ] E` 0.03 m/s E/E` 29 2D/MM Value Range Doppler Value Range - FINDINGS: Interpretation Site: Exam was interpreted at [facility]. Left Ventricle: Ejection fraction is measured at 56 %. Global Longitudinal Strain is -14 %. The left ventricle is normal in size and systolic function. The left ventricular ejection fraction is visually estimated to be 55-60%. There are no regional wall motion abnormalities. Right Ventricle: Normal right ventricular size. Normal right ventricular systolic function. Left Atrium: There is mild enlargement of left atrium. Right Atrium: The right atrium is normal in size. Atrial Septum: Normal atrial septum. Mitral Valve: There is a well-seated bioprosthesis in the mitral position. The valve leaflets are seen opening well. There is no mitral regurgitation. Aortic Valve: The aortic valve is trileaflet and opens well. There is no aortic regurgitation. Tricuspid Valve: Estimated peak RVSP is 23 mmHg. The tricuspid valve is normal. There is mild tricuspid regurgitation. Pulmonic Valve: The pulmonic valve is normal. There is trace pulmonic valve regurgitation. Pericardium: Normal pericardium with no significant pericardial effusion. Aorta: The aortic root at the level of the sinus of Valsalva measures 2.7 cm in diameter. IVC: Normal size and normal respiratory collapse consistent with normal right atrial pressure (<5 mmHg). CONCLUSIONS: Ejection fraction is measured at 56 %. Global Longitudinal Strain is -14 %. The left ventricle is normal in size and systolic function. The left ventricular ejection fraction is visually estimated to be 55-60%. There are no regional wall motion abnormalities. There is a well-seated bioprosthesis in the mitral position. The valve leaflets are seen opening well. There is no mitral regurgitation. Electronically Signed By: Dr. Brayden Gross 08/03/2024 1:00:24 PM CDT Procedure Note Brayden Gross MD - 08/03/2024 [facility] Cardiology [address] [facility] [address], [place] [address] [address] [facility] [address], [place] [address] P:[phone] P:[phone] Echocardiographic Report Patient Name: ELIAS LUIS S : 1965 Study Date: 08/03/2024 11:34:14 AM Gender: F Tech: [facility] Location: [facility] Provider: JUNE OGLESBY Height(Cm): 163 BSA: 1.74 Weight(Kg): 66.7 Heart Rate: 59 BP: 106 / 66 Quality: Good Order Provider: JUNE OGLESBY PROCEDURES: Echocardiographic Report: Transthoracic echocardiogram with complete 2D, M-Mode, and color Dopplerexamination. With Strain Analysis. INDICATIONS: Mitral Valve Replacement. MEASUREMENTS: 2D/MM Value Range Doppler ValueRange EF Mod BP 56 % [ 54 - 74 ] LOKESH Vmax 2.22cm2 [ 2.00 - 4.00 ] EF Teich MM 65 % [ 54 - 74 ] AV Mean PG 6mmHg LVIDd 2D 4.32 cm [ 3.80 - 5.20 ] AV Peak Delroy 1.65m/s [ 1.00 - 1.70 ] LVIDd MM 3.81 cm [ 3.80 - 5.20 ] AV Peak PG 11mmHg LVIDs 2D 2.78 cm [ 2.20 - 3.50 ] AV VTI 34.83cm LVIDs MM 2.48 cm [ 2.20 - 3.50 ] LVOT Diam 1.97 cm[ 1.70 - 2.10 ] LVPWd 2D 1.03 cm [ 0.60 - 0.90 ] LVOT Peak Delroy 1.20m/s [ 0.70 - 1.10 ] LVPWd MM 0.87 cm [ 0.60 - 0.90 ] LVOT VTI 24.23cm IVSd 2D 0.89 cm [ 0.60 - 0.90 ] MV E Peak Delroy 1.52m/s [ 0.60 - 1.30 ] IVSd MM 0.98 cm [ 0.60 - 0.90 ] MV A Peak Delroy 1.29m/s [ 1.00 - 1.20 ] LA Dimension 2D 3.36 cm [ 2.70 - 3.80 ] MV Mean PG 4 mmHg[ 0 - 5 ] LA Dimension MM 3.69 cm [ 2.70 - 3.80 ] MV PHT 147msec [ 20 - 100 ] AoR Diam 2D 2.70 cm [ 2.70 - 3.70 ] MVA PHT 1.49cm2 [ 2.00 - 4.00 ] AoR Diam MM 2.85 cm [ 2.70 - 3.70 ] MV Decel Time 504msec [ 104 - 258 ] LA Volume Index 40 cc/m2 [ 16 - 34 ] PV Peak Delroy 0.63m/s [ 0.40 - 0.80 ] TR Peak Delroy 2.26 m/s [ 1.00 - 2.80 ] TR Peak PG 21 mmHg RVSP 23.00 mmHg [ 10.00 - 36.00 ] Lateral E` 0.05 m/s [ 0.10 - 0.15 ] E` 0.03 m/s E/E` 29 2D/MM Value Range Doppler ValueRange - FINDINGS: Interpretation Site: Exam was interpreted at [facility]. Left Ventricle: Ejection fraction is measured at 56 %. Global Longitudinal Strain is -14%. The left ventricle is normal in size and systolic function. The left ventricularejection fraction is visually estimated to be 55-60%. There are no regional wall motionabnormalities. Right Ventricle: Normal right ventricular size. Normal right ventricular systolicfunction. Left Atrium: There is mild enlargement of left atrium. Right Atrium: The right atrium is normal in size. Atrial Septum: Normal atrial septum. Mitral Valve: There is a well-seated bioprosthesis in the mitral position. The valveleaflets are seen opening well. There is no mitral regurgitation. Aortic Valve: The aortic valve is trileaflet and opens well. There is no aorticregurgitation. Tricuspid Valve: Estimated peak RVSP is 23 mmHg. The tricuspid valve is normal. There ismild tricuspid regurgitation. Pulmonic Valve: The pulmonic valve is normal. There is trace pulmonic valveregurgitation. Pericardium: Normal pericardium with no significant pericardial effusion. Aorta: The aortic root at the level of the sinus of Valsalva measures 2.7 cm indiameter. IVC: Normal size and normal respiratory collapse consistent with normal rightatrial pressure (<5 mmHg). CONCLUSIONS: Ejection fraction is measured at 56 %. Global Longitudinal Strain is -14%. The left ventricle is normal in size and systolic function. The left ventricularejection fraction is visually estimated to be 55-60%. There are no regional wall motionabnormalities. There is a well-seated bioprosthesis in the mitral position. The valveleaflets are seen opening well. There is no mitral regurgitation. Electronically Signed By: Dr. Brayden Gross 08/03/2024 1:00:24 PM CDT June Oglesby MD CV ECHO PROCEDURES F inal Result * SCAN - LABS (07/21/2024) us Provider Scanning Edited Result - Final * Electrocardiogram Report (07/17/2024 3:46 PM CDT) June Oglesby MD ECG ORDERABLES Niecy l Result * POCT lipid panel (07/17/2024 2:49 PM CDT) Cholesterol, POC N/A mg/dL Comment:GLU = 83 HDL, POC 27 mg/dL Triglycerides, POC 141 mg/dL LDL Cholesterol POC N/A mg/dL Chol/HDL Ratio, POC N/A Non-HDL Cholesterol, POC N/A mg/dL Cholesterol Total, POC N/A mg/dL Capillary blood 07/17/2024 2 :49 PM CDT June Oglesby MD POINT OF CARE TEST O RDERABLES Final Result * SCAN - NEUROLOGY (06/14/2024) Anatomical Region Laterality Modality Other Provider Scanning Final Result from Last 3 Months [place] [address] [facility] MEDICARE SUPPLEMENT MEDICARE [facility] MEDICARE SUPPLEMENT Advance Directives For more information, please contact: [phone] * LIMITED - No CPR (Latest Code [...] 2:29 PM 11/18/2017 8:13 PM Care Teams Fisher Trawl Line Relationship Specialty Start Date End Date Heather Carolina PA [address] [place] [place] [address] PCP - General Internal Medicine 12/24/20 [place] [address] [place] [address] Consulting Physician Internal Medicine 08/25/23 [place] [address] [place] [address] Consulting Physician Pulmonary Disease 10/04/23 Andrew Calabrese MD [address] [facility] [place] [id number] [place] [address] Surgeon Cardiothoracic Surgery 10/05/23 Cy Mcallister MD [address] [place] [address] Referring Physician Cardiovascular Disease 10/05/23 Delbert Sweeney MD [address] [place] [address] Consulting Physician Neurosurgery 03/20/24
--- OUTSIDE RECORDS SUMMARY | 2024-08-14 12:37 | XMS_ITS | Encounter Summary ---
Author Organization [facility] Healthcare Address [address] [place] [address] Care Team Providers Care Flatbed Owner Operator Name Role Phone Heather [place] Primary Care Provider [phone] Rony Hagan MD Unavailable [phone] Zulay Garland LPN Unavailable [phone] Ghanshyam Stringer MD Unavailable [phone] Andrew Calabrese MD Unavailable [phone] Cy Mcallister MD Unavailable [phone] Delbert Sweeney MD Unavailable [phone] Encounter Details Date Type Department Care Team (Late st Contact Info) Description 08/03/2023 Orders Only [facility] Health Information Management [address] [place] [address] Scanning, Provider Social History Tobacco Use [...] file Not on file 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 Not on file [...] on filedocumented in this encounter Care Teams Flatbed Owner Operator Relationship Specialty Start Date End Date Heather Carolina PA [address] [place] [address] PCP - General Internal Medicine 12/24/20 [place] [address] [place] [address] Consulting Physician Internal Medicine 08/25/23 Zulay Garland LPN [address] [facility] [address] [place] [address] Director Of The Biophysics Facility 09/27/23 11/22/23 [place] [address] [facility] [address] [place] [address] Consulting Physician Pulmonary Disease 10/04/23 Andrew Calabrese MD [address] [facility] [id number] [place] [address] Surgeon Cardiothoracic Surgery 10/05/23 Cy Mcallister MD [address] [facility] [address] [place] [address] Referring Physician Cardiovascular Disease 10/05/23 Delbert Sweeney MD [address] [place] [address] Consulting Physician Neurosurgery 03/20/24 documented as of this encounter
--- OUTSIDE RECORDS SUMMARY | 2024-08-14 12:37 | XMS_ITS | Encounter Summary ---
Author Organization [facility] Healthcare Address [address] [place] [address] Care Team Providers Care Spinneret Person Name Role Phone Heather Carolina Primary Care Provider [phone] Rony Hagan MD Unavailable [phone] Ghanshyam Stringer MD Unavailable [phone] Andrew Calabrese MD Unavailable [phone] Cy Mcallister MD Unavailable [phone] Delbert Sweeney MD Unavailable [phone] Encounter Details Date Type Department Care Team (Late st Contact Info) Description 07/21/2024 Orders Only [facility] [place] [facility] Health Information Management [address] [place] [address] Scanning, Provider Social History Tobacco Use Types Packs/Day Years Used Date Smoking Tobacco: Former Cigarettes 0.1 15 0 07/07/2007 - 07/06/2022 Smokeless Tobacco: Never Comments:5-10 cigaretts/day Alcohol Use Standard Drinks/Week Comments No 0 (1 standard drink = 0.6 oz pur e alcohol) [facility] Utilities Answer Date Recorded In the past 12 months has [employer], gas, oil, or water company threatened to [...] How often do you attend chur or hinduism services? Patient unable to answer 09/29/2023 Do [...] place to sleep or slept in a fdc (including now)? No 08/13/2023 PHQ-9 Answer Date [...] any time in the past 12 m [facility], were you homeless or living in a fdc (including now)? 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 on file Not on file documented as of this encounter Plan of Treatment Not on file documented as of this encounter Procedures Procedure Name Priority Date/Time Associated Diagnosis Comments SCAN - LABS 07/21/2024 documented in this encounter Results * SCAN - LABS (07/21/2024) us Provider Scanning Edited Result - Final documented in this encounter Visit Diagnoses Not on filedocumented in this encounter Care Teams Spinneret Person Relationship Specialty Start Date End Date Heather Carolina PA [address] [facility] [address] [facility] [address] [place] [address] PCP - General Internal Medicine 12/24/20 [place] [address] [place] [address] Consulting Physician Internal Medicine 08/25/23 [place] [address] [place] [address] Consulting Physician Pulmonary Disease 10/04/23 Andrew Calabrese MD [address] [facility] [id number] [place], [place] [address] Surgeon Cardiothoracic Surgery 10/05/23 Cy Mcallister MD [address] [place] [address] Referring Physician Cardiovascular Disease 10/05/23 Delbert Sweeney MD [address] [place], [place] [address] Consulting Physician Neurosurgery 03/20/24 documented as of this encounter
--- OUTSIDE RECORDS SUMMARY | 2024-08-14 12:37 | XMS_ITS | Referral Summary ---
Author Organization [facility] Address [address] [place] [address] Care Team Providers Care Tin Container Straightener Name Role Phone Heather Carolina Primary Care Provider [phone] Rony Hagan MD Unavailable [phone] Ghanshyam Stringer MD Unavailable Andrew Calabrese MD Unavailable [phone] Cy Mcallister MD Unavailable Delbert Sweeney MD Unavailable [phone] Encounters Date Type Department Care Team Description 08/08/2024 Results Follow-Up [facility] Medical Group Cardiology [address] [facility] [address] [place] [phone] June Oglesby MD 08/03/2024 11:15 AM CDT Ancillary Procedure [facility] Medical [facility] Cardiology [facility] [address] [place] [phone] H/O mitral valve replacement 07/21/2024 Orders Only [facility] Health Information Management [address] [place] [address] Scanning, Provider 07/17/2024 11:45 AM CDT Office Visit [facility] Medical Group Cardiology [address] [place] [address] [address] [place] [phone] June Oglesby MD H/O mitral valve replacement (Primary Dx); Heart failure with preserved ejection fraction, unspecified HF chronicity (HCC); Mixed hyperlipidemia; Dyspnea on exertion; History of endocarditis 07/03/2024 11:30 AM CDT Office Visit [address] [place] [phone] Heather Carolina PA Seizure disorder (HCC) (Primary Dx); 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; Mixed hyperlipidemia; Moderate episode of recurrent major depressive disorder (HCC); Stage 3b chronic kidney disease (HCC); BMI 25.0-25.9,adult 06/19/[address] [place] [phone] Heather Carolina PA 06/15/[address] [place] [phone] Heather Carolina PA ZULEYMA Questions 06/14/2024 Orders Only [facility] Health Information Management [address] [place] [address] Scanning, Provider 06/13/2024 8:00 AM MANAGER TRAINING AND DEVELOPMENT Office Visit [address] [place] [phone] Heather Carolina PA Seizure disorder (HCC) [...] of stroke; BMI 24.0-24.9, adult 06/12/[address] [place] [phone] Heather Carolina PA Appointment Request from [...] Neurology in a couple of weeks and [facility] for follow-up seizures. Assessment & Plan (06/25/2024 [...] arrived patient finally agreed to transport to [facility] for further evaluation. Will await their recommendation. Will go ahead and place a referral to Neurology as she will need to establish with a seizure specialist. Will follow up as she discharges home from [place] pending their recommendation. EMS arrived for transport. She was in stable condition when she left my office Hyperglycemia 04/02/2024 Assessment & Plan (06/25/2024 4:09 PM CDT): Check labs. Orders have been placed prior to this visit Assessment & Plan (04/02/2024 4:43 PM MANAGER TRAINING AND DEVELOPMENT): Pre-diabetes/hyperglycemia is a precursor to Dm. Stressed [...] levels Assessment & Plan (04/02/2024 4:43 PM MANAGER TRAINING AND DEVELOPMENT): Check labs BMI 24.0-24.9, adult 03/20/2024 Assessment & Plan (06/25/2024 4:11 PM CDT): Weight/BMI is in healthy range. Continue healthy lifestyle to maintain. Assessment & Plan (03/20/2024 1:29 PM MANAGER TRAINING AND DEVELOPMENT): Weight/BMI is in healthy range. Continue healthy [...] 06/20/2023 Assessment & Plan (04/02/2024 4:42 PM MANAGER TRAINING AND DEVELOPMENT): Hemoglobin is up from 8.7 11.6. Will [...] him sheet so she can get it [id number]. Advised this could be contributing to her [...] restarted Assessment & Plan (04/02/2024 4:42 PM MANAGER TRAINING AND DEVELOPMENT): Continue to supplement vitamin-D Assessment & Plan [...] statin. Assessment & Plan (03/15/2023 3:13 PM MANAGER TRAINING AND DEVELOPMENT): History of CVA. Continue with aspirin statin and controlled blood pressure. Insomnia 03/15/2023 Assessment & Plan (03/15/2023 3:13 PM MANAGER TRAINING AND DEVELOPMENT): Continue Remeron 15 mg Gastroesophageal reflux disease [...] p.r.n. Assessment & Plan (06/14/2022 5:50 PM MANAGER TRAINING AND DEVELOPMENT): Patient requests a prescription for the omeprazole. It is expensive [id number]. Will see if we can get it covered for her if not discussed good Rx or the [facility] sullivan malik Cigarette smoker 06/08/2022 Assessment & Plan (04/02/2024 4:40 PM MANAGER TRAINING AND DEVELOPMENT): I am unsure if patient has completely quit. At times she still says she will have 1 every once in awhile. Continue to encourage complete cessation Assessment & Plan (08/10/2023 6:43 PM CDT): Encouraged smoking cessation. Discussed 3 minutes. Reviewed options for assistance with cessation. Reviewed rn long term care sequela associated with smoking. Pt declines assistance at this time but may contact the office at anytime for further help as they desire. Assessment & Plan (07/08/2023 4:45 PM CDT): Encouraged smoking cessation. Discussed 3 minutes. Reviewed options for assistance with cessation. Reviewed rn long term care sequela associated with smoking. Pt declines assistance at this time but may contact the office at anytime for further help as they desire. Assessment & Plan (03/15/2023 3:10 PM MANAGER TRAINING AND DEVELOPMENT): Encouraged smoking cessation. Discussed 3 minutes. Reviewed options for assistance with cessation. Reviewed rn long term care sequela associated with smoking. Pt declines assistance at this time but may contact the office at anytime for further help as they desire. Assessment & Plan (08/16/2022 10:15 AM CDT): Encouraged smoking cessation. Discussed 3 minutes. Reviewed options for assistance with cessation. Reviewed group home sequela associated with smoking. Pt declines assistance [...] visit. Assessment & Plan (06/14/2022 5:50 PM MANAGER TRAINING AND DEVELOPMENT): Pt desires assistance with cessation. Discussed options [...] b.i.d. Assessment & Plan (04/02/2024 4:42 PM MANAGER TRAINING AND DEVELOPMENT): Bp is stable/in acceptable range for any [...] 5 Assessment & Plan (03/15/2023 3:11 PM MANAGER TRAINING AND DEVELOPMENT): Bp is stable/in acceptable range for any [...] 01/13/2021 Assessment & Plan (04/02/2024 4:40 PM MANAGER TRAINING AND DEVELOPMENT): Patient has osteo Pedia. She had difficulty [...] exercise Assessment & Plan (03/15/2023 3:11 PM MANAGER TRAINING AND DEVELOPMENT): Patient has osteoporosis. She refuses DEXA and [...] call the office and speak with my WINDOWS ARCHITECT. Her notice as follows Spoke to pt [...] 40 Assessment & Plan (04/02/2024 4:42 PM MANAGER TRAINING AND DEVELOPMENT): Encouraged patient to follow low fat/low chol [...] 40 Assessment & Plan (03/15/2023 3:12 PM MANAGER TRAINING AND DEVELOPMENT): Encouraged patient to follow low fat/low chol [...] screening Assessment & Plan (03/15/2023 3:12 PM MANAGER TRAINING AND DEVELOPMENT): Patient refuses mammogram. Reviewed importance of early [...] screening. Assessment & Plan (03/15/2023 3:12 PM MANAGER TRAINING AND DEVELOPMENT): Patient refuses colonoscopy. Reviewed importance of early [...] . Assessment & Plan (04/02/2024 4:42 PM MANAGER TRAINING AND DEVELOPMENT): 2018----> history of multifocal strokes (left frontal, [...] & Plan (09/23/2023 12:28 PM CDT): MOCA 1330. Impulsive behaviors. Assessment & Plan (08/10/2023 6:41 PM CDT): Patient has persistent residual cognitive effects as a late effects of a stroke. She is followed with Neurology at [facility] in has been offered cognitive rehab which [...] overwhelmed. She has followed with Neurology at [facility]. We have both offered multiple times cognitive therapy and she is declined. 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 My WINDOWS ARCHITECT was able to correct the medication issues [...] type of therapy that is available at [facility]. She states she cannot get to [facility] she does not have anyone to help [...] labs. Assessment & Plan (04/02/2024 4:41 PM MANAGER TRAINING AND DEVELOPMENT): Avoid nephrotoxic drugs including NSAIDs. Monitor labs. [...] labs. Assessment & Plan (03/15/2023 3:10 PM MANAGER TRAINING AND DEVELOPMENT): Avoid nephrotoxic drugs including NSAIDs. Monitor labs. [...] though she has psychiatric evaluations while at [facility] as well as at [facility]. Today she comes in and is on Seroquel 25 mg HS. Try to evaluate her depression and she denies any depression symptoms. Encouraged her brother to keep a close eye on symptoms and call if there are any problems. Assessment & Plan (03/15/2023 3:12 PM MANAGER TRAINING AND DEVELOPMENT): Patient has anxiety. She also has difficulty [...] stable. Assessment & Plan (04/02/2024 4:41 PM MANAGER TRAINING AND DEVELOPMENT): Symptoms are stable with the Remeron 15. Assessment & Plan (11/21/2023 9:11 PM CDT): Patient with known depression anxiety. She has been on Remeron in the past prior to hospitalization. It appears as though she has psychiatric evaluations while at [facility] as well as at [facility]. Today she comes in and [...] mg Assessment & Plan (03/16/2021 10:46 PM MANAGER TRAINING AND DEVELOPMENT): Her depression anxiety seem a little bit [...] (02/14/2019 9:05 PM CDT): EMG done at [facility]. Showed ulnar neuropathy. Prefers to see Ortho in [place]. Hemiparesis affecting right side as late effect of stroke 12/23/2017 Assessment & Plan (04/02/2024 4:41 PM MANAGER TRAINING AND DEVELOPMENT): Hemiparesis affecting the right side. She declines [...] 06/25/2024 Assessment & Plan (04/02/2024 4:43 PM MANAGER TRAINING AND DEVELOPMENT): Encouraged healthy lifestyle, good nutrition and exercise. Encouraged Calcium and Vitamin D and weight bearing exercise for bone health. Reviewed immunizations. Reviewed age appropirate screenings. Medicare Wellness Documentation is completed within the chart Fatigue 01/23/2024 06/25/2024 Assessment & Plan (04/02/2024 4:42 PM MANAGER TRAINING AND DEVELOPMENT): Probably multifactorial. Check labs and followup to [...] stable, surgical intervention planned for 09/26 at [facility]. Pre-op orders placed. ASA does not need [...] will have preoperative evaluation on 09/19 at [facility], then plan for surgical intervention on 09/27/2023 [...] to get it done today at the [facility] up the road. Reminded her she [...] 24 Assessment & Plan (03/15/2023 2:13 PM MANAGER TRAINING AND DEVELOPMENT): Weight/BMI is in healthy range. Continue healthy [...] 023 Assessment & Plan (06/08/2022 10:20 AM MANAGER TRAINING AND DEVELOPMENT): Weight/BMI is in healthy range. Continue healthy [...] labs Assessment & Plan (03/15/2023 3:13 PM MANAGER TRAINING AND DEVELOPMENT): Check labs Assessment & Plan (11/16/2021 2:50 PM CDT): Check labs Fatigue 11/16/2021 08/10/2023 Assessment & Plan (07/08/2023 5:04 PM CDT): Probably multifactorial. Check labs and followup to re-evaluate Assessment & Plan (07/08/2023 4:45 PM CDT): Probably multifactorial. Check labs and followup to re-evaluate Assessment & Plan (03/15/2023 3:13 PM MANAGER TRAINING AND DEVELOPMENT): Probably multifactorial. Check labs and followup to [...] 22 Assessment & Plan (02/27/2021 1:38 PM MANAGER TRAINING AND DEVELOPMENT): Weight/BMI is in healthy range. Continue healthy [...] 04/02/2024 Assessment & Plan (03/15/2023 3:12 PM MANAGER TRAINING AND DEVELOPMENT): Assessment & Plan (11/16/2021 2:50 PM CDT): Continue levothyroxine. Monitor labs. Assessment & Plan (01/13/2021 9:34 PM CDT): ? History of subclinical hyperthyroid. Recheck labs. Annual physical exam 01/13/2021 024 Assessment & Plan (03/15/2023 3:12 PM MANAGER TRAINING AND DEVELOPMENT): Encouraged healthy lifestyle, good nutrition and exercise. [...] drink = 0.6 oz pur e alcohol) [facility] Utilities Answer Date Recorded In the past 12 months has th e [employer], gas, oil, or water [employer] threatened to shut off services in your [...] How often do you attend chur or caodaism services? Patient unable to answer 09/29/2023 Do you belong to any clubs o r organizations such as latter day groups, unions, fraternal or athletic groups, or [...] in a prison (including now)? 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 Not on file Last Filed Vital Signs Vital Sign Reading Time Taken Comments Blood Pressure 106/66 07/17/2024 11:31 AM CDT Pulse 50 07/17/2024 11:31 AM CDT Temperature 36.5 C (97.7 F) 07/03/2024 11:35 AM CDT Respiratory Rate 19 03/01/2024 1:40 PM MANAGER TRAINING AND DEVELOPMENT Oxygen Saturation 95% 07/17/2024 11:31 AM CDT Inhaled Oxygen Concentration - - Weight 66.9 kg (147 lb 6.4 oz) 07/17/2024 11:31 AM CDT Height 162.6 cm (5' 4 ) 07/17/2024 11:31 AM CDT Body Mass Index 25.3 07/17/2024 11:31 AM CDT Plan of Treatment Not on file Medical Devices Implanted Type Area Rn Wound Device Identifier Shelf Expiration Date Model / Serial / Lot Atricure Device Closure Atriclip Nitinol Titanium Polyester 45 D L45mm L6cm Flexible Shaft Plunger Senior Corporate Strategy Manager Left Atrial Appendage Exclusion System [id number] - [id number] Implanted:Qty: 1 on 09/27/2023 by Andrew Calabrese MD at [facility] Clip N/A: Heart Atricure [id number] / / [employer] Valve Coronary Mitral Tissue Bioprosthesis Mitris Resilia 27mm [id number] - [id number] - [id number] Implanted:Qty: 1 on 09/27/2023 by Andrew Calabrese MD at [facility] Prosthetic Valve N/A: Heart [employer] 03/03/2027 [id number] / [id number] / Synthes Cable Bone Fixation Zipfix Stainless Steel 08.501.001.20s - [id number] Implanted:Qty: 3 on 09/27/2023 by Andrew Calabrese MD at [facility] Wire N/A: Sternum Synthes I 02/16/2027 08.501.0 01.20S / / [id number] [facility] Device Closure Vascade Od5 Fr Femoral Artery [id number] - [id number] Implanted:Qty: 1 on 08/23/2023 by June Oglesby MD at [facility] [employer] Software 04/28/2025 [id number] / / [id number] Procedures Procedure Name Priority Date/Time Associated [...] AM CDT Narrative 08/03/2024 1:01 PM CDT [facility] Medical Group Cardiology [address], [place] [address] [address], [place] [address] P:[phone] P:[phone] Echocardiographic Report Patient Name: ELIAS LUIS S : 1965 Study Date: 08/03/2024 11:34:14 AM Gender: F Tech: [facility] Location: [facility] Provider: JUNE OGLESBY Height(Cm): 163 BSA: 1.74 [...] FINDINGS: Interpretation Site: Exam was interpreted at [facility]. Left Ventricle: Ejection fraction is measured at [...] Procedure Note Brayden Gross MD - 08/03/2024 [facility] Medical Group Cardiology [address] [facility] [address], [place] [address] [facility] [address], [place], [place] [address] [phone] P:[phone] Echocardiographic Report Patient Name: ELIAS LUIS S : 1965 Study Date: 08/03/2024 11:34:14 AM Gender: F Tech: [facility] Location: [facility] Provider: JUNE OGLESBY Height(Cm): 163 BSA: 1.74 [...] FINDINGS: Interpretation Site: Exam was interpreted at [facility]. Left Ventricle: Ejection fraction is measured at [...] Dr. Brayden Gross 08/03/2024 1:00:24 PM CDT us June Oglesby MD CV ECHO PROCEDURES F inal Result * SCAN - LABS (07/21/2024) us Provider Scanning Edited Result - Final * Electrocardiogram Report (07/17/2024 3:46 PM CDT) us June Oglesby MD ECG ORDERABLES Niecy l [...] Result from Last [address] [facility] MEDICARE SUPPLEMENT MEDICARE [facility] Address: [address] [place] [id number] [facility] MEDICARE SUPPLEMENT Advance Directives For more information, please contact: [phone] * LIMITED - No CPR (Latest Code [...] 2:29 PM 11/18/2017 8:13 PM Care Teams Tin Container Straightener Relationship Specialty Start Date End Date Heather Carolina PA [address] [facility] [address] [place] [address] PCP - General Internal Medicine 12/24/20 [place] [address] [place] [address] Consulting Physician Internal Medicine 08/25/23 [place] [address] [address] [facility] [address] [place] [address] Consulting Physician Pulmonary Disease 10/04/23 Andrew Calabrese MD [address] [facility] [place] [place] [address]233[address]08-18 [place], [place] [id number] Surgeon Cardiothoracic Surgery 10/05/23 Cy Mcallister MD [address] [facility] [address] [place], [place] [phone] Referring Physician Cardiovascular Disease 10/05/23 Delbert Sweeney MD [address] [place], [place] [id number] Consulting Physician Neurosurgery 03/20/24
--- OUTSIDE RECORDS SUMMARY | 2024-08-14 12:37 | XMS_ITS | Clinical Summary ---
Author Organization [facility] Address [address] [place] [address] Care Team Providers Care Automotive Consultant Name Role Phone Yesenia Dickinson MD Unavailable [phone] Allergies Active Allergy Reactions Criticality Noted Date [...] right side as late effect of stroke ([facility]) 12/23/2017 Immunizations Immunization Administration Dates Next Due Fluzone 6 Months+ [...] Every 5 Years 08/23/1993 Cervical Cancer Screening with HPV 08/23/1993 Mammogram Screening 2003 Pneumococcal Vaccine: 50+ Ye ars (1 of 1 - PCV) 08/23/2013 Zoster Vaccines (1 of 2) 08/23/2013 RSV Immunization or 60+ Years (1 - Risk 60-74 years 1-dose series) 2023 COVID-19 Vaccine (2 - 2023-2 5 season) 2023 06/25/2020 DTaP, Tdap and Td Vaccines ( 2 - Td or Tdap) 09/08/2026 09/08/2016 Meningococcal B Vaccine Aged Out No l onger eligible based on patient's age to complete this topic Meningococcal Vaccine Aged Out No thee home eligible based on patient's age to complete this topic RSV Immunizations Under 20 Months Aged Out No longer eligible based on patient's age to complete this topic Insurance [facility] Care Teams Automotive Consultant Relationship Specialty Start Date End Date Yesenia Dickinson MD [address] [address] NEUROLOGY 12/18/17
--- NOTE | 2024-08-14 12:51 | ED_ITS ---
HPI - Extremity Injury (Upper) General Chief Complaint: Extremity Injury, Upper <Bety Bah PA-C - Last Filed: 08/15/24 09:13> Stated Complaint: right arm injury <Bety Bah PA-C - Last Filed: 08/15/24 09:13> Time Seen by Provider: 08/14/24 12:53 <Bety Bah PA-C - Last Filed: 08/15/24 09:13> Focused HPI: This is a 58 year old female that presents to the ER after a fall today with right arm injury. Reports she slipped and fell down about 6 stairs. She did not hit her head or lose consciousness. Reports pain to the right elbow and wrist. Denies any other injuries or focal areas of pain. GENERAL: Well-appearing, well-nourished, uncomfortable HEAD: Normocephalic, atraumatic. CHEST: Clear to auscultation. ?No respiratory distress. HEART: Regular rate and rhythm.? NEURO: ?Alert and oriented x3. Patient screened in triage and initial orders placed.? ?Additional care and disposition to be based upon?diagnostic testing and treatment. <Bety Bah PA-C - Last Filed: 08/15/24 09:13> History of Present Illness HPI narrative: I agree with the above HPI <Lobo Wright MD - Last Filed: 08/14/24 21:30> Related Data Home Medications: Home Medications ?Medication ?Instructions ?Recorded ?Confirmed ?Last Taken ?Type atorvastatin 40 mg tablet 40 mg PO DAILY 05/26/23 06/13/24 06/12/24 History metoprolol tartrate 25 mg tablet 12.5 mg PO BID 06/13/24 06/13/24 06/12/24 History pantoprazole 20 mg tablet,delayed 40 mg PO DAILY 06/21/24 Unknown History release <Bety Bah PA-C - Last Filed: 08/15/24 09:13> Allergies/Adverse Reactions: Allergies Allergy/AdvReac Type Severity Reaction Status Date / Time Sulfa (Sulfonamide Allergy Unknown Unknown Verified 08/14/24 13:07 Antibiotics) hydrocodone (From [place]) AdvReac Unknown Verified 08/14/24 13:07 <Bety Bah PA-C - Last Filed: 08/15/24 09:13> Review of Systems Review of Systems: All systems reviewed & are unremarkable except as noted in HPI and below <Lobo Wright MD - Last Filed: 08/14/24 21:30> [facility] Past Medical History Medical History: Medical History CVA (cerebral vascular accident) left occipital lobe x1, left frontal lobe x1, left insula x1, left parietal lobe x1, right parietal lobe x1 per head CT 05/2024 Migraines Anemia Bipolar disorder BRI (generalized anxiety disorder) Severe mitral regurgitation CHF (congestive heart failure) Echo, 07/2023: Hyperdynamic systolic function, estimated EF greater than 70%, grade 2 diastolic dysfunction. Mild pulmonary HTN. MVP (mitral valve prolapse) Endocarditis of mitral valve GERD (gastroesophageal reflux disease) Pulmonary embolism Intermediate probability on PPI, July 2023 Depression Wrist fracture, right DDD (degenerative disc disease) Arthritis IBS (irritable bowel syndrome) Ulcer HTN (hypertension) Hyperlipidemia Seasonal allergies Wears glasses <Bety Bah PA-C - Last Filed: 08/15/24 09:13> Surgical History Surgical History: Surgical History History of hysteroscopy History of appendectomy Hx of tonsillectomy <Bety Bah PA-C - Last Filed: 08/15/24 09:13> Family History Family History: Family History Father Diabetes mellitus Acute myocardial infarction Lung cancer Mother Dementia <Bety Bah PA-C - Last Filed: 08/15/24 09:13> Social History Social History: Social History Smoking packs per day: 0.5 Smoking cigarettes per day: 10.0 Years smoked: 35 Smoking pack-years: 17.50 Smoking status: Never smoker Tobacco type: cigarettes Alcohol intake: never Substance use: never Substance use type: does not use Do You Feel Safe in your Home?: Yes Lack of Transportation: No Lack of Food: Never True Current Housing: I Have Housing Concerned About Future Housing: No Difficulty Paying Gas/Electric Bills: No Difficulty Paying for Meds: No Currently Unemployed: No Education: High School Diploma/GED Difficulty w/ Childcare or Family Care: No Spiritual care concerns: No Agree to blood products: Yes <Bety Bah PA-C - Last Filed: 08/15/24 09:13> Exam Narrative: APPEARANCE: Uncomfortable HEAD: normocephalic, atraumatic. EYES: PERRLA/EOMI, conjunctivae clear. NOSE: Normal no drainage EARS:TMS clear with good light reflex. THROAT: Pharynx clear, no exudate. NECK: Supple. No adenopathy, no masses. RESPIRATORY: Airway patent, respirations nonlabored. Clear to auscultation bilaterally, no rales, rhonchi, wheezing. CARDIOVASCULAR: Regular rate and rhythm without murmurs rubs or gallops. ABDOMINAL: Soft, nontender, nondistended, normal bowel sounds MUSCULOSKELETAL: Tenderness to right wrist with small contusion, tenderness to right elbow with limited range of motion, no pain or tenderness to right shoulder NEURO: Alert. Cranial nerves II through XII intact. Good gait. Good coordination SKIN: Warm, dry. Normal Color <Lobo Wright MD - Last Filed: 08/14/24 21:30> Course Vital Signs Vital signs: Vital Signs Temperature 97.6 F 08/14/24 11:00 Pulse Rate 90 08/14/24 11:00 Respiratory Rate 18 08/14/24 11:00 Blood Pressure 118/70 08/14/24 11:00 Pulse Oximetry 100 08/14/24 11:00 Oxygen Delivery Room Air 08/14/24 11:00 Temperature 98.7 F 08/14/24 17:51 Pulse Rate 79 08/14/24 17:51 Respiratory Rate 18 08/14/24 17:51 Blood Pressure 130/70 08/14/24 17:51 Pulse Oximetry 100 08/14/24 17:51 Oxygen Delivery Room Air 08/14/24 11:00 <Bety Bah PA-C - Last Filed: 08/15/24 09:13> Vital Signs Temperature 97.6 F 08/14/24 11:00 Pulse Rate 90 08/14/24 11:00 Respiratory Rate 18 08/14/24 11:00 Blood Pressure 118/70 08/14/24 11:00 Pulse Oximetry 100 08/14/24 11:00 Oxygen Delivery Room Air 08/14/24 11:00 Temperature 98.7 F 08/14/24 17:51 Pulse Rate 79 08/14/24 17:51 Respiratory Rate 18 08/14/24 17:51 Blood Pressure 130/70 08/14/24 17:51 Pulse Oximetry 100 08/14/24 17:51 Oxygen Delivery Room Air 08/14/24 11:00 <Lobo Wright MD - Last Filed: 08/14/24 21:30> MDM - Extremity Injury (Upper) MDM Narrative Medical decision making narrative: Case was discussed with our orthopedic surgeon and they felt due to the severity of the fracture they recommended transfer to a tertiary care center. Patient does prefer to go to [place]. Patient states she lives alone is unable to care for herself in this condition. Case was discussed with the ED attending and patient was accepted as a level 3 trauma to [place]. Patient family updated the results of the workup need for transfer and transfer plan. <Lobo Wright MD - Last Filed: 08/14/24 21:30> Differential Diagnosis Differential diagnosis: Likely sprain and strain of wrist, fracture of wrist, dislocation of shoulder and fracture of humerus <Lobo Wright MD - Last Filed: 08/14/24 21:30> Imaging Data Radiologist's impression: Impressions Elbow X-Ray 08/14/24 15:04 IMPRESSION: 1. Intra-articular fracture of the distal right humerus with lateral displacement and 90 degree lateral rotation of the medial condylar fragment. Wrist X-Ray 08/14/24 15:12 IMPRESSION: 1. Old healed internally fixed distal radial fracture and chronic nonunited ulnar styloid avulsion fracture. No acute osseous abnormality. <Lobo Wright MD - Last Filed: 08/14/24 21:30> Critical Care Time Critical Care Time Critical Care Time: No <Bety Bah PA-C - Last Filed: 08/15/24 09:13> Discharge Plan Discharge Clinical Impression: Fracture of distal end of humerus Qualifiers: Encounter type: initial encounter Fracture type: closed Fracture morphology: unspecified fracture morphology Laterality: right Qualified Code(s): S42.401A - Unspecified fracture of lower end of right humerus, initial encounter for closed fracture <Bety Bah PA-C - Last Filed: 08/15/24 09:13> Patient Disposition: Acute Care Hospital <Bety Bah PA-C - Last Filed: 08/15/24 09:13> Condition: Serious <Bety Bah PA-C - Last Filed: 08/15/24 09:13> Patient Language: Greenlandic <Bety Bah PA-C - Last Filed: 08/15/24 09:13> Prescriptions: No Action levetiracetam 750 mg tablet 750 mg PO Q12H Qty: 180 4RF atorvastatin 40 mg tablet 40 mg PO DAILY metoprolol tartrate 25 mg tablet 12.5 mg PO BID pantoprazole 20 mg tablet,delayed release (DR/EC) 40 mg PO DAILY <Bety Bah PA-C - Last Filed: 08/15/24 09:13> Follow-up/Referrals: Caity,IKER Romero [Primary Care Provider] - <Bety Bah PA-C - Last Filed: 08/15/24 09:13>
[2024-08-14] MEDS: ACETAMINOPHEN 500 MG TABLET 1000 MG PO (13:18)
--- NOTE | 2024-08-14 13:41 | PC.NURSE ---
patient ambulated to the bathroom after getting a sling to help immobilize right arm.
[2024-08-14] MEDS: HYDROmorphone HCL INJ (*CRX) 2 MG/ML VIAL 0.5 MG IV PUSH (14:06)
[2024-08-14 14:10] VITALS: BP 113/71; PULSE 81; RESP 20; TEMP 36.8; O2SAT 100
--- OUTSIDE RECORDS SUMMARY | 2024-08-14 14:53 | XMS_ITS | Encounter Summary ---
Author Organization [facility] Healthcare Address [address] [place] [address] Care Team Providers Care Steam Box Operator Name Role Phone Heather Carolina Primary Care Provider [phone] Rony Hagan MD Unavailable [phone] Ghanshyam Stringer MD Unavailable [phone] Andrew Calabrese MD Unavailable [phone] Cy Mcallister MD Unavailable [phone] Delbert Sweeney MD Unavailable [phone] Encounter Details Date Type Department Care Team (Late st Contact Info) Description 06/14/2024 Orders Only [facility] Information Management [address] [place] [address] Scanning, Provider Social History Tobacco Use Types Packs/Day Years Used Date Smoking Tobacco: Former Cigarettes 0.1 15 0 07/07/2007 - 07/06/2022 Smokeless Tobacco: Never Comments:5-10 cigaretts/day Alcohol Use Standard Drinks/Week Comments No 0 (1 standard drink = 0.6 oz pur e alcohol) [facility] Utilities Answer Date Recorded In the past 12 months has [employer], gas, oil, or water company threatened to [...] How often do you attend chur or advent services? 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 Not on file [...] on filedocumented in this encounter Care Teams Steam Box Operator Relationship Specialty Start Date End Date Heather Carolina PA [address] [facility] [address] [place] [address] PCP - General Internal Medicine 12/24/20 [place] [address] [place] [address] Consulting Physician Internal Medicine 08/25/23 [place] [address] [place] [address] Consulting Physician Pulmonary Disease 10/04/23 Andrew Calabrese MD [address] [facility] [id number] [place], [place] [id number] Surgeon Cardiothoracic Surgery 10/05/23 Cy Mcallister MD [address] [place] [address] Referring Physician Cardiovascular Disease 10/05/23 Delbert Sweeney MD [address] [place] [address] Consulting Physician Neurosurgery 03/20/24 documented as of this encounter
--- OUTSIDE RECORDS SUMMARY | 2024-08-14 14:53 | XMS_ITS | Encounter Summary ---
Author Organization [facility] Healthcare Address [address] [place] [address] Care Team Providers Care Supplier Quality Name Role Phone Heather Carolina Primary Care Provider [phone] Rony Hagan MD Unavailable [phone] Zulay Garland LPN Unavailable [phone] Ghanshyam Stringer MD Unavailable [phone] Andrew Calabrese MD Unavailable [phone] Cy Mcallister MD Unavailable [phone] Delbert Sweeney MD Unavailable [phone] Encounter Details Date Type Department Care Team (Late st Contact Info) Description 08/03/2023 Orders Only [facility] Health Information Management [address] [place] [id number] Scanning, Provider Social History Tobacco Use [...] file Not on file 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 [address] [place] [address] PCP - General Internal Medicine 12/24/20 [place] [address] [place] [address] Consulting Physician Internal Medicine 08/25/23 Zulay Garland LPN [address] [facility] [address] [place] [address] Neck Pinner 09/27/23 11/22/23 [place] [address] [facility] [address] [place] [address] Consulting Physician Pulmonary Disease 10/04/23 Andrew Calabrese MD [address] [facility] [id number] [place] [address] Surgeon Cardiothoracic Surgery 10/05/23 Cy Mcallister MD [address] [facility] [address] [place] [address] Referring Physician Cardiovascular Disease 10/05/23 Delbert Sweeney MD [address] [place] [address] Consulting Physician Neurosurgery 03/20/24 documented as of this encounter
--- OUTSIDE RECORDS SUMMARY | 2024-08-14 14:53 | XMS_ITS | Referral Summary ---
Author Organization [facility] Address [address] [place] [address] Care Team Providers Care Manager Ship Name Role Phone Heather Carolina Primary Care Provider [phone] Rony Hagan MD Unavailable [phone] Ghanshyam Stringer MD Unavailable Andrew Calabrese MD Unavailable [phone] Cy Mcallister MD Unavailable Delbert Sweeney MD Unavailable Encounters Date Type Department Care Team Description 08/08/2024 Results Follow-Up [facility] Card[facility] [address] [facility] [address] [place] [phone] June Oglesby MD 08/03/2024 11:15 AM CDT Ancillary Procedure [facility] Cardiology [facility] [address] [place] [phone] H/O mitral valve replacement 07/21/2024 Orders Only [facility] [address] [place] [address] Scanning, Provider 07/17/2024 11:45 AM CDT Office Visit [facility] Cardiology [address] [place] [address] [address] [place] [phone] June Oglesby MD H/O mitral valve replacement (Primary Dx); Heart failure with preserved ejection fraction, unspecified HF chronicity (HCC); Mixed hyperlipidemia; Dyspnea on exertion; History of endocarditis 07/03/2024 11:30 AM CDT Office Visit [address] [place] [phone] Heather Carolina PA Seizure disorder (HCC) (Primary Dx); 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; Mixed hyperlipidemia; Moderate episode of recurrent major depressive disorder (HCC); Stage 3b chronic kidney disease (HCC); BMI 25.0-25.9,adult 06/19/[address] [place] [phone] Heather Carolina PA 06/15/[address] [place] [phone] Heather Carolina PA ZULEYMA Questions 06/14/2024 Orders Only [facility] Information Management [address] [place] [address] Scanning, Provider 06/13/2024 8:00 AM BADGER DISTILLER OPERATOR Office Visit [address] [place] [phone] Heather Carolina PA Seizure disorder (HCC) [...] of stroke; BMI 24.0-24.9, adult 06/12/[address] [place] [phone] Heather Carolina PA Appointment Request from [...] Neurology in a couple of weeks and [facility] for follow-up seizures. Assessment & Plan (06/25/2024 [...] arrived patient finally agreed to transport to [facility] for further evaluation. Will await their recommendation. Will go ahead and place a referral to Neurology as she will need to establish with a seizure specialist. Will follow up as she discharges home from [facility] pending their recommendation. EMS arrived for transport. She was in stable condition when she left my office Hyperglycemia 04/02/2024 Assessment & Plan (06/25/2024 4:09 PM CDT): Check labs. Orders have been placed prior to this visit Assessment & Plan (04/02/2024 4:43 PM BADGER DISTILLER OPERATOR): Pre-diabetes/hyperglycemia is a precursor to Dm. Stressed [...] levels Assessment & Plan (04/02/2024 4:43 PM BADGER DISTILLER OPERATOR): Check labs BMI 24.0-24.9, adult 03/20/2024 Assessment & Plan (06/25/2024 4:11 PM CDT): Weight/BMI is in healthy range. Continue healthy lifestyle to maintain. Assessment & Plan (03/20/2024 1:29 PM BADGER DISTILLER OPERATOR): Weight/BMI is in healthy range. Continue healthy [...] 06/20/2023 Assessment & Plan (04/02/2024 4:42 PM BADGER DISTILLER OPERATOR): Hemoglobin is up from 8.7 11.6. Will [...] him sheet so she can get it [id number]. Advised this could be contributing to her [...] restarted Assessment & Plan (04/02/2024 4:42 PM BADGER DISTILLER OPERATOR): Continue to supplement vitamin-D Assessment & Plan [...] statin. Assessment & Plan (03/15/2023 3:13 PM BADGER DISTILLER OPERATOR): History of CVA. Continue with aspirin statin and controlled blood pressure. Insomnia 03/15/2023 Assessment & Plan (03/15/2023 3:13 PM BADGER DISTILLER OPERATOR): Continue Remeron 15 mg Gastroesophageal reflux disease [...] p.r.n. Assessment & Plan (06/14/2022 5:50 PM BADGER DISTILLER OPERATOR): Patient requests a prescription for the omeprazole. It is expensive [id number]. Will see if we can get it covered for her if not discussed good Rx or the [facility]ullivan [facility]ik Cigarette smoker 06/08/2022 Assessment & Plan (04/02/2024 4:40 PM BADGER DISTILLER OPERATOR): I am unsure if patient has completely quit. At times she still says she will have 1 every once in awhile. Continue to encourage complete cessation Assessment & Plan (08/10/2023 6:43 PM CDT): Encouraged smoking cessation. Discussed 3 minutes. Reviewed options for assistance with cessation. Reviewed manager intermediate sequela associated with smoking. Pt declines assistance at this time but may contact the office at anytime for further help as they desire. Assessment & Plan (07/08/2023 4:45 PM CDT): Encouraged smoking cessation. Discussed 3 minutes. Reviewed options for assistance with cessation. Reviewed manager intermediate sequela associated with smoking. Pt declines assistance at this time but may contact the office at anytime for further help as they desire. Assessment & Plan (03/15/2023 3:10 PM BADGER DISTILLER OPERATOR): Encouraged smoking cessation. Discussed 3 minutes. Reviewed options for assistance with cessation. Reviewed manager intermediate sequela associated with smoking. Pt declines assistance at this time but may contact the office at anytime for further help as they desire. Assessment & Plan (08/16/2022 10:15 AM CDT): Encouraged smoking cessation. Discussed 3 minutes. Reviewed options for assistance with cessation. Reviewed custodial sequela associated with smoking. Pt declines assistance [...] visit. Assessment & Plan (06/14/2022 5:50 PM BADGER DISTILLER OPERATOR): Pt desires assistance with cessation. Discussed options [...] b.i.d. Assessment & Plan (04/02/2024 4:42 PM BADGER DISTILLER OPERATOR): Bp is stable/in acceptable range for any [...] 5 Assessment & Plan (03/15/2023 3:11 PM BADGER DISTILLER OPERATOR): Bp is stable/in acceptable range for any [...] 01/13/2021 Assessment & Plan (04/02/2024 4:40 PM BADGER DISTILLER OPERATOR): Patient has osteo Pedia. She had difficulty [...] exercise Assessment & Plan (03/15/2023 3:11 PM BADGER DISTILLER OPERATOR): Patient has osteoporosis. She refuses DEXA and [...] call the office and speak with my CALL OR CONTACT CENTRE COACH. Her notice as follows Spoke to pt [...] 40 Assessment & Plan (04/02/2024 4:42 PM BADGER DISTILLER OPERATOR): Encouraged patient to follow low fat/low chol [...] 40 Assessment & Plan (03/15/2023 3:12 PM BADGER DISTILLER OPERATOR): Encouraged patient to follow low fat/low chol [...] screening Assessment & Plan (03/15/2023 3:12 PM BADGER DISTILLER OPERATOR): Patient refuses mammogram. Reviewed importance of early [...] screening. Assessment & Plan (03/15/2023 3:12 PM BADGER DISTILLER OPERATOR): Patient refuses colonoscopy. Reviewed importance of early [...] . Assessment & Plan (04/02/2024 4:42 PM BADGER DISTILLER OPERATOR): 2018----> history of multifocal strokes (left frontal, [...] stroke. She is followed with Neurology at [facility] in has been offered cognitive rehab [...] overwhelmed. She has followed with Neurology at [facility]. We have both offered multiple times cognitive therapy and she is declined. 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 My CALL OR CONTACT CENTRE COACH was able to correct the medication issues [...] this as the services are only in [place]. Assessment & Plan (08/10/2021 3:57 PM CDT): [...] type of therapy that is available at [facility]. She states she cannot get to [facility] she does not have anyone to help with reds. Discussed with her utilizing liver service or medical card and initially extremely hesitant to even consider but provided the idea of maybe doing a new bur with a friend go over to [place] and have dinner and then come back so that she can practice doing it to see if she feels more comfortable in utilizing that type of service. She was encouraged by that thought and will give it a try. When she feels comfortable considering the referral to [place] she will give us a call so [...] labs. Assessment & Plan (04/02/2024 4:41 PM BADGER DISTILLER OPERATOR): Avoid nephrotoxic drugs including NSAIDs. Monitor labs. [...] labs. Assessment & Plan (03/15/2023 3:10 PM BADGER DISTILLER OPERATOR): Avoid nephrotoxic drugs including NSAIDs. Monitor labs. [...] though she has psychiatric evaluations while at [facility] as well as at [facility]. Today she comes in and is on Seroquel 25 mg HS. Try to evaluate her depression and she denies any depression symptoms. Encouraged her brother to keep a close eye on symptoms and call if there are any problems. Assessment & Plan (03/15/2023 3:12 PM BADGER DISTILLER OPERATOR): Patient has anxiety. She also has difficulty [...] stable. Assessment & Plan (04/02/2024 4:41 PM BADGER DISTILLER OPERATOR): Symptoms are stable with the Remeron 15. Assessment & Plan (11/21/2023 9:11 PM CDT): Patient with known depression anxiety. She has been on Remeron in the past prior to hospitalization. It appears as though she has psychiatric evaluations while at [facility] as well as at [facility]. Today she comes in and is [...] mg Assessment & Plan (03/16/2021 10:46 PM BADGER DISTILLER OPERATOR): Her depression anxiety seem a little bit [...] (02/14/2019 9:05 PM CDT): EMG done at [facility]. Showed ulnar neuropathy. Prefers to see Ortho in [place]. Hemiparesis affecting right side as late effect of stroke 12/23/2017 Assessment & Plan (04/02/2024 4:41 PM BADGER DISTILLER OPERATOR): Hemiparesis affecting the right side. She declines [...] 06/25/2024 Assessment & Plan (04/02/2024 4:43 PM BADGER DISTILLER OPERATOR): Encouraged healthy lifestyle, good nutrition and exercise. Encouraged Calcium and Vitamin D and weight bearing exercise for bone health. Reviewed immunizations. Reviewed age appropirate screenings. Medicare Wellness Documentation is completed within the chart Fatigue 01/23/2024 06/25/2024 Assessment & Plan (04/02/2024 4:42 PM BADGER DISTILLER OPERATOR): Probably multifactorial. Check labs and followup to [...] stable, surgical intervention planned for 09/26 at [facility]. Pre-op orders placed. ASA does not need [...] will have preoperative evaluation on 09/19 at [facility], then plan for surgical intervention on [...] get it done today at the [facility] up the road. Reminded her [...] 24 Assessment & Plan (03/15/2023 2:13 PM BADGER DISTILLER OPERATOR): Weight/BMI is in healthy range. Continue healthy [...] 023 Assessment & Plan (06/08/2022 10:20 AM BADGER DISTILLER OPERATOR): Weight/BMI is in healthy range. Continue healthy [...] labs Assessment & Plan (03/15/2023 3:13 PM BADGER DISTILLER OPERATOR): Check labs Assessment & Plan (11/16/2021 2:50 PM CDT): Check labs Fatigue 11/16/2021 08/10/2023 Assessment & Plan (07/08/2023 5:04 PM CDT): Probably multifactorial. Check labs and followup to re-evaluate Assessment & Plan (07/08/2023 4:45 PM CDT): Probably multifactorial. Check labs and followup to re-evaluate Assessment & Plan (03/15/2023 3:13 PM BADGER DISTILLER OPERATOR): Probably multifactorial. Check labs and followup to [...] 22 Assessment & Plan (02/27/2021 1:38 PM BADGER DISTILLER OPERATOR): Weight/BMI is in healthy range. Continue healthy [...] 04/02/2024 Assessment & Plan (03/15/2023 3:12 PM BADGER DISTILLER OPERATOR): Assessment & Plan (11/16/2021 2:50 PM CDT): Continue levothyroxine. Monitor labs. Assessment & Plan (01/13/2021 9:34 PM CDT): ? History of subclinical hyperthyroid. Recheck labs. Annual physical exam 01/13/2021 024 Assessment & Plan (03/15/2023 3:12 PM BADGER DISTILLER OPERATOR): Encouraged healthy lifestyle, good nutrition and exercise. [...] vative Free, Intramuscular 02/16/2024 Influenza, Unspecified 04/19/2024(Deferred: Widla ent Refused) PPD TEST 09/08/2023,08/26/2023 Tdap 09/08/2016 Social History Tobacco Use Types Packs/Day Years Used Date Smoking Tobacco: Former Cigarettes 0.1 15 0 07/07/2007 - 07/06/2022 Smokeless Tobacco: Never Tobacco Cessation:Counseling Given: Not Answered Comments:5-10 cigaretts/day Alcohol Use Standard Drinks/Week Comments No 0 (1 standard drink = 0.6 oz pur e alcohol) [facility] Utilities Answer Date Recorded In the past 12 months has th e [facility], gas, oil, or water [employer] threatened to shut off services in your [...] How often do you attend chur or presybeterian services? Patient unable to answer 09/29/2023 Do [...] place to sleep or slept in a halfway (including now)? No 08/13/2023 PHQ-9 Answer Date [...] were you homeless or living in a halfway (including now)? 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 file Not on file Not on file Last Filed Vital Signs Vital Sign Reading Time Taken Comments Blood Pressure 106/66 07/17/2024 11:31 AM CDT Pulse 50 07/17/2024 11:31 AM CDT Temperature 36.5 C (97.7 F) 07/03/2024 11:35 AM CDT Respiratory Rate 19 03/01/2024 1:40 PM BADGER DISTILLER OPERATOR Oxygen Saturation 95% 07/17/2024 11:31 AM CDT Inhaled Oxygen Concentration - - Weight 66.9 kg (147 lb 6.4 oz) 07/17/2024 11:31 AM CDT Height 162.6 cm (5' 4 ) 07/17/2024 11:31 AM CDT Body Mass Index 25.3 07/17/2024 11:31 AM CDT Plan of Treatment Not on file Medical Devices Implanted Type Area Ortho Rn Device Identifier Shelf Expiration Date Model / Serial / Lot Atricure Device Closure Atriclip Nitinol Titanium Polyester 45 D L45mm L6cm Flexible Shaft Plunger Associate Drafter Left Atrial Appendage Exclusion System [id number] - [id number] Implanted:Qty: 1 on 09/27/2023 by Andrew Calabrese MD at [facility] Clip N/A: Heart Atricure [id number] / / [employer] Valve Coronary Mitral Tissue Bioprosthesis Mitris Resilia 27mm [id number] - [id number] - [id number] Implanted:Qty: 1 on 09/27/2023 by Andrew Calabrese MD at [facility] Prosthetic Valve N/A: Heart [employer] 03/03/2027 [id number] / [id number] / Synthes Cable Bone Fixation Zipfix Stainless Steel 08.501.001.20s - [id number] Implanted:Qty: 3 on 09/27/2023 by Andrew Calabrese MD at [facility] Wire N/A: Sternum Synthes I 02/16/2027 08.501.0 01.20S / / [id number] [employer] [facility] Device Closure Vascade Od5 Fr Femoral Artery [id number] - [id number] Implanted:Qty: 1 on 08/23/2023 by June Oglesby MD at [facility] Group [employer] 04/28/2025 [id number] / / [id number] Procedures Procedure Name Priority Date/Time Associated [...] AM CDT Narrative 08/03/2024 1:01 PM CDT [facility] Cardiology [address], [place] [address] [address], [place] [address] P:[phone] P:[phone] Echocardiographic Report Patient Name: ELIAS LUIS S : 1965 Study Date: 08/03/2024 11:34:14 AM Gender: F Tech: [facility] Location: [facility] Provider: JUNE OGLESBY Height(Cm): 163 BSA: [...] [ 16 - 34 ] PV Peak Delryo 0.63 m/s [ 0.40 - 0.80 ] TR Peak Delroy 2.26 m/s [ 1.00 - 2.80 ] TR Peak PG 21 mmHg RVSP 23.00 mmHg [ 10.00 - 36.00 ] Lateral E` 0.05 m/s [ 0.10 - 0.15 ] E` 0.03 m/s E/E` 29 2D/MM Value Range Doppler Value Range - FINDINGS: Interpretation Site: Exam was interpreted at [facility]. Left Ventricle: Ejection fraction is measured [...] Procedure Note Brayden Gross MD - 08/03/2024 [facility] Cardiology [address] [facility] [address], [place] [address] [address] [facility] [address] [place] [address] P:[phone] P:[phone] Echocardiographic Report Patient Name: ELIAS LUIS S : 1965 Study Date: 08/03/2024 11:34:14 AM Gender: F Tech: [facility] Location: [facility] Provider: JUNE OGLESBY Height(Cm): 163 BSA: [...] FINDINGS: Interpretation Site: Exam was interpreted at [facility]. Left Ventricle: Ejection fraction is measured [...] Result from Last 3 Months Insurance MEDICARE [facility] MEDICARE SUPPLEMENT MEDICARE [facility] MEDICARE SUPPLEMENT Advance Directives For more information, please contact: [phone] * LIMITED - No CPR (Latest Code [...] 2:29 PM 11/18/2017 8:13 PM Care Teams Manager Ship Relationship Specialty Start Date End Date Heather Carolina PA [address] [facility] [address] [place] [address] PCP - General Internal Medicine 12/24/20 [place] [address] [place] [address] Consulting Physician Internal Medicine 08/25/23 [place] [address] [address] [facility] [address] [place] [address] Consulting Physician Pulmonary Disease 10/04/23 Andrew Calabrese MD [address] [facility] [id number] [place], [place] [phone] Surgeon Cardiothoracic Surgery 10/05/23 Cy Mcallister MD [address] [facility] [address] [place], [place] [phone] Referring Physician Cardiovascular Disease 10/05/23 Delbert Sweeney MD [address] [place], [place] [id number] Consulting Physician Neurosurgery 03/20/24
--- OUTSIDE RECORDS SUMMARY | 2024-08-14 14:53 | XMS_ITS | Clinical Summary ---
Author Organization [facility] Address [address] [place] [address] Care Team Providers Care Auto Finance Sales Rep Name Role Phone Heather Carolina Primary Care Provider [phone] Rony Hagan MD Unavailable [phone] Ghanshyam Stringer MD Unavailable [phone] Andrew Calabrese MD Unavailable [phone] Cy Mcallister MD Unavailable [phone] Delbert Sweeney MD Unavailable Allergies Active Allergy [...] Neurology in a couple of weeks and [facility] for follow-up seizures. Assessment & [...] arrived patient finally agreed to transport to [facility] for further evaluation. Will await their recommendation. Will go ahead and place a referral to Neurology as she will need to establish with a seizure specialist. Will follow up as she discharges home from [place] pending their recommendation. EMS arrived for transport. She was in stable condition when she left my office Hyperglycemia 04/02/2024 Assessment & Plan (06/25/2024 4:09 PM CDT): Check labs. Orders have been placed prior to this visit Assessment & Plan (04/02/2024 4:43 PM SECRETARY BOARD OF COMMISSIONERS): Pre-diabetes/hyperglycemia is a precursor to Dm. Stressed [...] levels Assessment & Plan (04/02/2024 4:43 PM SECRETARY BOARD OF COMMISSIONERS): Check labs BMI 24.0-24.9, adult 03/20/2024 Assessment & Plan (06/25/2024 4:11 PM CDT): Weight/BMI is in healthy range. Continue healthy lifestyle to maintain. Assessment & Plan (03/20/2024 1:29 PM SECRETARY BOARD OF COMMISSIONERS): Weight/BMI is in healthy range. Continue healthy [...] 06/20/2023 Assessment & Plan (04/02/2024 4:42 PM SECRETARY BOARD OF COMMISSIONERS): Hemoglobin is up from 8.7 11.6. Will [...] him sheet so she can get it [id number]. Advised this could be contributing to her [...] restarted Assessment & Plan (04/02/2024 4:42 PM SECRETARY BOARD OF COMMISSIONERS): Continue to supplement vitamin-D Assessment & Plan [...] statin. Assessment & Plan (03/15/2023 3:13 PM SECRETARY BOARD OF COMMISSIONERS): History of CVA. Continue with aspirin statin and controlled blood pressure. Insomnia 03/15/2023 Assessment & Plan (03/15/2023 3:13 PM SECRETARY BOARD OF COMMISSIONERS): Continue Remeron 15 mg Gastroesophageal reflux disease [...] p.r.n. Assessment & Plan (06/14/2022 5:50 PM SECRETARY BOARD OF COMMISSIONERS): Patient requests a prescription for the omeprazole. It is expensive [id number]. Will see if we can get it covered for her if not discussed good Rx or the [facility] [place] [employer]ullivan malik Cigarette smoker 06/08/2022 Assessment & Plan (04/02/2024 4:40 PM SECRETARY BOARD OF COMMISSIONERS): I am unsure if patient has completely quit. At times she still says she will have 1 every once in awhile. Continue to encourage complete cessation Assessment & Plan (08/10/2023 6:43 PM CDT): Encouraged smoking cessation. Discussed 3 minutes. Reviewed options for assistance with cessation. Reviewed superintendent terminal sequela associated with smoking. Pt declines assistance at this time but may contact the office at anytime for further help as they desire. Assessment & Plan (07/08/2023 4:45 PM CDT): Encouraged smoking cessation. Discussed 3 minutes. Reviewed options for assistance with cessation. Reviewed usp sequela associated with smoking. Pt declines assistance at this time but may contact the office at anytime for further help as they desire. Assessment & Plan (03/15/2023 3:10 PM SECRETARY BOARD OF COMMISSIONERS): Encouraged smoking cessation. Discussed 3 minutes. Reviewed options for assistance with cessation. Reviewed usp sequela associated with smoking. Pt declines assistance at this time but may contact the office at anytime for further help as they desire. Assessment & Plan (08/16/2022 10:15 AM CDT): Encouraged smoking cessation. Discussed 3 minutes. Reviewed options for assistance with cessation. Reviewed superintendent terminal sequela associated with smoking. Pt declines assistance [...] visit. Assessment & Plan (06/14/2022 5:50 PM SECRETARY BOARD OF COMMISSIONERS): Pt desires assistance with cessation. Discussed options [...] b.i.d. Assessment & Plan (04/02/2024 4:42 PM SECRETARY BOARD OF COMMISSIONERS): Bp is stable/in acceptable range for any [...] 5 Assessment & Plan (03/15/2023 3:11 PM SECRETARY BOARD OF COMMISSIONERS): Bp is stable/in acceptable range for any [...] 01/13/2021 Assessment & Plan (04/02/2024 4:40 PM SECRETARY BOARD OF COMMISSIONERS): Patient has osteo Pedia. She had difficulty [...] exercise Assessment & Plan (03/15/2023 3:11 PM SECRETARY BOARD OF COMMISSIONERS): Patient has osteoporosis. She refuses DEXA and [...] call the office and speak with my NETWORK CONTROL TECHNICIAN. Her notice as follows Spoke to pt [...] 40 Assessment & Plan (04/02/2024 4:42 PM SECRETARY BOARD OF COMMISSIONERS): Encouraged patient to follow low fat/low chol [...] 40 Assessment & Plan (03/15/2023 3:12 PM SECRETARY BOARD OF COMMISSIONERS): Encouraged patient to follow low fat/low chol [...] screening Assessment & Plan (03/15/2023 3:12 PM SECRETARY BOARD OF COMMISSIONERS): Patient refuses mammogram. Reviewed importance of early [...] screening. Assessment & Plan (03/15/2023 3:12 PM SECRETARY BOARD OF COMMISSIONERS): Patient refuses colonoscopy. Reviewed importance of early [...] . Assessment & Plan (04/02/2024 4:42 PM SECRETARY BOARD OF COMMISSIONERS): 2018----> history of multifocal strokes (left frontal, [...] stroke. She is followed with Neurology at [facility] in has been offered cognitive rehab which [...] overwhelmed. She has followed with Neurology at [facility]. We have both offered multiple times cognitive therapy and she is declined. 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 My NETWORK CONTROL TECHNICIAN was able to correct the medication issues [...] this as the services are only in [place]. Assessment & Plan (08/10/2021 3:57 PM CDT): [...] type of therapy that is available at [facility]. She states she cannot get to [facility] she does not have anyone to help with reds. Discussed with her utilizing liver service or medical card and initially extremely hesitant to even consider but provided the idea of maybe doing a new bur with a friend go over to [place] and have dinner and then come back so that she can practice doing it to see if she feels more comfortable in utilizing that type of service. She was encouraged by that thought and will give it a try. When she feels comfortable considering the referral to [place] she will give us a call so [...] labs. Assessment & Plan (04/02/2024 4:41 PM SECRETARY BOARD OF COMMISSIONERS): Avoid nephrotoxic drugs including NSAIDs. Monitor labs. [...] labs. Assessment & Plan (03/15/2023 3:10 PM SECRETARY BOARD OF COMMISSIONERS): Avoid nephrotoxic drugs including NSAIDs. Monitor labs. [...] she has psychiatric evaluations while at [facility] [place] as well as at [facility]. Today she comes in and is on Seroquel 25 mg HS. Try to evaluate her depression and she denies any depression symptoms. Encouraged her brother to keep a close eye on symptoms and call if there are any problems. Assessment & Plan (03/15/2023 3:12 PM SECRETARY BOARD OF COMMISSIONERS): Patient has anxiety. She also has difficulty [...] stable. Assessment & Plan (04/02/2024 4:41 PM SECRETARY BOARD OF COMMISSIONERS): Symptoms are stable with the Remeron 15. Assessment & Plan (11/21/2023 9:11 PM CDT): Patient with known depression anxiety. She has been on Remeron in the past prior to hospitalization. It appears as though she has psychiatric evaluations while at [facility] [place] as well as at [facility]. Today she comes in and [...] mg Assessment & Plan (03/16/2021 10:46 PM SECRETARY BOARD OF COMMISSIONERS): Her depression anxiety seem a little bit [...] (02/14/2019 9:05 PM CDT): EMG done at [place]. Showed ulnar neuropathy. Prefers to see Ortho in [place]. Hemiparesis affecting right side as late effect of stroke 12/23/2017 Assessment & Plan (04/02/2024 4:41 PM SECRETARY BOARD OF COMMISSIONERS): Hemiparesis affecting the right side. She declines [...] 06/25/2024 Assessment & Plan (04/02/2024 4:43 PM SECRETARY BOARD OF COMMISSIONERS): Encouraged healthy lifestyle, good nutrition and exercise. Encouraged Calcium and Vitamin D and weight bearing exercise for bone health. Reviewed immunizations. Reviewed age appropirate screenings. Medicare Wellness Documentation is completed within the chart Fatigue 01/23/2024 06/25/2024 Assessment & Plan (04/02/2024 4:42 PM SECRETARY BOARD OF COMMISSIONERS): Probably multifactorial. Check labs and followup to [...] surgical intervention planned for 09/26 at [facility] [place]. Pre-op orders placed. [facility] does not need [...] will have preoperative evaluation on 09/19 at [facility], then plan for surgical intervention on [...] to get it done today at the [facility] up the road. Reminded her she [...] 24 Assessment & Plan (03/15/2023 2:13 PM SECRETARY BOARD OF COMMISSIONERS): Weight/BMI is in healthy range. Continue healthy [...] 023 Assessment & Plan (06/08/2022 10:20 AM SECRETARY BOARD OF COMMISSIONERS): Weight/BMI is in healthy range. Continue healthy [...] labs Assessment & Plan (03/15/2023 3:13 PM SECRETARY BOARD OF COMMISSIONERS): Check labs Assessment & Plan (11/16/2021 2:50 PM CDT): Check labs Fatigue 11/16/2021 08/10/2023 Assessment & Plan (07/08/2023 5:04 PM CDT): Probably multifactorial. Check labs and followup to re-evaluate Assessment & Plan (07/08/2023 4:45 PM CDT): Probably multifactorial. Check labs and followup to re-evaluate Assessment & Plan (03/15/2023 3:13 PM SECRETARY BOARD OF COMMISSIONERS): Probably multifactorial. Check labs and followup to [...] 22 Assessment & Plan (02/27/2021 1:38 PM SECRETARY BOARD OF COMMISSIONERS): Weight/BMI is in healthy range. Continue healthy [...] 04/02/2024 Assessment & Plan (03/15/2023 3:12 PM SECRETARY BOARD OF COMMISSIONERS): Assessment & Plan (11/16/2021 2:50 PM CDT): Continue levothyroxine. Monitor labs. Assessment & Plan (01/13/2021 9:34 PM CDT): ? History of subclinical hyperthyroid. Recheck labs. Annual physical exam 01/13/2021 024 Assessment & Plan (03/15/2023 3:12 PM SECRETARY BOARD OF COMMISSIONERS): Encouraged healthy lifestyle, good nutrition and exercise. [...] Department Care Team Description 08/08/2024 Results Follow-Up [facility] [address] [facility] [address] [place] [phone] June Oglesby MD 08/03/2024 11:15 AM CDT Ancillary Procedure [facility] [address] [place] [address] [address] [place] [phone] H/O mitral valve replacement 07/21/2024 Orders Only [facility] Health Information Management [address] [place] [address] Scanning, Provider 07/17/2024 11:45 AM CDT Office Visit [facility] [address] [facility] [address] [place] [phone] June Oglesby MD H/O mitral valve replacement (Primary Dx); Heart failure with preserved ejection fraction, unspecified HF chronicity (HCC); Mixed hyperlipidemia; Dyspnea on exertion; History of endocarditis 07/03/2024 11:30 AM CDT Office Visit [address] [place] [phone] Heather Carolina PA Seizure disorder (HCC) (Primary Dx); 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; Mixed hyperlipidemia; Moderate episode of recurrent major depressive disorder (HCC); Stage 3b chronic kidney disease (HCC); BMI 25.0-25.9,adult 06/19/[address] [place] [address] Heather Carolina PA 06/15/[address] [place] [address] Heather Carolina PA ZULEYMA Questions 06/14/2024 Orders Only [facility] Health Information Management [address] [place] [address] Scanning, Provider 06/13/2024 8:00 AM SECRETARY BOARD OF COMMISSIONERS Office Visit [facility] [address] [place] [address] [address] [place] [address] Heather Carolina PA Seizure disorder [...] of stroke; BMI 24.0-24.9, adult 06/12/[address] [place] [address] Heather Carolina PA Appointment Request [...] drink = 0.6 oz pur e alcohol) [facility] Utilities Answer Date Recorded In the [...] often do you attend chur ch or gnosticist services? Patient unable to answer 09/29/2023 Do you belong to any clubs o r organizations such as faith groups, unions, fraternal or athletic groups, or [...] to sleep or slept in a senior care (including now)? No 08/13/2023 PHQ-9 Answer Date [...] any time in the past 12 m [facility], were you homeless or living in a senior care (including now)? 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 Not on file Not on file Obstetrics History Last Filed Vital Signs Vital Sign Reading Time Taken Comments Blood Pressure 106/66 07/17/2024 11:31 AM CDT Pulse 50 07/17/2024 11:31 AM CDT Temperature 36.5 C (97.7 F) 07/03/2024 11:35 AM CDT Respiratory Rate 19 03/01/2024 1:40 PM SECRETARY BOARD OF COMMISSIONERS Oxygen Saturation 95% 07/17/2024 11:31 AM CDT [...] history exists Medical Devices Implanted Type Area Document Management Technician Device Identifier Shelf Expiration Date Model / Serial / Lot Atricure Device Closure Atriclip Nitinol Titanium Polyester 45 D L45mm L6cm Flexible Shaft Plunger Process Controller Left Atrial Appendage Exclusion System [id number] - [id number] Implanted:Qty: 1 on 09/27/2023 by Andrew Calabrese MD at [facility] Clip N/A: Heart Atricure [id number] / / [employer] Valve Coronary Mitral Tissue Bioprosthesis Mitris Resilia 27mm [id number] - [id number] - [id number] Implanted:Qty: 1 on 09/27/2023 by Andrew Calabrese MD at [facility] Prosthetic Valve N/A: Heart [employer] 03/03/2027 [id number] / [id number] / Synthes Cable Bone Fixation Zipfix Stainless Steel 08.501.001.20s - [id number] Implanted:Qty: 3 on 09/27/2023 by Andrew Calabrese MD at [facility] Wire N/A: Sternum Synthes I 02/16/2027 08.501.0 01.20S / / [id number] FP Complete Medical [employer] Device Closure Vascade Od5 Fr Femoral Artery [id number] - [id number] Implanted:Qty: 1 on 08/23/2023 by June Oglesby MD at [facility] FP Complete Medical Inc 04/28/2025 [id number] / / [id number] Procedures Procedure Name Priority Date/Time Associated [...] AM CDT Narrative 08/03/2024 1:01 PM CDT [facility] [address], [place] [address] [address] [facility] [address], [place] [address] P:[phone] P:[phone] Echocardiographic Report Patient Name: ELIAS LUIS S : 1965 Study Date: 08/03/2024 11:34:14 AM Gender: F Tech: [facility] Location: [facility] Provider: JUNE OGLESBY Height(Cm): 163 BSA: [...] FINDINGS: Interpretation Site: Exam was interpreted at [facility]. Left Ventricle: Ejection fraction is measured [...] Procedure Note Brayden Gross MD - 08/03/2024 [facility] [address] [facility] [address], [place] [address] [address] [facility] [address], [address], [place] [address] P:[phone] P:[phone] Echocardiographic Report Patient Name: ELIAS LUIS S : 1965 Study Date: 08/03/2024 11:34:14 AM Gender: F Tech: [facility] Location: [facility] Provider: JUNE OGLESBY Height(Cm): 163 BSA: [...] FINDINGS: Interpretation Site: Exam was interpreted at [facility]. Left Ventricle: Ejection fraction is measured [...] Result from Last 3 Months Insurance MEDICARE [facility] MEDICARE SUPPLEMENT MEDICARE [facility] MEDICARE SUPPLEMENT Advance Directives For more information, please contact: [phone] * LIMITED - No CPR (Latest Code [...] 2:29 PM 11/18/2017 8:13 PM Care Teams Auto Finance Sales Rep Relationship Specialty Start Date End Date Heather Carolina PA [address] [facility] [address] [place] [address] PCP - General Internal Medicine 12/24/20 [place] [address] [place] [address] Consulting Physician Internal Medicine 08/25/23 [place] [address] [place] [address] Consulting Physician Pulmonary Disease 10/04/23 Andrew Calabrese MD [address] [facility] [id number] [place] [address] Surgeon Cardiothoracic Surgery 10/05/23 Cy Mcallister MD [address] [place] [address] Referring Physician Cardiovascular Disease 10/05/23 Delbert Sweeney MD [address] [place] [address] Consulting Physician Neurosurgery 03/20/24
--- OUTSIDE RECORDS SUMMARY | 2024-08-14 14:53 | XMS_ITS | Clinical Summary ---
Author Organization [facility] Address [address] [place] [address] Care Team Providers Care Door Assembler Name Role Phone Yesenia Dickinson MD Unavailable [phone] Allergies Active Allergy Reactions Criticality Noted Date [...] right side as late effect of stroke ([facility]/HCC [facility]) 12/23/2017 Immunizations Immunization Administration Dates Next Due [...] patient's age to complete this topic Insurance [facility] Care Teams Door Assembler Relationship Specialty Start Date End Date Yesenia Dickinson MD [address] [address] NEUROLOGY 12/18/17
--- OUTSIDE RECORDS SUMMARY | 2024-08-14 14:53 | XMS_ITS | Encounter Summary ---
Author Organization [facility] Healthcare Address [address] [place] [address] Care Team Providers Care Slot Service Specialist Name Role Phone Heather Carolina Primary Care Provider [phone] Rony Hagan MD Unavailable [phone] Ghanshyam Stringer MD Unavailable [phone] Andrew Calabrese MD Unavailable Cy Mcallister MD Unavailable [phone] Delbert Sweeney MD Unavailable [phone] Encounter Details Date Type Department Care Team (Late st Contact Info) Description 07/21/2024 Orders Only [facility] Health Information Management [address] [place] [address] Scanning, Provider Social History Tobacco Use Types Packs/Day Years Used Date Smoking Tobacco: Former Cigarettes 0.1 15 0 07/07/2007 - 07/06/2022 Smokeless Tobacco: Never Comments:5-10 cigaretts/day Alcohol Use Standard Drinks/Week Comments No 0 (1 standard drink = 0.6 oz pur e alcohol) [facility] Utilities Answer Date Recorded In the past 12 months has [employer], gas, oil, or water company threatened to [...] How often do you attend chur or jew services? Patient unable to answer 09/29/2023 Do you belong to any clubs o r organizations such as shinto groups, unions, fraternal or athletic groups, or [...] place to sleep or slept in a nursing home (including now)? No 08/13/2023 PHQ-9 Answer Date [...] were you homeless or living in a nursing home (including now)? 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 Not on file [...] on filedocumented in this encounter Care Teams Slot Service Specialist Relationship Specialty Start Date End Date Heather Carolina PA [address] [facility] [address] [facility] [address] [place] [address] PCP - General Internal Medicine 12/24/20 [place] [address] [place] [address] Consulting Physician Internal Medicine 08/25/23 [place] [address] [place] [address] Consulting Physician Pulmonary Disease 10/04/23 Andrew Calabrese MD [address] [facility] [id number] [place], [place] [id number] Surgeon Cardiothoracic Surgery 10/05/23 Cy Mcallister MD [address] [place] [address] Referring Physician Cardiovascular Disease 10/05/23 Delbert Sweeney MD [address] [place], [place] [address] Consulting Physician Neurosurgery 03/20/24 documented as of this encounter
--- OUTSIDE RECORDS SUMMARY | 2024-08-14 14:53 | XMS_ITS | Encounter Summary ---
Author Organization [facility] Healthcare Address [address] [place] [address] Care Team Providers Care Auto Design Checker Name Role Phone Heather Carolina Primary Care Provider [phone] Rony Hagan MD Unavailable [phone] Ghanshyam Stringer MD Unavailable [phone] Andrew Calabrese MD Unavailable [phone] Cy Mcallister MD Unavailable [phone] Delbert Sweeney MD Unavailable [phone] Encounter Details Date Type Department Care Team (Late st Contact Info) Description 08/08/2024 Results Follow-Up [facility] [address] [place] [address] Rachael Oglesby MD [address] [place] [address] [id number] Social History Tobacco Use Types Packs/Day Years Used Date Smoking Tobacco: Former Cigarettes 0.1 15 0 07/07/2007 - 07/06/2022 Smokeless Tobacco: Never Comments:5-10 cigaretts/day Alcohol Use Standard Drinks/Week Comments No 0 (1 standard drink = 0.6 oz pur e alcohol) [facility] Utilities Answer Date Recorded In [...] often do you attend chur ch or worship services? Patient unable to answer 09/29/2023 Do you belong to any clubs o r organizations such as congregational groups, unions, fraternal or athletic groups, or [...] in a jail (including now)? 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 Not on file Not on file documented as of this encounter Plan of Treatment Not on file documented as of this encounter Visit Diagnoses Not on filedocumented in this encounter Care Teams Auto Design Checker Relationship Specialty Start Date End Date Heather Carolina PA [address] [facility] [address] [place] [address] PCP - General Internal Medicine 12/24/20 [place] [address] [place] [address] Consulting Physician Internal Medicine 08/25/23 [place] [address] [place] [address] Consulting Physician Pulmonary Disease 10/04/23 Andrew Calabrese MD [address] [facility] [id number] [place] [address] Surgeon Cardiothoracic Surgery 10/05/23 Cy Mcallister MD [address] [place] [address] Referring Physician Cardiovascular Disease 10/05/23 Delbert Sweeney MD [address] [place] [address] Consulting Physician Neurosurgery 03/20/24 documented as of this encounter
--- OUTSIDE RECORDS SUMMARY | 2024-08-14 14:53 | XMS_ITS | Encounter Summary ---
Author Organization [facility] Healthcare Address [address] [place] [address] Care Team Providers Care Draw End Hand Name Role Phone Heather Carolina Primary Care Provider [phone] Rony Hagan MD Unavailable [phone] Zulay Garland LPN Unavailable [phone] Ghanshyam Stringer MD Unavailable Andrew Calabrese MD Unavailable [phone] Cy Mcallister MD Unavailable [phone] Delbert Sweeney MD Unavailable Encounter Details Date Type Department Care Team (Late st Contact Info) Description 08/31/2023 Documentation [facility] Post Acute Care of [address] [id number] Tracey Powers, DO [address] [facility] [place] [address] Social History Tobacco Use Types Packs/Day Years Used Date Smoking Tobacco: Former Cigarettes 0.1 15 0 07/07/2007 - 07/06/2022 Smokeless Tobacco: Never Comments:5-10 cigaretts/day Alcohol Use Standard Drinks/Week Comments No 0 (1 standard drink = 0.6 oz pur e alcohol) [facility] Utilities Answer Date Recorded In the past 12 months has e Maya's Mom, gas, oil, or water company threatened to [...] you attend chur ch or adventist services? 1 to 4 times per year [...] place to sleep or slept in a usp (including now)? 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 Not on file Not on file documented as of this encounter Plan of Treatment Not on file documented as of this encounter Visit Diagnoses Not on filedocumented in this encounter Care Teams Draw End Hand Relationship Specialty Start Date End Date Heather Carolina PA [address] [facility] [address] [place] [address] PCP - General Internal Medicine 12/24/20 [place] [address] [place] [address] Consulting Physician Internal Medicine 08/25/23 Zulay Garland LPN [address] [place] [address] [address] [place] [address] Mill Representative 09/27/23 11/22/23 [place] [address] [address] [facility] [address] [place] [address] Consulting Physician Pulmonary Disease 10/04/23 Andrew Calabrese MD [address] [facility] [id number] [place], [place] [id number] Surgeon Cardiothoracic Surgery 10/05/23 Cy Mcallister MD [address] [facility] [address] [place] [address] Referring Physician Cardiovascular Disease 10/05/23 Delbert Sweeney MD [address] [place], [place] [id number] Consulting Physician Neurosurgery 03/20/24 documented as of this encounter
--- NOTE | 2024-08-14 16:16 | PC.NURSE ---
report called to [facility] at [address] denied any questions. ambulance transfer set up by community organization aide at this time with an ETA of [id number]
[2024-08-14] MEDS: levETIRAcetam Tablet 250 MG, levETIRAcetam Tablet 500 MG 750 MG PO (17:19)
[2024-08-14 17:51] VITALS: BP 130/70; PULSE 79; RESP 18; TEMP 37.1; O2SAT 100
== END 2024-08-14 17:07 | disposition short-term general hospital (02) ==
PROVIDERS: Emergency Provider Emergency Medicine; PCP Physician Assistant
DX: S42.491A Other displaced fracture of lower end of right humerus, initial encounter for closed fracture (principal); I50.9 Heart failure, unspecified; I11.0 Hypertensive heart disease with heart failure; I34.1 Nonrheumatic mitral (valve) prolapse; E78.5 Hyperlipidemia, unspecified; K21.9 Gastro-esophageal reflux disease without esophagitis; K58.9 Irritable bowel syndrome, unspecified; M19.90 Unspecified osteoarthritis, unspecified site; F41.1 Generalized anxiety disorder; F31.9 Bipolar disorder, unspecified; F17.210 Nicotine dependence, cigarettes, uncomplicated; Z86.711 Personal history of pulmonary embolism; Z86.73 Personal history of transient ischemic attack (TIA), and cerebral infarction without residual deficits; Z79.899 Other long term (current) drug therapy; W10.9XXA Fall (on) (from) unspecified stairs and steps, initial encounter
CPT/HCPCS: 73070; 73100; 96374; 99285; A4565; A9270; J1171